=== PATIENT | female | born 1945 | race Caucasian/White ===

== ENCOUNTER 2022-03-11 14:44 | Outpatient (REF) | payer MEDICARE, SELFPAY ==
--- NOTE | ~2022-03-11 | MM_ITS ---
EXAMINATION: MM DIAGNOSTIC DIGITAL BREAST TOMOSYNTHESIS, BILATERAL US DIAGNOSTIC ULTRASOUND BREAST, RIGHT CLINICAL INFORMATION: Subtle palpable finding noted by patient lower outer right breast. Subtle skin dimpling with change in arm position right breast noted by patient. Remote history right breast cancer, status post lumpectomy 2004. Due for yearly. Prior mammography 2018. COMPARISON: Mammography: 02/16/2018, 12/19/2014, 05/15/2014, 11/10/2013 TECHNIQUE: Digital breast tomosynthesis is performed in both the craniocaudal and mediolateral oblique views along with computer-aided detection (CAD). Synthesized 2D images are generated from the tomosynthesis. Additional views are obtained: Spot right CC, rolled right CC x2. Ultrasound right breast is targeted to the lower and outer quadrant. Patient is able to point to the area of concern at time of imaging. Grayscale imaging and color Doppler are performed without and with harmonics. Additional imaging right axilla are also performed. FINDINGS: There are scattered areas of fibroglandular density (ACR BI-RADS breast composition Category b). There are post therapy changes on the right with mild reduced breast size and old scarring with benign bulky dystrophic calcification posterior 12:30 o'clock position. There is subtle increased attenuation central outer right breast mid depth on CC tomography approximately 1 cm in size. This is also suggested on the right CC spot and right CC rolled views and representing change from prior exam 2018. The axilla and skin contours are unremarkable. Left breast is unremarkable. There is no interval mass or architectural abnormality or developing density. Neither breast shows abnormal calcifications. Ultrasound right breast demonstrates subtle irregular shaped hypoechoic area at 7:00-8:00 position measuring approximately 1.0 x 0.9 cm. There is some scant posterior shadowing. The location and shape appears similar to mammographic finding. Additional imaging right axilla demonstrates no lymphadenopathy. Results are discussed with the patient at time of visit. Ultrasound-guided core biopsy of the right breast lesion is recommended. MM/MM tomosynthesis diagnostic BI IMPRESSION: Right: -Subtle asymmetric density central outer right breast mid depth with probable ultrasound correlate. Left: -No mammographic evidence of malignancy. ASSESSMENT: BI-RADS 4: Suspicious RECOMMENDATION: Ultrasound-guided core biopsy right breast lesion. This patient's information was entered into a reminder system with a target due date for their next mammogram.
== END 2022-03-11 14:45 | disposition home or self-care (01) ==
LOC: HO.MAMMO 14:44
PROVIDERS: PCP Nurse Practitioner; Visit Provider Nurse Practitioner
DX: N64.89 Other specified disorders of breast (principal); Z85.3 Personal history of malignant neoplasm of breast
CPT/HCPCS: 76642; 77062; 77066

== ENCOUNTER 2022-03-16 10:14 | Outpatient (REF) | payer OTHER, SELFPAY ==
--- NOTE | ~2022-03-16 | MM_ITS ---
EXAMINATION: ULTRASOUND GUIDED CORE BIOPSY BREAST, RIGHT POST PROCEDURE DIGITAL MAMMOGRAM, RIGHT CLINICAL INFORMATION: Prior history right breast cancer, status post lumpectomy 2004. Patient notes palpable changes lower outer right breast. Subtle skin dimpling. Findings also noted on recent diagnostic breast imaging. Tissue sampling recommended. COMPARISON: Mammography 03/11/2022, 02/16/2018, targeted right breast ultrasound 03/11/2022. FINDINGS: Proper informed consent is obtained from the patient after discussion of the procedure, potential risks and complications, and alternatives. Patient was given an opportunity for questions. The patient appeared to understand. The patient consented to the procedure and signed the consent form. GUIDANCE: Ultrasound-guided; aseptic technique. LESION: Irregular hypoechoic lesion mid 8:00 right breast approximately 1 cm. APPROACH: Lateral medial. ANESTHESIA: 16 mL carbonated 1% lidocaine. DERMATOTOMY: Single skin momo dermatotomy performed. NEEDLE: 14-gauge Achieve core biopsy device with 13.5-gauge co-axial guide needle. CORES: 6. CLIP: HydroMARK; shape: open coil. POST PROCEDURE UNILATERAL DIGITAL MAMMOGRAM: The post biopsy mammogram is performed in separate room using separate digital mammography equipment from the biopsy procedure. CC and ML views are obtained. There are scattered areas of fibroglandular density (breast composition category: b). The clip marker is in position and corresponds to finding on recent diagnostic mammography. There is some old scarring and dystrophic calcification from remote prior lumpectomy again seen. No gross hematoma. The patient tolerated the procedure well. No immediate complications. Home instructions reviewed with the patient. Final pathology results are pending. MM/MM diagnostic mammo unilat RT IMPRESSION: 1. Status post ultrasound-guided core biopsy right breast. 2. Clip placed: HydroMARK; shape: open coil. 3. Pathology pending. An addendum report will be issued.
[2022-03-16] MEDS: Sodium Bicarbonate 8.4% 50 MEQ/50 ML VIAL SUBCUT (11:37)
[2022-03-16] MEDS: Lidocaine HCl 1 % 20 ML VIAL 15 ML SUBCUT (11:38)
== END 2022-03-16 10:15 | disposition home or self-care (01) ==
LOC: HO.MAMMO 10:14
PROVIDERS: PCP Nurse Practitioner; Visit Provider Surgery
DX: R92.8 Other abnormal and inconclusive findings on diagnostic imaging of breast (principal)
CPT/HCPCS: 19083; 77062; 77065; 88305; 88341; 88342; 88360; A4648

== ENCOUNTER → 2022-03-19 11:19 | Outpatient (BNVA) | payer OTHER, SELFPAY | PROVIDERS: PCP Nurse Practitioner; Referring Provider Nurse Practitioner; Visit Provider Surgery | DX: R92.8 Other abnormal and inconclusive findings on diagnostic imaging of breast (principal); C50.919 Malignant neoplasm of unspecified site of unspecified female breast | CPT/HCPCS: 99202 ==

== ENCOUNTER 2023-02-23 16:51 | Emergency (ER) | payer OTHER, SELFPAY ==
--- NOTE | 2023-02-23 | ECG_ITS ---
Test Reason : CP Blood Pressure : / mmHG Vent. Rate : 067 BPM Atrial Rate : 067 BPM P-R Int : 152 ms QRS Dur : 086 ms QT Int : 404 ms P-R-T Axes : 038 -33 000 degrees QTc Int : 426 ms Normal sinus rhythm Left axis deviation Abnormal ECG When compared with ECG of 31-OCT-2014 16:54, Right bundle branch block is no longer Present Referred By: Generic ED Physician Electronically Signed By:Joss Colbert
--- NOTE | ~2023-02-23 | XR_ITS ---
EXAMINATION: XR CHEST CLINICAL INFORMATION: Chest pain. COMPARISON: Chest radiograph 10/31/2014. TECHNIQUE: Frontal view of the chest was obtained. FINDINGS: New small left-sided pleural effusion with associated left lower lobe airspace opacities. Clear right lung. No pneumothorax. No significant cardiomediastinal contour abnormality. Surgical clips are noted in the right perihilar region, right axillary region and right upper quadrant. No acute osseous abnormalities. XR/XR chest 1V IMPRESSION: New small left-sided pleural effusion with associated left lower lobe airspace opacities which could represent compressive atelectasis, aspiration or pneumonia.
--- NOTE | ~2023-02-23 | CT_ITS ---
EXAMINATION: CT ANGIOGRAM OF THE CHEST WITH AND WITHOUT CONTRAST (CT PULMONARY ANGIOGRAM FOR PE) CLINICAL INFORMATION: Chest pain and shortness of breath. COMPARISON: Chest radiograph earlier today. TECHNIQUE: Prior to contrast administration, noncontrast localization images were obtained. Subsequently, multidetector volumetric imaging was performed from the thoracic inlet to below the diaphragms following the administration of 65 mL Omnipaque 350 intravenous contrast. No contrast reaction reported Sagittal, coronal, and MIP oblique sagittal reformatted images were obtained on the CT workstation, uploaded to PACS, and reviewed. This CT examination was performed using dose optimization techniques as appropriate, variously including the following: *Automated exposure control *Adjustment of mA and/or kV according to patient size (this includes techniques or standardized protocols for targeted exams where dose is matched to indication/reason for exam; i.e. extremities or head) *Use of iterative reconstruction technique Total exam dose-length product 194 mGy-cm FINDINGS: QUALITY OF STUDY/CONTRAST BOLUS: Satisfactory. PULMONARY ARTERIES: Pulmonary emboli within multiple segmental branches of the left lower lobe. THORACIC AORTA: No aneurysm. LUNG: Moderate-sized left-sided pleural effusion with airspace opacities in the adjacent left lower lobe, favored to represent compressive atelectasis. Background of emphysematous changes. Mild diffuse bronchial wall thickening. Central airways are patent. Scattered sub-3 mm pulmonary nodules, for instance in the right apex (7:93). Multiple calcified granulomas. PLEURA: As above, moderate size left-sided pleural effusion. No pneumothorax. MEDIASTINUM: Normal heart size. No pericardial effusion. No hilar or mediastinal lymphadenopathy. No evidence of septal bowing or right heart strain. CORONARY ARTERY CALCIFICATION: Coronary artery calcifications are noted. CHEST WALL/AXILLA: Right-sided mastectomy. No axillary lymphadenopathy. OSSEOUS STRUCTURES: Degenerative changes of the spine. No acute or aggressive appearing osseous abnormalities. UPPER ABDOMEN: Unremarkable. No reflux of contrast into the hepatic veins to suggest elevated right heart pressures. CT/CT angio chest PE protocol IMPRESSION: 1. Pulmonary emboli within multiple segmental branches of the left lower lobe. 2. No evidence of increased right-sided heart pressures. 3. Moderate-sized left-sided pleural effusion with adjacent airspace opacities, favored to represent compressive atelectasis. 4. Background of emphysematous changes and mild diffuse bronchial wall thickening suggesting small airways disease. 5. Sub-3 mm pulmonary nodules. In this patient with history of breast cancer Fleischner criteria do not applied, and a follow-up diagnostic chest CT is recommended for reevaluation. VTE: positive This critical result was discussed with Debra Zhou at 02/23/2023 9:18 PM and it was ascertained that the content and urgency of the report was understood at the time of direct communication.
[2023-02-23 16:57] VITALS: BP 100/70; BP 129/48; PULSE 69; PULSE 90; RESP 16; TEMP 36.8; O2SAT 97; BMI 29.2
[2023-02-23 18:09] LABS: MANUAL DIFF FLAG NO
[2023-02-23 18:12] LABS: Basophils Percent Auto 0.2 % (0-2); Eosinophils Absolute Auto 0.1 X10*3/uL (0.0-0.4); Eosinophils Percent Auto 1.9 % (0-4); Hemoglobin 11.1 g/dl (12.0-16.0); Imm Gran Abs Auto 0.02 X10*3/uL (0.00-0.03); Imm Gran Pct Auto 0.3 % (0.0-0.4); Lymphocytes Absolute Auto 1.4 X10*3/uL (1.2-4.9); Lymphocytes Percent Auto 24.1 % (20-40); Mean Corpuscular HGB Conc 32.6 g/dl (31.0-35.0); Mean Corpuscular Hemoglobin 30.1 pg (27.0-33.0); Mean Corpuscular Volume 92.1 fL (80.0-98.0); Mean Platelet Volume 8.8 fL (9.4-12.3); Monocytes Absolute Auto 0.5 X10*3/uL (0.1-1.2); Monocytes Percent Auto 8.4 % (2-11); Neutrophils Absolute Auto 3.7 x10*3/uL (2.0-8.3); Neutrophils Percent Auto 65.1 % (45-73); Platelet Count 269 X10*3/uL (160-400); Red Blood Count 3.69 X10*6/uL (4.20-5.50); Red Cell Distribution Width 13.4 % (11.0-16.0); White Blood Count 5.7 X10*3/uL (4.8-10.8)
[2023-02-23 18:23] LABS: INTERNATIONAL NORM RATIO 1.6 (0.9-1.1); Prothrombin Time 18.7 SEC (10.0-13.1)
[2023-02-23 18:27] LABS: Alanine Aminotransferase 12 U/L (0-31); Albumin Level 3.5 g/dL (3.5-5.0); Alkaline Phosphatase 88 U/L (39-117); Anion Gap 13 (12-20); Aspartate Amino Transferase 16 U/L (5-31); Bilirubin Total 0.8 mg/dL (0.0-1.0); Blood Urea Nitrogen 15 mg/dL (9-16); Calcium 8.5 mg/dL (8.4-10.2); Carbon Dioxide 24 mmol/L (22-29); Chloride 107 mmol/L (96-108); Creatinine Clr Calc Pharmacy 51.6; Estimated Glomerular Filt Rate > 60; Glucose Random 94 mg/dL (60-115); Magnesium 1.9 mg/dL (1.6-2.6); Potassium 3.9 mmol/L (3.3-5.1); Sodium 140 mmol/L (135-145); Total Protein 5.7 g/dL (6.5-8.0)
--- NOTE | 2023-02-23 18:30 | ED.CHESTPAIN ---
HPI - Chest Pain General Chief Complaint: Chest Pain Stated Complaint: Chest pain Time Seen by Provider: 02/23/23 17:52 Source: patient and EMS Mode of arrival: EMS Limitations: no limitations History of Present Illness HPI narrative: This is a 77-year-old female history of invasive ductal carcinoma of the breast, triple negative malignant neoplasm of breast status post bilateral lumpectomy, radiation and chemotherapy last chemo session about 2 months ago, presenting to the emergency department for evaluation of chest pain, shortness of breath progressively worsening over the past 2 weeks, patient tells me about a week ago she was diagnosed with a pulmonary embolism at [facility], they started her on p.o. Eliquis, despite this she has been having worsening chest pain, substernal in nature, fluctuates between a pressure and stabbing pain, nonradiating worse with deep breathing as well as shortness of breath both at rest and with exertion. Patient reports that this is the worst she has felt she reached out to her primary care provider who had her come to the emergency department by ambulance for evaluation. Patient also reports she has been having some wheezing and cough as well as a sore throat. Denies fevers, nausea, vomiting, abdominal pain, headache, vision changes, dizziness and weakness. Patient does report that about 3 weeks ago she had an oophorectomy done which they could not successfully finished due to large amount of adhesions, and shortly prior to that she had a mastectomy done. Related Data Home Medications Medication Instructions Recorded Confirmed cholecalciferol (vitamin D3) 50 1 cap PO DAILY 03/26/22 03/26/22 mcg (2,000 unit) capsule multivitamin 1 tab PO DAILY 03/26/22 03/26/22 zinc 50 mg tablet 50 mg PO DAILY 03/26/22 03/26/22 Previous Rx's Medication Instructions Recorded albuterol sulfate 90 mcg/actuation 2 inh inhalation Q4-6H PRN 02/23/23 breath activated powder inhaler shortness of breath or wheezing #1 ea doxycycline hyclate 100 mg capsule 100 mg PO BID 10 days #20 caps 02/23/23 prednisone 20 mg tablet 40 mg PO DAILY 5 days #10 tabs 02/23/23 Allergies Allergy/AdvReac Type Severity Reaction Status Date / Time Sulfa (Sulfonamide Allergy Severe DIFFICULTY Unverified 03/26/22 10:41 Antibiotics) BREATHING [SULFA (SULFONAMIDE ANTIBIOTICS)] Sulfa drugs Allergy Unknown Unknown Uncoded 03/26/22 10:41 Review of Systems Review of Systems: Constitutional : No Weight loss, No Fever, No Chills, No Fatigue, No Malaise ENT/Mouth : No sore throat, No Rhinorrhea Eyes: No Eye Pain, No Swelling, No Redness Cardiovascular : No Chest Pain, No SOB, No Dyspnea on Exertion, No Orthopnea, No Edema, No Palpitations Respiratory : No Cough, No Sputum, No Wheezing Gastrointestinal : No Nausea, No Vomiting, No Diarrhea, No Constipation, No abdominal Pain, No Hematochezia, No Melena Genitourinary : No Dysuria, No Urinary Frequency, No Hematuria, Musculoskeletal : No joint pain, No Myalgias, No Joint Swelling Skin : No Skin Lesions, No rash Neuro : No Weakness, No Numbness, No Dizziness, No Headache Psych : No Anxiety/Panic, No Depression All other systems reviewed and are negative Yes all other systems are reviewed and are negative PMFSH Past Medical History Attestation statement: The following information was validated with the patient. Source: old records reviewed and nursing notes reviewed Medical History Breast lesion on mammography Invasive ductal carcinoma of breast Surgical History History of right breast biopsy Family History Family History Mother Breast cancer Social History Social History Household Members: None Housing: Apartment Are you a primary home care associate to a significant other at home: No Do you presently have visiting nurse or other home services: No Alcohol intake: never Patient Tobacco Use Status: Never used Tobacco Smoked in Last 30 Days: No Use of substances other than those prescribed or required for medical reasons: No Advance Directives: No Advance Directives Information Provided: No service: No Current occupational status: employed and retired Physical Exam Vital Signs: Vital Signs: Last Vital Signs Temp 97.6 F 02/23/23 23:57 Pulse 70 02/23/23 23:57 Resp 20 02/23/23 23:57 BP 118/62 02/23/23 23:57 Pulse Ox 97 02/23/23 23:57 O2 Del Method Room Air 02/23/23 23:57 BMI result Body Mass Index 29.2 vss Appearance: Alert.? Oriented X3.? No acute distress.? Head: Normocephalic, atraumatic, no step-offs or deformities Eyes: Pupils equal, round and reactive to light.? ENT: Pharynx normal.? Neck: Normal inspection.? Neck supple.? CVS: Normal heart rate and rhythm.? Pulses normal.? Respiratory: No respiratory distress.? Breath sounds normal.? Abdomen: Soft and nontender.? Skin: Skin warm and dry.? Normal skin color.? Normal skin turgor.? Extremities: No lower extremity edema.? No calf ttp. global weakness Back: No midline tenderness, no C-spine tenderness, full range of motion, no CVA tenderness bilaterally Neuro: Oriented X 3.? No motor deficit.? No sensory deficit. CN 2-12 intact Course Reevaluation(s) Reevaluation #1: Spoke to patients PCP Dr. Ackerman, PE- LL segmental and subsequential arteries, nonocclusive subsegmental RLL. Paqtients PCP who received a call from oncology who is concerned for right heart strain. Also recommends admission and echo. Ovarian cancer also a new diagnosis per patients PCP. Time: 18:45 Reevaluation #2: Patient's CBC with slight normocytic anemia hemoglobin 11.1, hematocrit 34.0. Chemistry with no acute findings requiring intervention. Troponin negative, EKG nonischemic unlikely ACS, BNP within normal limits unlikely that this is CHF. Chest x-ray with a new small left-sided pleural effusion with associated left lower lobe airspace opacities which could represent compressive atelectasis versus aspiration or pneumonia. Patient does have URI symptoms concern for possible pneumonia. CTA received to call with left lower lobe PE, patient anticoagulated on Eliquis, this is where patient had a P few weeks ago on imaging. Patient has been advised to continue her blood thinners. I did obtain an ambulatory O2 on this patient patient is saturating 95% the entire time and reporting some shortness of breath. I did have a long conversation with hospitalist who evaluated this patient for admission and does not feel it is appropriate at this time, not meeting criteria for inpatient level of care. Hospitalist recommends p.o. antibiotics for pneumonia outpatient follow-up and Cardiology follow-up. pending second trop Time: 21:22 Reevaluation #3: Second troponin normal, patient very unhappy that she is going to be discharged, she tells me that she feels too weak to walk around and has not been able to get up because she feels weak. She tells me this is the 3rd time in the hospital in the past 6 days she tells me she does does not feel well enough to go home. Will speak to hospitalist again. Time: 23:53 Additional Reevaluation(s): I did have a long conversation with patient. I explained to her she is not meeting inpatient criteria. She tells me she feels weak and unsafe to go back home. He states she is having difficulties with ambulation. Will put in a PT case management consult. To see if patient can have additional resources at home. I did order scheduled doxycycline for pneumonia. At this time patient to be placed in observation, time observation was started patient common cooperative no acute distress hemodynamically stable saturating well on room air. Will continue to monitor Medications Administered Discontinued Medications Generic Name Dose Route Start Last Admin Trade Name Freq PRN Reason Stop Dose Admin Ceftriaxone Sodium 1 gm/ 50 mls @ 100 mls/hr 02/23/23 19:24 02/23/23 21:56 Sodium Chloride IV 02/23/23 19:53 Infused ONCE ONE Infusion Iohexol 100 ml 02/23/23 19:07 02/23/23 19:07 Iohexol 350 Mg/Ml 100 Ml Infus..Btl IV 02/23/23 19:08 65 ml ONCE ONE Administration Medical Decision Making Medical Decision Making [facility] Narrative: 1832 77-year-old female presents with worsening chest pain and shortness of breath over the past few days however symptoms presents past 2 weeks recently diagnosed with pulmonary embolism and started on Eliquis. Physical exam benign. Concerns for worsening pulmonary embolism, possible metastasis, URI, viral illness, PNA . Other differentials which are less likely include ACS, CHF. Unlikely that this is aortic dissection a ruptured aneurysm, no signs of pneumothorax. Plan at this time labs, urine viral testing, EKG, troponin, cardiac monitoring. Although patient did have a CTA obtained about a week ago patient reports worsening symptoms therefore there is a medical need to re-obtain imaging of patient's chest, will obtain CTA to rule out that there is no saddle pulmonary embolism due to patient's history of malignancy and her postoperative state. Differential Diagnosis Differential Diagnoses: The differential diagnosis associated with the presentation includes Concerns for worsening pulmonary embolism, possible metastasis, URI, viral illness, PNA. Other differentials which are less likely include ACS, CHF. Unlikely that this is aortic dissection a ruptured aneurysm, no signs of pneumothorax. Admission/Observation Consideration of admission/observation: Escalation of care including admission/observation considered Lab Data MDM Lab Attestation statement: I reviewed the patient's lab results. 02/23/23 18:05 02/23/23 18:05 Labs: Lab Results 02/23/23 02/23/23 02/23/23 Range/Units 18:05 18:05 18:05 WBC 5.7 (4.8-10.8) X10*3/uL RBC 3.69 L (4.20-5.50) X10*6/uL Hgb 11.1 L (12.0-16.0) g/dl Hct 34.0 L (37.0-47.0) % MCV 92.1 (80.0-98.0) fL MCH 30.1 (27.0-33.0) pg MCHC 32.6 (31.0-35.0) g/dl RDW 13.4 (11.0-16.0) % Plt Count 269 (160-400) X10*3/uL MPV 8.8 L (9.4-12.3) fL Immature Gran % (Auto) 0.3 (0.0-0.4) % Neut % (Auto) 65.1 (45-73) % Lymph % (Auto) 24.1 (20-40) % [place] % (Auto) 8.4 (2-11) % Eos % (Auto) 1.9 (0-4) % Baso % (Auto) 0.2 (0-2) % Lymph # (Auto) 1.4 (1.2-4.9) X10*3/uL [place] # (Auto) 0.5 (0.1-1.2) X10*3/uL Eos # (Auto) 0.1 (0.0-0.4) X10*3/uL Baso # (Auto) 0.0 (0.0-0.2) X10*3/uL Abs Immat Gran (auto) 0.02 (0.00-0.03) X10*3/uL Absolute Neuts (auto) 3.7 (2.0-8.3) x10*3/uL Absolute Nucleated RBC 0.000 (0.0-0.012) X10*3/uL Nucleated RBC % (auto) 0.0 (0.0-0.2) /100WBC PT 18.7 H (10.0-13.1) SEC INR 1.6 H (0.9-1.1) Sodium 140 (135-145) mmol/L Potassium 3.9 (3.3-5.1) mmol/L Chloride 107 (96-108) mmol/L Carbon Dioxide 24 (22-29) mmol/L Anion Gap 13 (12-20) BUN 15 (9-16) mg/dL Creatinine 0.76 (0.5-1.4) mg/dL Estim Creat Clear Calc 51.6 Estimated GFR > 60 Random Glucose 94 (60-115) mg/dL Lactic Acid (0.5-2.0) mmol/L Calcium 8.5 D (8.4-10.2) mg/dL Magnesium 1.9 (1.6-2.6) mg/dL Total Bilirubin 0.8 (0.0-1.0) mg/dL AST 16 (5-31) U/L ALT 12 (0-31) U/L Alkaline Phosphatase 88 (39-117) U/L Troponin I High Sens (<3.5-17.0) ng/L C-Reactive Protein 1.71 H (< or = 0.50) mg/dL B-Natriuretic Peptide (<100) pg/mL Total Protein 5.7 L (6.5-8.0) g/dL Albumin 3.5 (3.5-5.0) g/dL COVID-19 ([facility]) (Negative) COVID-19 Clin Com 02/23/23 02/23/23 02/23/23 Range/Units 18:05 18:05 20:11 WBC (4.8-10.8) X10*3/uL RBC (4.20-5.50) X10*6/uL Hgb (12.0-16.0) g/dl Hct (37.0-47.0) % MCV (80.0-98.0) fL MCH (27.0-33.0) pg MCHC (31.0-35.0) g/dl RDW (11.0-16.0) % Plt Count (160-400) X10*3/uL MPV (9.4-12.3) fL Immature Gran % (Auto) (0.0-0.4) % Neut % (Auto) (45-73) % Lymph % (Auto) (20-40) % [place] % (Auto) (2-11) % Eos % (Auto) (0-4) % Baso % (Auto) (0-2) % Lymph # (Auto) (1.2-4.9) X10*3/uL [place] # (Auto) (0.1-1.2) X10*3/uL Eos # (Auto) (0.0-0.4) X10*3/uL Baso # (Auto) (0.0-0.2) X10*3/uL Abs Immat Gran (auto) (0.00-0.03) X10*3/uL Absolute Neuts (auto) (2.0-8.3) x10*3/uL Absolute Nucleated RBC (0.0-0.012) X10*3/uL Nucleated RBC % (auto) (0.0-0.2) /100WBC PT (10.0-13.1) SEC INR (0.9-1.1) Sodium (135-145) mmol/L Potassium (3.3-5.1) mmol/L Chloride (96-108) mmol/L Carbon Dioxide (22-29) mmol/L Anion Gap (12-20) BUN (9-16) mg/dL Creatinine (0.5-1.4) mg/dL Estim Creat Clear Calc Estimated GFR Random Glucose (60-115) mg/dL Lactic Acid (0.5-2.0) mmol/L Calcium (8.4-10.2) mg/dL Magnesium (1.6-2.6) mg/dL Total Bilirubin (0.0-1.0) mg/dL AST (5-31) U/L ALT (0-31) U/L Alkaline Phosphatase (39-117) U/L Troponin I High Sens < 2.7 (<3.5-17.0) ng/L C-Reactive Protein (< or = 0.50) mg/dL B-Natriuretic Peptide 28 (<100) pg/mL Total Protein (6.5-8.0) g/dL Albumin (3.5-5.0) g/dL COVID-19 ([facility]) Negative (Negative) COVID-19 Clin Com See Note 02/23/23 02/23/23 Range/Units 21:14 22:10 WBC (4.8-10.8) X10*3/uL RBC (4.20-5.50) X10*6/uL Hgb (12.0-16.0) g/dl Hct (37.0-47.0) % MCV (80.0-98.0) fL MCH (27.0-33.0) pg MCHC (31.0-35.0) g/dl RDW (11.0-16.0) % Plt Count (160-400) X10*3/uL MPV (9.4-12.3) fL Immature Gran % (Auto) (0.0-0.4) % Neut % (Auto) (45-73) % Lymph % (Auto) (20-40) % [place] % (Auto) (2-11) % Eos % (Auto) (0-4) % Baso % (Auto) (0-2) % Lymph # (Auto) (1.2-4.9) X10*3/uL [place] # (Auto) (0.1-1.2) X10*3/uL Eos # (Auto) (0.0-0.4) X10*3/uL Baso # (Auto) (0.0-0.2) X10*3/uL Abs Immat Gran (auto) (0.00-0.03) X10*3/uL Absolute Neuts (auto) (2.0-8.3) x10*3/uL Absolute Nucleated RBC (0.0-0.012) X10*3/uL Nucleated RBC % (auto) (0.0-0.2) /100WBC PT (10.0-13.1) SEC INR (0.9-1.1) Sodium (135-145) mmol/L Potassium (3.3-5.1) mmol/L Chloride (96-108) mmol/L Carbon Dioxide (22-29) mmol/L Anion Gap (12-20) BUN (9-16) mg/dL Creatinine (0.5-1.4) mg/dL Estim Creat Clear Calc Estimated GFR Random Glucose (60-115) mg/dL Lactic Acid 1.0 (0.5-2.0) mmol/L Calcium (8.4-10.2) mg/dL Magnesium (1.6-2.6) mg/dL Total Bilirubin (0.0-1.0) mg/dL AST (5-31) U/L ALT (0-31) U/L Alkaline Phosphatase (39-117) U/L Troponin I High Sens < 2.7 (<3.5-17.0) ng/L C-Reactive Protein (< or = 0.50) mg/dL B-Natriuretic Peptide (<100) pg/mL Total Protein (6.5-8.0) g/dL Albumin (3.5-5.0) g/dL COVID-19 ([facility]) (Negative) COVID-19 Clin Com Independent Interpretation I performed an independent interpretation of an: Plain X-Ray and CT Scan Radiology Impression Discussion of test interpretation with radiology: I have reviewed the radiologist's reading. External Record Review External record reviewed: Inpatient record, Office record, Outpatient record, Prior outpatient labs, Prior outpatient radiology, Primary care record and Outside ED record Chronic Conditions Patient?s care impacted by: Cancer Core Measures AMI core measures followed: Yes Measure exclusions: not indicated Critical Care Time Critical Care Time Critical Care Time: No Discharge Plan Discharge Clinical Impression: Chest pain, Shortness of breath, Pulmonary embolism, Pneumonia, Pleural effusion Patient Disposition: Home, Self-Care Instructions: Chest Pain (DC), Pleural Effusion (ED), Pneumonia (ED), Blood Thinners (ED) Additional Instructions: Take your medications as prescribed. If you were prescribed antibiotics today, it is important that you take your medication to their entirety, do not skip any doses, do not finish them early. Follow-up with your primary care provider this week. Please call and schedule an appointment with Cardiology within the next week. Return to the emergency department with new or worsening symptoms. Such as fevers, chills, chest pain, shortness of breath, nausea, vomiting, dizziness, headache, vision changes, lethargy In case of emergency call 911 Please continue to take her Eliquis. Doxycycline is an antibiotic that has been sent to your pharmacy, please avoid direct sunlight with this antibiotic and take with food. Please continue to take your blood thinner as prescribed. He would benefit from seeing Cardiology outpatient, and possibly get an echocardiogram. I have given you the information below, please call to schedule an appointment CT/CT angio chest PE protocol IMPRESSION: ? 1.? Pulmonary emboli within multiple segmental branches of the left lower lobe. 2.? No evidence of increased right-sided heart pressures. 3.? Moderate-sized left-sided pleural effusion with adjacent airspace opacities, favored to represent compressive atelectasis. 4.? Background of emphysematous changes and mild diffuse bronchial wall thickening suggesting small airways disease. 5.? Sub-3 mm pulmonary nodules. In this patient with history of breast cancer Fleischner criteria do not applied, and a follow-up diagnostic chest CT is recommended for reevaluation. ? VTE: positive XR/XR chest 1V IMPRESSION: New small left-sided pleural effusion with associated left lower lobe airspace opacities which could represent compressive atelectasis, aspiration or pneumonia. ? Prescriptions: New doxycycline hyclate 100 mg capsule 100 mg PO BID 10 Days Qty: 20 0RF prednisone 20 mg tablet 40 mg PO DAILY 5 Days Qty: 10 0RF albuterol sulfate 90 mcg/actuation aerosol powdr breath activated 2 inh inhalation Q4-6H PRN (Reason: shortness of breath or wheezing) Qty: 1 0RF No Action multivitamin Tablet 1 tab PO DAILY zinc 50 mg Tablet 50 mg PO DAILY cholecalciferol (vitamin D3) 50 mcg (2,000 unit) capsule 1 cap PO DAILY Referrals: [facility] Cardiovascular Services [Provider Group] - 2 days Name,MD Chele [Primary Care Provider] - 2 days
[2023-02-23 18:40] LABS: Troponin-I High Sensitivity < 2.7 ng/L (<3.5-17.0)
[2023-02-23 18:48] VITALS: PULSE 64; RESP 12; O2SAT 98
[2023-02-23] MEDS: iohexoL 350 MG/ML 100 ML INFUS..BTL IV (19:07)
[2023-02-23 19:35] LABS: B Type Natriuretic Peptide 28 pg/mL (<100)
[2023-02-23 20:24] VITALS: O2SAT 95
--- NOTE | 2023-02-23 20:24 | PC.NURSE ---
ambulated for trending pulse ox, maintained 95% throughout. assisted back to stretcher, repositioned for comfort. provider made aware.
[2023-02-23 21:08] LABS: COVID-19 Test Negative (Negative); IDNOW Serial# BCCEAD1C
[2023-02-23] MEDS: cefTRIAXone sodium 1 GM in 0.9 % Sodium Chloride 50 ML IV (21:23)
[2023-02-23 22:52] LABS: Troponin-I High Sensitivity < 2.7 ng/L (<3.5-17.0)
[2023-02-23 23:46] LABS: C Reactive Protein 1.71 mg/dL (< or = 0.50)
--- NOTE | 2023-02-23 23:55 | PC.NURSE ---
Patient is alert and oriented x3. Patient is able to make her needs known. VSS. O2 Sat 95% RA. Patient continues to complain of chest pain when taking deep breaths 3/10 at present. Patient reports pain is at tolerable level. Patient provided with ham sandwich and aleshia donita. Call amador placed within patient's reach.
[2023-02-23 23:57] VITALS: BP 118/62; PULSE 70; RESP 20; TEMP 36.4; O2SAT 97
--- NOTE | 2023-02-24 01:25 | PC.NURSE ---
Patient requesting IV line to be removed d/t pain/discomfort at IV insertion site. Colleen, ED provider is aware. IV line removed per patient's request.
[2023-02-24] MEDS: Apixaban 5 MG TABLET PO ×2 (01:51→08:29)
[2023-02-24 06:27] VITALS: BP 100/53; PULSE 78; RESP 18; TEMP 36.7; O2SAT 96
--- NOTE | 2023-02-24 06:29 | MHC.EDTECH ---
Vitals taken,Patient ambulated to bathroom with a very steady gait, changed patients gown for comfort. Belongings list done.Call amador in reach
--- NOTE | 2023-02-24 07:24 | PHA.MEDREC ---
Pharmacy Consult ? Medication Reconciliation Pharmacy has completed the medication reconciliation. Reviewed med rec done by nursing
--- NOTE | 2023-02-24 07:44 | PC.NURSE ---
assumed care of this pt at 0700. pt a&o, reporting pain improvement as 3/10. pt reports mild sore throat x3 days as well as sob nubia. pt also reporting sore L arm from multiple lab draws and has asked that labs wait until the pain goes down. tech at bedside and aware. rr even/ubnabored. wctm
[2023-02-24] MEDS: Cholecalciferol (Vitamin D3) 25 MCG TABLET 50 MCG PO (08:29)
[2023-02-24] MEDS: Doxycycline Monohydrate 100 MG CAPSULE PO (08:30)
[2023-02-24] MEDS: Multivitamin TABLET 1 TAB PO (08:30)
[2023-02-24] MEDS: Zinc Sulfate 220 MG CAPSULE PO (09:24)
[2023-02-24 09:31] LABS: Erythrocyte Sedimentation Rate 36 MM/HR (0-20)
[2023-02-24 10:09] VITALS: BP 107/57; PULSE 68; RESP 16; TEMP 36.6; O2SAT 98
--- NOTE | 2023-02-24 10:33 | PC.NURSE ---
received report from MARIELA Rousseau. assumed care of this pt at 1000. pt brought to ovflw unit by emergency medical techWilliam muñoz.
--- NOTE | 2023-02-24 12:49 | MHC.CM.ED ---
Received case management consult overnight. Patient came to the ER due to chest pain. Patient has a history of PE and breast cancer. ER work up showed pneumonia. Patient will not be admitted to the hospital. Physical therapy eval completed. Home therapy is recommended. Met with patient in regards to discharge planning. Patient lives alone, ambulates independently and had no services prior to coming to the hospital. PCP verified. Copy of HCP obtained from [employer]. Patient has received 3 Moderna vaccines. Patient has [facility] options for insurance. Patient aware referral for VNA will be broadcasted in [facility] to see who is contracted with patient's insurance and has staffing availability. Referral broadcasted in [facility]. [facility] can accept patient and start care on Wednesday. [facility] is able to start care in the middle of next week. Per Mulu SUAREZ, start of care can be Wednesday. [facility] made aware. Patient will discharge home today via chair van at 330pm. Patient, Juvenal SIERRA and Mulu SUAREZ aware. Continue to monitor for d/c needs.
[2023-02-24 14:54] VITALS: BP 100/67; PULSE 71; RESP 18; TEMP 36.3; O2SAT 96
== END 2023-02-24 15:50 | disposition home or self-care (01) ==
PROVIDERS: Physician Assistant; Student in an Organized Health Care Education/Training Program; Emergency Provider Emergency Medicine Emergency Medical Services; PCP Internal Medicine Geriatric Medicine
DX: R07.9 Chest pain, unspecified (principal); R06.02 Shortness of breath; J18.9 Pneumonia, unspecified organism; J91.8 Pleural effusion in other conditions classified elsewhere; J02.9 Acute pharyngitis, unspecified; Z20.822 Contact with and (suspected) exposure to COVID-19; Z86.711 Personal history of pulmonary embolism; Z79.01 Long term (current) use of anticoagulants
CPT/HCPCS: 36415; 71045; 71275; 80053; 83605; 83735; 83880; 84484; 85025; 85610; 85652; 86140; 87040; 87635; 93005; 96365; 97161; 99285; J0696; Q9967

== ENCOUNTER 2023-06-23 14:22 | Outpatient (REF) | payer OTHER, SELFPAY ==
[2023-06-23 15:30] LABS: Hematocrit 36.6 % (37.0-47.0); Hemoglobin 11.9 g/dl (12.0-16.0); Mean Corpuscular HGB Conc 32.5 g/dl (31.0-35.0); Mean Corpuscular Hemoglobin 29.4 pg (27.0-33.0); Mean Corpuscular Volume 90.4 fL (80.0-98.0); Mean Platelet Volume 9.8 fL (9.4-12.3); Platelet Count 215 X10*3/uL (160-400); Red Blood Count 4.05 X10*6/uL (4.20-5.50); Red Cell Distribution Width 13.9 % (11.0-16.0); White Blood Count 6.3 X10*3/uL (4.8-10.8)
[2023-06-23 15:56] LABS: B Type Natriuretic Peptide 52 pg/mL (<100)
[2023-06-23 16:21] LABS: Anion Gap 11 (12-20); Blood Urea Nitrogen 18 mg/dL (9-16); Calcium 9.3 mg/dL (8.4-10.2); Carbon Dioxide 22 mmol/L (22-29); Chloride 111 mmol/L (96-108); Estimated Glomerular Filt Rate > 60; Glucose Random 93 mg/dL (60-115); Potassium 3.8 mmol/L (3.3-5.1); Sodium 140 mmol/L (135-145)
[2023-06-23 16:28] LABS: TSH reflex Free T4 3.58 uIU/mL (0.32-4.0)
== END 2023-06-23 14:23 | disposition home or self-care (01) ==
LOC: HO.LAB 14:22
PROVIDERS: PCP Internal Medicine Geriatric Medicine; Referring Provider Internal Medicine Geriatric Medicine; Visit Provider Internal Medicine Cardiovascular Disease
DX: R07.9 Chest pain, unspecified (principal); I26.99 Other pulmonary embolism without acute cor pulmonale; Z79.899 Other long term (current) drug therapy
CPT/HCPCS: 36415; 80048; 83880; 84443; 85027; 99202

== ENCOUNTER 2023-06-23 14:22 | Outpatient (AMB) | payer OTHER, SELFPAY ==
[2023-06-23 14:25] VITALS: BP 110/66; PULSE 76; BMI 25.5
--- NOTE | 2023-06-23 14:25 | A.OFFVIS_ITS ---
Intake Vital Signs 06/23/23 14:25 Height 5 ft 1 in Weight 134 lb 14.766 oz BMI 25.5 BP 110/66 Blood Pressure Location Lt brachial Position Sitting Pulse 76 Pulse Source Pulse Oximeter Intake Visit Reasons: NPV/ED FU/Dr. Mack/Pulmonary Emboli Intake Note: New patient visit for evaluation of pulmonary embolism. Pt reports chest pain. Crm Coordinator Required: No Accompanied by: Self / Same As Patient Allergies Sulfa drugs Allergy (Unknown, Uncoded 06/23/23 14:27) Unknown Medication List - Last Reconciled 06/23/23 by Joss Colbert MD albuterol sulfate 90 mcg/actuation 2 inhalations inhalation Q4-6H PRN apixaban (Eliquis DVT-PE Treat 30D Start) 5 mg PO BID cholecalciferol (vitamin D3) 1 cap PO DAILY multivitamin 1 tab PO DAILY zinc 50 mg PO DAILY HPI HPI Comments History of Present Illness Details 77-year-old female who is here for assessment of chest discomfort. In January 2023 she was diagnosed with pulmonary embolism and has sharp right-sided chest pain at that time. She has been on apixaban since then. Over the last month or so she started feeling center pressure-like tightness along with shortness of breath with activities. This happens when she is going up hill and is suggestive of angina. She has history of breast cancer involving the left side for which she underwent radiation in 2003. She also has right-sided breast cancer and underwent chemotherapy which ended in November 2022. She has not had any recent blood workup. She said she was anemic previously. [facility] Medical History Breast lesion on mammography Invasive ductal carcinoma of breast Surgical History History of right breast biopsy Family History Mother Breast cancer Social History Household Members: None Housing: Apartment Are you a primary palliative care nurse to a significant other at home: No Do you presently have visiting nurse or other home services: No Alcohol intake: never Patient Tobacco Use Status: Never used Tobacco service: No Current occupational status: employed and retired Review of Systems Const Denies chills, Denies daytime sleepiness, Denies fatigue, Denies fever(s), Denies frequent falls, Denies night sweats, Denies snoring, Denies weakness, Denies weight gain and Denies weight loss Eyes Denies loss of vision ENT Denies dizziness and Denies hearing loss Card Denies chest pain, Denies chest pain with activity, Denies syncope, Denies rapid heart rate, Denies edema, Denies claudication, Denies leg edema, Denies lightheadedness, Denies palpitations, Denies dyspnea, Denies dyspnea on exertion and Denies orthopnea Resp Denies cough, Denies excessive phlegm production, Denies dyspnea, Denies dyspnea on exertion, Denies snoring and Denies wheezing GI Denies abdominal pain, Denies hematochezia, Denies change in bowel habits, Denies change in stool character, Denies heartburn, Denies nausea and Denies vomiting Denies hematuria, Denies urinary frequency and Denies dysuria Musc Denies arthralgias, Denies muscle weakness, Denies numbness and Denies tingling Skin/Breast Denies nail changes and Denies rash Neuro Denies Abnormal speech present, Denies dizziness, Denies syncope, Denies frequent falls, Denies loss of vision, Denies memory loss, Denies numbness, Denies tingling and Denies weakness Psych Denies depression and Denies memory loss Endo Denies fatigue and Denies palpitations Aller/Immun Denies wheezing Physical Exam Vital Signs: Last Vital Signs Pulse 76 06/23/23 14:25 BP 110/66 06/23/23 14:25 BMI result Body Mass Index 25.5 GENERAL APPEARANCE: in no acute distress, pleasant. NECK: no carotid bruit, no jugular venous distention. SKIN: no suspicious lesions, warm and dry. HEART: no murmurs, regular rate and rhythm. LUNGS: clear to auscultation bilaterally. ABDOMEN: soft, nontender. EXTREMITIES: no edema. PERIPHERAL PULSES: equal. NEUROLOGIC: No gross deficits, AAO X 3 Neuro Speech: No Abnormal speech present Assessment & Plan Assessment & Plan (1) Chest pain: Code(s): R07.9 - Chest pain, unspecified (2) Pulmonary embolism: Code(s): I26.99 - Other pulmonary embolism without acute cor pulmonale Plan [age] year female who is here for 1st office visit. She has background of pulmonary embolism and is currently on apixaban. She has not had any blood workup recently. She was previously anemic. She is giving a good story for angina but I think we should start with basic blood workup to rule out significant anemia as potential cause for the symptoms. If she truly is anemic then she should have treatment for that 1st. On the other hand if her blood workup is reasonable, I think she needs exercise stress test to rule out obstructive coronary disease. With background of radiation to the left breast in the past, she was at risk of radiation heart disease including ostial coronary artery disease. We will do echocardiography to rule out any restrictive cardiomyopathy/regional wall motion abnormality. Thank you for allowing me to participate in the care of your patient. Please feel free to contact me if you have any questions. Orders: Orders Basic Metabolic Panel Today R07.9 - Chest pain, unspecified B Type Natriuretic Peptide Today R07.9 - Chest pain, unspecified TSH reflex Free T4 Today R07.9 - Chest pain, unspecified Complete Blood Count no Diff Today R07.9 - Chest pain, unspecified CA echo transthoracic complete Today R07.9 - Chest pain, unspecified Coding Level of Care Code New Pt Level 4 (87352) Diagnoses Chest pain R07.9 Pulmonary embolism I26.99
== END 2023-06-23 14:51 | disposition home or self-care (01) ==
PROVIDERS: PCP Internal Medicine Geriatric Medicine; Referring Provider Internal Medicine Geriatric Medicine; Visit Provider Internal Medicine Cardiovascular Disease
DX: R07.9 Chest pain, unspecified (principal); I26.99 Other pulmonary embolism without acute cor pulmonale
CPT/HCPCS: 99204

== ENCOUNTER → 2023-07-26 09:00 | Outpatient (REF) | payer OTHER, SELFPAY ==
--- NOTE | ~2023-07-26 | NM_ITS ---
Lexiscan Myocardial perfusion study Indication: Shortness of breath, assess for coronary disease and ischemia Technique: The patient was brought in for a Lexiscan perfusion study on 07/26/2023 and was injected 0.4 mg of Lexiscan intravenously. Within a minute of this injection 25 mCi of sestamibi was given intravenously. Images were obtained using the SPECT gamma camera interlaced with the gating device. Images were obtained in supine position. Resting perfusion study was performed on 07/29/2023. Patient was administered 25 mCi of sestamibi intravenously at rest. Images were then obtained in supine position. Images were processed with the software and compared side to side in short axis, horizontal long axis and vertical long axis views. Total DLP 69mGy-cm. Findings: Raw acquisition reviewed. The stress perfusion study showed diminished tracer uptake in the basal inferior and distal part of inferolateral wall. There is improvement with CT attenuation correction suggestive of probable diaphragmatic attenuation artifact. The gated study shows normal LV systolic function with calculated LVEF of 74%. LV cavity is normal in size. The gated study shows normal wall thickening and contraction of segments. Resting study shows mildly diminished tracer uptake in the basal part of inferior as well as distal part of inferolateral wall. There is improvement with CT attenuation correction suggestive of diaphragmatic attenuation artifact. Gating not performed. The findings are consistent with fixed perfusion defect in the basal inferior and distal part of inferolateral wall, probably from diaphragmatic attenuation artifact. No reversible defects. MA/MA cardiolite stress test Impression: 1. Myocardial perfusion imaging study shows no clear evidence of ischemia or infarction. Probably normal perfusion. 2. Gated LVEF is 74% during stress. 3. Transient ischemic dilatation not present. EKG component of the test reported separately.
--- NOTE | 2023-07-26 09:04 | CA_ITS ---
Acquisition Time: 2023-07-26 09:35:10 Total Exercise Time: 00:02:22 Test Indications: CP Medications: ALBUTEROL ELIQUIS VIT D Protocol: JOSE Max HR: 141 BPM 100% of Pred: 141 BPM Max BP: 140/060 mmHG Max Work Load: 4.2 METS Exercise stress test exercise 2 min 22 sec of Jose protocol Stage 1 decreased speed 1.5mph with stopping due to concern of safety and report of lightheadedness, achieving 100% MPHR, brisk HR response, with mild SOB, no chest discomfort, without arrhythmias, with normtensive repsonse to exercise, without EKG changes. Lightheadedness and SOB resolved with rest. Test changed to pharmacological stress test with Lexiscan injection. Lexiscan injection while sitting and kicking her legs, without anginal symptoms,without arrhythmias, with normotensive response to injection, with nondiagnositc EKGs. Aminophylline 75mg IVP given to reverse Lexiscan. Nuclear images pending. Test reviewed with Dr. Zavala. Referred By: Joss Colbert Overread By: AUGUST ZAVALA MD
== END ==
LOC: HO.CARD 09:00
PROVIDERS: PCP Internal Medicine Geriatric Medicine; Visit Provider Internal Medicine Cardiovascular Disease
DX: R07.9 Chest pain, unspecified (principal)
CPT/HCPCS: 78452; 93017; A9500; J0280; J2785

== ENCOUNTER → 2023-07-26 09:22 | Outpatient (BNV) | payer OTHER, SELFPAY | PROVIDERS: PCP Internal Medicine Geriatric Medicine; Visit Provider Internal Medicine | DX: R06.02 Shortness of breath (principal) | CPT/HCPCS: 78452; 93016; 93018 ==

== ENCOUNTER 2024-01-07 11:19 | Outpatient (REF) | payer OTHER, SELFPAY ==
--- NOTE | ~2024-01-07 | MR_ITS ---
EXAMINATION: MR PELVIS WITHOUT CONTRAST CLINICAL INFORMATION: Reason for Exam PELVIC PAIN COMPARISON: No pertinent priors currently available. TECHNIQUE: Multiple routine MRI sequences through the pelvis were obtained without IV contrast. FINDINGS: UTERUS: Anteverted uterus has a normal configuration and is normal in size. Endometrium is uniform and measures 0.1 cm in thickness. Junctional zone is normal in signal and thickness. No focal uterine mass seen. CERVIX: Unremarkable. VAGINA: Unremarkable. OVARIES: Ovaries were not identified with certainty. No adnexal mass. KIDNEYS AND VISUALIZED UPPER ABDOMEN: Two normally positioned kidneys are seen. No hydronephrosis. VISUALIZED GI TRACT: Colonic diverticulosis without evidence of diverticulitis. BLADDER: Urinary bladder diverticulum. PELVIC FREE FLUID: Trace free fluid in the pelvis. LYMPH NODES: No pathologically enlarged lymph nodes. OSSEOUS STRUCTURES: Incidentally noted sacral Tarlov cyst. SOFT TISSUES: Unremarkable. MR/MR pelvis wo con IMPRESSION: 1. Colonic diverticulosis without evidence of diverticulitis. 2. Urinary bladder diverticulum. 3. Ovaries were not identified with certainty. No adnexal mass. 4. Trace free fluid in the pelvis.
== END 2024-01-07 11:20 | disposition home or self-care (01) ==
LOC: HO.MRI 11:19
PROVIDERS: PCP Internal Medicine Geriatric Medicine; Visit Provider Internal Medicine Geriatric Medicine
DX: M54.50 Low back pain, unspecified (principal); R10.2 Pelvic and perineal pain
CPT/HCPCS: 72195

== ENCOUNTER 2024-05-29 15:50 | Emergency (ER) | payer OTHER, SELFPAY ==
[2024-05-29 16:22] VITALS: BP 115/70; PULSE 75; RESP 16; TEMP 36.6; O2SAT 98; BMI 23.6
--- NOTE | 2024-05-29 16:23 | ED.ABDPAIN ---
HPI - Abdominal Pain General Chief Complaint: Abdominal Pain Stated Complaint: rectal bleeding Related Data Home Medications ?Medication ?Instructions ?Recorded ?Confirmed cholecalciferol (vitamin D3) 50 1 cap PO DAILY 03/26/22 06/23/23 mcg (2,000 unit) capsule multivitamin 1 tab PO DAILY 03/26/22 06/23/23 zinc 50 mg tablet 50 mg PO DAILY 03/26/22 06/23/23 apixaban 5 mg (74 tabs) tablets in 5 mg PO BID 02/24/23 06/23/23 a dose pack (Eliquis DVT-PE Treat 30D Start) Previous Rx's ?Medication ?Instructions ?Recorded albuterol sulfate 90 mcg/actuation 2 inh inhalation Q4-6H PRN 02/23/23 breath activated powder inhaler shortness of breath or wheezing #1 ea Allergies Allergy/AdvReac Type Severity Reaction Status Date / Time Sulfa drugs Allergy Unknown Hives Uncoded 05/29/24 16:30 [facility] Past Medical History Medical History Breast lesion on mammography Invasive ductal carcinoma of breast Surgical History History of right breast biopsy Family History Family History Mother Breast cancer Social History Social History Household Members: None Housing: Apartment Are you a primary critical care technician to a significant other at home: No Do you presently have visiting nurse or other home services: No Alcohol intake: never Patient Tobacco Use Status: Never used Tobacco Advance Directives: Yes Advance Directives on File: Yes Advance Directives Date on File: 02/24/23 service: No Current occupational status: employed and retired Physical Exam ED Vital Signs: BMI result Body Mass Index 23.6 Course Course Course Narrative: This is an RME: Additional HPI, ROS, PE not included below will be deferred to primary provider. 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 Plan: Labs, EKG, further ER evaluation needed Reevaluation(s) Reevaluation #1: Patient left without completing treatment. Medical Decision Making Lab Data 05/29/24 16:42 05/29/24 16:42 Labs: Lab Results 05/29/24 Range/Units 16:42 WBC 5.5 (4.8-10.8) X10*3/uL RBC 3.97 L (4.20-5.50) X10*6/uL Hgb 12.0 (12.0-16.0) g/dl Hct 35.4 L (37.0-47.0) % MCV 89.2 (80.0-98.0) fL MCH 30.2 (27.0-33.0) pg MCHC 33.9 (31.0-35.0) g/dl RDW 14.0 (11.0-16.0) % Plt Count 228 (160-400) X10*3/uL MPV 9.2 L (9.4-12.3) fL Immature Gran % (Auto) 0.2 (0.0-0.4) % Neut % (Auto) 58.2 (45-73) % Lymph % (Auto) 29.6 (20-40) % [place] % (Auto) 8.2 (2-11) % Eos % (Auto) 3.4 (0-4) % Baso % (Auto) 0.4 (0-2) % Lymph # (Auto) 1.6 (1.2-4.9) X10*3/uL [place] # (Auto) 0.5 (0.1-1.2) X10*3/uL Eos # (Auto) 0.2 (0.0-0.4) X10*3/uL Baso # (Auto) 0.0 (0.0-0.2) X10*3/uL Abs Immat Gran (auto) 0.01 (0.00-0.03) X10*3/uL Absolute Neuts (auto) 3.2 (2.0-8.3) x10*3/uL Absolute Nucleated RBC 0.000 (0.0-0.012) X10*3/uL Nucleated RBC % (auto) 0.0 (0.0-0.2) /100WBC PT 11.2 (11.1-13.3) SEC INR 0.9 (0.9-1.1) APTT 28.7 (26.0-36.8) SEC Sodium 141 (135-145) mmol/L Potassium 4.7 (3.3-5.1) mmol/L Chloride 109 H (96-108) mmol/L Carbon Dioxide 25 (22-29) mmol/L Anion Gap 12 (12-20) BUN 17 H (9-16) mg/dL Creatinine 0.81 (0.5-1.4) mg/dL Estim Creat Clear Calc 41.7 Estimated GFR > 60 Random Glucose 98 (60-115) mg/dL Calcium 9.9 D (8.4-10.2) mg/dL Magnesium 2.0 (1.6-2.6) mg/dL Total Bilirubin 0.9 (0.0-1.0) mg/dL Direct Bilirubin 0.3 (0.0-0.5) mg/dL AST 17 (5-31) U/L ALT 15 (0-31) U/L Alkaline Phosphatase 92 (39-117) U/L Troponin I High Sens < 2.7 (<3.5-17.0) ng/L Total Protein 6.4 L (6.5-8.0) g/dL Albumin 3.9 (3.5-5.0) g/dL Lipase 43 (8-78) U/L Influenza Type A (PCR) NEGATIVE (Negative) Influenza Type B (PCR) NEGATIVE (Negative) RSV RNA Qual (PCR) NEGATIVE (Negative) SARS-CoV-2 RNA (RT-PCR) NEGATIVE (Negative) Discharge Plan Discharge Clinical Impression: Abdominal pain Patient Disposition: Left W/O Completing Treatment Prescriptions: No Action multivitamin Tablet 1 tab PO DAILY zinc 50 mg Tablet 50 mg PO DAILY cholecalciferol (vitamin D3) 50 mcg (2,000 unit) capsule 1 cap PO DAILY albuterol sulfate 90 mcg/actuation aerosol powdr breath activated 2 inh inhalation Q4-6H PRN (Reason: shortness of breath or wheezing) Qty: 1 0RF Eliquis DVT-PE Treat 30D Start 5 mg (74 tabs) tablets,dose pack 5 mg PO BID Discharge Date/Time: 05/29/24 20:09
--- NOTE | 2024-05-29 16:25 | ECG_ITS ---
Test Reason : ABD PAIN Blood Pressure : / mmHG Vent. Rate : 073 BPM Atrial Rate : 073 BPM P-R Int : 148 ms QRS Dur : 082 ms QT Int : 380 ms P-R-T Axes : 041 -39 013 degrees QTc Int : 418 ms Normal sinus rhythm Left axis deviation Cannot rule out Anterior infarct , age undetermined Abnormal ECG When compared with ECG of 23-FEB-2023 17:08, Minimal criteria for Anterior infarct are now Present Referred By: Yanet Morris Electronically Signed By:Joss Colbert
--- NOTE | 2024-05-29 16:44 | MHC.EDTECH ---
Patient ekg taken and was read by Provider ,blood drawn and rsv/covid swab collected all sent to lab .
[2024-05-29 16:46] LABS: MANUAL DIFF FLAG NO
[2024-05-29 16:48] LABS: Basophils Percent Auto 0.4 % (0-2); Eosinophils Absolute Auto 0.2 X10*3/uL (0.0-0.4); Eosinophils Percent Auto 3.4 % (0-4); Hematocrit 35.4 % (37.0-47.0); Imm Gran Abs Auto 0.01 X10*3/uL (0.00-0.03); Imm Gran Pct Auto 0.2 % (0.0-0.4); Lymphocytes Absolute Auto 1.6 X10*3/uL (1.2-4.9); Lymphocytes Percent Auto 29.6 % (20-40); Mean Corpuscular HGB Conc 33.9 g/dl (31.0-35.0); Mean Corpuscular Hemoglobin 30.2 pg (27.0-33.0); Mean Corpuscular Volume 89.2 fL (80.0-98.0); Mean Platelet Volume 9.2 fL (9.4-12.3); Monocytes Absolute Auto 0.5 X10*3/uL (0.1-1.2); Monocytes Percent Auto 8.2 % (2-11); Neutrophils Absolute Auto 3.2 x10*3/uL (2.0-8.3); Neutrophils Percent Auto 58.2 % (45-73); Platelet Count 228 X10*3/uL (160-400); Red Blood Count 3.97 X10*6/uL (4.20-5.50); White Blood Count 5.5 X10*3/uL (4.8-10.8)
[2024-05-29 17:02] LABS: INTERNATIONAL NORM RATIO 0.9 (0.9-1.1); Prothrombin Time 11.2 SEC (11.1-13.3)
[2024-05-29 17:05] LABS: Partial Thromboplastin Time 28.7 SEC (26.0-36.8)
[2024-05-29 17:09] LABS: Alanine Aminotransferase 15 U/L (0-31); Albumin Level 3.9 g/dL (3.5-5.0); Alkaline Phosphatase 92 U/L (39-117); Anion Gap 12 (12-20); Aspartate Amino Transferase 17 U/L (5-31); Bilirubin Direct 0.3 mg/dL (0.0-0.5); Bilirubin Total 0.9 mg/dL (0.0-1.0); Blood Urea Nitrogen 17 mg/dL (9-16); Calcium 9.9 mg/dL (8.4-10.2); Carbon Dioxide 25 mmol/L (22-29); Chloride 109 mmol/L (96-108); Creatinine Clr Calc Pharmacy 41.7; Estimated Glomerular Filt Rate > 60; Glucose Random 98 mg/dL (60-115); Lipase 43 U/L (8-78); Potassium 4.7 mmol/L (3.3-5.1); Sodium 141 mmol/L (135-145); Total Protein 6.4 g/dL (6.5-8.0)
[2024-05-29 17:22] LABS: Troponin-I High Sensitivity < 2.7 ng/L (<3.5-17.0)
[2024-05-29 17:24] LABS: Influenza A PCR NEGATIVE (Negative); Influenza B PCR NEGATIVE (Negative); Resp Syncy Virus RNA Qual PCR NEGATIVE (Negative); SARS COV2 PCR INHOUSE NEGATIVE (Negative)
--- NOTE | 2024-05-29 20:09 | PC.NURSE ---
Pt in Waiting room multiple times with no answer
== END 2024-05-29 20:09 | disposition left against medical advice (07) ==
PROVIDERS: Physician Assistant Medical; Emergency Provider Emergency Medicine; PCP Internal Medicine Geriatric Medicine
DX: R10.9 Unspecified abdominal pain (principal); R94.31 Abnormal electrocardiogram [ECG] [EKG]; Z03.818 Encounter for observation for suspected exposure to other biological agents ruled out; Z79.899 Other long term (current) drug therapy
CPT/HCPCS: 0241U; 36415; 80048; 80076; 83690; 83735; 84484; 85025; 85610; 85730; 93005; 99283

== ENCOUNTER → 2024-05-29 16:25 | Outpatient (BNV) | payer OTHER, SELFPAY | PROVIDERS: Emergency Provider Emergency Medicine; PCP Internal Medicine Geriatric Medicine; Visit Provider Internal Medicine Cardiovascular Disease | DX: R94.31 Abnormal electrocardiogram [ECG] [EKG] (principal) | CPT/HCPCS: 93010 ==

== ENCOUNTER 2024-06-23 14:08 | Outpatient (AMB) | payer OTHER, SELFPAY ==
--- NOTE | 2024-06-23 14:12 | A.OFFVIS_ITS ---
Vital Signs 06/23/24 14:13 Height 5 ft 1 in Weight 130 lb 1.164 oz BMI 24.6 BP 122/62 Blood Pressure Location Lt brachial Position Sitting Pulse 74 Pulse Source Pulse Oximeter Intake Visit Reasons: f/up-km pt Allergies Sulfa drugs Allergy (Unknown, Uncoded 05/29/24 16:30) Hives Medication List - Last Reconciled 06/23/24 by Rachel rBown NP albuterol sulfate 90 mcg/actuation 2 inhalations inhalation Q4-6H PRN cholecalciferol (vitamin D3) 1 cap PO DAILY multivitamin 1 tab PO DAILY zinc 50 mg PO DAILY HPI Comments Details: 78-year-old female presents today for a follow-up. She had seen Dr. Colbert back in June 2023 regarding chest pains and had not follow-up after. She had recently had an episode of chest discomfort and abdominal pain which resolved after 1 day. She had ended up leaving the emergency room against medical advice due to her right having to leave. She would follow up with her primary doctor after. Emergency room visit showed: EKG normal sinus rhythm, left axis deviation, can not rule out anterior infarct, age undetermined. Blood counts are stable, 1st troponin level was within range seconds not performed due to patient leaving, electrolytes acceptable. She was negative for influenza, RSV, and COVID. She reports she has been pretty sedentary. She has a history of breast cancer with chemotherapy, COPD, balance issues, and anemia. She reports she is scheduled for hysterectomy with Dr. Trish Gan at [facility]. This is tentatively scheduled for 07/21/2024. She reports she has been getting some chest tightness. Happens every few days. She is unsure which related to her COPD or low activity levels. She reports she is under a lot of stress especially due to multiple medical appointments. [facility] Medical History (Updated 06/23/24 @ 14:59 by Rachel Brown NP) Anemia Pre-operative cardiovascular examination Abnormal EKG History of chemotherapy Invasive ductal carcinoma of breast Breast lesion on mammography Surgical History History of right breast biopsy Family History Mother Breast cancer Social History Household Members: None Housing: Apartment Are you a primary health and social care teacher to a significant other at home: No Do you presently have visiting nurse or other home services: No Alcohol intake: never Patient Tobacco Use Status: Former Tobacco user Years Smoked: quit age early 50s Advance Directives Date on File: 02/24/23 service: No Current occupational status: employed and retired Review of Systems Const Denies weakness ENT Denies dizziness Card Denies chest pain, Denies chest pain with activity, Denies syncope, Denies rapid heart rate, Denies pedal edema, Denies edema, Denies leg edema, Denies lightheadedness, Denies palpitations, Denies dyspnea, Denies dyspnea on exertion and Denies orthopnea Resp Denies cough, Denies dyspnea and Denies dyspnea on exertion GI Denies hematochezia and Denies change in stool character Musc Denies abnormal gait, Denies muscle cramps, Denies muscle weakness, Denies numbness, Denies radiating pain into limb and Denies tingling Neuro Denies abnormal gait, Denies dizziness, Denies syncope, Denies numbness, Denies tingling and Denies weakness Endo Denies palpitations Physical Exam Vital Signs: Last Vital Signs Pulse 74 06/23/24 14:13 BP 122/62 06/23/24 14:13 BMI result Body Mass Index 24.6 Const General: healthy appearing and no acute distress Orientation/consciousness: patient oriented x3 HEENT Head: Yes normal to inspection Eyes General: appearance normal, both eyes and all related structures Neck Neck: Yes normal visual inspection Chest Chest palpation & inspection: normal inspection of the chest Resp Effort & Inspection: normal respiratory effort Auscultation: clear to auscultation bilaterally Cardio Jugular venous distension: no JVD Palpation: normal PMI Rate: regular rate Rhythm: regular rhythm Heart sounds: S1 normal heart sound present, S2 normal heart sound present, no c lick, no gallops, no murmurs and no rubs GI Inspection: Yes normal to inspection Palpation (GI): Soft to palpation Skin General skin exam: no rashes or lesions noted Neuro General: patient oriented x3 Extrem General: Yes normal to inspection Psych Appearance: grossly normal Assessment & Plan Assessment & Plan (1) Chest pain: Code(s): R07.9 - Chest pain, unspecified Category: Medical (2) Abnormal EKG: Code(s): R94.31 - Abnormal electrocardiogram [ECG] [EKG] Category: Medical (3) Pre-operative cardiovascular examination: Code(s): Z01.810 - Encounter for preprocedural cardiovascular examination Category: Medical (4) Anemia: Code(s): D64.9 - Anemia, unspecified Category: Medical Plan 05/29/2024 EKG in the emergency department shows anterior infarct. We will repeat echocardiogram and stress test. Patient is unsure if she had echocardiogram before. She can not recall having the ultrasound done. No results available. Stress test she said she tolerated fine the last time. Was switched to a medicine stress test due to not been able to tolerate the treadmill. She has balance issues and is fearful of the treadmill. We will order it as a pharmacological. Reports she did fine with the test otherwise. Need to assess for ischemia due to EKG changes. Ongoing chest tightness, history of smoking, and history of chemotherapy. Anemia stable as of 05/29/2024. Will follow up after testing. Emergency care if needed. Orders: Orders CA echo transthoracic complete Today R07.9 - Chest pain, unspecified, R94.31 - Abnormal electrocardiogram [ECG] [EKG] CA lexiscan stress w sandra Today R07.9 - Chest pain, unspecified, R94.31 - Abnormal electrocardiogram [ECG] [EKG] NM cardiolite stress test Today R07.9 - Chest pain, unspecified, R94.31 - Abnormal electrocardiogram [ECG] [EKG] CA echo transesophageal Today R07.9 - Chest pain, unspecified, R94.31 - Abnormal electrocardiogram [ECG] [EKG] Coding Level of Care Code Est Pt Level 4 (31230) Diagnoses Chest pain R07.9 Abnormal EKG R94.31 Pre-operative cardiovascular examination Z01.810 Anemia D64.9
[2024-06-23 14:13] VITALS: BP 122/62; PULSE 74; BMI 24.6
== END 2024-06-23 14:42 | disposition home or self-care (01) ==
PROVIDERS: PCP Internal Medicine Geriatric Medicine; Visit Provider Nurse Practitioner
DX: R07.9 Chest pain, unspecified (principal); R94.31 Abnormal electrocardiogram [ECG] [EKG]; Z01.810 Encounter for preprocedural cardiovascular examination; D64.9 Anemia, unspecified
CPT/HCPCS: 99213; 99214

== ENCOUNTER → 2024-06-23 14:08 | Outpatient (BNVA) | payer OTHER, SELFPAY | PROVIDERS: PCP Internal Medicine Geriatric Medicine; Visit Provider Nurse Practitioner | DX: Z01.810 Encounter for preprocedural cardiovascular examination (principal); R07.9 Chest pain, unspecified; R94.31 Abnormal electrocardiogram [ECG] [EKG]; D64.9 Anemia, unspecified | CPT/HCPCS: 99212 ==

== ENCOUNTER → 2024-06-29 08:26 | Outpatient (REF) | payer OTHER, SELFPAY ==
--- NOTE | ~2024-06-29 | NM_ITS ---
Lexiscan Myocardial perfusion study Indication: Chest pain Technique: The patient was brought in for a Lexiscan perfusion study on 06/29/2024 and was injected 0.4 mg of Lexiscan intravenously. Within a minute of this injection 25 mCi of sestamibi was given intravenously. Images were obtained using the SPECT gamma camera interlaced with the gating device. Images were obtained in supine position. Resting perfusion study was performed on 07/05/2024. Patient was administered 25 mCi of sestamibi intravenously at rest. Images were then obtained in supine position. Total DLP 69 mGy-cm. Images were processed with the software and compared side to side in short axis, horizontal long axis and vertical long axis views. Findings: Raw aquisition reviewed. The stress perfusion study showed decreased tracer uptake in the basal inferoseptal wall; distal inferolateral wall. There is adjacent subdiaphragmatic tracer uptake. With CT attenuation correction, there seems to be improvement and hence could indicate diaphragmatic attenuation artifact. The gated study shows normal LV systolic function with calculated LVEF of 60%. LV cavity is normal in size. The gated study shows reduced contractility in the basal part of inferior septum. Resting study shows diminished tracer uptake in the basal part of inferior septum; distal inferolateral wall. There is adjacent subdiaphragmatic tracer uptake wasn't fully inferolateral wall. With CT attenuation correction, there is overall improvement and has components of attenuation artifact. Gating at rest reveals reduced contractility in the basal inferior septum with ejection fraction at 71%. The findings are consistent with fixed perfusion defects in the basal inferior septum and distal inferolateral wall. No clear reversible defects. NM/NM cardiolite stress test Impression: 1. Myocardial perfusion imaging study shows no evidence of ischemia. Fixed perfusion defect in the basal part of inferior septum; distal part of inferolateral wall; could be all artifactual. 2. Gated LVEF is 60% during stress and 71% during rest. 3. Transient ischemic dilatation not present. EKG component of the test reported separately. Electronically signed by: Trevin Pantoja MD 07/06/2024 09:42 AM EDT
--- NOTE | 2024-06-29 08:29 | CA_ITS ---
Acquisition Time: 2024-06-29 08:50:35 Total Exercise Time: 00:02:00 Test Indications: PREOP, CP, ABN EKG Medications: Protocol: LEXISCAN Max HR: 112 BPM 80% of Pred: 140 BPM Max BP: 104/060 mmHG Max Work Load: 1.0 METS Pharmacological stress test with Lexiscan injection, while sitting and kicking her legs, without anginal symptoms, without arrythmia, with low BP throughout test with no significant change related to injection, with nondiagnostic EKG for ischemia. In recovery she was treated with Aminophylline 75mg IVP to reverse Lexiscan. Nuclear images pending. Test reviewed with Dr Zavala Referred By: Rachel Brown Overread By: PRAVEENA SIDHU
== END ==
LOC: HO.CARD 08:26
PROVIDERS: PCP Internal Medicine Geriatric Medicine; Visit Provider Nurse Practitioner
DX: R07.9 Chest pain, unspecified (principal); R94.31 Abnormal electrocardiogram [ECG] [EKG]
CPT/HCPCS: 78452; 93017; A9500; J0280; J2785

== ENCOUNTER → 2024-06-29 08:29 | Outpatient (BNV) | payer OTHER, SELFPAY | PROVIDERS: PCP Internal Medicine Geriatric Medicine; Visit Provider Nurse Practitioner Family | DX: R07.9 Chest pain, unspecified (principal) | CPT/HCPCS: 78452; 93016; 93018 ==

== ENCOUNTER → 2024-08-29 08:57 | Outpatient (REF) | payer OTHER, SELFPAY ==
--- NOTE | 2024-08-29 09:01 | CA_ITS ---
Transthoracic Echocardiogram Patient (Last, First, Middle): Marilia Bashir, Gender: Female Date of : 1945 Age: 78 Procedure Date: 08/29/2024 Procedure Type: Transthoracic Echocardiogram Location: OP Height: 154.94 cm Weight: 58.97 kg BSA: 1.57 m2 Heart Rate: bpm BP: 116 / 60 mmHg Nurses Educator: Referring MD: Rachel Brown NP Symptoms: R07.9 - Chest pain, unspecified Study Quality: Good ECG Rhythm: Sinus Conclusions: - The left ventricular systolic function is normal. The calculated ejection fraction is 65% by biplane method. - There is mild to moderate tricuspid valve regurgitation. - Moderate plaque is seen in the ascending aorta. Findings Left Ventricle Normal left ventricular cavity size. There is normal left ventricular wall thickness. The left ventricular systolic function is normal. The calculated ejection fraction is 65% by biplane method. There is no evidence of regional wall motion abnormalities. Diastolic function is normal for age. Right Ventricle Normal right ventricular cavity size and systolic function. Atria Both atria are normal in size. Aortic Valve There is a normal trileaflet aortic valve. There is no aortic valve stenosis. There is trace (trivial) aortic valve regurgitation. Mitral Valve The mitral valve appears normal. There is trace mitral valve regurgitation. There is no mitral valve stenosis. Pulmonic Valve There is trace pulmonic valve regurgitation. Tricuspid Valve Normal tricuspid valve structure. There is mild to moderate tricuspid valve regurgitation. There is no evidence of pulmonary hypertension. Great Vessels The asc aorta is normal in size. Moderate plaque is seen in the ascending aorta. Venous The inferior vena cava is normal in size and collapses greater than 50% with inspiration. Pericardium/Pleural There is no evidence of pericardial effusion. Prior Study Comparison No prior study available for comparison. Measurements 2D Linear Measurements IVSd: 0.92 0.6-0.9/0.6-1.0 cm LVIDd: 4.01 3.9-5.3/4.2-5.9 cm LVIDd Index: 2.55 2.4-3.2/2.2-3.1 cm/m2 LVIDs: 2.38 2.0-3.6 cm LVPWd: 1.02 0.7-1.1 cm Ao Root: 3.10 2.1-3.5 cm LA Diam: 3.10 2.7-3.8/3.0-4.0 cm LAIDs Index: 1.97 1.5-2.3 cm/m2 LV Mass: 152.45 67-162/88-224 g LV Mass Index: 97.10 43-95/49-115 g/m2 LVOT Diam: 2.10 3.0+(-)1.3 cm 2D Systolic Function EF 4C: 63.80 >55% EF 2C: 66.30 >55% EF BiP: 64.60 >55% Mitral Valve MV Pk E: 0.50 MV PK A: 0.81 MV Decel Time: 201.00 E/A: 0.60 E'Lateral: 7.51 E'Medial: 5.00 E/E' Med: 9.90 E/E' Lat: 6.60 PHT: 59.00 MVA PHT: 3.73 Decel [place]: 2.47 Aortic Valve AoV Pk Narendra: 1.40 AoV Pk Grad: 8.00 LVOT LVOT Pk Narendra: 1.01 LVOT Mn Narendra: 0.60 LVOT VTI: 0.20 LVOT Pk Grad: 4.00 LVOT Mn Grad: 2.00 LVOT Diam: 2.10 LVOT Area: 3.46 Diastolic Function MV Pk E: 0.50 MV Pk A: 0.81 E/A: 0.60 E'Medial: 5.00 E/E' Med: 9.90 E' Laterial: 7.51 E/E' Lat: 6.60 Right Ventricle TAPSE (mm): 19.00 TVS' Narendra: 12.00 Tricuspid Valve TR Pk Narendra: 2.76 TR Pk Grad: 30.00 RA Press: 3.00 RVSP: 33.00 Great Vessels Aorta Ao Root-2D: 3.10 2.0-3.7 cm Ao Asc: 3.20 2.1-3.4 cm Pulmonary Valve PV Pk Narendra: 0.92 Peak PV Grad: 3.00 Updated in Other Vendor System with Status of Final Trevin Pantoja MD electronically signed on 08/30/2024 11:38:23 AM with status of Final
== END ==
LOC: HO.CARD 08:57
PROVIDERS: PCP Internal Medicine Geriatric Medicine; Visit Provider Nurse Practitioner
DX: R07.9 Chest pain, unspecified (principal); R94.31 Abnormal electrocardiogram [ECG] [EKG]
CPT/HCPCS: 93306

== ENCOUNTER → 2024-08-29 09:01 | Outpatient (BNV) | payer OTHER, SELFPAY | PROVIDERS: PCP Internal Medicine Geriatric Medicine; Visit Provider Internal Medicine | DX: I36.1 Nonrheumatic tricuspid (valve) insufficiency (principal) | CPT/HCPCS: 93306 ==

== ENCOUNTER → 2024-11-24 08:51 | Outpatient (BNVA) | payer OTHER, SELFPAY | PROVIDERS: PCP Internal Medicine Geriatric Medicine; Visit Provider Nurse Practitioner Family | DX: I25.10 Atherosclerotic heart disease of native coronary artery without angina pectoris (principal); R07.9 Chest pain, unspecified | CPT/HCPCS: 99212 ==

== ENCOUNTER 2025-03-21 07:35 | Outpatient (REF) | payer OTHER, SELFPAY ==
--- NOTE | ~2025-03-21 | CT_ITS ---
EXAMINATION: CT HEAD WITHOUT CONTRAST CLINICAL INFORMATION: 79 y.o F with acute headache and dizziness COMPARISON: None available. TECHNIQUE: Contiguous axial imaging was performed from the skull base to vertex without intravenous administration of contrast. This CT examination was performed using dose optimization techniques as appropriate, variously including the following: *Automated exposure control *Adjustment of mA and/or kV according to patient size (this includes techniques or standardized protocols for targeted exams where dose is matched to indication/reason for exam; i.e. extremities or head) *Use of iterative reconstruction technique DLP: 722 mGy-cm FINDINGS: No acute intracranial hemorrhage, mass effect, midline shift, hydrocephalus or herniation. Euceda-white matter differentiation is normal. Posterior cranial fossa contents demonstrated no acute intracranial hemorrhage or mass effect. Sellar/suprasellar region demonstrated no gross masses. Craniocervical junction demonstrates normal position of the cerebellar tonsils. Prominence of the extra-axial CSF spaces cerebral sulci and ventricles more pronounced on the right frontal convexity. Calcified plaques in the cavernous supraclinoid segments both ICAs and V3/V4 segments of the vertebral arteries. Bony calvarium is intact. For pneumatization right frontal sinus. No air-fluid levels in the paranasal sinuses. Tympanic cavities and mastoid cells are aerated. No masses or fluid collections in the intraconal or extraconal compartments of the orbits. CT/CT head/brain wo IV con IMPRESSION: No acute intracranial hemorrhage or acute brain abnormality by CT. Global cerebral atrophy, pronounced on the right frontal convexity. Electronically signed by: Tao Farley MD 03/21/2025 09:12 AM EDT
--- OUTSIDE RECORDS SUMMARY | 2025-03-21 07:37 | XMS_ITS | Encounter Summary ---
Author Organization [employer] Address [address] [facility] [address] [place] [address] Care Team Providers Care Disk Operator Name Role Phone Name, Chele GALLEGOS Primary Care Provider [phone] Reason for Visit * Reason Onset Date Comments FYI 12/03/2023 Encounter Details Date Type Department Care Team ([facility] st Contact Info) Description 12/03/[address] [facility] [address] [place], [place] [id number] Name, MD Chele [address] [place] [address] Social History Tobacco Use Types Packs/Day Years Used Date Smoking Tobacco: Never Smokeless Tobacco: Never Alcohol Use Standard Drinks/Week Comments Never 0 (1 standard drink = 0.6 oz pur e alcohol) Depression Answer Date Recorded Patient Health Questionnaire-9 Score 0 02/23/2023 Housing Stability Answer Date Recorded What is your housing situation today? I have avril carpenter 08/17/[address] you li ve. Do you have problems with any of the following? None of the above 08/17/2023 Food Insecurity Answer Date Recorded Within the past 12 months, y ou worried that your food would run out before you got money to buy more: Never True 08/17/2023 Within the past 12 months,th e food you bought just didn't last and you didn't have enough money to get more: Never True Transportation Answer Date Recorded In the past 12 months, has l ack of transportation kept you from medical appts, meetings, work or from getting things needed for daily living? No 08/17/2023 Utilities Answer Date Recorded In the past 12 months, has t he electric, gas, oil or water company threatened to shut off services in your home? No 08/17/2023 Depression Answer Date Recorded Patient Health Questionnaire-2 Score 0 02/23/2023 Comments Unknown Sex and Gender Information Value Date Recorded Sex Assigned at Female 08/31/2022 10:37 AM EDT Legal Sex Female 10:37 AM EDT Gender Identity Female 08/31/2022 10:37 AM EDT Sexual Orientation Straight 08/31/2022 10 :37 AM EDT documented as of this encounter Miscellaneous Notes * Telephone Encounter - Pauly May RN - 12/03/2023 2:09 PM EST FYI T/C to pt. For below message. Pt. Agrees to go right now. * Telephone Encounter - Pauly May RN - 12/03/2023 12:58 PM EST T/C to pt. For below message , pt. States she is going to go today. She did not go yesterday. Please advise if needed. * Telephone Encounter - Pauly May RN - 12/03/2023 12:18 PM EST Please review and advise for below message. * Telephone Encounter - Anna Barron - 12/03/2023 10:56 AM EST Wily from [facility] calling to advise PCP they will not be able to schedule pt or MRA pelvis due to not taking pt insurance. documented in this encounter Plan of Treatment Upcoming Encounters Date Type Department Care Team (Late st Contact Info) Description 03/22/2025 3:30 PM EDT Office Visit [facility] [address] [place] [address] Jennifer Phillip DDS [address] [place] [address] documented as of this encounter Visit Diagnoses Not on filedocumented in this encounter Additional Health Concerns Assessment Noted Time PHQ-9 Depression Total Score: 0 02/24/20 3:56 PM EDT documented as of this encounter Care Teams Disk Operator Relationship Specialty Start Date End Date Name, MD Chele [address] [place] [address] PCP - General Family Medicine 06/23/22 documented as of this encounter
--- OUTSIDE RECORDS SUMMARY | 2025-03-21 07:37 | XMS_ITS | Clinical Summary ---
Author Organization [facility] Address [address] [place] [address] Phone Care Team Providers Care Cleaning Professional Name Role Phone Unavailable Primary Care Provider Unavailabl e Allergies Active Allergy Reactions Criticality Noted Date Comments Chocolate 06/16/2022 Pt denies Nitrofurantoin Anaphylaxis,Other (s ee comments) High 06/11/2022 Dizziness/fainting/tr ouble breathing Thioridazine Anaphylaxis High 12/18/2021 Sulfa Antibiotics Anaphylaxis High 06/11/2022 Sulfites Hives,Other (see comments) High 06/16/2022 Pt reports reaction after consuming chocolate, but no chocolate allergy found Medications HYDROcodone-vish taminophen (NORCO) 5-325 MG per tablet Take 1 tablet by mouth if needed Active acetaminophen (TYLENOL) 500 MG tablet Take by mouth every 6 (six) hours if needed for mild pain Active HOMEOP[employer]IC PRODUCTS SL Place under the tongue Torres's leg 8 Active Cholecalciferol (VITAMIN D3 PO) Vitamin D3 Act linda ibuprofen (ADVIL,MOTRIN) 800 MG tablet ibuprofen 800 mg tablet TAKE 1 TABLET BY MOUTH THREE TIMES A DAY NEEDED Active triamcinolone (KENALOG) 0.1 % cream Apply 1 application topically 9 Active Multiple Vitamin (multivitamin) tablet Take 1 tablet by mouth 1 (one) time each day Active Emu Oil oil Active Active Problems Problem Noted Date Diagnosed Date Personal history of primary malignant neoplasm o f breast 06/16/2022 Dyspnea on exertion 06/16/2022 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 Chronic obstructive pulmonary disease 06/11/2022 Spinal stenosis 06/11/2022 Back pain 06/11/2022 Peripheral neuropathy 06/11/2022 Anxiety 06/11/2022 Overview (06/11/2022): situational Depressive disorder 06/11/2022 Overview (06/11/2022): situational Anemia 06/11/2022 Arthritis 06/11/2022 Claustrophobia 06/11/2022 Hyperlipidemia 06/11/2022 Hypothyroidism 06/11/2022 Motion sickness 06/11/2022 Osteoporosis 06/11/2022 Pneumonia 06/11/2022 History of right mastectomy 04/27/2022 At increased risk for falls 12/23/2021 Cataract 12/23/2021 Lichen sclerosus 12/23/2021 Infiltrating ductal carcinoma of breast, stage 1 12/23/2021 Insomnia 12/23/2021 Raynaud's disease 12/23/2021 Social History Tobacco Use Types Packs/Day Years Used Date Smoking Tobacco: Former Cigarettes Q uit: 1985 Smokeless Tobacco: Never Tobacco Cessation:Counseling Given: Not Answered Alcohol Use Standard Drinks/Week Comments Not Currently 0 (1 standard drink = 0.6 oz pur e alcohol) Comments Unknown Sex and Gender Information Value Date Recorded Sex Assigned at Not on file Legal Sex Female 1:01 PM EDT Gender Identity Not on file Sexual Orientation Not on file Last Filed Vital Signs Vital Sign Reading Time Taken Comments Blood Pressure 122/74 06/16/2022 9:09 AM EDT Pulse 85 06/16/2022 9:09 AM EDT Temperature 36.3 ??C (97.3 ??F) 06/16/2022 9:09 AM ED T Respiratory Rate 14 06/16/2022 9:09 AM EDT Oxygen Saturation 93% 06/16/2022 9:09 AM EDT Inhaled Oxygen Concentration - - Weight 59 kg (130 lb) 06/16/2022 9:09 AM EDT Height 157.5 cm (5' 2 ) 06/16/2022 9:09 AM EDT Body Mass Index 23.78 06/16/2022 9:09 AM EDT Plan of Treatment Health Maintenance Due Date Last Done Comments Pneumococcal Vaccine: 50+ Years (2 of 2 - PCV) 11/30/2020 11/30/2019 Influenza Vaccine (Season Ended) 2025 07/04/2019, 07/04/2019 Hepatitis B Vaccine Aged Out No longe r eligible based on patient's age to complete this topic Insurance [facility] Medicare
--- OUTSIDE RECORDS SUMMARY | 2025-03-21 07:37 | XMS_ITS | Encounter Summary ---
Author Organization [employer] Address [address] [facility] [address] [place] [address] Care Team Providers Care Gyroscope Technician Name Role Phone Name, Chele GALLEGOS Primary Care Provider [phone] Reason for Visit * Reason Onset Date Comments Appointment Request 06/22/2023 Encounter Details Date Type Department Care Team ([facility] Contact Info) Description 06/22/2023 Telephone [facility] [address] [place], [place] [phone] Name, MD Chele [address] [place] [address] Appointment Request Social History Tobacco Use Types Packs/Day Years Used Date Smoking Tobacco: Never Smokeless Tobacco: Never Alcohol Use Standard Drinks/Week Comments Never 0 (1 standard drink = 0.6 oz pur e alcohol) Depression Answer Date Recorded Patient Health Questionnaire-9 Score 0 02/23/2023 Depression Answer Date Recorded Patient Health Questionnaire-2 Score 0 02/23/2023 Comments Unknown Sex and Gender Information Value Date Recorded Sex Assigned at Female 08/31/2022 10:37 AM EDT Legal Sex Female 10:37 AM EDT Gender Identity Female 08/31/2022 10:37 AM EDT Sexual Orientation Straight 08/31/2022 10 :37 AM EDT documented as of this encounter Miscellaneous Notes * Telephone Encounter - Emerita Solis - 07/07/2023 12:03 PM EDT Tc from pt requesting derm appt . * Telephone Encounter - Nuha Ambriz - 06/22/2023 9:04 AM EDT Tc from pr requesting to r/s appt for NEW DERM on 06/18/2023 @ 9:30 am. Please contact pt at [phone] documented in this encounter Plan of Treatment Upcoming Encounters Date Type Department Care Team (Late st Contact Info) Description 03/22/2025 3:30 PM EDT Office Visit [facility] ADULT DENTAL [address] [place] [address] Jennifer Phillip DDS [address] [place] [address] documented as of this encounter Visit Diagnoses Not on filedocumented in this encounter Additional Health Concerns Assessment Noted Time PHQ-9 Depression Total Score: 0 02/24/20 3:56 PM EDT documented as of this encounter Care Teams Gyroscope Technician Relationship Specialty Start Date End Date Name, MD Chele [address] [place] [address] PCP - General Family Medicine 06/23/22 documented as of this encounter
--- OUTSIDE RECORDS SUMMARY | 2025-03-21 07:37 | XMS_ITS | Encounter Summary ---
Author Organization [employer] Address [address] [place] [address] [address] [place] [address] Care Team Providers Care Hydroelectric Station Operator Chief Name Role Phone Name, Chele GALLEGOS Primary Care Provider [phone] Encounter Details Date Type Department Care Team (Late st Contact Info) Description 11/06/2022 [facility] [address] [place] [address] Name, MD Chele [address] [place] [address] Social History Tobacco Use Types Packs/Day Years Used Date Smoking Tobacco: Never Assessed Comments Unknown Sex and Gender Information Value Date Recorded Sex Assigned at Female 08/31/2022 10:37 AM EDT Legal Sex Female 10:37 AM EDT Gender Identity Female 08/31/2022 10:37 AM EDT Sexual Orientation Straight 08/31/2022 10 :37 AM EDT documented as of this encounter Plan of Treatment Upcoming Encounters Date Type Department Care Team (Late st Contact Info) Description 03/22/2025 3:30 PM EDT Office Visit [facility] [address] [place] [address] Jennifer Phillip DDS [address] [place] [address] documented as of this encounter Visit Diagnoses Not on filedocumented in this encounter Care Teams Hydroelectric Station Operator Chief Relationship Specialty Start Date End Date Name, MD Chele [address] [place] [address] PCP - General Family Medicine 06/23/22 documented as of this encounter
--- OUTSIDE RECORDS SUMMARY | 2025-03-21 07:37 | XMS_ITS | Encounter Summary ---
Author Organization [email or web address] Address [address] [place] [address] Care Team Providers Care Nuclear Plant Instrument Technician Name Role Phone Name, Chele GALLEGOS Primary Care Provider Reason for Visit * Reason Onset Date Comments Nurse Triage 07/20/2023 Encounter Details Date Type Department Care Team ([facility] st Contact Info) Description 07/20/2023 Telephone [facility] MED[facility]INE [address] [place], [place] [phone] Name, MD Chele [address] [place] [address] Nurse Triage Social History Tobacco Use Types Packs/Day Years [...] encounter Miscellaneous Notes * Telephone Encounter - Jennifer Garcia RN - 07/20/2023 10:17 AM EDT Triage call Pt calls with sore throat, headache, runny nose, sneezing. Pt was exposed to Covid 07/15/23 and is wanting to know if these symptoms are Covid symptoms. Pt is advised to obtain home test through drive through [facility] in [place] where Pt is located. Pt is chemo Pt and doesn't want to be exposed to anything else. Pt will call back if positive test. Covid home care is reviewed with Pt prior to ending call. Protocol Used: Information Only Call - No Triage (Adult) Protocol-Based Disposition: Home Care Positive Triage Question: * General information question, no triage required and triager able to answer question * All higher-acuity triage questions were negative Care Advice Discussed: * Reasons To Call Back - New symptoms develop - You have more questions - You become worse * Telephone Encounter - Kiersten Man - 07/20/2023 9:35 AM EDT Symptoms: Sore Throat, Headache, COVID-19 Suspected (exposed 07/15/23) Outcome: Schedule an urgent appointment (within 4 hours) or talk to a nurse or provider soon Reason: Started within the past 3 days The caller accepted this outcome documented in this encounter Plan of Treatment Upcoming Encounters Date Type Department Care Team (Late st Contact Info) Description 03/22/2025 3:30 PM EDT Office Visit [facility] ADULT D[facility]AL [address] [place] [address] Jennifer Phillip DDS [address] [place], [place] [phone] documented as of this encounter Visit Diagnoses Not on filedocumented in this encounter Additional Health Concerns Assessment Noted Time PHQ-9 Depression Total Score: 0 02/24/20 3:56 PM EDT documented as of this encounter Care Teams Nuclear Plant Instrument Technician Relationship Specialty Start Date End Date Name, MD Chele [address] [place] [address] PCP - General Family Medicine 06/23/22 documented as of this encounter
--- OUTSIDE RECORDS SUMMARY | 2025-03-21 07:37 | XMS_ITS | Encounter Summary ---
Author Organization [facility] Address [address] [place] [address] Care Team Providers Care Synthetic Cloth Binding Cutter Name Role Phone Name, Chele GALLEGOS Primary Care Provider [phone] Encounter Details Date Type Department Care Team (Latest Contact Info) Description 06/13/2021 Abstract [facility]VERSION[facility] Dental, Provider, DDS Social History Tobacco Use Types Packs/Day Years [...] Description 03/22/2025 3:30 PM EDT Office Visit [facility]ULT [facility] [address] [place] [address] Jennifer Phillip, DDS [address] [place] [address] documented as of this encounter Visit Diagnoses Not on filedocumented in this encounter Care Teams Synthetic Cloth Binding Cutter Relationship Specialty Start Date End Date Name, MD Chele [address] [place] [address] PCP - General Family Medicine 06/23/22 documented as of this encounter
--- OUTSIDE RECORDS SUMMARY | 2025-03-21 07:37 | XMS_ITS | Data Portability ---
Author Organization [employer] [facility] Address [address] [place] [id number] Care Team Providers Care Lvn Name Role Phone NAME, NATY Primary Care Provider HIM ABDULKADIR OTHER Assessment No assessment recorded. Plan of Treatment Reminders Order Date Submit Date Provider Last Modified By Organization Details Last Modified Time Details Appointments None recorded. Lab None recorded. Referral None recorded. Procedures None recorded. Surgeries None recorded. Imaging None recorded. Medication Orders ketorolac 15 mg/mL injection solution 2023 024 [facility], [address] [place] [address], [address], 17:38:49 Patient TargetsNo targets recorded. Patient InstructionsNo instructions recorded. Reason for Referral None Reported. Medical Equipment None Reported. Allergies Allergen ID Allergen Name Allergen Category Reaction Reaction Severity Criticality Documentation Date Start Date Code Code System Note Provider Name and Address Organization Details Recorded Time 6618 sulfur dioxide medicatio n Not available Not available Not available 08/17/2024 05040 79 RxNorm RUFINO BAKER MD [address] [place] [address],[address], [place], [phone], [employer] 17:16:40 6619 Substance with sulfonami de structure and antibacte rial mechanism of action (substanc e) medicatio n Not available Not available Not available 08/17/2024 29920 8003 SNOMED RUFINO BAKER MD [address] [place] [address],[address], [place], [phone], [employer] 17:16:47 Medications Name Sig Start Date Stop Date Status Note LastModified by Organization Details LastModified Time ketorolac 15 mg/mL injection solution Inject 15 mg every 6 hours by intramuscula r route. 2023 active Not Available Not Available Not Avai lable Readi-Cat 2 2 % (w/v) oral suspension IF SCAN BEFORE 12 P.M., DRINK 1 BOTTLE BEFORE BED & SECOND BOTTLE 90 MINUTES BEFORE SCAN. IF SCAN AFTER NOON, DRINK 1 BOTTLE AT 8 A.M. & SEC active Not Available Not Available N ot Available Vitals Date Recorded Body weight Body temperature Respiratory rate Heart rate Oxygen saturation Oxygen saturation in Arterial blood by Pulse oximetry Systolic blood pressure Diastolic blood pressure Provider Name and Address Organization Details Last Updated DateTime 4 95221.5 92 g 98.8 [degF] 16 /min 74 /min 99 % 99 % 112 mm[Hg] 76 mm[Hg] Not Available [facility] - production 4 17:36:42 Social History None recorded. Functional Status None recorded. Mental Status None recorded. Family History Nothing Reported. Medical History No medical history recorded. Gynecological HistoryNo gynecological history recorded. Obstetrics History GPAL:G 0 P 0 0 0 0 Past Encounters Encounter ID Performer Location Encounter Start Date Encounter Closed Date Diagnosis/Indication Diagnosis SNOMED-CT Code Diagnosis ICD10 Code Diagnosis Note [id number] RUFINO BAKER MD [facility] - [facility] [address] [place] [phone] 08/17/2024 17:36:36 08/17/2024 20:10:59 Strain of subscapularis muscle 60118410 S46.011A Evaluation in the field was performed by my tool crib lead colleague, as noted above, I provided real-time direction and supervisio n for this visit. The evaluation revealed 78-year-ol d female with a history of PE last January. She reports being on anticoagul ation for 6 months but is no longer on them. She complains of pain on the right side of her back, below the right shoulder over the ribs, for the past 2 weeks. The patient denies dizziness, chest pain, shortness of breath, abdominal pain, nausea, vomiting, or diarrhea. She notes that when she had a PE, the pain was sharp, but her current pain is dull in nature. She had not taken anything for the pain until yesterday, when she took 2 Ibuprofen tablets, and the pain has improved today. She denies any trauma to the back.The patient is aware that this could be another PE, though it is less likely given the duration, the improvemen t with Ibuprofen, and the tenderness to palpation, as noted by the tool crib lead exam. She refuses to go to the ED tonight. The patient has the capacity to make this decision. She denies hx of GI bleed or advance CKD . Vital signs are stable. She is not tachycardi c or tachypneic , and her SpO2 is normal on room air. Per discussion with the tool crib lead, lungs are clear to auscultati on bilaterall y . There is no bruising or redness to the area of pain. Pain is noted on palpation, but the patient reports feeling better when the area/muscl e was lightly massaged. Allergies were reviewed. Impression :Right subscapula ry pain - tenderness Plan:-The patient has had the pain for 2 weeks, and given her normal vital signs, improvemen t with NSAIDs, and reproducib ility of the pain with palpation, a PE is less likely. However, she should have a CTPA to rule it out, given her prior history of PE and absence of known trauma.The patient agrees to go to the ED but not tonight, as she does not want to wait without being seen all night . She agrees to go tomorrow morning and is in agreement to call 911 if the pain worsens tonight, or if she develops chest pain or shortness of breath.-Ke torolac 15 mg IM was administer ed. The patient was advised not to use any more NSAIDs.-Ad vised to use a heating pack.-Red flags were discussed with the patient. Primary care, consider__ _ Dispositio n: We discussed the diagnostic uncertaint y of home visits and the risk associated with this. In this case, the patient and I felt this to be an acceptable and reasonable amount of risk given the benefit of avoiding an ED visit. We discussed the need to seek care urgently/e mergently in the setting of any new or worsening serious symptoms, particular ly CP, SOB, worsening pain dizziness, weakness or any other concerns. Health Concerns Section Related Observation LastModified by Organization Detai ls LastModified Time None Recorded Concern Status LastModified by Organization Details LastModified Time None Recorded Advance Directives Directive None Recorded Payers Insurance Date Sequence Insurance Name Policy Number Policy Richardson Covered Member ID Richardson Member ID Guarantor Name 08/17/2024 1 [facility] - DOS ON OR AFTER 2023 - DUAL ELIGIBLE - [facility] OPTIONS AND ONE CARE (MEDICARE REPLACEMENT/ADV ANTAGE - HMO) Marilia Bashir [id number] Marilai Bashir Notes Date Note Type Note Provider Name and Address Organization Details Recorded Time 08/17/2024 text/html [facility] Nurse Triage Notes (Daron Watkins): Reason For Request: Pt reporting pains that are similar to pulmonary embolism, going on 2 weeks>sharp pain on her side + upper back Chief Complaints: Pain Allergies: Unknown Comments: Butcher Head verified the member's name//address and phone number. Mbr reports pain on the right side of the upper back, worse with deep inspiration. Mbr reports hx of PE last January, mbr reports taking blood thinners for 6 months, but states no longer on them. Encouraged mbr to proceed to the ER or call 911, but pt adamently refused. Mbr states she does not want to sit in the ER for 8-9 hours like she has in the past. Advised mbr that we cannot do imaging in the home, and given her hx a provider would likely want to do a CT to rule out PE again. Mbr continues to decline and requesting in home visit. Mbr speaking in full, complete sentences at time of call. Education provided on the response time and the member was advised to monitor reported s/s and seek emergency treatment if needed -Pina Watkins RN ................. ................. ................. ................. ................. ................. ................. ................. ..... Inside Sales Advertising Executive Note From Teddy Ferguson: Pt co pain on right back below right shoulder over ribs. Pt sts pain for 2 weeks and had not taken any medication for pain until last evening. Pt took advil and sts today the pain is not as bad as the day before. Pt denies cp, Dizziness, SOB, Abdominal pain, or NVD. Pt concerned for possible PE. Pt sts when she had a PE the pain was sharp. Pt sts her pain today is dull. Area of pain assessed and photos uploaded into jina. Neg bruising or redness. Pain upon palpation however pt sts felt good when area/muscle was lightly massaged. Baseline vitals assessed, WNL, Afebrile, pt eating and drinking appropriately, pt had full range of motion of right arm. Pt A@Ox4. Pt denies allergies. [facility] toradol IM in left deltoid with 25G needle. Right PT, Dose, medication and route. Pt advised can't rule out a PE in the home. Pt advised she would need to go to ED for that. Pt declined ED. Pt sts if it worsens then she will go in the morning. Pt advised to follow up with PCP. Pt education on signs indicating the ER. Pt advised to stretch and use heat pad or ice the area. Pt advised to not take any other NSAIDS this evening. ................. ................. ................. ................. ................. ................. ................. ................. ..... Disposition: Fulfilled RUFINO BAKER MD [address], [place], [phone], [employer] 08/17/2024 18:59:36 OBGyn Episode No OBEpisode recorded.
--- OUTSIDE RECORDS SUMMARY | 2025-03-21 07:37 | XMS_ITS | Encounter Summary ---
Author Organization [employer] Address [address] [place] [address] Care Team Providers Care Wind Farm Electrical Systems Designer Name Role Phone Name, Chele GALLEGOS Primary Care Provider [phone] Reason for Visit * Reason Onset Date Comments call back 02/23/2023 Encounter Details Date Type Department Care Team ([facility] Contact Info) Description 02/23/2023 Telephone [facility] MEDICINE [address] [place], [place] [phone] Name, MD Chele [address] [place] [address] call back Social History Tobacco Use Types Packs/Day Years [...] Orientation Straight 08/31/2022 10 :37 AM EDT COVID-19 Exposure Response Date Recorded In the last 10 days, have yo u been in contact with someone who was confirmed or suspected to have Coronavirus/COVID-19? No / Unsure 02/23/2023 3:41 PM EDT documented as of this encounter Functional Status * Over the past 2 weeks, how often have you been bothered by any of the following problems? Question Answer Date of Assessment Author Patient Health Questionnaire-2 Score 0 02/23/2023 3:56 PM EDT Sabina Robbins MA * Over the past 2 weeks, how often have you been bothered by any of the following problems? Question Answer Date of Assessment Author Little interest or pleasure in doing things Not at all 02/23/2023 3:56 PM EDT Sabina Robbins MA Feeling down, depressed, or hopeless Not at all 02/23/2023 3:56 PM EDT Sabina Robbins MA Trouble falling or staying asleep, or sleeping too much Not at all 02/23/2023 3:56 PM EDT Sabina Hummel MA Feeling tired or having little energy Not at all 02/23/2023 3:56 PM EDT Sabina Robibns MA Poor appetite or overeating Not at all 02/23/2023 3: 56 PM EDT Sabina Robbins MA Feeling bad about yourself - or that you are a failure or have let yourself or your family down Not at all 02/23/2023 3:56 PM EDT Sabina Robbins MA Trouble concentrating on things, such as reading the newspaper or watching television Not at all 02/23/2023 3:56 PM EDT Sabina Robbins MA Moving or speaking so slowly that other people could have noticed? Or the opposite - being so fidgety or restless that you have been moving around a lot more than usual. Not at all 02/23/2023 3:56 PM EDT Sabina Ibarra MA Thoughts that you would be better off or hurting yourself in some way Not at all 02/23/2023 3:56 PM EDT Sabina Robbins MA Patient Health Questionnaire-9 Score 0 02/23/2023 3:56 PM EDT Sabina Robbins MA documented as of this encounter Miscellaneous Notes * Telephone Encounter - Tawnya Kang RN - 02/23/2023 4:36 PM EDT PCP called Dr Jaramillo as requested. * Telephone Encounter - Dakota Jitendra - 02/23/2023 3:23 PM EDT Tc from Dr Jaramillo with general mass requesting a call back from PCP regarding pt. Please contact Dr Jaramillo at [phone] documented in this encounter Plan of Treatment Upcoming Encounters Date Type Department Care Team (Late st Contact Info) Description 03/22/2025 3:30 PM EDT Office Visit [facility] [address] [place] [address] Jennifer Phillip DDS [address] [place] [address] documented as of this encounter Visit Diagnoses Not on filedocumented in this encounter Additional Health Concerns Assessment Noted Time PHQ-9 Depression Total Score: 0 02/24/20 23 3:56 PM EDT documented as of this encounter Care Teams Wind Farm Electrical Systems Designer Relationship Specialty Start Date End Date Name, MD Chele [address] [place] [address] PCP - General Family Medicine 06/23/22 documented as of this encounter
--- OUTSIDE RECORDS SUMMARY | 2025-03-21 07:37 | XMS_ITS | Encounter Summary ---
Author Organization [employer] Address [address] [place] [address] Care Team Providers Care Manager Intermediate Name Role Phone Name, Chele GALLEGOS Primary Care Provider [phone] Encounter Details Date Type Department Care Team ([facility] st Contact Info) Description 03/14/2024 Telephone [facility] MEDICINE [address] [place], [place] [phone] Name, MD Chele [address] [place] [address] Social History Tobacco Use Types Packs/Day Years [...] t he electric, gas, oil or water [employer] threatened to shut off services in your [...] Description 03/22/2025 3:30 PM EDT Office Visit [facility] ADULT DENTAL [address] [place] [address] Jennifer Phillip DDS [address] [place] [address] documented as of this encounter Visit Diagnoses Not on filedocumented in this encounter Additional Health Concerns Assessment Noted Time PHQ-9 Depression Total Score: 0 02/24/20 23 3:56 PM EDT documented as of this encounter Care Teams Manager Intermediate Relationship Specialty Start Date End Date Name, MD Chele [address] [place] [address] PCP - General Family Medicine 06/23/22 documented as of this encounter
--- OUTSIDE RECORDS SUMMARY | 2025-03-21 07:37 | XMS_ITS | Data Portability ---
Author Organization [place] - [facility] Address [address] [place] [id number] Care Team Providers Care Metal Mover Name Role Phone VANDANA SARAVIA Primary Care Provider Assessment Encounter Date Assessment Date Assessment LastModified by Organization Details LastModified Time 01/12/2020 01/12/2020 Overview/History :Jesse alfonso is a 74-year-old female with a history of asthma, breast cancer, depression, hyperlipidemia, arthritis and hypothyroidism. She generally follows with a finance accounting internship and takes multiple herbal supplements daily, these were not able to be found in the [employer] library. She had contacted [facility] after being unable to get appointment with her primary care. She reports that she had been having hip pain which she now thinks may have been due to sciatica as well as chills and a cough. She reports that today she feels significantly better. No chills in greater than 24 hours. Her hip pain has also pretty much resolved. She is asking about whether not she should be tested for coronavirus given her age and pulmonary history. Exam: On exam patient is awake and alert, nontoxic-appearing . Noted to have a low grade temperature of 99.1, otherwise hemodynamically stable, oxygen saturation of 100% on room air. Lung sounds clear to auscultation bilaterally, heart rate regular. Mild erythema to oropharynx. No sinus pain. DDx considered, but not limited to:Most likely had a viral infection or flulike illness. Her symptoms are resolving. She is not presently having elevated fevers or body aches, will defer testing for influenza. She also has a history of arthritis it is possible that her hip pain may have been an exacerbation of her underlying arthritis. Coronavirus unlikely given no recent travel or sick contacts. Pneumonia unlikely as lung sounds clear bilaterally. Considered asthma exacerbation however no wheezing. Work up/Results: Plan/Discussion:Sarita deckerussed with patient that her symptoms were likely viral in origin and since they are improving Nortrel for antibiotics or treatment other than supportive care. The patient tells me that she generally does not like to take her medications. We did discuss testing for coronavirus, I advised her that I do not think that this is warranted. She seems to be improving and I feel that going to a hospital to seep testing would just exposure to more pathogens. She verbalized understanding of this. I have suggested that she continue to push fluids and try tea with honey to soothe her throat. I have advised her to stay in until her low grade fever subsides. I have given her a note for work. In order to obtain further information and compare any laboratory results/values, I have accessed patient records on the [employer]. This information was pertinent in my medical decision making today. Time On Scene with Patient: 00:34:59 [email or web address] Not available 01/12/2020 20:58:58 12/24/2020 12/24/2020 Overview/History : 75yoF known to DH new to this provider pmhx COPD, breast CA sp radiation, depression, hypothyroidism is seen today for sneezing and cough x 2-3 days. Yesterday, patient reports nausea, vomiting, and abdominal pain. Patient reports vomiting approx 6 times. Associated diarrhea without hematochezia or melena. Only abdominal surgery was an inguinal hernia repair. Patient denies any more abdominal pain, nausea or vomiting today. She reports sig fatigue. She denies any urinary symptoms, cp or worsened sob from her baseline due to her COPD. No known sick contact. Patient denies any change in her diet. She ate a packaged salad the night before. She denies any fevers. No loss of sense of taste or smell. Exam: VSS patient well appearing pharynx without redness or swelling no nuchal rigidity abdomen soft and non tender throughout no CVA tenderness no LE edema steady gait DDx considered, but not limited to: covid gastroenteritis acute intra abdominal pathology-doubt as patietn is afebrile without any abdominal pain on exam ACS-doubt as symptoms assoc with nasal congestion, sore throat and body aches AAA-doubt as patient is not hypertensive and no radiation of pain UTI-odubt as no urinary symptoms electrolyte abnormality-doubt as symptoms were ongoing for 24 hours Work up/Results: covid test pending Plan/Discussion: Patient is hemodynamically stable non toxic appearing seen today for resolving cough, nausea, vomiting, diarrhea, nasal congestion and sore throat. No abdominal pain on exam. Likely viral illness. Will also test for covid. Patient will continue to isolate. Precautions given to again seek care if the patient develops a fever, worsened cough, cp, sob, abdominal pain or if the nausea, vomiiting and diarrhea returns. Patient is tolerating po. She verbalized understanding and was agreeable with overall plan. In order to obtain further information and compare any laboratory results/values, I have accessed old patient records. This information was pertinent in my medical decision making today. DHMT and I wore full PPE including N95 masks throughout entire encounter Time on scene 28:53 Not available 12/24/2020 11:29:48 Plan of Treatment Reminders Order Date Submit Date Provider Last Modified By Organization Details Last Modified Time Details Appointments None recorded. Lab SARS CoV 2 RNA (COVID-19), QL, casino investigator-PCR, respiratory specimen 2020 0[address] [place] [facility] (Centralized Electronic Ordering - All Locations), Patient Can Go To The Location Of Their Choice, [id number] 17:58:30 Referral None recorded. Procedures None recorded. Surgeries None recorded. Imaging None recorded. Medication Orders None recorded. Patient TargetsNo targets recorded. Patient Instructions Encounter Date Encounter Id Patient Instructions Last Modified By Organization Details Last Modified Time 01/12/2020 [id number] We came to see y ou today for concerns of hip pain and cough. When we came to see you today you reported that your symptoms have been improving. You were noted to have stable vital signs and alow grade fever of 99.1, your oxygen level is 100% on room air. Your lungs were clear so I am not concerned for pneumonia at this time. I would advise you to stay in over the weekend until your low grade temperature subsides . You can take tylenol 650mg every 4-6 hours as needed for fever or discomfort. I reccomend that you push fluids and drink tea with honey to help to sooth your throat. You are not showing signs or symptoms of compromise, I do not feel it is warranted to seek testing for Stephen virus as your symptoms are improving and there is greater risk of exposing youself to other pathogens. Thank you [facility] your [facility] with [facility] today. We cannot always find the exact cause of your symptoms during your initial visit. Please follow up with your primary care provider or specialist as needed to be rechecked or seek medical attention if your symptoms do not go away or get worse. If you develop any new or worsening symptoms and need after hours care, please go to nearest ER and/or call 911. If you have additional concerns or develop a change in your condition between 8am-10pm, please [facility] at [phone] to help navigate your care. Thank you for your visit with [facility] today. You do not appear to have a fracture or dislocation that requires immediate surgical intervention. However, small breaks or ligament tears may not be obvious on initial examination. Given this concern, we may have placed you in a temporary splint. If an xray is indicated, we will help direct you to the best option to obtain your imaging study. We have also given you follow up directions. Please follow up with your primary care physician or specialist as directed. If you develop any new or worsening symptoms and need after hours care, please go to nearest ER and/or call 911. If you have additional concerns or develop a change in your condition between 8am-10pm, please call [facility] at [phone] to help navigate your care. [email or web address] Not available 01/12/2020 15:34:59 Reason for Referral None Reported. Results Created Date Observation Date Name Description Value Unit Range Abnormal Flag Note LastModifiedBy Organization Detail LastModifiedTime 12/24/19 21 12/25/2020 SARS CoV 2 RNA (COVI D-19) , QL, casino investigator-P CR, respi rator y speci men covid-19, (RT)-PCR (neg) NEGAT SYED 2019- novel Coron aviru s (2019 -nCoV ) not detec kwesi by the qRT-P CR assay . If clini adam suspi cion for COVID -19 is high, randolph nue to maint ain preca ution s and consi ruy repea t testi ng. Resul t repor kwesi to the [facility]. This test has been autho rized by the FDA under an Emerg ency Use Autho rizat ion (EUA) for use by autho rized labor atori es. Test perfo rmed by Clini adam [facility] Maye mcmanus, GERTRUDE at the [facility] of [facility] and Pebbles thao, [address] [place] [address] . CLIA ID: [id number] , CAP: [id number]. Medic al Direc tor: Stacy Carr, PhD FACMG (NOTE ) The CRSP SARS- CoV-2 Real- time Rever se Trans cript ase (RT)- PCR Diagn ostic Assay is a real- time RT-PC R test inten ded for the quali tativ e detec tion of nucle ic acid from the SARS- CoV-2 in nasop haryn geal and oroph aryng eal swabs colle cted from indiv idual s who may have contr acted the virus . Testi ng is limit ed to the Clini adam [facility] Sequdipak Schmid or at the [facility] which is certi fied under the Clini adam Labor atory Impro vemen t Amend ments of 1987 (CLIA ), 42 U.S.C . ?263a , to perfo rm high compl exity tests . = Posit syed resul ts are indic ative of activ e infec tion with SARS- CoV-2 but do not rule out bacte rial infec tion or co-in fecti on with other virus es. The agent detec kwesi may not be the defin ite cause of disea se. In addit ion, nucle ic acid detec tion can persi st follo wing clear ance of activ e viral repli catio n. Labor atori es withi n the [place]ite d State s and its radha shari s are requi red to repor t all posit syed resul ts to the appro priat e publi c healt h autho ritie s. = Negat syed resul ts do not precl ude SARS- CoV-2 infec tion and shoul d not be used as the sole basis for patie nt treat ment or other patie nt manag ement decis ions. Negat syed resul ts must be combi angeline with clini adam obser vatio ns, patie nt histo ry, and epide miolo gical infor matfarnaz n. Not Available [facility] (Centralized Electronic Ordering - All Locations) Patient Can Go To The Location Of Their Choice, [id number] 12/25/2020 17:58:30 Result Notes None recorded. Medical Equipment None Reported. Allergies Allergen ID Allergen Name Allergen Category Reaction Reaction Severity Criticality Documentation Date Start Date Code Code System Note Provider Name and Address Organization Details Recorded Time 96119 Substance with sulfonami de structure and antibacte rial mechanism of action (substanc e) medicatio n Not available Not available Not available 01/12/2020 [id number] 8003 SNOMED CIERA LORA , EQUIPMENT OPERATOR [address], [place], [address], [place] [facility] 15:17:14 Medications Name Sig Start Date Stop Date Status Note LastModified by Organization Details LastModified Time amoxicillin 500 mg capsule 01/11 completed Not Available Not Available Not Available prednisone 10 mg tablet 01/11 completed Not Available Not Available Not Available doxycycline hyclate 100 mg capsule 01/11 completed Not Available Not Available Not Available ketoconazole 2 % shampoo 01/11 completed Not Available Not Available Not Available azithromycin 250 mg tablet 01/11 completed Not Available Not Available Not Available ibuprofen 800 mg tablet TAKE 1 TABLET BY MOUTH THREE TIMES A DAY NEEDED active Not Available Not Available No t Available betamethasone , augmented 0.05 % topical cream 01/11 completed Not Available Not Available Not Available triamcinolone acetonide 0.1 % topical cream 01/11 completed Not Available Not Available Not Available gabapentin 100 mg capsule 01/11 completed Not Available Not Available Not Available epinephrine 0.3 mg/0.3 mL injection, auto-injector 01/11 completed Not Available Not Available Not Available levofloxacin 750 mg tablet 01/11 completed Not Available Not Available Not Available hydroxyzine HCl 10 mg tablet 01/11 completed Not Available Not Available Not Available amoxicillin 875 mg-potassium clavulanate 125 mg tablet 01/11 completed Not Available Not Available Not Available Ventolin HFA 90 mcg/actuation aerosol inhaler 01/11 completed Not Available Not Available Not Available Pain Relief Extra Strength (acetaminophe n) 500 mg tablet TAKE 1 TABLET BY MOUTH THREE TIMES A DAY NEEDED active Not Available Not Available No t Available Vitamin D3 active Not Available Not Av ailable Not Available astragalus root (bulk) active Not Available Not Available Not Available Vitals Date Recorded Heart rate Oxygen saturation Oxygen saturation in Arterial blood by Pulse oximetry Body temperature Respiratory rate Systolic blood pressure Diastolic blood pressure Provider Name and Address Organization Details Last Updated DateTime 0 76 /min 100 % 100 % 99.1 [degF] 18 /min 126 mm[Hg] 78 mm[Hg] Not Available [facility] 0 15:17:53 Date Recorded Respiratory rate Heart rate Oxygen saturation Oxygen saturation in Arterial blood by Pulse oximetry Body temperature Systolic blood pressure Diastolic blood pressure Provider Name and Address Organization Details Last Updated DateTime 1 20 /min 84 /min 96 % 96 % 99 [degF] 124 mm[Hg] 78 mm[Hg] Not Available [facility] 1 11:03:55 Social History Question Answer Notes LastModified by Organizat ion Details LastModified Time Tobacco Smoking Status Never Smoker CIERA PAULINO NP [address], [place], [address], [place] [facility] 01/12/2020 15:49:49 Do You Have An Advance Directive? No [email or web address] Information not available 01/12/2020 What Is Your Code Status? Full Code Information not available 01/12/2020 Within The Past 12 Months, Has It Happened That The Food You Bought Just Didn't Last And You Didn't Have Money To Get More. No [email or web address] Information not available 01/12/2020 Within The Past 12 Months, Have You Worried That Your Food Would Run Out Before You Got Money To Buy More. No [email or web address] Information not available 01/12/2020 Fall Risk: Do You Feel Unsteady When Standing Or Walking? No [email or web address] Information not available 01/12/2020 We Know That How And When People Interact With Friends And Family Can Be Very Different From Person To Person. How Often Do You Have The Opportunity To See Or Talk To People That You Care About And Feel Close To? (Ex: Talking To Friends On The Phone Or Visiting Friends Or Family Or Going To [employer]ish Or Club Meetings) 3 Or 4 Times Per Week [email or web address] Information not available 01/12/2020 Excessive Alcohol Or Drug Use No [email or web address] Information not available 01/12/2020 We Know From Many Of Our Patients That Covering All Of Their Costs Can Be Difficult At Times. This Can Cause Stress And Impact Health. In The Past Year, Have You Been Unable To Get Any Of The Following When It Was Really Needed? No [email or web address] Information not available 01/12/2020 What Is Your Housing Situation Today? I Have Housing [email or web address] Information not available 01/12/2020 Would You Like Help Connecting To Resources? None [email or web address] Information not available 01/12/2020 Sex: Unknown Functional Status None recorded. Mental Status None recorded. Family History Nothing Reported Notes:unsure Medical History Condition Response Coronary Artery Disease N COPD Y Depression Y Cancer Y Stroke N High Cholesterol Y Kidney Disease N Diabetes N Asthma N Pulmonary Embolism N Hypertension N Gynecological HistoryNo gynecological history recorded. Obstetrics History GPAL:G 0 P 0 0 0 0 Past Encounters Encounter ID Performer Location Encounter Start Date Encounter Closed Date Diagnosis/Indication Diagnosis SNOMED-CT Code Diagnosis ICD10 Code Diagnosis Note [id number] CIERA PAULINO NP [facility] [address] [place] [address] 01/12/2020 15:12:55 01/26/2020 10:43:51 Viral upper respiratory tract infection 297019838 J06.9 [id number] ERICK DAVISON [facility] [address] [place] [address] 12/24/2020 10:52:47 12/24/2020 22:29:30 Nausea and vomiting [id number] R11.2 Cough 44758647 R05 Health Concerns Section Related Observation LastModified by Organization Detai ls LastModified Time None Recorded Concern Status LastModified by Organization Details LastModified Time None Recorded Advance Directives Directive N: Payers Insurance Date Sequence Insurance Name Policy Number Policy Richardson Covered Member ID Richardson Member ID Guarantor Name 12/24/2020 1 [facility] - DOS PRIOR TO 2023 - DUAL ELIGIBLE (MEDICARE REPLACEMENT/AD VANTAGE - HMO) Marilia Bashir [id number] Marilia Bashir 01/11/2020 1 *SELF PAY* Marilia Bashir [id number] Marilia Bashir 12/24/2020 2 [place] [facility] Marilia Bashir [id number] Marilia Bashir 01/26/2020 1 MED[place] B-[place] [facility] Marilia Bashir [id number] Marilia Bashir 12/24/2020 1 [place] [facility] Marilia Bashir [id number] Marilia Bashir Notes Date Note Type Note Provider Name and Address Organization Details Recorded Time 01/12/2020 text/html This is a 74-year-old female that is unknown to [facility] or this provider. She has a medical history significant for asthma, breast cancer in the past, depression arthritis and hypothyroidism. She is following with a naturopathic doctor and is taking many herbal supplements that were not in the [employer] library. She reports that she had been having hip pain which she now thinks may have been due to sciatica as well as chills a few days ago and a cough. She reports that she feels much better today. She continues have occasional cough but has had chills for more than 24 hours. She denies fevers. She does not have a thermometer so she has not checked. She contacted [facility] because she had questions about whether or not she should be tested for coronavirus given her age and pulmonary history. CIERA PAULINO NP [address] [place], [address], [place] - [facility] 01/12/2020 20:59:02 12/24/2020 text/html 75yoF known to D H new to this provider pmhx COPD, breast CA sp radiation, depression, hypothyroidism is seen today for sneezing and cough x 2-3 days. Yesterday, patient reports nausea, vomiting, and abdominal pain. Patient reports vomiting approx 6 times. Associated diarrhea without hematochezia or melena. Only abdominal surgery was an inguinal hernia repair. Patient denies any more abdominal pain, nausea or vomiting today. She reports sig fatigue. She denies any urinary symptoms, cp or worsened sob from her baseline due to her COPD. No known sick contact. Patient denies any change in her diet. She ate a packaged salad the night before. She denies any fevers. No loss of sense of taste or smell. ERICK DAVISON [address], [place], [address], [place] - [facility] 12/24/2020 11:29:55 OBGyn Episode No OBEpisode recorded.
--- OUTSIDE RECORDS SUMMARY | 2025-03-21 07:38 | XMS_ITS | Encounter Summary ---
Author Organization [employer] Address [address] [place] [address] Care Team Providers Care Granite Block Paver Name Role Phone Name, Chele GALLEGOS Primary Care Provider [phone] Reason for Visit * Reason Onset Date Comments nightguard 01/22/2025 Encounter Details Date Type Department Care Team ([facility] Contact Info) Description 01/22/2025 Telephone [facility] ADULT DENTAL [address] [place] [address] Kemi Contreras, DDS [address] [place] [address] nightguard Social History Tobacco Use Types Packs/Day Years Used Date Smoking Tobacco: Never Smokeless Tobacco: Never Alcohol Use Standard Drinks/Week Comments Never 0 (1 standard drink = 0.6 oz pur e alcohol) Alcohol Answer Date Recorded Frequency of Alcohol Consumption Not on file 04/27/2024 Average Number of Drinks Not on file 024 Frequency of Binge Drinking Not on file 04/02 Score 0 04/27/2024 Depression Answer Date Recorded Patient Health Questionnaire-9 Score 4 04/27/2024 Patient Health Questionnaire-9 Score 4 04/27/2024 Last PHQ-9: Questionnaire Data Not on file 0 04/27/2024 Housing Stability Answer Date Recorded What is your housing situation today? I have avril carpenter 04/27/[address] you li ve. Do you have problems with any of the following? None of the above 04/27/2024 Food Insecurity Answer Date Recorded Within the past 12 months, y ou worried that your food would run out before you got money to buy more: Never True 04/27/2024 Within the past 12 months,th e food you bought just didn't last and you didn't have enough money to get more: Never True Transportation Answer Date Recorded In the past 12 months, has l ack of transportation kept you from medical appts, meetings, work or from getting things needed for daily living? Yes, it has kept me from medical appointments or getting medications. 04/27/2024 Utilities Answer Date Recorded In the past 12 months, has t he electric, gas, oil or water company threatened to shut off services in your home? No 04/27/2024 Depression Answer Date Recorded Patient Health Questionnaire-2 Score 2 04/27/2024 Internet Access Answer Date Recorded Internet Access Q1 No 07/03/2024 Internet Access Q2 I do not want or need it 12/2023 Comments Unknown Sex and Gender Information Value Date Recorded Sex Assigned at Female 08/31/2022 10:37 AM EDT Legal Sex Female 10:37 AM EDT Gender Identity Female 08/31/2022 10:37 AM EDT Sexual Orientation Straight 08/31/2022 10 :37 AM EDT documented as of this encounter Miscellaneous Notes * Telephone Encounter - Tatianna Nicole - 01/22/2025 3:41 PM EDT Patient called in for he status of nightguard PA. Patient came in on 01/17 and states she contactedthe insurance for an update and was informed by insurance that they had not received PA request. Confirmed with front end loader driver [facility] that PA had not been submitted as of yet. Should be submitted in next couple o days and office will reach out for scheduling when PA comes back approved documented in this encounter Plan of Treatment Upcoming Encounters Date Type Department Care Team (Late st Contact Info) Description 03/22/2025 3:30 PM EDT Office Visit [facility] ADULT DENTAL [address] [place] [address] Jennifer Phillip, DDS [address], [place] [id number] documented as of this encounter Visit Diagnoses Not on filedocumented in this encounter Additional Health Concerns Assessment Noted Time PHQ-9 Depression Total Score: 4 04/27/20 24 10:35 AM EDT documented as of this encounter Care Teams Granite Block Paver Relationship Specialty Start Date End Date Name, MD Chele [address] [place] [address] PCP - General Family Medicine 06/23/22 documented as of this encounter
--- OUTSIDE RECORDS SUMMARY | 2025-03-21 07:38 | XMS_ITS | Encounter Summary ---
Author Organization [employer] Address [address] [place] [address] 7 [place] [address] Care Team Providers Care Locomotive Inspector Name Role Phone Name, Chele GALLEGOS Primary Care Provider [phone] Encounter Details Date Type Department Care Team (Late st Contact Info) Description 10/16/2022 [facility] Health Information Management [address] [place] [address] Name, MD Chele [address] [place] [address] Social History Tobacco Use Types Packs/Day Years [...] Description 03/22/2025 3:30 PM EDT Office Visit [facility] ADULT DENTAL [address] [place] [address] Jennifer Phillip DDS [address] [place] [address] documented as of this encounter Visit Diagnoses Not on filedocumented in this encounter Care Teams Locomotive Inspector Relationship Specialty Start Date End Date Name, MD Chele [address] [place] [id number] PCP - General Family Medicine 06/23/22 documented as of this encounter
--- OUTSIDE RECORDS SUMMARY | 2025-03-21 07:38 | XMS_ITS | Encounter Summary ---
Author Organization [email or web address] Address [address] 7[address] [place] [address] Care Team Providers Care Political Geographer Name Role Phone Name, Chele GALLEGOS Primary Care Provider [phone] Encounter Details Date Type Department Care Team (Latest Contact Info) Description 03/20/2025 Travel Social History Tobacco Use Types Packs/Day Years [...] Answer Date Recorded Patient Health Questionnaire-9 Score 6 03/20/2025 Patient Health Questionnaire-9 Score 6 03/20/2025 Last PHQ-9: Questionnaire Data Not on file 0 03/20/2025 Housing Stability Answer Date Recorded What is your housing situation today? I have avril carpenter 03/20/[address] you li ve. Do you have problems with any of the following? Pests such as bugs, ants, or mice 03/20/2025 Food Insecurity Answer Date Recorded Within the [...] getting things needed for daily living? No 03/20/2025 Utilities Answer Date Recorded In the past 12 months, has t he electric, gas, oil or water company threatened to shut off services in your home? No 04/27/2024 Depression Answer Date Recorded Patient Health Questionnaire-2 Score 2 03/20/2025 Internet Access Answer Date Recorded Internet Access Q1 Yes 03/20/2025 Internet Access Q2 I do not want or need it 03/02 Comments Unknown Sex and Gender Information Value Date Recorded Sex Assigned at Female 08/31/2022 10:37 AM EDT Legal Sex Female 10:37 AM EDT Gender Identity Female 08/31/2022 10:37 AM EDT Sexual Orientation Straight 08/31/2022 10 :37 AM EDT documented as of this encounter Functional Status * Over the past 2 weeks, how often have you been bothered by any of the following problems? Question Answer Date of Assessment Author Patient Health Questionnaire -2 Score 2 03/20/2025 3:43 PM EDT Leta Orozco MA * Little interest or pleasure in doing things Answer Date of Assessment Author Several days 03/20/2025 3:43 PM EDT Minoo Orozco MA * Feeling down, depressed, or hopeless Answer Date of Assessment Author Several days 03/20/2025 3:43 PM EDT Minoo Orozco MA * Trouble falling or staying asleep, or sleeping too much Answer Date of Assessment Author Several days 03/20/2025 3:43 PM EDT Minoo Orozco MA * Feeling tired or having little energy Answer Date of Assessment Author Several days 03/20/2025 3:43 PM EDT Minoo Orozco MA * Poor appetite or overeating Answer Date of Assessment Author Not at all 03/20/2025 3:43 PM EDT Minoo Orozco MA * Feeling bad about yourself - or that you are a failure or have let yourself or your family down Answer Date of Assessment Author More than half the days 03/20/2025 3:43 PM EDT Minoo Freitas MA * Trouble concentrating on things, such as reading the newspaper or watching television Answer Date of Assessment Author Not at all 03/20/2025 3:43 PM EDT Minoo Orozco MA * Moving or speaking so slowly that other people could have noticed? Or the opposite - being so fidgety or restless that you have been moving around a lot more than usual. Answer Date of Assessment Author Not at all 03/20/2025 3:43 PM EDT Minoo Orozco MA * Thoughts that you would be better off or hurting yourself in some way Answer Date of Assessment Author Not at all 03/20/2025 3:43 PM EDT Minoo Orozco MA * Patient Health Questionnaire-9 Score Answer Date of Assessment Author 6 03/20/2025 3:43 PM EDT Minoo Orozco MA * How difficult have these problems made it for you to do your work, take care of things at home, or get along with other people? Answer Date of Assessment Author Somewhat difficult 03/20/2025 3:43 PM EDT Minoo Powers MA * Over the last 2 weeks, how often have you been bothered by any of the following problems? Question Answer Date of Assessment Author Feeling nervous, anxious, or on edge 0 03/20/2025 3:45 PM EDT Leta Orozco MA Not being able to stop or control worrying 0 03/20/2025 3:45 PM FAMILIAT Leat Orozco MA Worrying too much about different things 0 03/20/2025 3:45 PM FAMILIAT Leta Orozco MA Trouble relaxing 1 03/20/2025 3:45 PM EDT Minoo Freitas MA Being so restless that it is hard to sit still 0 03/20/2025 3:45 PM FAMILIAT Leta Orozco MA Becoming easily annoyed or irritable 1 03/20/2025 3:45 PM FAMILIAT Leta Orozco MA Feeling afraid as if somethi ng awful might happen 1 03/20/2025 3:45 PM Leta Rahman MA VALERIE-7 Total Score 3 03/20/2025 3:45 PM EDT Minoo Orozco MA documented as of this encounter Plan of Treatment Upcoming Encounters Date Type Department Care Team (Late st Contact Info) Description 03/22/2025 3:30 PM EDT Office Visit [facility] ADULT DENTAL [address] [place] [address] Jennifer Phillip DDS [address] [place] [address] documented as of this encounter Visit Diagnoses Not on filedocumented in this encounter Additional Health Concerns Assessment Noted Time PHQ-9 Depression Total Score: 6 03/20/20 25 3:43 PM EDT documented as of this encounter Care Teams Political Geographer Relationship Specialty Start Date End Date Name, MD Chele [address] [place] [address] PCP - General Family Medicine 06/23/22 documented as of this encounter
--- OUTSIDE RECORDS SUMMARY | 2025-03-21 07:38 | XMS_ITS | Encounter Summary ---
Author Organization [employer] Address [address] 7t [place] [address] Care Team Providers Care Confidential Investigator Name Role Phone Name, Chele GALLEGOS Primary Care Provider [phone] Encounter Details Date Type Department Care Team ([facility] st Contact Info) Description 10/07/2023 Telephone [facility] MEDICINE [address] [place], [place] [phone] Name, MD Chele [address] [place] [address] Social History Tobacco Use Types Packs/Day Years [...] t he electric, gas, oil or water [employer] threatened to shut off services in your [...] Description 03/22/2025 3:30 PM EDT Office Visit [facility] ADULT DENTAL [address] [place] [address] Jennifer Phillip DDS [address] [place] [address] documented as of this encounter Visit Diagnoses Not on filedocumented in this encounter Additional Health Concerns Assessment Noted Time PHQ-9 Depression Total Score: 0 02/24/20 23 3:56 PM EDT documented as of this encounter Care Teams Confidential Investigator Relationship Specialty Start Date End Date Name, MD Chele [address] [place] [address] PCP - General Family Medicine 06/23/22 documented as of this encounter
--- OUTSIDE RECORDS SUMMARY | 2025-03-21 07:38 | XMS_ITS | Encounter Summary ---
Author Organization [employer] Address [address] [place] [address] Care Team Providers Care Metal Stamping Machine Operator Name Role Phone Name, Chele GALLEGOS Primary Care Provider [phone] Reason for Visit * Reason Onset Date Comments Chart Prep 03/19/2025 Encounter Details Date Type Department Care Team ([facility] st Contact Info) Description 03/19/2025 Telephone [facility] MEDICINE [address] [place], [place] [phone] Chelsea Myers MA Chart Prep Social History Tobacco Use Types Packs/Day Years [...] encounter Miscellaneous Notes * Telephone Encounter - Chelsea Myers MA - 03/19/2025 2:06 PM EDT Chart Prep Labs: done except lipid panel Images: not done Referrals: Radiology appointment on 03/21/25 at 7:15 am Physical therapy ref closed Vaccines due: Covid, Tdap, RSV, and Zoster Screenings: not applicable Overdue care gaps: SBIRT, SDOH, PHQ-9, VALERIE-7, Oral health screening, and Tobacco documented in this encounter Plan of Treatment Upcoming Encounters Date Type Department Care Team (Late st Contact Info) Description 03/22/2025 3:30 PM EDT Office Visit [facility] ADULT DENTAL [address] [place] [address] Jennifer Phillip DDS [address] [place] [address] documented as of this encounter Visit Diagnoses Not on filedocumented in this encounter Additional Health Concerns Assessment Noted Time PHQ-9 Depression Total Score: 4 04/27/20 24 10:35 AM EDT documented as of this encounter Care Teams Metal Stamping Machine Operator Relationship Specialty Start Date End Date Name, MD Chele [address] [place] [address] PCP - General Family Medicine 06/23/22 documented as of this encounter
--- OUTSIDE RECORDS SUMMARY | 2025-03-21 07:38 | XMS_ITS | Encounter Summary ---
Author Organization [employer] Address [address] 7[address] [place] [address] Care Team Providers Care Maintenance Of Way Clerk Name Role Phone Name, Chele GALLEGOS Primary Care Provider [phone] Reason for Visit * Reason Onset Date Comments Nurse Triage 02/28/2025 Encounter Details Date Type Department Care Team ([facility] st Contact Info) Description 02/28/2025 Telephone [facility] MEDICINE [address] [place], [place] [phone] Name, MD Chele [address] [place] [address] Nurse Triage Social History Tobacco Use Types [...] Telephone Encounter - Jennifer Garcia RN - 02/28/2025 4:39 PM EDT Triage call Pt reports sx of dizziness , lightheadedness and muscle ache around the diaphram area possibly from coughing alot. Pt does have seasonal allergies this time each year. Pt reports that this morning dizziness caused a spinning of the room sensation which lasted about 10 min. Pt reports not drinking adequate amt of liquids. Neg for fever or vomiting. Pt is advised to increase liquids to 6-8 glasses daily and if Pt doesn't like water just drink broth, decaf tea with honey, juices, vitamin water. Pt is also advised when getting up from sitting/lying down to be careful that balance is intact before walking and Pt agrees to prevent falls. Pt is offered [facility] today open till 8pm but, is unable to come today or tomorrow. Pt will come to [facility] 525 AM to be seen by provider. Pt agrees with disposition and insurance is verified as active. Protocol Used: Dizziness (Adult) Protocol-Based Disposition: See in Office or Video Visit within 3 Days Positive Triage Question: * Mild dizziness (e.g., walking normally) and has NOT been evaluated by physician for this (Exception: Dizziness caused by heat exposure, sudden standing, or poor fluid intake.) * All higher-acuity triage questions were negative Care Advice Discussed: * Drink Fluids * Reasons To Call Back - After 2 hours of rest and fluids and you are still feeling dizzy - You pass out (faint) or are too weak to stand - You become worse * Telephone Encounter - Joann Jimenez - 02/28/2025 4:08 PM EDT Symptoms: Dizziness, Chest Pain - Adult Outcome: Schedule an urgent appointment (within 1 hour) or talk to a nurse or provider soon Reason: Caller denied all higher acuity questions Pt disconnected call, card writer hand attempted to call back to advise pt will send a message to triage nurse but no answer. Sludge Filtration Attendant left . Contact pt at [phone] documented in this encounter Plan of Treatment Upcoming Encounters Date Type Department Care Team (Late st Contact Info) Description 03/22/2025 3:30 PM EDT Office Visit [facility] ADULT DENT[facility] [address] [place] [address] Jennifer Phillip DDS [address] [place], [place] [phone] documented as of this encounter Visit Diagnoses Not on filedocumented in this encounter Additional Health Concerns Assessment Noted Time PHQ-9 Depression Total Score: 4 04/27/20 24 10:35 AM EDT documented as of this encounter Care Teams Maintenance Of Way Clerk Relationship Specialty Start Date End Date Name, MD Chele [address] [place], [place] [phone] PCP - General Family Medicine 06/23/22 documented as of this encounter
--- OUTSIDE RECORDS SUMMARY | 2025-03-21 07:38 | XMS_ITS | Encounter Summary ---
Author Organization [employer] Address [address] [place] [address] Care Team Providers Care Produce Department Supervisor Name Role Phone Name, Chele GALLEGOS Primary Care Provider [phone] Reason for Visit * Reason Comments Follow-up Encounter Details Date Type Department Care Team ([facility] Contact Info) Description 03/20/2025 2:30 PM EDT Office Visit [facility] MEDICINE [address] [place], [place] [phone] Name, MD Chele [address] [place] [address] Dizziness, nonspecific (Primary Dx); Edentulous Social History Tobacco Use Types Packs/Day Years Used Date Smoking Tobacco: Never Smokeless Tobacco: Never Tobacco Cessation:Counseling Given: Not Answered Alcohol Use Standard Drinks/Week Comments Never 0 [...] the past 12 months, has t he [employer], gas, oil or water company threatened to [...] AM EDT documented as of this encounter Last Filed Vital Signs Vital Sign Reading Time Taken Comments Blood Pressure 133/76 03/20/2025 2:24 PM EDT Pulse 83 03/20/2025 2:24 PM EDT Temperature 36.4 ??C (97.6 ??F) 03/20/2025 2:24 PM ED T Respiratory Rate 10 03/20/2025 2:24 PM EDT Oxygen Saturation 98% 03/20/2025 2:24 PM EDT Inhaled Oxygen Concentration - - Weight 60.4 kg (133 lb 3.2 oz) 03/20/2025 2:24 P M EDT Height 157.5 cm (5' 2 ) 03/20/2025 2:24 PM EDT Body Mass Index 24.36 03/20/2025 2:24 PM EDT documented in this encounter Functional Status * Over the past 2 weeks, how often have you been bothered by any of the following problems? Question Answer Date of Assessment Author Patient Health Questionnaire -2 Score 2 03/20/2025 3:43 PM EDT Leta Orozco MA * Little interest or pleasure in doing things Answer Date of Assessment Author Several days 03/20/2025 3:43 PM FAMILIAT Minoo Orozco MA * Feeling down, depressed, or hopeless Answer Date of Assessment Author Several days 03/20/2025 3:43 PM FAMILIAT Minoo Orozco MA * Trouble falling or [...] Author Not at all 03/20/2025 3:43 PM FAMILIAT Minoo Orozco MA * Feeling bad about [...] Author Not at all 03/20/2025 3:43 PM Minoo Rahman MA * Moving or speaking so slowly that other people could have noticed? Or the opposite - being so fidgety or restless that you have been moving around a lot more than usual. Answer Date of Assessment Author Not at all 03/20/2025 3:43 PM Minoo Rahman MA * Thoughts that you would be better off or hurting yourself in some way Answer Date of Assessment Author Not at all 03/20/2025 3:43 PM Minoo Rahman MA * Patient Health Questionnaire-9 Score Answer Date of Assessment Author 6 03/20/2025 3:43 PM Minoo Rahman MA * How difficult have these problems [...] or control worrying 0 03/20/2025 3:45 PM EDT Leta Orozco MA Worrying too much about different things 0 03/20/2025 3:45 PM EDT Leta Orozco MA Trouble relaxing 1 03/20/2025 3:45 PM EDT Minoo Freitas MA Being so restless that it is hard to sit still 0 03/20/2025 3:45 PM EDT Leta Orozco MA Becoming easily annoyed or irritable 1 03/20/2025 3:45 PM EDT Leta Orozco MA Feeling afraid as if somethi ng awful might happen 1 03/20/2025 3:45 PM EDT Leta Orozco MA VALERIE-7 Total Score 3 03/20/2025 3:45 PM EDT Minoo Orozco MA documented as of this encounter Progress Notes * Chele Ackerman MD - 03/20/2025 2:30 PM EDT Subjective Patient ID: Marilia Bashir is a 79 y.o. female who presents for Follow-up. Patient comes for a follow-up visit. She feels well today. The complaints of dizziness she had on her previous visit have resolved completely. She denies any chest pains or shortness of breath. No seasonal allergy symptoms. Today her main concern is obtaining a letter of medical necessity to get dental implants. This is something that she needs for a long time. 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 She has been trying for more than a year to get the procedure covered by her insurance. Review of Systems Constitutional: Negative for chills and fever. HENT: Negative for sore throat. Respiratory: Negative for cough, shortness of breath and wheezing. Cardiovascular: Negative for chest pain, palpitations and leg swelling. Gastrointestinal: Negative for abdominal pain. Visit Vitals BP 133/76 (BP Location: Left arm, Patient Position: Sitting, BP Cuff Size: Adult) Pulse 83 Temp 97.6 ??F (36.4 ??C) (Temporal) Resp 10 Ht 5' 2 (1.575 m) Wt 133 lb 3.2 oz (60.4 kg) SpO2 98% BMI 24.36 kg/m?? Smoking Status Never BSA 1.63 m?? Objective Physical Exam Constitutional: Appearance: Normal appearance. Cardiovascular: Rate and Rhythm: Normal rate and regular rhythm. Heart sounds: No murmur heard. No gallop. Pulmonary: Effort: Pulmonary effort is normal. No respiratory distress. Breath sounds: Normal breath sounds. No wheezing. Musculoskeletal: Right lower leg: No edema. Left lower leg: No edema. Neurological: Mental Status: She is alert. Assessment/Plan Diagnoses and all orders for this visit: Dizziness, nonspecific Comments: This problem has resolved. Is possible she had benign positional paroxysmal vertigo. Edentulous Comments: I asked the patient to bring me the letter she recently got from her oral surgeon so I can support her need for dental implants with a letter of medical necessity. documented in this encounter Plan of Treatment Upcoming Encounters Date Type Department Care Team (Late st Contact Info) Description 03/22/2025 3:30 PM EDT Office Visit [facility] ADULT DENTAL [address] [place] [address] Jennifer Phillip DDS [address] [place], [place] [phone] documented as of this encounter Visit Diagnoses Diagnosis Dizziness, nonspecific- Primary Dizziness and giddiness Edentulous Anodontia documented in this encounter Additional Health Concerns Assessment Noted Time PHQ-9 Depression Total Score: 6 03/20/20 25 3:43 PM EDT documented as of this encounter Care Teams Produce Department Supervisor Relationship Specialty Start Date End Date Chele Ackerman MD [address] [place] [address] PCP - General Family Medicine 06/23/22 documented as of this encounter
--- OUTSIDE RECORDS SUMMARY | 2025-03-21 07:38 | XMS_ITS | Clinical Summary ---
Author Organization [employer] Address [address] [facility] [address] [place] [address] Care Team Providers Care Director Of Medical Review Name Role Phone Name, Chele GALLEGOS Primary Care Provider [phone] Allergies Active Allergy Reactions Criticality Noted Date Comments Amitriptyline 12/07/2022 Muscle spasms Chocolate 06/16/2022 Pt denies Nitrofurantoin Anaphylaxis High 06/11/2022 Other reaction(s): Other (see comments) Dizziness/fainting/tr ouble breathing headache, rash Sulfa Antibiotics Anaphylaxis,Hives,Sh ort ness of breath,Swelling High 07/01/2019 Other reaction(s): Not available Sulfites Hives High 06/16/2022 Other reaction(s): Other (see comments) Pt reports reaction after consuming chocolate, but no chocolate allergy found Thioridazine Anaphylaxis High 12/18/2021 Other reaction(s): [place] Medications Alpha-Lipoic Acid 200 MG capsule Take 200 mg by mouth in the morning and 200 mg in the evening. Active acetaminophen (Tylenol) 325 MG tablet Take 2 tablets (650 mg total) by mouth every 6 (six) hours as needed for pain 3 Active clobetasol (Temovate) 0.05 % ointment Apply a pea sized amount twice weekly 3 Active Multiple Vitamin (multivitamin) tablet Take 1 tablet by mouth Once per day. Active zinc gluconate 50 MG tablet Take 50 mg by mouth Once per day. Active cholecalcifero l (Vitamin D-3) 50 MCG (1999) capsuleIndicat ions:Hospital discharge follow-up take 1 capsule by oral route every day for vitamin D deficiency 30 capsule 2 3 Active psyllium (Metamucil) 0.36 g capsule Take 6 capsules (2.16 g) by mouth Once per day. 180 capsule 11 4 05/30/20 25 Active albuterol 108 (90 Base) MCG/ACT inhalerIndicat ions:Subacute cough Inhale 2 puffs every 6 (six) hours if needed for wheezing. 18 g 11 5 11/29/19 26 Active aspirin 81 MG chewable tabletIndicati ons:Atheroscle rosis of tribal coronary artery of tribal heart without angina pectoris Chew 1 tablet (81 mg) Once per day. 30 tablet 11 5 11/29/19 26 Active pravastatin (Pravachol) 20 MG tablet Take 1 tablet (20 mg) by mouth Once per day. 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 An echocardiogram done 08/29/2024 showed EF 65%, [id number] TR, no reported regional wall motion abnormality, moderate plaque in the ascending aorta. She had previously had a chest CTA done on 02/23/2023 which does show coronary calcifications. Hemorrhoids 05/30/2024 Assessment & Plan (06/05/2024 6:31 PM EDT): Presumed hemorrhoids, metamucil prescribed, rtc for worsening symptoms Other chest pain 05/30/2024 Assessment & Plan (06/05/2024 6:32 PM EDT): Concerning for atypical angina, stat referral to cardiology Malignant neoplasm of breast 04/27/2024 History of pulmonary embolus (PE) 02/26/2023 Assessment & Plan (03/03/2023 6:29 PM EDT): PE thought possible 2/2 to recent surgery -continue w AC -continue care w onc to decide length of tx -will depend if is 2/2 to surgery vs from maligancy -refilled med x now -referred to cardiology today to have further eval of her SOB and chest discomfort--referral was done for cardiovascular -seen that there is one in hospital -to eval as well x likely vascular complaints in her feet -alarm signs and symptoms discussed -would repeat CXR 4 weeks after last hospitalization to eval mentioned consolidations and pleural effusion and if persist will need pulm eval Malignant neoplasm of ovary 02/23/2023 Overview (09/15/2023): Incidental finding of R ovary in the course of an attempted prophylactic bilateral salpingo-oophorectomy because of her BRCA1 mutation. Pathology showing a 6 mm focus of high grade serous carcinoma within the ovary and without involvement of the ovarian surface. The left adnexae could not be removed because of adherence to adjacent tissues. She was recommended TSH and left adnexa removed but she refused for now Assessment & Plan (03/03/2023 6:25 PM EDT): -hx of breast/ovarian malignancy s/P chemtx and surgery -pd to see her oncologist in 2 weeks and also in process to schedule apt w 2nd oncologist x another opinion given not sure if should have hysterectomy as rec by her current oncologist BRCA1 gene mutation positive 10/07/2022 History of right mastectomy 10/07/2022 Triple negative breast cancer 10/07/2022 Cardiovascular event risk 10/07/2022 Anxiety 06/11/2022 Overview (04/27/2024): situational Chronic obstructive pulmonary disease 06/11/2022 Assessment & Plan (03/03/2023 6:33 PM EDT): Offered today p20 vaccine but wants to hold x now -will f w PCP at next visit in 4 weeks Claustrophobia 06/11/2022 Osteoporosis 06/11/2022 Cataract 12/23/2021 Depressive disorder 12/23/2021 Overview (02/23/2023): situational Hypothyroidism 12/23/2021 Lichen sclerosus 12/23/2021 Raynaud's disease 12/23/2021 Lichen sclerosus of vulva 11/30/2021 Malignant tumor of breast 03/27/2021 Overview (09/15/2023): 2004: Treated at [facility] for stage I triple negative right breast cancer with lumpectomy, sentinel node biopsy, and post-op RT. 06/06/20: Bilateral screening mammogram ([facility]) shows no findings of malignancy. There are stable post therapeutic changes in the right breast, and benign appearing calcifications. The left breast remains normal. 03/11/22: Bilateral diagnostic mammogram and u/s of right breast ([facility]) for self-palpated right breast mass showed hypoechoic area in right breast, 1.0 x 0.9 cm. 03/16/22: Core biopsy, right breast ([facility]). Pathology shows invasive ductal carcinoma, grade 2. ER/VT negative (0%); HER 2 negative (0%), Ki-67 15%. 03/26/22: [facility] ([employer]) germline testing for BRCA1 and BRCA2 showed a deleterious mutation in BRCA1 ([id number]). 03/31/22: Pathology reviewed by [facility]. This showed poorly differentiated invasive adenocarcinoma, spanning at least 0.7 cm. 04/27/22: Right mastectomy and sentinel lymph node excision ([facility]). Pathology shows invasive ductal carcinoma, grade 3, and ductal carcinoma in-situ. 3 lymph nodes negative for carcinoma (0/3). Tumor size: 1.7 cm. No LVI identified. (T1cN0) 07/03/22: Adjuvant weekly carboplatin + taxol. 10/14/22: Last dose of carbo/taxol (total of 10 doses given) b/o intolerance. Peripheral nerve disease 03/27/2021 Spinal stenosis 03/27/2021 Resolved Problems Problem Noted Date Diagnosed Date Resolved Date History of ovarian cancer 11/29/2024 Ovarian cancer 06/26/2024 11/29/2024 Anemia 04/27/2024 11/29/2024 BRCA1 positive 04/27/2024 11/29/2024 COPD (chronic obstructive pulmonary disease) 4 11/29/2024 Dermatitis 06/07/2023 09/15/2023 Assessment & Plan (06/07/2023 3:33 PM EDT): DDx: idiopathic dermatitis, allergy (latex?) Patient reports finishing chemotherapy last October. It included Taxol. Possible delayed reaction? Dysphagia 03/03/2023 09/15/2023 Assessment & Plan (03/03/2023 6:30 PM EDT): Reported solid and liquid x months -states better described as mass sensation with normal neck exam -referred today for neck US Headache 02/23/2023 09/15/2023 Risk for falls 02/23/2023 09/15/2023 Dehydration 09/04/2022 03/03/2023 Anemia 06/11/2022 09/15/2023 Assessment & Plan (03/03/2023 6:23 PM EDT): Pt reports hx of anemia told since had chemotx-hb at hospital 11.1 (02/23/2023) -pt to f w her oncologist -has apt this month -advised to have labs here if not done w her oncologist at her next visit w PCP here in 4 weeks to monitor and eval other causes if persist Arthritis 06/11/2022 09/15/2023 Back pain 06/11/2022 09/15/2023 Motion sickness 06/11/2022 09/15/2023 Mass of breast 06/11/2022 09/15/2023 Pneumonia 06/11/2022 03/03/2023 Chronic bronchitis 12/23/2021 Infiltrating ductal carcinom a of breast, stage 1 12/23/2021 09/15/2023 Insomnia 12/23/2021 09/15/2023 Hyperlipidemia 11/30/2021 09/15/2023 Dyspnea 03/27/2021 03/03/2023 Encounters Date Type Department Care Team Description 03/20/2025 2:30 PM EDT Office Visit [address] [address] Chele Ackerman MD Dizziness, nonspecific (Primary Dx); Edentulous 03/20/2025 Travel 03/19/[address] [address] Chelsea Myers [place] Chart Prep 03/15/[address] [address] [place] change referral code 03/14/2025 Orders Only [address] [address] Chele Ackerman MD Peripheral vertigo, unspecified laterality (Primary Dx) 03/05/2025 Telephone [facility] [address] [place] [phone] [facility] 03/02/2025 9:20 AM EDT Office Visit [facility] [address] [address] [facility] Dizziness, nonspecific (Primary Dx); Vertigo 03/02/2025 Telephone [facility] [address] [address] Trinity Lou RN Nurse Triage 02/28/[address] [address] Chele Ackerman MD Nurse Triage 02/22/2025 8:00 AM EDT Office Visit [facility] [address] [place] [address] Jennifer Phillip, ORESTESS 01/22/2025 Telephone [facility] [address] [place] [address] Kemi Contreras DDS nightguard 01/17/2025 2:00 PM EDT Office Visit [facility] [address] [place] [address] Matthew Stein Dental calculus (Primary Dx) 12/26/[address] [address] Minoo Orozco [place] january recalls 12/22/2024 Telephone [facility] [address] [place], [place] [phone] Name, MD hCele Referral from Last 3 Months Immunizations Immunization Administration Dates Next Due Influenza, High Dose Seasona l, Preservative Free 08/31/2024,07/04/2019 Influenza, IIV3, injectable 07/04/2019,0 11/07/2014,11/14/2013,08/03 Moderna Covid-19 Vaccine 12+ 03/28/2022,02/22/20 21,01/24/2021 PPD Test 07/01/2019 Pfizer Covid-19 Vaccine 12+ 08/31/2024 Pneumococcal Conjugate PCV 20 04/27/2024 Pneumococcal Polysaccharide PPSV23 11/30/2019 Td (adult), unspecified 02/11/2018 Zoster, Recombinant 01/21/2024 Social History Tobacco Use Types Packs/Day Years [...] Orientation Straight 08/31/2022 10 :37 AM EDT Last Filed Vital Signs Vital Sign Reading [...] Mass Index 24.36 03/20/2025 2:24 PM EDT Plan of Treatment Upcoming Encounters Date Type Department Care Team (Late st Contact Info) Description 03/22/2025 3:30 PM EDT Office Visit [facility] [address] [place] [address] Jennifer Phillip, DDS [address] [place] [address] Health Maintenance Due Date Last Done Comments DTaP/Tdap/Td Vaccines (1 - Tdap) 02/12/2018 02/11/2018 RSV Patients and Patients Aged 60 years or older (1 - 1-dose 75+ series) 2018 Zoster Vaccines (2 of 2) 03/17/2024 01/21/2024 Dental Oral Exam 12/17/2024 06/15/2024, 06/13/2021 COVID-19 Vaccine ( season) 2025 08/31/2024, 01/21/2024, 03/28/2022, Additional history exists Dental X-Ray: Bitewings 06/16/2025 06/15/2024, 06/13 Dental Prophylaxis 07/21/2025 01/17/2025, 06/26/2024 Alcohol/Substance Use Screening 03/20/2026 03/20/2025 Depression Screening 03/20/2026 03/20/2025, 03/20/20 SDOH Screening 03/20/2026 03/20/2025 Tobacco Screening 03/20/2026 03/20/2025 Lipid Panel 03/26/2026 03/26/2021 Mammogram 10/24/2026 10/24/2024, 10/02, 04/03/2024, Additional history exists Dental X-Ray: Full Mouth 06/16/2027 06/15/2024, 06/01 Pneumococcal Vaccine: 50+ Years Completed 04/27/2024, 11/30/2019 Influenza Vaccine Completed 08/31/2024, , 07/04/2019, Additional history exists HIB Vaccines Aged Out No longer eligi ble based on patient's age to complete this topic HPV Vaccines Aged Out No longer eligi ble based on patient's age to complete this topic Hepatitis A Vaccines Aged Out No long er eligible based on patient's age to complete this topic Hepatitis B Vaccines Aged Out No long er eligible based on patient's age to complete this topic IPV Vaccines Aged Out No longer eligi ble based on patient's age to complete this topic Meningococcal B Vaccine Aged Out No l onger eligible based on patient's age to complete this topic Meningococcal Vaccine Aged Out No ryley khang eligible based on patient's age to complete this topic RSV under 20 months Aged Out No longe r eligible based on patient's age to complete this topic Rotavirus Vaccines Aged Out No longer eligible based on patient's age to complete this topic Procedures Procedure Name Priority Date/Time Associated Diagnosis Comments ECG 12-LEAD Routine 03/02/2025 5:42 PM EDT Dizziness, nonspecific POCT COVID-19 AG NOE ID NOW Routine 03/02/2025 10:11 AM EDT Dizziness, nonspecific POCT INFLUENZA A (ID NOW RAPID MOLECULAR) Routine 03/02/2025 10:11 AM EDT Dizziness, nonspecific POCT INFLUENZA B (ID NOW RAPID MOLECULAR) Routine 03/02/2025 10:11 AM EDT Dizziness, nonspecific NIGHTGUARD IMPRESSION Routine 02/22/2025 8:00 AM EDT CASE PRESENTATION, DETAILED AND EXTENSIVE TREATMENT PLANNING Routine 01/17/2025 2:00 PM EDT ORAL HYGIENE INSTRUCTIONS Routine 01/17/2025 2:00 PM EDT PROPHYLAXIS - ADULT Routine 01/17/2025 2 :00 PM EDT PANORAMIC RADIOGRAPHIC IMAGE Routine 06/15/2024 10:00 AM EDT BITEWINGS - 4 RADIOGRAPHIC IMAGES Routine 06/15/2024 10:00 AM EDT PERIODIC ORAL EVALUATION - ESTABLISHED PATIENT Routine 06/15/2024 10:00 AM EDT MAMMOGRAM GENERIC Routine 03/11/2022 3:2 5 PM EDT LIPID PANEL, STANDARD Routine 03/26/2021 11:54 AM EDT from Last 3 Months or Most Recently Relevant to Health Maintenance Results * ECG 12 lead (03/02/2025 5:42 PM EDT) Laurel SarahQuiana marina FNP - 03/02/2025 5:42 PM EDT Sinus rhythm.Left axis deviation. Low QRS voltage in precordial leads. No significant change from prior readings Result [facility] ECG ORDERABLES Final Result * Influenza B (ID NOW Rapid Molecular) (03/02/2025 10:11 AM EDT) Influenza B Negative Negative, Indeterminate [facility] Swab 03/02/2025 10:1 1 AM EDT [facility] PROJECTION TECHNICIAN POINT OF CARE TEST ENTER/EDIT ORDERABLES Final Result Performing Organization Address City/[facility]/ZIP Co de Phone Number [facility] [address] [place] [phone] * Influenza A (ID NOW Rapid Molecular) (03/02/2025 10:11 AM EDT) Influenza A Negative Negative, Indeterminate [facility] Swab 03/02/2025 10:1 1 AM EDT [facility] POINT OF CARE TEST ENTER/EDIT ORDERABLES Final Result Performing Organization Address [facility] Co de Phone Number [facility] [address] [place] [phone] * POCT COVID-19 Ag Noe ID NOW (03/02/2025 10:11 AM EDT) Pathologist [facility] Coronavirus Antigen PCR Negative Negative, Indeterminate, None Detected, Invalid, Specimen unsatisfactory for evaluation, Weakly Positive, 2+ Swab 03/02/2025 10:1 1 AM EDT Result [facility] PROJECTION TECHNICIAN POINT OF CARE TEST ENTER/EDIT ORDERABLES Final Result * Mammography Report 1 (03/11/2022 3:25 PM EDT) Anatomical Region Laterality Modality Breast Bilateral Mammography 03/11/2022 3:25 PM EDT Narrative 03/11/2022 5:14 PM EDT Refer to the Notes tab for result details [facility] Procedure: Mammography Report 1 Procedure Note Provider, MD Rajesh - 01/24/2023 Refer to the Notes tab for result details [facility] Procedure: Mammography Report 1 Haydee Kelly ART HISTORY PROFESSOR IMG BI PROCEDURES Final Result * (ABNORMAL) LIPID PANEL, STANDARD (03/26/2021 11:54 AM EDT) Chol/HDLC Ratio 3.1 <5.0 (calc) [facility] Cholesterol, Total 253(H) <200 mg/dL [facility] HDL Cholesterol 82 > OR = 50 mg/dL [facility] LDL Cholesterol 144(H) mg/dL (calc) [facility] Comment: Reference range: <100 ?? Desirable range <100 mg/dL for primary prevention; ?? <70 mg/dL for patients with CHD or diabetic patients ?? with > or = 2 CHD risk factors. ?? LDL-C is now calculated using the Marcos ?? calculation, which is a validated novel method providing ?? better accuracy than the Friedewald equation in the ?? estimation of LDL-C. ?? Ayden HARDING et al. MATTHEW. 2013;310(19): 1165-4457 ?? (http://[employer].Zeppelin/faq/WFG480) Non-HDL Cholesterol 171(H) <130 mg/dL (calc) [facility] Comment: For patients with diabetes plus 1 major ASCVD risk ?? factor, treating to a non-HDL-C goal of <100 mg/dL ?? (LDL-C of <70 mg/dL) is considered a therapeutic ?? option. Triglycerides 147 <150 mg/dL [facility] 03/26/2021 11:5 4 AM EDT us Haydee Kelly NP LAB BLOOD ORDERABLES Final Resu lt [facility] [address] from Last 3 Months or Most Recently Relevant to Health Maintenance Insurance [facility] LONG TERM OPTIONS (HMO D-SNP) [facility] STANDARD [facility]ENTAL [facility] Care Teams Director Of Medical Review Relationship Specialty Start Date End Date Name, MD Chele [address] [place] [phone] PCP - General Family Medicine 06/23/22
--- OUTSIDE RECORDS SUMMARY | 2025-03-21 07:38 | XMS_ITS | Encounter Summary ---
Author Organization [employer] Address [address] [place] [address] 7 [place] [address] Care Team Providers Care Gender Studies Professor Name Role Phone Name, Chele GALLEGOS Primary Care Provider [phone] Encounter Details Date Type Department Care Team (Late st Contact Info) Description 11/05/2022 [facility] Health Information Management [address] [place] [address] Name, MD Chele [address] [place] [address] Social History Tobacco Use Types Packs/Day Years [...] Description 03/22/2025 3:30 PM EDT Office Visit [facility] [address] [place] [address] Jennifer Phililp DDS [address] [place] [address] documented as of this encounter Visit Diagnoses Not on filedocumented in this encounter Care Teams Gender Studies Professor Relationship Specialty Start Date End Date Name, MD Chele [address] [place] [id number] PCP - General Family Medicine 06/23/22 documented as of this encounter
--- OUTSIDE RECORDS SUMMARY | 2025-03-21 07:38 | XMS_ITS | Encounter Summary ---
Author Organization [employer] Address [address] [place] [address] 7 [place] [address] Care Team Providers Care Efficiency Engineer Name Role Phone Name, Chele GALLEGOS Primary Care Provider [phone] Encounter Details Date Type Department Care Team (Late st Contact Info) Description 10/30/2022 [facility] Health Information Management [address] [place] [address] Name, MD Chele [address] [place] [address] Social History Tobacco Use Types Packs/Day Years [...] Description 03/22/2025 3:30 PM EDT Office Visit [facility] [address] [place] [address] Jennifer Phillip DDS [address] [place] [address] documented as of this encounter Visit Diagnoses Not on filedocumented in this encounter Care Teams Efficiency Engineer Relationship Specialty Start Date End Date Name, MD Chele [address] [place] [id number] PCP - General Family Medicine 06/23/22 documented as of this encounter
--- OUTSIDE RECORDS SUMMARY | 2025-03-21 07:38 | XMS_ITS | Encounter Summary ---
Author Organization [employer] Address [address] [place] [address] 7 [place] [address] Care Team Providers Care Building Architect Name Role Phone Name, Chele GALLEGOS Primary Care Provider [phone] Encounter Details Date Type Department Care Team (Late st Contact Info) Description 10/23/2022 [facility] Health Information Management [address] [place] [address] Name, MD Chele [address] [place] [address] Social History Tobacco Use Types Packs/Day Years [...] Description 03/22/2025 3:30 PM EDT Office Visit [facility] [address] [place] [address] Jennifer Phillip DDS [address] [place] [address] documented as of this encounter Visit Diagnoses Not on filedocumented in this encounter Care Teams Building Architect Relationship Specialty Start Date End Date Name, MD Chele [address] [place] [phone] PCP - General Family Medicine 06/23/22 documented as of this encounter
== END 2025-03-21 07:36 | disposition home or self-care (01) ==
LOC: HO.CT 07:35
PROVIDERS: PCP Internal Medicine Geriatric Medicine; Visit Provider Registered Nurse
DX: R42 Dizziness and giddiness (principal)
CPT/HCPCS: 70450

== ENCOUNTER → 2025-03-21 07:37 | Outpatient (BNV) | payer OTHER, SELFPAY | PROVIDERS: PCP Internal Medicine Geriatric Medicine; Visit Provider Radiology Diagnostic Radiology | DX: G31.9 Degenerative disease of nervous system, unspecified (principal) | CPT/HCPCS: 70450 ==

== ENCOUNTER 2025-07-17 18:05 | Outpatient (REF) | payer OTHER, SELFPAY ==
--- OUTSIDE RECORDS SUMMARY | 2025-07-17 15:00 | XMS_ITS | Encounter Summary ---
Author Organization [employer] Address [address] [place] [address] Care Team Providers Care Coil Wrapper Name Role Phone Name, Chele GALLEGOS Primary Care Provider [phone] Reason for Visit * Reason Comments Female Dysuria Encounter Details Date Type Department Care Team ([facility] Contact Info) Description 07/17/2025 3:00 PM EDT Office Visit [facility] [address] [place] [address] Raina Nick MD [address] [place] [address] Urinary tract infection without hematuria, site unspecified (Primary Dx); UTI symptoms; Vaginal discharge Social History Tobacco Use Types Packs/Day Years [...] Answer Date Recorded Internet Access Q1 Yes 05/03/2025 Internet Access Q2 Not on file 05/03/2025 Comments Unknown Sex and Gender Information Value Date Recorded Sex Assigned at Female 08/31/2022 10:37 AM EDT Legal Sex Female 10:37 AM EDT Gender Identity Female 08/31/2022 10:37 AM EDT Sexual Orientation Straight 08/31/2022 10 :37 AM EDT documented as of this encounter Last Filed Vital Signs Vital Sign Reading Time Taken Comments Blood Pressure 127/76 07/17/2025 2:39 PM EDT Pulse 101 07/17/2025 2:39 PM EDT Temperature 36.9 C (98.4 F) 07/17/2025 2:39 PM EDT Respiratory Rate 17 07/17/2025 2:39 PM EDT Oxygen Saturation 98% 07/17/2025 2:39 PM EDT Inhaled Oxygen Concentration - - Weight 59.5 kg (131 lb 3.2 oz) 07/17/2025 2:39 P M EDT Height - - Body Mass Index 24 03/20/2025 2:24 PM EDT documented in this encounter Progress Notes * Raina Jay MD - 07/17/2025 3:00 PM EDT SUBJECTIVE: Marilia Bashir is a 79 y.o. year old female who presents for acute visit . 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 HENT: Negative. Respiratory: Negative. Cardiovascular: Negative. Genitourinary: Positive for difficulty urinating, dysuria, flank pain, frequency, urgency and vaginal discharge. Negative for decreased urine volume, dyspareunia, enuresis, genital sores, hematuria, menstrual problem, pelvic pain, vaginal bleeding and vaginal pain. OBJECTIVE: Vitals: 07/17/25 1439 BP: 127/76 BP Location: Left arm Patient Position: Sitting BP Cuff Size: Adult Pulse: 101 Resp: 17 Temp: 98.4 ??F (36.9 ??C) TempSrc: Temporal SpO2: 98% Weight: 131 lb 3.2 oz (59.5 kg) Physical Exam Constitutional: Appearance: Normal appearance. Cardiovascular: Rate and Rhythm: Normal rate and regular rhythm. Pulmonary: Effort: Pulmonary effort is normal. Breath sounds: Normal breath sounds. Abdominal: Palpations: Abdomen is soft. Tenderness: There is abdominal tenderness in the suprapubic area. There is right CVA tenderness andleft CVA tenderness. Neurological: Mental Status: She is alert. Follow Up: No follow-ups on file. Medications Ordered Prior to Encounter[2] Problem List Items Addressed This Visit UTI (urinary tract infection) - Primary UA and culture ordered today patient will be contacted with results Patient is allergic to Macrobid and Bactrim on review of chart last culture done she was resistant to cephalosporins and amoxicillin so I decided today to put her on ciprofloxacin 500 mg twice a day for 1 week I advised to drink plenty of water and do not hold the urine Vaginal discharge BV panel ordered today patient will be contacted with results Relevant Orders Bacterial Vaginosis Panel Other Visit Diagnoses UTI symptoms Relevant Medications ciprofloxacin (Cipro) 500 MG tablet Other Relevant Orders POCT urinalysis dipstick manually resulted (Completed) Culture, Urine, Routine [1] No family history on file. [2] Current Outpatient Medications on File Prior to Visit Medication Sig Dispense Refill acetaminophen (Tylenol) 325 MG tablet Take 2 tablets (650 mg total) by mouth every 6 (six) hours asneeded for pain albuterol 108 (90 Base) MCG/ACT inhaler Inhale 2 puffs every 6 (six) hours if needed for wheezing. 18 g 11 Alpha-Lipoic Acid 200 MG capsule Take 200 mg by mouth in the morning and 200 mg in the evening. aspirin 81 MG chewable tablet Chew 1 tablet (81 mg) Once per day. 30 tablet 11 cholecalciferol (Vitamin D-3) 50 MCG (2000 UT) capsule take 1 capsule by oral route every day for vitamin D deficiency 30 capsule 2 clobetasol (Temovate) 0.05 % ointment Apply a pea sized amount twice weekly Multiple Vitamin (multivitamin) tablet Take 1 tablet by mouth Once per day. zinc gluconate 50 MG tablet Take 50 mg by mouth Once per day. No current facility-administered medications on file prior to visit. documented in this encounter Miscellaneous Notes * Assessment & Plan Note - Raina Jay MD - 07/17/2025 3:26 PM EDT Associated Problem(s): Vaginal discharge BV panel ordered today patient will be contacted with results * Assessment & Plan Note - Raina Jay MD - 07/17/2025 3:26 PM EDT Associated Problem(s): UTI (urinary tract infection) UA and culture ordered today patient will be contacted with results Patient is allergic to Macrobid and Bactrim on review of chart last culture done she was resistant to cephalosporins and amoxicillin so I decided today to put her on ciprofloxacin 500 mg twice a day for 1 week I advised to drink plenty of water and do not hold the urine documented in this encounter Plan of Treatment Upcoming Encounters Date Type Department Care Team (Late st Contact Info) Description 08/01/2025 9:45 AM EDT Office Visit [facility] [address] [place] [address] Name, MD Chele [address] [place] [address] Scheduled Orders Name Type Priority Associated Diagnoses Orde r Schedule Culture, Urine, Routine Microbiology Routine UTI symptoms Ordered: 07/17/2025 Bacterial Vaginosis Panel Microbiology Routine Vaginal discharge Ordered: 07/17/2025 documented as of this encounter Procedures Procedure Name Priority Date/Time Associated Diagnosis Comments POCT URINALYSIS DIPSTICK Routine 07/17/2025 2:54 PM EDT UTI symptoms documented in this encounter Results * (ABNORMAL) POCT urinalysis dipstick manually resulted (07/17/2025 2:54 PM EDT) Color, UA Yellow Clarity, UA Clear Glucose, UA Negative Bilirubin, UA Negative Ketones, UA Positive Comment:Trace Spec Grav, UA 1.025 Blood, UA Positive(A) Negative, None Detected Comment:Small pH, UA 5.5 Protein, UA Few 15 Comment:30 mg/dL Urobilinogen, UA 0.2 Leukocytes, UA Few 15(A) Negative, Rare, Trace Comment:Small Nitrite, UA Negative Negative, None Detected Urine 07/17/2025 2:54 PM EDT us Raina Jay MD POINT OF CARE TEST EN TER/EDIT ORDERABLES Final Result documented in this encounter Visit Diagnoses Diagnosis Urinary tract infection without hematuria, site unspecified- Primary UTI symptoms Vaginal discharge Leukorrhea, not specified as infective documented in this encounter Additional Health Concerns Assessment Noted Time PHQ-9 Depression Total Score: 6 03/20/20 25 3:43 PM EDT documented as of this encounter Care Teams Coil Wrapper Relationship Specialty Start Date End Date Name, MD Chele [address] [place] [address] PCP - General Family Medicine 06/23/22 documented as of this encounter
--- OUTSIDE RECORDS SUMMARY | 2025-07-17 19:17 | XMS_ITS | Encounter Summary ---
Author Organization [facility] Address [address] [facility] [address] [place] [phone] Phone Care Team Providers Care Documentation Specialist Name Role Phone Haydee Kelly CARETAKER GROUNDS Primary Care Provider U Malathi Wall MD Primary Care Provider Haydee Kelly CARETAKER GROUNDS Primary Care Provider U Malathi Wall MD Primary Care Provider Migdalia Dean MD Unavailable Haydee Kelly CARETAKER GROUNDS Primary Care Provider U Ileana Craven MD Unavailable Cara Morrison MD Unavailable [phone] Rena Antonio MD Unavailable Jennifer SzymanskiC Unavailable doretha Alicia Pires CNP Unavailable Name, Chele GALLEGOS Primary Care Provider [phone] Trish Gan MD Unavailable Encounter Details Date Type Department Care Team (Late st Contact Info) Description 03/31/2022 Ancillary Orders [facility] [address] [place] [address] Ileana Milian MD [address] [place] [address] [email or web address] Malignant neoplasm of right female breast, unspecified estrogen receptor status, unspecified site of breast Social History Tobacco Use Types Packs/Day Years Used Date Smoking Tobacco: Former Smokeless Tobacco: Never Alcohol Use Standard Drinks/Week Comments Not Currently 0 (1 standard drink = 0.6 oz pur e alcohol) Comments No Sex and Gender Information Value Date Recorded Sex Assigned at Female 10/06/2019 3:45 PM EST Legal Sex Female 1:51 PM EDT Gender Identity Female 03/20/2022 1:08 PM EDT Sexual Orientation Straight 03/20/2022 1: 08 PM EDT documented as of this encounter Plan of Treatment Upcoming Encounters Date Type Department Care Team (Late st Contact Info) Description 05/09/2025 Procedure Pass [address] [address] 11/06/2025 9:00 AM EST Office Visit [facility] at [address] [address] Migdalia Dean MD [address] [place] [address] 12/21/2025 10:00 AM EST Appointment [address] [address] Migdalia Dean MD [address] [place] [address] documented as of this encounter Results * Mammogram Outside With Interpretation Or Consult (03/31/2022 9:25 AM EDT) 03/31/2022 Impressions [facility] - 04/09/2022 6:47 PM EDT 1. Hypoechoic mass in the right breast at 7:00 measuring up to 1.2 cm is a known malignancy. The biopsy clip is in the appropriate position. 2. No mammographic evidence of malignancy within the left breast. These findings were discussed at the multidisciplinary tumor conference on 03/31/2022. Appropriate action is being taken. BI-RADS Category 6: Known Biopsy - Proven Malignancy - Appropriate Action Should Be Taken Narrative [facility] - 04/09/2022 6:47 PM EDT OUTSIDE INTERPRETATION STUDIES PROVIDED FOR INTERPRETATION: -Right diagnostic and left screening mammogram 03/11/2022 -Right breast ultrasound 03/11/2022 -Right breast ultrasound guided biopsy and post-procedure mammogram 03/16/2022 Multiple additional prior mammograms are also submitted for comparison. HISTORY: Marilia Bashir presents for second-opinion interpretation of outside facility imaging. FINDINGS: Right Diagnostic Mammogram and Left Screening Mammogram (03/11/2022): No left breast MLO tomosynthesis image available for review. There are scattered fibroglandular densities. There is a focal asymmetry in the lower outer right breast at middle depth (best seen on CC spot compression view ). There are post lumpectomy changes in the right breast, including a calcified fat necrosis. No suspicious masses, calcifications or other abnormalities are seen within the left breast. Right Diagnostic Ultrasound (03/11/2022): Please note that ultrasound is an coin rolling machine operator-dependent real time examination, so evaluation of the provided static sonographic images is limited. Static sonographic images of the right breast at 7:00 4 cm from the nipple demonstrates an irregular hypoechoic mass measuring up to 1.2 cm corresponding with the finding on mammogram. Right Breast Ultrasound-Guided Core Needle Biopsy and Post-Biopsy Mammogram (03/16/2022): The hypoechoic mass in the right breast at 7 o'clock was appropriately sampled under ultrasound guidance. Post-procedure mammogram demonstrates accurate deployment of the clip at the biopsy site. Pathology (Reviewed by [facility]): A. 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 Procedure Note Malathi Carey MD - 04/10/2022 OUTSIDE INTERPRETATION STUDIES PROVIDED FOR INTERPRETATION: -Right diagnostic and left screening mammogram 03/11/2022 -Right breast ultrasound 03/11/2022 -Right breast ultrasound guided biopsy and post-procedure mammogram03/16/2022 Multiple additional prior mammograms are also submitted for comparison. HISTORY: [facility] FINDINGS: Right Diagnostic Mammogram and Left Screening Mammogram (03/11/2022): Noleft breast MLO tomosynthesis image available for review. There are scattered fibroglandular densities. There is a focal asymmetry in the lower outer right breast at middle depth(best seen on CC spot compression view 12/47). There are post lumpectomychanges in the right breast, including a calcified fat necrosis. No suspicious masses, calcifications or other abnormalities are seenwithin the left breast. Right Diagnostic Ultrasound (03/11/2022): Please note that ultrasound is anoperator-dependent real time examination, so evaluation of the providedstatic sonographic images is limited. Static sonographic images of the right breast at 7:00 4 cm from the nippledemonstrates an irregular hypoechoic mass measuring up to 1.2 cmcorresponding with the finding on mammogram. Right Breast Ultrasound-Guided Core Needle Biopsy and Post-BiopsyMammogram (03/16/2022): The hypoechoic mass in the right breast at 7o'clock was appropriately sampled under ultrasound guidance.Post-procedure mammogram demonstrates accurate deployment of the clip atthe biopsy site. Pathology (Reviewed by [facility]): A. 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 IMPRESSION: 1. Hypoechoic mass in the right breast at 7:00 measuring up to 1.2 cm is aknown malignancy. The biopsy clip is in the appropriate position. 2. No mammographic evidence of malignancy within the left breast. These findings were discussed at the multidisciplinary tumor conference on03/31/2022. Appropriate action is being taken. BI-RADS Category 6: Known Biopsy - Proven Malignancy - Appropriate ActionShould Be Taken us Ileana miles MD [facility] OUTSIDE IMAGING W/ INTERPRETATION Final Result [address] [address] documented in this encounter Visit Diagnoses Diagnosis Malignant neoplasm of right female breast, unspecified estrogen receptor status, unspecified site of breast Malignant neoplasm of right female breast, unspecified estrogen receptor status, unspecified site of breast documented in this encounter Additional Health Concerns Infection Onset Date Last Indicated Resolved Time CoV-Risk 07/22/2022 07/23/2022 08/03/2022 1:22 AM EDT CoV-Risk 08/21/2022 08/25/2022 08/28/2022 2:23 PM EDT COVID-19 09/07/2022 09/09/2022 09/28/2022 1:21 AM EST documented as of this encounter Care Teams Documentation Specialist Relationship Specialty Start Date End Date Haydee Kelly NP PCP - General Family Medicine 03/20/22 04/06/22 Malathi Keys MD [address] [place] [phone] [email or web address] PCP - General Family Medicine 04/07/22 04/14/22 Haydee Kelly NP PCP - General Family Medicine 04/15/22 04/23/22 Malathi Keys MD [address] [place] [phone] [email or web address] PCP - General Family Medicine 04/24/22 06/03/22 Haydee Kelly NP PCP - General Family Medicine 06/04/22 07/09/22 Chele Ackerman MD [address] [place] [phone] PCP - General Geriatric Psychiatry 07/10/22 Migdalia Dean MD [address] [place] [phone] [email or web address] Primary Oncologist Medical Oncology 05/29/22 Ileana Milian MD [address] [place] [address] [email or web address] General Surgery 06/04/22 Cara Morrison MD [address] [place] [address] [email or web address] Hematology and Oncology 06/04/22 Rena Antonio MD [address] [place] [address] [email or web address] Radiation Oncology 06/04/22 Jennifer Szymanski PA-C [address] [place] [address] [email or web address] Physician Paper Hanger Medical Oncology 06/04/22 Alicia Pires CNP [address] [place] [address] [email or web address] Nurse Practitioner Medical Oncology 06/09/22 Trish Gan MD [address] [place] [phone] Obstetrics and Gynecology 07/20/24 documented as of this encounter Additional Source Comments The information contained in this document represents components of the legal health record. It is not the complete legal health record.[facility]
--- OUTSIDE RECORDS SUMMARY | 2025-07-17 19:17 | XMS_ITS | Encounter Summary ---
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 Confirmed with front end drupal developer [facility] that PA had not been submitted as of yet. Should be submitted in next couple o days and office will reach out for scheduling when PA comes back approved documented in this encounter Plan of Treatment Upcoming Encounters Date Type Department Care Team (Late st Contact Info) Description 08/01/2025 9:45 AM EDT Office Visit [facility] [address] [place] [address] Name, MD Chele [address] [place] [address] documented as of this encounter Visit Diagnoses Not on filedocumented in this encounter Additional Health Concerns Assessment Noted Time PHQ-9 Depression Total Score: 4 04/27/20 24 10:35 AM EDT documented as of this encounter Care Teams Cartoon Artist Relationship Specialty Start Date End Date Name, MD Chele [address] [place] [address] PCP - General Family Medicine 06/23/22 documented as of this encounter
--- OUTSIDE RECORDS SUMMARY | 2025-07-17 19:17 | XMS_ITS | Encounter Summary ---
Author Organization [facility] Address [address] [facility] [address] [place] [address] Phone Care Team Providers Care Ship'S Cook Name Role Phone Migdalia Dean MD Unavailable Ileana Milian MD Unavailable Cara Morrison MD Unavailable [phone] Rena Antonio MD Unavailable [phone] Jennifer SzymanskiC Unavailable doretha Alicia Pires HEARING SCREENER Unavailable Name, Chele GALLEGOS Primary Care Provider Trish Gan MD Unavailable Encounter Details Date Type Department Care Team (Latest Contact Info) Description 05/05/2024 Transcribe Orders Virtual Department [address] [place] [address] Trish Gan MD [address] [facility] [address] [place] [address] Malignant neoplasm of ovary, unspecified laterality (Primary Dx) Social History Tobacco Use Types Packs/Day Years Used Date Smoking Tobacco: Former Cigarettes 2.5 30.4 0 11/01/1958 - 04/01/1989 Smokeless Tobacco: Never Comments:I quit smoking heav shimon in 1984 but smoked occasionally till approximately 1996.. Alcohol Use Standard Drinks/Week Comments Never 0 (1 standard drink = 0.6 oz pur e alcohol) Education Answer Date Recorded Are you interested in more education? Not on colin e 02/26/2023 Are you concerned about learning? Not on file 02/26/2023 No 02/26/2023 No 02/26/2023 Digital Access Answer Date Recorded No 03/25/2023 No 03/25/2023 Reliable internet access at home? Not on file 03/25/2023 Device with a working camera? Not on file Intimate Partner Violence Answer Date R ecorded Are you denied basic needs s uch as food, clothing, or medical care? No 02/18/2023 In the past 12 months have y ou been in a relationship with a person who hurts, threatens, or tries to control you? No 02/18/2023 Are you denied basic needs s uch as food, clothing, or medical care? No 02/18/2023 In the past 12 months have y ou been in a relationship with a person who hurts, threatens, or tries to control you? No 02/18/2023 Comments No Sex and Gender Information Value Date Recorded Sex Assigned at Female 10/06/2019 3:45 PM EST Legal Sex Female 1:51 PM EDT Gender Identity Female 03/20/2022 1:08 PM EDT Sexual Orientation Straight 03/20/2022 1: 08 PM EDT documented as of this encounter Plan of Treatment Upcoming Encounters Date Type Department Care Team (Late st Contact Info) Description 05/09/2025 Procedure Pass [address] [address] 11/06/2025 9:00 AM EST Office Visit [facility] at [address] [address] Migdalia Dean MD [address] [place] [phone] [email or web address] 12/21/2025 10:00 AM EST Appointment [address] [address] Migdalia Dean MD [address] [place] [address] [email or web address] documented as of this encounter Visit Diagnoses Diagnosis Malignant neoplasm of ovary, unspecified laterality- Primary documented in this encounter Additional Health Concerns Assessment Noted Time PHQ-9 Depression Total Score: 8 04/21/20 1:00 PM EDT PHQ-2 Depression Total Score: 1 04/21/20 1:00 PM EDT documented as of this encounter Care Teams Ship'S Cook Relationship Specialty Start Date End Date Name, MD Chele [address] [place] [phone] PCP - General Geriatric Psychiatry 07/10/22 Migdalia Dean MD [address] [place] [phone] [email or web address] Primary Oncologist Medical Oncology 05/29/22 Ileana Milina MD [address] [place] [phone] [email or web address] 06/04/22 Cara Morrison MD [address] [place] [phone] [email or web address] Hematology and Oncology 06/04/22 Rena Antonio MD [address] [place] [phone] [email or web address] Radiation Oncology 06/04/22 Jennifer Szymanski PA-C [address] [place] [phone] [email or web address] Physician Program Host Medical Oncology 06/04/22 Alicia Pires CNP [address] [place] [phone] [email or web address] Nurse Practitioner Medical Oncology 06/09/22 Trish Gan MD [address] [place] [phone] Obstetrics and Gynecology 07/20/24 documented as of this encounter Additional Source Comments The information contained in this document represents components of the legal health record. It is not the complete legal health record.[facility]
--- OUTSIDE RECORDS SUMMARY | 2025-07-17 19:17 | XMS_ITS | Encounter Summary ---
Author Organization [facility] Address [address] [facility] [address] [place] [address] Phone Care Team Providers Care Bean Sprout Laborer Name Role Phone Trey Kim MD Primary Care Provider [phone] Haydee Kelly TELEGRAPH EQUIPMENT MAINTAINER Primary Care Provider U Malathi Wall MD Primary Care Provider [phone] Haydee Kelly TELEGRAPH EQUIPMENT MAINTAINER Primary Care Provider U navailable Malathi Keys MD Primary Care Provider Migdalia Dean MD Unavailable Haydee Kelly TELEGRAPH EQUIPMENT MAINTAINER Primary Care Provider U navailable Ileana Milian MD Unavailable Cara Morrison MD Unavailable [phone] Rena Antonio MD Unavailable [phone] Jennifer Szymanski PA-C Unavailable doretha LexisAlicia KNOCKOUT MACHINE OPERATOR Unavailable Name, Chele GALLEGOS Primary Care Provider [phone] Trish Gan MD Unavailable Encounter Details Date Type Department Care Team (Latest Contact Info) Description 07/29/2021 Transcribe Orders Virtual Department [address] [place], [place] [phone] Meena Mariee MD [address] [facility] [address]. [address] [place], [place] [phone] [email or web address] Breast screening (Primary Dx) Social History Tobacco Use Types Packs/Day Years Used Date Smoking Tobacco: Former Comments Unknown Sex and Gender Information Value Date Recorded Sex Assigned at Female 10/06/2019 3:45 PM EST Legal Sex Female 1:51 PM EDT Gender Identity Female 03/20/2022 1:08 PM EDT Sexual Orientation Straight 03/20/2022 1: 08 PM EDT documented as of this encounter Plan of Treatment Upcoming Encounters Date Type Department Care Team (Late st Contact Info) Description 05/09/2025 Procedure Pass [address] [address] 11/06/2025 9:00 AM EST Office Visit [facility] at [address] [address] Migdalia Dean MD [address] [place] [address] [email or web address] 12/21/2025 10:00 AM EST Appointment [address] [address] Migdalia Dean MD [address] [place] [address] [email or web address] documented as of this encounter Visit Diagnoses Diagnosis Breast screening- Primary Breast screening, unspecified documented in this encounter Additional Health Concerns Infection Onset Date Last Indicated Resolved Time CoV-Risk 07/22/2022 07/23/2022 08/03/2022 1:22 AM EDT CoV-Risk 08/21/2022 08/25/2022 08/28/2022 2:23 PM EDT COVID-19 09/07/2022 09/09/2022 09/28/2022 1:21 AM EST documented as of this encounter Care Teams Bean Sprout Laborer Relationship Specialty Start Date End Date Trey Kim MD [address] [facility] [address] [address] [email or web address] [email or web address] PCP - General 10/06/19 03/19/22 Haydee Kelly NP PCP - General Family Medicine 03/20/22 04/06/22 Malathi Keys MD [address] [place] [address] [email or web address] [email or web address] PCP - General Family Medicine 04/07/22 04/14/22 Haydee Kelly NP PCP - General Family Medicine 04/15/22 04/23/22 Malathi Keys MD [address] [place] [address] [email or web address] [email or web address] PCP - General Family Medicine 04/24/22 06/03/22 Haydee Kelly NP PCP - General Family Medicine 06/04/22 07/09/22 Chele Ackerman MD [address] [place] [address] PCP - General Geriatric Psychiatry 07/10/22 Migdalia Dean MD [address] [place] [address] [email or web address] Primary Oncologist Medical Oncology 05/29/22 Ileana Milian MD [address] [place] [address] [email or web address] General Surgery 06/04/22 Cara Morrison MD [address] [place] [address] [email or web address] Hematology and Oncology 06/04/22 Rena Antonio MD [address] [place] [address] Radiation Oncology 06/04/22 Jennifer Szymanski PA-C [address] [place] [address] Physician Department Director Medical Oncology 06/04/22 Alicia Pires CNP [address] [place] [address] [email or web address] Nurse Practitioner Medical Oncology 06/09/22 Trish Gan MD [address] [place] [address] Obstetrics and Gynecology 07/20/24 documented as of this encounter Additional Source Comments The information contained in this document represents components of the legal health record. It is not the complete legal health record.[facility]
--- OUTSIDE RECORDS SUMMARY | 2025-07-17 19:17 | XMS_ITS | Encounter Summary ---
Author Organization [employer] Address [address] [place] [address] 7 [place] [address] Care Team Providers Care Time Broker Name Role Phone Name, Chele GALLEGOS Primary Care Provider [phone] Encounter Details Date Type Department Care Team (Late st Contact Info) Description 11/05/2022 [facility] [address] [place], [place] [phone] NameChele MD [address] [place] [address] Social History Tobacco Use Types Packs/Day Years [...] Description 08/01/2025 9:45 AM EDT Office Visit [facility] [address] [place] [address] [phone] NameChele MD [address] [place] [address] [phone] documented as of this encounter Visit Diagnoses Not on filedocumented in this encounter Care Teams Time Broker Relationship Specialty Start Date End Date NameChele MD [address] [place] [address] [phone] PCP - General Family Medicine 06/23/22 documented as of this encounter
--- OUTSIDE RECORDS SUMMARY | 2025-07-17 19:17 | XMS_ITS | Encounter Summary ---
Author Organization [facility] Address [address] [facility] [address] [place] [address] Phone Care Team Providers Care Corporate Controller Name Role Phone Haydee Kelly METAL LEAF LAYER Primary Care Provider U Malathi Wall MD Primary Care Provider [phone] Haydee Kelly METAL LEAF LAYER Primary Care Provider U Malathi Wall MD Primary Care Provider [phone] Migdalia Dean MD Unavailable Haydee Kelly METAL LEAF LAYER Primary Care Provider U Ileana Craven MD Unavailable Cara Morrison MD Unavailable [phone] Rena Antonio MD Unavailable [phone] Jennifer SzymanskiC Unavailable doretha Alicia Pires CNP Unavailable Chele Ackerman MD Primary Care Provider Trish Gan MD Unavailable Encounter Details Date Type Department Care Team (Late st Contact Info) Description 03/31/2022 Ancillary Orders [facility] [address] 9[address], [address] [place] [address] Ileana Milian MD [address] [facility] [place] [address] [email or web address] Social History Tobacco Use Types Packs/Day Years [...] st Contact Info) Description 05/09/2025 Procedure Pass [address] [address] 11/06/2025 9:00 AM EST Office Visit [facility] at [address] [address] Migdalia Dean MD [address] [place] [address] [email or web address] 12/21/2025 10:00 AM EST Appointment [address] [address] Migdalia Dean MD [address] [place] [address] documented as of this encounter Visit Diagnoses Not on filedocumented in this encounter Additional Health Concerns Infection Onset Date Last Indicated Resolved Time CoV-Risk 07/22/2022 07/23/2022 08/03/2022 1:22 AM EDT CoV-Risk 08/21/2022 08/25/2022 08/28/2022 2:23 PM EDT COVID-19 09/07/2022 09/09/2022 09/28/2022 1:21 AM EST documented as of this encounter Care Teams Corporate Controller Relationship Specialty Start Date End Date Haydee Kelly NP PCP - General Family Medicine 03/20/22 04/06/22 Malathi Keys MD [address] [place] [address] [email or web address] PCP - General Family Medicine 04/07/22 04/14/22 Haydee Kelly NP PCP - General Family Medicine 04/15/22 04/23/22 Malathi Keys MD [address] [place] [address] [email or web address] PCP - General Family Medicine 04/24/22 06/03/22 Haydee Kelly NP PCP - General Family Medicine 06/04/22 07/09/22 Chele Ackerman MD [address] [place] [address] PCP - General Geriatric Psychiatry 07/10/22 Migdalia Dean MD [address] [place] [address] [email or web address] Primary Oncologist Medical Oncology 05/29/22 Ileana Milian MD [address] [place] [address] [email or web address] General Surgery 06/04/22 Cara Morrison MD [address] [place] [address] [email or web address] Hematology and Oncology 06/04/22 Rena Antonio MD [address] [place] [address] [email or web address] Radiation Oncology 06/04/22 Jennifer Szymanski PA-C 55 [place] [address] [email or web address] Physician Ambulance Paramedic Medical Oncology 06/04/22 Alicia Pires CNP [address] [place] [address] [email or web address] Nurse Practitioner Medical Oncology 06/09/22 Trish Gan MD [address] [place] [address] Obstetrics and Gynecology 07/20/24 documented as of this encounter Additional Source Comments The information contained in this document represents components of the legal health record. It is not the complete legal health record.[facility]
--- OUTSIDE RECORDS SUMMARY | 2025-07-17 19:17 | XMS_ITS | Encounter Summary ---
Author Organization [facility] Address [address] [facility] [address] [place] [address] Phone Care Team Providers Care Land Surveying Survey Worker Name Role Phone Haydee Kelly MANAGER METAL Primary Care Provider U Malathi Wall MD Primary Care Provider [phone] Haydee Kelly MANAGER METAL Primary Care Provider U Malathi Wall MD Primary Care Provider [phone] Migdalia Dean MD Unavailable [phone] Haydee Kelly MANAGER METAL Primary Care Provider U navastonable Ileana Milian MD Unavailable Cara Morrison MD Unavailable [phone] Rena Antonio MD Unavailable Jennifer SzymanskiC Unavailable doretha Alicia Pires CNP Unavailable Chele Ackerman MD Primary Care Provider [phone] Trsih Gan MD Unavailable Encounter Details Date Type Department Care Team (Late st Contact Info) Description 03/20/2022 [facility] [address] [place] [address], 9th Floor, [address] [place], [place] [phone] Ana Urias, RN [address] [place] [address] [email or web address] Social History Tobacco Use Types Packs/Day Years [...] st Contact Info) Description 05/09/2025 Procedure Pass [address] [address] 11/06/2025 9:00 AM EST Office Visit [facility] at [address] [address] Migdalia Dean MD [address] [place] [address] [email or web address] 12/21/2025 10:00 AM EST Appointment [address] [address] Migdalia Dean MD [address] [place] [address] documented as of this encounter Visit Diagnoses Not on filedocumented in this encounter Additional Health Concerns Infection Onset Date Last Indicated Resolved Time CoV-Risk 07/22/2022 07/23/2022 08/03/2022 1:22 AM EDT CoV-Risk 08/21/2022 08/25/2022 08/28/2022 2:23 PM EDT COVID-19 09/07/2022 09/09/2022 09/28/2022 1:21 AM EST documented as of this encounter Care Teams Land Surveying Survey Worker Relationship Specialty Start Date End Date Haydee Kelly NP PCP - General Family Medicine 03/20/22 04/06/22 Malathi Keys MD [address] [place] [address] [email or web address] PCP - General Family Medicine 04/07/22 04/14/22 Haydee Kelly NP PCP - General Family Medicine 04/15/22 04/23/22 Malathi Keys MD [address] [place] [phone] [email or web address] PCP - General Family Medicine 04/24/22 06/03/22 Haydee Kelly NP PCP - General Family Medicine 06/04/22 07/09/22 Chele Ackerman MD [address] [place] [address] PCP - General Geriatric Psychiatry 07/10/22 Migdalai Dean MD [address] [place] [address] [email or web address] Primary Oncologist Medical Oncology 05/29/22 Ileana Milian MD [address] [place] [address] [email or web address] General Surgery 06/04/22 Cara Morrison MD [address] [place] [address] [email or web address] Hematology and Oncology 06/04/22 Rena Antonio MD [address] [place] [address] Radiation Oncology 06/04/22 Jennifer Szymanski PA-C [address] [place] [address] Physician Hand Trimmer Medical Oncology 06/04/22 Alicia Pires CNP [address] [place] [address] [email or web address] Nurse Practitioner Medical Oncology 06/09/22 Trish Gan MD [address] [place] [address] Obstetrics and Gynecology 07/20/24 documented as of this encounter Additional Source Comments The information contained in this document represents components of the legal health record. It is not the complete legal health record.[facility]
--- OUTSIDE RECORDS SUMMARY | 2025-07-17 19:17 | XMS_ITS | Patient Health Record ---
Author Organization [facility] Address [address] [place] [address] Care Team Providers Care Film Loader Name Role Phone DEBRA GALLEGOS, TIAGO Primary Care Provider Tiago Baez Unavailable [phone] Allergies Allergen (clinical drug ingredient) Drug/Non Drug Allergy documented on EMR Reaction Allergy Type Onset Date Status Sulfa Unknown Drug Allergy Active Reason For Referral No Information Medications Medication SIG (Take, Route, Frequency, Duration) Notes Start Date End Date Status Multi Vitamin/Minerals - 1 Orally QD Active Gabapentin 600 MG 1 tablet Orally Twic e a day/prn Active MiraLax (colon prep) 8.3 ounce ((238) grams mixed with Gatorade or Crystal Light orally begin at 5:00 p.m. the day before the procedure for 1 day 03/10/2018 Active Dulcolax (colon prep) 5 MG take at 3:00 p.m and 7:00p.m. Orally two tablets twice a day for one day for 1 day 03/10/2018 Active Social History Tobacco Use: Social History Observation Description Date Details (start date - stop date) Former Smoker NA - NA Tobacco Use/Smoking Question Answer Notes Patient is a former smoker How long has it been since you last smoked? > 10 years Alcohol Screen Question Answer Notes Did you have a drink contain ing alcohol in the past year? Yes How often did you have a dri nk containing alcohol in the past year? Monthly or less (1 point) How many drinks did you have on a typical day when you were drinking in the past year? 1 or 2 drinks (0 point) How often did you have 6 or more drinks on one occasion in the past year? Never (0 point) Points 1 Interpretation Negative Section Notes: Nonsmoker > 10 yrs ago;no si g alcohol Problems Problem Type SNOMED Code ICD Code Onset Dates Problem Status W/U Status Risk Notes Problem [id number] Encounter for screening for malignant neoplasm of colon (Z12.11) Active confirmed Plan Of Treatment Future Test Test Name Order Date COLONOSCOPY 03/10/2018 Insurance Providers Payer Name Payer Address Payer Phone Subscriber Number Group Number Insured Name Patient Relationship to Insured Coverage Start Date Coverage End Date MEDICARE OF [place] [address] ANASTASIYA JAMILELAINA [id number] [phone] [id number] NOELLE AVNI Self - patient is the insured MEDICAID OF [facility] [address] [place] [address] [id number] NOELLE , AVNI Self - patient is the insured Medical (General) History Medical History History ICD Code Breast cancer--right side--lumpectomy 20 004, XRT Denies [place],DM,CVA, Renal disease Describes a colonoscopy at [facility] at a pprox. age 53 with polyps removed Leg cramps--takes Gabapentin prn COPD Surgical History Surgery Date(Month/Year) Cataract-lens implants 2018 Lumpectomy-right breast 2004 Tubal ligation 1984 Right inguinal hernia repair 1977
--- OUTSIDE RECORDS SUMMARY | 2025-07-17 19:17 | XMS_ITS | Encounter Summary ---
Author Organization [facility] Address [address] [facility] [address] [place] [address] Phone Care Team Providers Care Luggage Maker Name Role Phone Migdalia Dean MD Unavailable [phone] Ileana Milian MD Unavailable Cara Morrison MD Unavailable [phone] Rena Antonio MD Unavailable [phone] Jennifer SzymanskiC Unavailable doretha LexisAlicia MIRROR SPECIALIST Unavailable Name, Chele GALLEGOS Primary Care Provider [phone] Trish Gan MD Unavailable Encounter Details Date Type Department Care Team (Late st Contact Info) Description 04/15/2024 Procedure Pass [facility], [address] [address] Social History Tobacco Use Types Packs/Day Years Used Date Smoking Tobacco: Former Cigarettes 2.5 30.4 0 11/01/1958 - 04/01/1989 Smokeless Tobacco: Never Comments:I quit smoking heviviana shimon in 1984 but smoked occasionally till [...] st Contact Info) Description 05/09/2025 Procedure Pass [address] [address] 11/06/2025 9:00 AM EST Office Visit [facility] at [address] [address] Migdalia Dean MD [address] [place] [address] 12/21/2025 10:00 AM EST Appointment [address] [address] Migdalia Dean MD [address] [place] [address] documented as of this encounter Visit Diagnoses Not on filedocumented in this encounter Additional Health Concerns Assessment Noted Time PHQ-9 Depression Total Score: 8 04/21/20 1:00 PM EDT PHQ-2 Depression Total Score: 1 04/21/20 1:00 PM EDT documented as of this encounter Care Teams Luggage Maker Relationship Specialty Start Date End Date Name, MD Chele [address] [place] [address] PCP - General Geriatric Psychiatry 07/10/22 Migdalia Dean MD [address] [place] [address] [email or web address] Primary Oncologist Medical Oncology 05/29/22 Ileana Milian MD [address] [place] [address] [email or web address] General Surgery 06/04/22 Cara Morrison MD [address] [place] [address] [email or web address] Hematology and Oncology 06/04/22 Rena Antonio MD [address] [place] [address] [email or web address] Radiation Oncology 06/04/22 Jennifer Szymanski PA-C [address] [place] [address] [email or web address] Physician Superintendent Meters Medical Oncology 06/04/22 Alicia Pires CNP [address] [place] [address] [email or web address] Nurse Practitioner Medical Oncology 06/09/22 Trish Gan MD [address] [place] [address] Obstetrics and Gynecology 07/20/24 documented as of this encounter Additional Source Comments The information contained in this document represents components of the legal health record. It is not the complete legal health record.[facility]
--- OUTSIDE RECORDS SUMMARY | 2025-07-17 19:17 | XMS_ITS | Encounter Summary ---
Author Organization [employer] Address [address] [place] [address] 7 [place] [address] Care Team Providers Care Portrait Photographer Name Role Phone Name, Chele GALLEGOS Primary Care Provider [phone] Encounter Details Date Type Department Care Team (Late st Contact Info) Description 10/23/2022 [facility] Health Information Management [address] [place] [address] [phone] NameChele MD [address] [place] [address] Social History Tobacco Use Types Packs/Day Years [...] Description 08/01/2025 9:45 AM EDT Office Visit [facility] [address] [place] [address] [phone] NameChele MD [address] [place] [address] [phone] documented as of this encounter Visit Diagnoses Not on filedocumented in this encounter Care Teams Portrait Photographer Relationship Specialty Start Date End Date NameChele MD [address] [place] [address] [phone] PCP - General Family Medicine 06/23/22 documented as of this encounter
--- OUTSIDE RECORDS SUMMARY | 2025-07-17 19:17 | XMS_ITS | Encounter Summary ---
Author Organization [employer] Address [address] [facility] [address] 7[address] [place] [address] Care Team Providers Care Floor Assembler Name Role Phone Name, Chele GALLEGOS Primary Care Provider Encounter Details Date Type Department Care Team (Latest Contact Info) Description 07/17/2025 Travel Social History Tobacco Use Types Packs/Day [...] 08/01/2025 9:45 AM EDT Office Visit [facility] [address] [place] [address] Name, MD Chele [address] [place] [address] documented as of this encounter Visit Diagnoses Not on filedocumented in this encounter Additional Health Concerns Assessment Noted Time PHQ-9 Depression Total Score: 6 03/20/20 25 3:43 PM EDT documented as of this encounter Care Teams Floor Assembler Relationship Specialty Start Date End Date NameChele MD [address] [place] [address] PCP - General Family Medicine 06/23/22 documented as of this encounter
--- OUTSIDE RECORDS SUMMARY | 2025-07-17 19:17 | XMS_ITS | Encounter Summary ---
Author Organization [facility] Address [address] [place] [phone] Phone Care Team Providers Care Scrap Drop Operator Name Role Phone Migdalia Dean MD Unavailable [phone] Haydee Kelly NP Primary Care Provider U Ileana Craven MD Unavailable Cara Morrison MD Unavailable [phone] Rena Antonio MD Unavailable Jennifer SzymanskiC Unavailable doretha LexisAlicia SUPERVISOR PUMPING STATION Unavailable Chele Ackerman MD Primary Care Provider Trish Gan MD Unavailable Encounter Details Date Type Department Care Team (Late st Contact Info) Description 06/04/2022 Procedure Pass [facility] Cardiovascular And Interventional Radiology [address] [place] [address] Social History Tobacco Use Types Packs/Day Years Used Date Smoking Tobacco: Former Cigarettes 0 11/01/1958 - 04/01/1989 Smokeless Tobacco: Never Comments:I quit smoking heviviana shimon in 1984 but smoked occasionally till approximately 1996.. Alcohol Use Standard Drinks/Week Comments Not Currently [...] st Contact Info) Description 05/09/2025 Procedure Pass [address] [address] 11/06/2025 9:00 AM EST Office Visit [facility] at [address] [address] Migdalia Dean MD [address] [place] [phone] 12/21/2025 10:00 AM EST Appointment [address] [address] Migdalia Dean MD [address] [place] [phone] documented as of this encounter Visit Diagnoses Not on filedocumented in this encounter Additional Health Concerns Infection Onset Date Last Indicated Resolved Time CoV-Risk 07/22/2022 07/23/2022 08/03/2022 1:22 AM EDT CoV-Risk 08/21/2022 08/25/2022 08/28/2022 2:23 PM EDT COVID-19 09/07/2022 09/09/2022 09/28/2022 1:21 AM EST Assessment Noted Time PHQ-9 Depression Total Score: 8 04/21/20 1:00 PM EDT PHQ-2 Depression Total Score: 1 04/21/20 1:00 PM EDT documented as of this encounter Care Teams Scrap Drop Operator Relationship Specialty Start Date End Date Haydee Kelly NP PCP - General Family Medicine 06/04/22 07/09/22 Chele Ackerman MD [address] [place] [address] PCP - General Geriatric Psychiatry 07/10/22 Migdalia Dean MD [address] [place] [address] [email or web address] Primary Oncologist Medical Oncology 05/29/22 Ileana Milian MD [address] [place] [phone] [email or web address] Surgery 06/04/22 Cara Morrison MD [address] [place] [phone] [email or web address] Hematology and Oncology 06/04/22 Rena Antonio MD [address] [place] [phone] [email or web address] Radiation Oncology 06/04/22 Jennifer Szymanski PA-C [address] [place] [address] [email or web address] Physician Obgyn Nurse Medical Oncology 06/04/22 Alicia Pires CNP [address] [place] [address] [email or web address] Nurse Practitioner Medical Oncology 06/09/22 Trish Gan MD [address] [place] [phone] Obstetrics and Gynecology 07/20/24 documented as of this encounter Additional Source Comments The information contained in this document represents components of the legal health record. It is not the complete legal health record.[facility]
--- OUTSIDE RECORDS SUMMARY | 2025-07-17 19:17 | XMS_ITS | Clinical Summary ---
Author Organization [facility] Address [address] [place] [address] Phone Care Team Providers Care Sample Distributor Name Role Phone Unavailable Primary Care Provider [...] 85 06/16/2022 9:09 AM EDT Temperature 36.3 C (97.3 F) 06/16/2022 9:09 AM EDT Respiratory Rate 14 06/16/2022 9:09 AM EDT [...] 2 - PCV) 11/30/2020 11/30/2019 Influenza Vaccine (#1) 2025 9, 07/04/2019 Hepatitis B Vaccine Aged Out No longe r eligible based on patient's age to complete this topic Insurance [facility] Medicare
--- OUTSIDE RECORDS SUMMARY | 2025-07-17 19:17 | XMS_ITS | Encounter Summary ---
Author Organization [employer] Address [address] [place] [address] Care Team Providers Care Crop Farm Helper Name Role Phone Name, Chele GALLEGOS Primary Care Provider [phone] Encounter Details Date Type Department Care Team ([facility] st Contact Info) Description 03/14/2024 Telephone [facility] [address] [place], [place] [phone] Name, MD Chele [address] [place] [address] Social History Tobacco Use Types Packs/Day Years [...] t he electric, gas, oil or water [employer] threatened to shut off services in your [...] Description 08/01/2025 9:45 AM EDT Office Visit [facility] [address] [place] [phone] Name, MD Chele [address] [place] [address] documented as of this encounter Visit Diagnoses Not on filedocumented in this encounter Additional Health Concerns Assessment Noted Time PHQ-9 Depression Total Score: 0 02/24/20 23 3:56 PM EDT documented as of this encounter Care Teams Crop Farm Helper Relationship Specialty Start Date End Date Name, MD Chele [address] [place] [phone] PCP - General Family Medicine 06/23/22 documented as of this encounter
--- OUTSIDE RECORDS SUMMARY | 2025-07-17 19:17 | XMS_ITS | Encounter Summary ---
Author Organization [employer] Address [address] [place] [address] 7 [place] [address] Care Team Providers Care Horse Trekking Guide Name Role Phone Name, Chele GALLEGOS Primary Care Provider [phone] Encounter Details Date Type Department Care Team (Late st Contact Info) Description 10/16/2022 [facility] Information Management [address] [place] [address] [phone] NameChele MD [address] [place] [phone] Social History Tobacco Use Types Packs/Day Years [...] 08/01/2025 9:45 AM EDT Office [facility] [address] [place] [address] [phone] NameChele MD [address] [place] [address] [phone] documented as of this encounter Visit Diagnoses Not on filedocumented in this encounter Care Teams Horse Trekking Guide Relationship Specialty Start Date End Date NameChele MD [address] [place] [address] [phone] PCP - General Family Medicine 06/23/22 documented as of this encounter
--- OUTSIDE RECORDS SUMMARY | 2025-07-17 19:17 | XMS_ITS | Clinical Summary ---
Author Organization [employer] Address [address] [facility] 7[address] [place] [address] Care Team Providers Care Industrial Ecologist Name Role Phone Name, Chele GALLEGOS Primary Care Provider [phone] Allergies Active Allergy Reactions Criticality Noted Date [...] mg by mouth Once per day. Active cholecalciferol (Vitamin D-3) 50 MCG (1999 UT) capsuleIndicati ons:Hospital discharge follow-up take 1 capsule by oral route every day for vitamin D deficiency 30 capsule 2 3 Active albuterol 108 (90 Base) MCG/ACT inhalerIndicati ons:Subacute cough Inhale 2 puffs every 6 (six) hours if needed for wheezing. 18 g 11 5 11/29/19 26 Active aspirin 81 MG chewable tabletIndicatio ns:Atherosclero sis of [place] coronary artery of [place] heart without angina pectoris Chew 1 tablet (81 mg) Once per day. 30 tablet 11 5 11/29/19 26 Active ciprofloxacin (Cipro) 500 MG tabletIndicatio ns:UTI symptoms Take 1 tablet (500 mg) by mouth 2 times daily for 7 days. 14 tablet 5 07/24/20 25 Active Active Problems Problem Noted Date Diagnosed Date UTI (urinary tract infection) 07/17/2025 Assessment & Plan (07/17/2025 3:26 PM EDT): UA and culture ordered today patient will [...] do not hold the urine Vaginal discharge 07/17/2025 Assessment & Plan (07/17/2025 3:26 PM EDT): BV panel ordered today patient will be contacted with results Atherosclerosis of [place] co ronary artery of [place] heart without angina pectoris 11/29/2024 Overview (11/29/2024): she underwent a nuclear stress test on 06/29/2024 which showed no ischemia, fixed defect in the inferior septal, distal part of the inferior lateral wall, probable artifact. 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 06/06/20: Bilateral screening mammogram ([facility]) shows no findings of malignancy. There are stable post therapeutic changes in the right breast, and benign appearing calcifications. The left breast remains normal. 03/11/22: Bilateral diagnostic mammogram and u/s of right breast ([facility]) for self-palpated right breast mass showed hypoechoic area in right breast, 1.0 x 0.9 cm. 03/16/22: Core biopsy, right breast ([facility]). Pathology shows invasive ductal carcinoma, grade 2. ER/ND negative (0%); HER 2 negative (0%), Ki-67 15%. 03/26/22: [facility]) germline testing for BRCA1 and BRCA2 showed a deleterious mutation in BRCA1 ([id number]). 03/31/22: Pathology reviewed by [facility]. This showed poorly differentiated invasive adenocarcinoma, spanning at least 0.7 cm. 04/27/22: Right mastectomy and sentinel lymph node excision ([facility]). Pathology shows invasive ductal carcinoma, grade 3, [...] 04/27/2024 11/29/2024 COPD (chronic obstructive pulmonary disease) 11/29/2024 Dermatitis 06/07/2023 09/15/2023 Assessment & Plan [...] Encounters Date Type Department Care Team Description 07/17/2025 3:00 PM EDT Office Visit [facility] [address] [place] [address] Raina Nick MD Urinary tract infection without hematuria, site unspecified (Primary Dx); UTI symptoms; Vaginal discharge 07/17/2025 Telephone [facility] [address] [place] [phone] Penny Lennon RN 07/17/2025 Travel 05/03/2025 Telephone [facility] [address] [place] [phone] Minoo Orozco [place] july recalls from Last 3 Months Immunizations Immunization Administration [...] oz) 07/17/2025 2:39 P M EDT Height 157.5 cm (5' 2 ) 03/20/2025 2:24 PM EDT Body Mass Index 24 03/20/2025 2:24 PM EDT Plan of Treatment Upcoming Encounters Date Type Department Care Team (Late st Contact Info) Description 08/01/2025 9:45 AM EDT Office Visit [facility] [address] [place] [address] Name, MD Chele [address] [place] [address] Health Maintenance Due Date Last Done Comments DTaP/Tdap/Td Vaccines (1 - Tdap) 02/12/2018 02/11/2018 RSV Patients and Patients Aged 60 years or older (1 - 1-dose 75+ series) 2018 Zoster Vaccines (2 of 2) 03/17/2024 01/21/2024 Dental Oral Exam 12/17/2024 06/15/2024, 06/13/2021 Dental X-Ray: Bitewings 06/16/2025 06/15/2024, 06/13 COVID-19 Vaccine ( season) 2025 08/31/2024, 01/21/2024, 03/28/2022, Additional history exists Influenza Vaccine (#1) 2025 , 07/04/2019, 07/04/2019, Additional history exists Dental Prophylaxis 07/21/2025 01/17/2025, 06/26/2024 Alcohol/Substance Use Screening 03/20/2026 03/20/2025 Depression Screening 03/20/2026 03/20/2025, 03/20/20 SDOH Screening 03/20/2026 03/20/2025 Tobacco Screening 03/22/2026 03/22/2025 Lipid Panel 03/26/2026 03/26/2021 Mammogram 06/14/2027 06/14/2025, 10/02, 10/24/2024, Additional history exists Dental X-Ray: Full Mouth 06/16/2027 06/15/2024, 06/01 Pneumococcal Vaccine: 50+ Years Completed 04/27/2024, 11/30/2019 HIB Vaccines Aged Out No longer eligi [...] Routine 07/17/2025 2:54 PM EDT UTI symptoms PROPHYLAXIS - ADULT Routine 01/17/2025 2 :00 [...] Recently Relevant to Health Maintenance Results * (ABNORMAL) POCT urinalysis dipstick manually [...] CARE TEST EN TER/EDIT ORDERABLES Final Result * Mammography Report 1 (03/11/2022 3:25 PM EDT) Anatomical Region Laterality Modality Breast Bilateral Mammography 03/11/2022 3:25 PM EDT Narrative 03/11/2022 5:14 PM EDT Refer to the Notes tab for result details [facility] Procedure: Mammography Report 1 Procedure Note Provider, MD Rajesh - 01/24/2023 Refer to the Notes tab for result details [facility] Procedure: Mammography Report 1 Haydee Kelly DERIVATIVES TRADER IMG BI PROCEDURES Final Result * (ABNORMAL) LIPID PANEL, STANDARD (03/26/2021 11:54 AM EDT) Chol/HDLC Ratio 3.1 <5.0 (calc) [facility] Cholesterol, Total 253(H) <200 mg/dL [facility] HDL Cholesterol 82 > OR = 50 mg/dL [facility] LDL Cholesterol 144(H) mg/dL (calc) [facility] Comment: Reference range: <100 Desirable range <100 mg/dL for primary prevention; <70 mg/dL for patients with CHD or diabetic patients with > or = 2 CHD risk factors. LDL-C is now calculated using the Ayden-Marika calculation, which is a validated novel method providing better accuracy than the Friedewald equation in the estimation of LDL-C. Ayden HARDING et al. MATTHEW. 2013;310(19): 8365-2038 (http://education.EverCloud.Backtrace I/O/faq/ALS602) Non-HDL Cholesterol 171(H) <130 mg/dL (calc) [facility] Comment: For patients with diabetes plus 1 major ASCVD risk factor, treating to a non-HDL-C goal of <100 mg/dL (LDL-C of <70 mg/dL) is considered a therapeutic option. Triglycerides 147 <150 mg/dL [facility] 03/26/2021 11:5 4 AM EDT us Haydee Kelly DERIVATIVES TRADER LAB BLOOD ORDERABLES Final Resu lt [facility] [address] [place] [address], from Last 3 Months or Most Recently Relevant to Health Maintenance Insurance [facility] OPTIONS (HMO D-SNP) [facility] STANDARD DENTAL [facility] Care Teams Industrial Ecologist Relationship Specialty Start Date End Date Name, MD Chele [address] [place] [phone] PCP - General Family Medicine 06/23/22
--- OUTSIDE RECORDS SUMMARY | 2025-07-17 19:17 | XMS_ITS | Clinical Summary ---
Author Organization [facility] Address [address] [facility] [address] [place] [address] Phone Care Team Providers Care Bias Cutter Helper Name Role Phone Migdalia Dean MD Unavailable Ileana Milian MD Unavailable Cara Morrison MD Unavailable [phone] Rena Antonoi MD Unavailable Jennifer SzymanskiC Unavailable doretha LexisErosteri GALLARDO Unavailable Name, Chele GALLEGOS Primary Care Provider [phone] Trish Gan MD Unavailable Allergies Active Allergy Reactions Criticality Noted Date Comments Amitriptyline 12/07/2022 Muscle spasms Thioridazine 12/18/2021 Other reaction(s): Mellarill Sulfa (Sulfonamide Antibiotics) Anaphylaxis,Hives,S hortness Of Breath,Swelling High 07/01/2019 Medications acetaminophen (TYLENOL) 500 MG tablet Take 500 mg by mouth every 6 (six) hours as needed for pain (specific location in comments). Active therapeutic multivitamin tablet Take 1 tablet by mouth daily. Active PROAIR HFA 90 mcg/actuation inhaler NEEDED 2 Active alpha lipoic acid 200 mg Cap Take 600 mg by mouth daily. Active cholecalciferol (VITAMIN D3) 400 unit tablet Take 400 Units by mouth daily. Active ZINC ORAL Take by mouth. Activ e cyanocobalamin, vitamin B-12, 1000 MCG tablet Take 1,000 mcg by mouth daily. 3 Active Medication-Free Text ashwawganda Active READI-CAT 2 2 % (w/v) suspension IF SCAN BEFORE 12 P.M., DRINK 1 BOTTLE BEFORE BED & SECOND BOTTLE 90 MINUTES BEFORE SCAN. IF SCAN AFTER NOON, DRINK 1 BOTTLE AT 8 A.M. & SEC 4 Active gabapentin (NEURONTIN) 100 MG capsule Take 100 mg by mouth 3 (three) times a day. Active hydrOXYzine HCL (ATARAX) 10 MG tablet Take 10 mg by mouth nightly at bedtime as needed. 3 Active clobetasol (TEMOVATE) 0.05 % ointmentIndicati ons:Lichen sclerosus Apply a pea sized amount weekly 30 g 1 5 Active aspirin 81 mg chewable tablet Take 81 mg by mouth. 5 026 Active multivitamin-Ca- iron-minerals Tab Take 1 tablet by mouth every morning. Active cyanocobalamin, vitamin B-12, (VITAMIN B-12) 100 MCG tablet 0 Refills, Maintenance, 07/04/24 10:00:00 EDT, Partial fill upon patient request if the prescription is for a schedule II opioid drug. 4 Active calcium carbonate-vitami n D3 1,250 mg (500 mg elemental)-400 units per tablet Take 500 mg by mouth. 4 Active Active Problems Patient Care Coordination No te Formatting of this note migh t be different from the original. Height 154.8cm no shoes taken by OC 07/10/2022 L ARM ONLY FOR BP AND BLOOD WORK Enrolled in the [employer] program on 04/15/22. Please refer to the POS note on 04/21/22 (Dr. Blum). [facility] -Becky Bennett catalytic case operator mine administrator supervisor for [facility]-[phone] Problem Noted Date Diagnosed Date Dehydration 09/04/2022 Breast cancer in female 04/27/2022 H/O right mastectomy 04/27/2022 History of breast cancer 12/23/2021 Risk for falls 12/23/2021 Cataract 12/23/2021 Chronic bronchitis 12/23/2021 Depressive disorder 12/23/2021 Disorder of peripheral nervous system 12/23/2021 Headache 12/23/2021 Hypothyroidism 12/23/2021 Infiltrating ductal carcinoma of breast, stage 1 12/23/2021 Insomnia 12/23/2021 Raynaud's disease 12/23/2021 Spinal stenosis 12/23/2021 Lichen sclerosus 12/23/2021 Assessment & Plan (01/24/2025 5:57 PM EDT): Explained the nature of lichen sclerosus is a chronic inflammatory autoimmune condition, encouraged once weekly clobetasol, can use it up to twice daily for 4 to 6 weeks maximum for flares. Also discussed measures to reduce the chance of flares, including using a topical emollient, avoiding potential irritants, etc. Recommend exams at least once a year BRCA1 gene mutation positive Encounters Date Type Department Care Team Description 06/14/2025 9:59 AM EDT - 06/14/2025 11:59 PM EDT Hospital Encounter [address] [address] Migdalia Dean MD Discharge Disposition: Home or Self Care 05/17/2025 2:00 PM EDT Office Visit [facility] [address] [place] [address] Migdalia Dean MD Kenny, Erin, PT Generalized weakness (Primary Dx); Other abnormalities of gait and mobility; Decreased functional mobility and endurance 05/09/2025 11:00 AM EDT Office Visit [facility] at [address] [address] Migdalia Dean MD BRCA1 gene mutation positive (Primary Dx); 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; History of right breast cancer 05/03/2025 3:30 PM EDT Office Visit [facility] [address] [place] [address] [place] [address] Migdalia Dean MD Kenny, Erin, PT Generalized weakness (Primary Dx); Other abnormalities of gait and mobility 05/01/2025 2:15 PM EDT Office Visit [facility] [address] [place] [address] Migdalia Dean MD Kenny, Erin, PT Generalized weakness (Primary Dx); Other abnormalities of gait and mobility 05/01/2025 Plan of Care Documentation [facility] [address] [place] [address] 11/03/2024 Procedure Pass [facility] [address] [place] [address] from Last 3 Months Immunizations Immunization Administration Dates Next Due INFLUENZA, SPLIT VIRUS, TRIV ALENT W/ PRESERVATIVE IM 07/04/2019,11/07/2014,11/14/2013,08/03 Influenza High-Dose Trivalen t Preservative Free IM 08/31/2024,07/04/2019 PPD Test 07/01/2019 Pneumococcal conjugate PCV20 04/27/2024 Pneumococcal polysaccharide PPSV23 11/30/2019 Td, unspecified formulation 02/11/2018 Zoster recombinant 01/21/2024 Family History Medical History Relation Comments Breast cancer Mother Relation Status Comments Mother Social History Tobacco Use Types Packs/Day Years Used Date Smoking Tobacco: Former Cigarettes 2.5 30.4 0 11/01/1958 - 04/01/1989 Smokeless Tobacco: Never Comments:I quit smoking loreto robins in 1984 but smoked occasionally till approximately [...] Orientation Straight 03/20/2022 1: 08 PM EDT Last Filed Vital Signs Vital Sign Reading Time Taken Comments Blood Pressure 131/78 05/09/2025 11:02 AM EDT Pulse 83 05/09/2025 11:02 AM EDT Temperature 37 C (98.6 F) 05/09/2025 11:02 AM EDT Respiratory Rate 20 12/03/2023 3:04 PM EST Oxygen Saturation 99% 11/03/2024 1:5 3 PM EST Inhaled Oxygen Concentration - - Weight 60.8 kg (134 lb 1.6 oz) 05/09/20 25 11:02 AM EDT with shoes Height 154.9 cm (5' 0.98 ) 05/09/2025 1 1:02 AM EDT Body Mass Index 25.35 05/09/2025 11:02 AM EDT Plan of Treatment Upcoming Encounters Date Type Department Care Team (Late st Contact Info) Description 05/09/2025 Procedure Pass [address] [address] 11/06/2025 9:00 AM EST Office Visit [facility] at [address] [address] Migdalia Dean MD [address] [place] [address] 12/21/2025 10:00 AM EST Appointment [address] [address] Migdalia Dean MD [address] [place] [address] [email or web address] Maintenance Due Date Last Done Comments OSTEOPOROSIS SCREENING INITIAL (ONE-TIME) 2008 RSV VACCINE (1 - 1-dose 75+ series) 2018 DEPRESSION SCREENING 04/21/2023 04/21/2022, 04/21/20 22 ZOSTER VACCINES (2 of 2) 03/17/2024 01/21/2024 INFLUENZA VACCINE (#1) 2025 , 07/04/2019, 07/04/2019, Additional history exists COVID-19 VACCINE ( season) 2025 08/31/2024, 01/21/2024, 03/28/2022, Additional history exists Adult Td,Tdap Booster 02/12/2028 02/11/2018 PNEUMOCOCCAL VACCINES (50+ years) Completed 04/27/2024, 11/30/2019 HEPATITIS A VACCINES Aged Out No long er eligible based on patient's age to complete this topic HIB VACCINES Aged Out No longer eligi ble based on patient's age to complete this topic MENINGOCOCCAL VACCINES (ACWY) Aged Out No longer eligible based on patient's age to complete this topic MENINGOCOCCAL VACCINES (B) Aged Out N o longer eligible based on patient's age to complete this topic Medical Devices Implanted Type Area Cpr Instructor Device Identifier Shelf Expiration Date Model / Serial / Lot Lens Lens Right: Eye Procedures Procedure Name Priority Date/Time Associated Diagnosis Comments BI MRI BREAST WITH AND WITHOUT CONTRAST (BILATERAL) Routine 06/14/2025 11:32 AM EDT BRCA1 gene mutation positive from Last 3 Months Results * BI MRI BREAST WITH AND WITHOUT CONTRAST (BILATERAL) (06/14/2025 11:32 AM EDT) Anatomical Region Laterality Modality Breast Left, Breast Right, Breast Bilateral Bila teral Magnetic Resonance 06/14/2025 11:4 4 AM EDT Impressions 06/14/2025 11:47 AM EDT No MRI evidence of malignancy in left breast. Postmastectomy changes on the right. BI-RADS 1 NEGATIVE Please note that mammography offers complementary information to MRI and certain findings may be visible primarily on mammography. The patient should keep all scheduled mammography appointments and continue annual screening mammography. Narrative 06/14/2025 11:47 AM EDT BI MRI BREAST WITH AND WITHOUT CONTRAST (BILATERAL) Additional patient information: Personal history of breast cancer (right breast, status post mastectomy) and BRCA1 gene mutation positive. High risk screening. TECHNIQUE: MR imaging of the breasts was performed using T1, T2 and fat- saturated techniques. Dynamic multiphase imaging was also performed after the uneventful administration of 12 mL intravenous gadolinium contrast agent. Computer generated 3D reconstruction and enhancement kinetic analysis was utilized by the radiologist in the interpretation of this examination. COMPARISON: Comparison is made with relevant prior imaging. Breast composition: The left breast tissue is composed of heterogeneously dense fibroglandular elements. Changes of right mastectomy are noted. Background parenchymal enhancement: Minimal. FINDINGS: Right There are postmastectomy changes present. No visible residual fibroglandular tissue is seen. There is no skin thickening, skin enhancement or chest wall enhancement. There is no axillary or internal mammary lymphadenopathy on the right. Left There are no suspicious masses or areas of abnormal non-mass enhancement in the left breast. There is no axillary or internal mammary lymphadenopathy on the left. Other No incidental or abnormal findings. Procedure Note Randa Lovell MD - 06/14/2025 BI MRI BREAST WITH AND WITHOUT CONTRAST (BILATERAL) Additional patient information: Personal history of breast cancer (rightbreast, status post mastectomy) and BRCA1 gene mutation positive. Highrisk screening. TECHNIQUE: MR imaging of the breasts was performed using T1, T2 andfat-saturated techniques. Dynamic multiphase imaging was also performedafter the uneventful administration of 12 mL intravenous gadoliniumcontrast agent. Computer generated 3D reconstruction and enhancementkinetic analysis was utilized by the radiologist in the interpretation ofthis examination. COMPARISON: Comparison is made with relevant prior imaging. Breast composition: The left breast tissue is composed of heterogeneouslydense fibroglandular elements. Changes of right mastectomy are noted. Background parenchymal enhancement: Minimal. FINDINGS: Right There are postmastectomy changes present. No visible residualfibroglandular tissue is seen. There is no skin thickening, skinenhancement or chest wall enhancement. There is no axillary or internalmammary lymphadenopathy on the right. Left There are no suspicious masses or areas of abnormal non-mass enhancementin the left breast. There is no axillary or internal mammary lymphadenopathy on the left. Other No incidental or abnormal findings. IMPRESSION: No MRI evidence of malignancy in left breast. Postmastectomy changes onthe right. BI-RADS 1 NEGATIVE Please note that mammography offers complementary information to MRI andcertain findings may be visible primarily on mammography. The patientshould keep all scheduled mammography appointments and continue annualscreening mammography. us Migdalia Dean MD IMG MR BREAST Final Result from Last 3 Months Insurance [facility] A [facility] MEDICARE PART A & B Member Subscriber Plan / Payer (Ef fective 2008-Present) Name:Marilia Bashir Member ID:[id number] Relation to Subscriber:Self Name:Marilia Bashir Subscriber ID:[id number] Payer ID:[id number] Group ID:Not on file Type:Medicare Address: [employer] [place] [id number] [place] [address] MEDICARE REPLACEMENT ERICK CALI [id number] MEDICARE PART A & B [facility] MEDICARE REPLACEMENT ERICK CALI [address] MEDICARE PART A & B [id number] [place] [address] MEDICARE REPLACEMENT ERICK CALI [facility] MEDICARE PART A & B [facility] MEDICARE REPLACEMENT MEDICARE PART A & B [employer] [facility] MEDICARE REPLACEMENT MEDICARE PART A & B [email or web address] MEDIC[facility] REPLACEMENT MEDICARE PART A & B [facility] MEDICARE PART A & B [facility] MEDICARE REPLACEMENT Advance Directives For more information, please contact: [phone] (9AM - 5PM [facility], Wednesday-Wednesday) Documents on File Type Date Recorded Patient Branch Or Department Chief Librarian Expl anation Healthcare Proxy 04/23/2022 1:03 PM * Full Code (Latest Code Status on File) Date Activated Date Inactivated Comments 02/04/2023 7:57 AM Question Answer Comments Code Status Confirmed With: Patient * Full Code Date Activated Date Inactivated Comments 04/27/2022 4:13 PM 02/04/2023 7:57 AM Question Answer Comments Code Status Confirmed With: Patient Care Teams Bias Cutter Helper Relationship Specialty Start Date End Date Tyron, MD Chele [address] [place] [address] PCP - General Geriatric Psychiatry 07/10/22 Migdalia Dean MD [address] [place] [address] [email or web address] Primary Oncologist Medical Oncology 05/29/22 Ileana Milian MD [address] [address] [email or web address] 06/04/22 Cara Morrison MD [address] [address] [email or web address] Hematology and Oncology 06/04/22 Rena Antonio MD [address] [place] [address] Radiation Oncology 06/04/22 Jennifer Szymanski PA-C [address] [place] [address] Physician Senior Microstrategy Developer Medical Oncology 06/04/22 Alicia Pires CNP [address] [place] [address] [email or web address] Nurse Practitioner Medical Oncology 06/09/22 Trish Gan MD [address] [place] [address] Obstetrics and Gynecology 07/20/24 Additional Source Comments The information contained in this document represents components of the legal health record. It is not the complete legal health record.[facility]
--- OUTSIDE RECORDS SUMMARY | 2025-07-17 19:17 | XMS_ITS | Encounter Summary ---
Author Organization [facility] Address [address] [facility] [address] [place] [address] Phone Care Team Providers Care Physical Metallurgist Name Role Phone Migdalia Dean MD Unavailable [phone] Ileana Milian MD Unavailable Cara Morrison MD Unavailable [phone] Rena Antonio MD Unavailable [phone] Jennifer SzymanskiC Unavailable doretha LexisAlicia TRUCK DISPATCHER Unavailable Name, Chele GALLEGOS Primary Care Provider [phone] Trish Gan MD Unavailable Encounter Details Date Type Department Care Team (Late st Contact Info) Description 11/03/2024 Procedure Pass [facility], [address] [address] Social History Tobacco Use Types Packs/Day Years [...] st Contact Info) Description 05/09/2025 Procedure Pass [address] [address] 11/06/2025 9:00 AM EST Office Visit [facility] at [address] [address] Migdalia Dean MD [address] [place] [address] 12/21/2025 10:00 AM EST Appointment [address] [address] Migdalia Dean MD [address] [place] [email or web address] documented as of this encounter Visit Diagnoses Not on filedocumented in this encounter Additional Health Concerns Assessment Noted Time PHQ-9 Depression Total Score: 8 04/21/20 1:00 PM EDT PHQ-2 Depression Total Score: 1 04/21/20 1:00 PM EDT documented as of this encounter Care Teams Physical Metallurgist Relationship Specialty Start Date End Date Name, MD Chele [address] [place] [address] PCP - General Geriatric Psychiatry 07/10/22 Migdalia Dean MD [address] [place] [address] [email or web address] Primary Oncologist Medical Oncology 05/29/22 Ileana Milian MD [address] [place] [address] [email or web address] 06/04/22 Cara Morrison MD [address] [place] [address] [email or web address] Hematology and Oncology 06/04/22 Rena Antonio MD [address] [place] [address] [email or web address] Radiation Oncology 06/04/22 Jennifer Szymanski PA-C [address] [place] [address] [email or web address] Physician Recruiting Scheduler Medical Oncology 06/04/22 Alicia Pires CNP [address] [place] [phone] [email or web address] Nurse Practitioner Medical Oncology 06/09/22 Trish Gan MD [address] [place] [address] Obstetrics and Gynecology 07/20/24 documented as of this encounter Additional Source Comments The information contained in this document represents components of the legal health record. It is not the complete legal health record.[facility]
--- OUTSIDE RECORDS SUMMARY | 2025-07-17 19:17 | XMS_ITS | Encounter Summary ---
Author Organization [facility] Address [address] [facility] [address] [place] [address] Phone Care Team Providers Care Drain Tiler Name Role Phone Migdalia Dean MD Unavailable Ileana Milian MD Unavailable Cara Morrison MD Unavailable [phone] Rena Antonio MD Unavailable Jennifer SzymanskiC Unavailable doretha Alicia Pires CNP Unavailable NameChele MD Primary Care Provider [phone] Trish Gan MD Unavailable Encounter Details Date Type Department Care Team (Latest Contact Info) Description 09/29/2022 Transcribe Orders Virtual Department [address] [place], [place] [phone] Name, MD Chele [address] [place] [address] Cough, unspecified type (Primary Dx) Social History Tobacco Use Types [...] st Contact Info) Description 05/09/2025 Procedure Pass [address] [address] 11/06/2025 9:00 AM EST Office Visit [facility] at [address] [address] Migdalia Dean MD [address] [place] [address] 12/21/2025 10:00 AM EST Appointment [address] [address] Migdalia Dean MD [address] [place] [address] documented as of this encounter Visit Diagnoses Diagnosis Cough, unspecified type- Primary documented in this encounter Additional Health Concerns Assessment Noted Time PHQ-9 Depression Total Score: 8 04/21/20 22 1:00 PM EDT PHQ-2 Depression Total Score: 1 04/21/20 22 1:00 PM EDT documented as of this encounter Care Teams Drain Tiler Relationship Specialty Start Date End Date Name, MD Chele [address] [place] [address] PCP - General Geriatric Psychiatry 07/10/22 Migdalia Dean MD [address] [place] [address] Primary Oncologist Medical Oncology 05/29/22 Ileana Milian MD [address] [place] [address] [email or web address] General Surgery 06/04/22 Cara Morrison MD [address] [place] [address] [email or web address] Hematology and Oncology 06/04/22 Rena Antonio MD [address] [place] [address] [email or web address] Radiation Oncology 06/04/22 Jennifer Szymanski PA-C [address] [place] [address] [email or web address] Physician Boom Worker Medical Oncology 06/04/22 Alicia Pires CNP [address] [place] [address] [email or web address] Nurse Practitioner Medical Oncology 06/09/22 Trish Gan MD [address] [place] [address] Obstetrics and Gynecology 07/20/24 documented as of this encounter Additional Source Comments The information contained in this document represents components of the legal health record. It is not the complete legal health record.[facility]
--- OUTSIDE RECORDS SUMMARY | 2025-07-17 19:17 | XMS_ITS | Encounter Summary ---
Author Organization [facility] Address [address] [facility] [address] [place] [address] Phone Care Team Providers Care Fastener Technologist Name Role Phone Malathi Keys MD Primary Care Provider Migdalia Dean MD Unavailable [phone] Haydee Kelly NP Primary Care Provider U Ileana Craven MD Unavailable Cara Morrison MD Unavailable [phone] Rena Antonio MD Unavailable Jennifer SzymanskiC Unavailable [email or web address] Alicia Pires [employer] Unavailable Name, Chele GALLEGOS Primary Care Provider [phone] Trish Gan MD Unavailable Encounter Details Date Type Department Care Team (Late st Contact Info) Description 04/27/[address] [facility] PERIOPERATIVE DEPT [address] [place] [address] Social History Tobacco Use Types Packs/Day Years [...] as of this encounter Functional Status * Calculated C-SSRS Risk Score (Lifetime/Recent) Answer Date of Assessment Author No Risk Indicated 04/28/2022 1:41 PM EDT Bing Melchor RN * Wallace Suicide Severity Rating Scale (Screener/Recent Self-Report) Question Answer Date of Assessment Author 1. Wish to be (Past 1 Month) No 04/28/2022 1:41 PM EDT Bing Melchor RN 2. Non-Specific Active Suicidal Thoughts (Past 1 Month) No 04/28/2022 1:41 PM EDT Bing Melchor RN 6. Suicidal Behavior (Lifetime) No 04/28/2022 1:41 PM EDT Bing Melchor RN documented as of this encounter Plan of Treatment Upcoming Encounters Date Type Department Care Team (Late st Contact Info) Description 05/09/2025 Procedure Pass [address] [address] 11/06/2025 9:00 AM EST Office Visit [facility] at [address] [address] Migdalia Dean MD [address] [place] [address] 12/21/2025 10:00 AM EST Appointment [address] [address] Migdalia Dean MD [address] [place] [address] documented as of this encounter Visit Diagnoses Not on filedocumented in this encounter Additional Health Concerns Infection Onset Date Last Indicated Resolved Time CoV-Risk 07/22/2022 07/23/2022 08/03/2022 1:22 AM EDT CoV-Risk 08/21/2022 08/25/2022 08/28/2022 2:23 PM EDT COVID-19 09/07/2022 09/09/2022 09/28/2022 1:21 AM EST Assessment Noted Time PHQ-9 Depression Total Score: 8 04/21/20 1:00 PM EDT PHQ-2 Depression Total Score: 04/21/20 1:00 PM EDT documented as of this encounter Care Teams Fastener Technologist Relationship Specialty Start Date End Date Malathi Keys MD [address] [place] [address] [email or web address] PCP - General Family Medicine 04/24/22 06/03/22 Haydee Kelly, ERIC PCP - General Family Medicine 06/04/22 07/09/22 Chele Ackerman MD [address] [place] [address] PCP - General Geriatric Psychiatry 07/10/22 Migdalia Dean MD [address] [place] [address] [email or web address] Primary Oncologist Medical Oncology 05/29/22 Ileana Milian MD [address] [place] [address] [email or web address] General Surgery 06/04/22 Cara Morrison MD [address] [place] [address] [email or web address] Hematology and Oncology 06/04/22 Rena Antonio MD [address] [place] [address] Radiation Oncology 06/04/22 Jennifer Szymanski PA-C [address] [place] [address] Magistrate Medical Oncology 06/04/22 Alicia Pires CNP [address] [place] [address] [email or web address] Nurse Practitioner Medical Oncology 06/09/22 Trish Gan MD [address] [place] [address] Obstetrics and Gynecology 07/20/24 documented as of this encounter Additional Source Comments The information contained in this document represents components of the legal health record. It is not the complete legal health record.[facility]
--- OUTSIDE RECORDS SUMMARY | 2025-07-17 19:17 | XMS_ITS | Encounter Summary ---
Author Organization [facility] Address [address] [facility] [address] [place] [address] Phone Care Team Providers Care Railroad Brakeman Name Role Phone Migdalia Dean MD Unavailable [phone] Ileana Milian MD Unavailable Cara Morrison MD Unavailable [phone] Rena Antonio MD Unavailable [phone] Jennifer SzymanskiC Unavailable doretha LexisAlicia FOOD SAFETY AUDITOR Unavailable Name, Chele GALLEGOS Primary Care Provider [phone] Trish Gan MD Unavailable Encounter Details Date Type Department Care Team (Late st Contact Info) Description 05/10/2024 Procedure Pass [facility], Ct Scan - [address] [address] Social History Tobacco Use Types Packs/Day Years [...] st Contact Info) Description 05/09/2025 Procedure Pass [address] [address] 11/06/2025 9:00 AM EST Office Visit [facility] at [address] [address] Migdalia Dean MD [address] [place] [address] 12/21/2025 10:00 AM EST Appointment [address] [address] Migdalia Dean MD [address] [place] [address] [email or web address] documented as of this encounter Visit Diagnoses Not on filedocumented in this encounter Additional Health Concerns Assessment Noted Time PHQ-9 Depression Total Score: 8 04/21/20 1:00 PM EDT PHQ-2 Depression Total Score: 1 04/21/20 1:00 PM EDT documented as of this encounter Care Teams Railroad Brakeman Relationship Specialty Start Date End Date Name, MD Chele [address] [place] [address] PCP - General Geriatric Psychiatry 07/10/22 Migdalia Dean MD [address] [place] [address] [email or web address] Primary Oncologist Medical Oncology 05/29/22 Ileana Milian MD [address] [place] [address] [email or web address] General Surgery 06/04/22 Cara Morrison MD [address] [place] [address] [email or web address] Hematology and Oncology 06/04/22 Rena Antonio MD [address] [place] [address] [email or web address] Radiation Oncology 06/04/22 Jennifer Szymanski PA-C [address] [place] [address] [email or web address] Physician Mill Order Scheduler Medical Oncology 06/04/22 Alicia Pires CNP [address] [place] [address] [email or web address] Nurse Practitioner Medical Oncology 06/09/22 Trish Gan MD [address] [place] [address] Obstetrics and Gynecology 07/20/24 documented as of this encounter Additional Source Comments The information contained in this document represents components of the legal health record. It is not the complete legal health record.[facility]
--- OUTSIDE RECORDS SUMMARY | 2025-07-17 19:17 | XMS_ITS | Encounter Summary ---
Author Organization [employer] Address [address] [place] [address] 7 [place] [address] Care Team Providers Care Pattern Keeper Name Role Phone Name, Chele GALLEGOS Primary Care Provider [phone] Encounter Details Date Type Department Care Team (Late Contact Info) Description 10/30/2022 [facility] Information Management [address] [place] [address] [phone] NameChele MD [address] [place] [address] Social History Tobacco Use Types Packs/Day Years [...] Description 08/01/2025 9:45 AM EDT Office Visit [facility] [address] [place] [address] [phone] NameChele MD [address] [place] [address] [phone] documented as of this encounter Visit Diagnoses Not on filedocumented in this encounter Care Teams Pattern Keeper Relationship Specialty Start Date End Date NameChele MD [address] [place] [address] [phone] PCP - General Family Medicine 06/23/22 documented as of this encounter
--- OUTSIDE RECORDS SUMMARY | 2025-07-17 19:17 | XMS_ITS | Encounter Summary ---
Author Organization [employer] Address [address] [facility] 7t [place] [address] Care Team Providers Care Budget Analyst Name Role Phone Name, Chele GALLEGOS Primary Care Provider [phone] Encounter Details Date Type Department Care Team (Latest Contact Info) Description 06/13/2021 Abstract [facility] CON[facility] Dental, Provider, DDS Social History Tobacco [...] Upcoming Encounters Date Type Department Care Team ( st Contact Info) Description 08/01/2025 9:45 AM EDT Office Visit [facility] [address] [place] [address] Name, MD Chele [address] [place] [address] documented as of this encounter Visit Diagnoses Not on filedocumented in this encounter Care Teams Budget Analyst Relationship Specialty Start Date End Date NameChele MD [address] [place] [address] PCP - General Family Medicine 06/23/22 documented as of this encounter
--- OUTSIDE RECORDS SUMMARY | 2025-07-17 19:17 | XMS_ITS | Encounter Summary ---
Author Organization [employer] Address [address] [facility] [address] 7t [place] [address] Care Team Providers Care Barrer And Tacker Name Role Phone Name, Chele GALLEGOS Primary Care Provider [phone] Reason for Visit * Reason Onset Date Comments FYI 12/03/2023 Encounter Details Date Type Department Care Team ([facility] st Contact Info) Description 12/03/2023 Telephone [facility] [address] [place], [place] [phone] Name, MD Chele [address] [place] [address] Social History Tobacco Use Types Packs/Day Years [...] Description 08/01/2025 9:45 AM EDT Office Visit [facility] [address] [place] [address] Name, MD Chele [address] [place] [address] documented as of this encounter Visit Diagnoses Not on filedocumented in this encounter Additional Health Concerns Assessment Noted Time PHQ-9 Depression Total Score: 0 02/24/20 3:56 PM EDT documented as of this encounter Care Teams Barrer And Tacker Relationship Specialty Start Date End Date Name, MD Chele [address] [place] [address] PCP - General Family Medicine 06/23/22 documented as of this encounter
--- OUTSIDE RECORDS SUMMARY | 2025-07-17 19:17 | XMS_ITS | Encounter Summary ---
Author Organization [facility] Address [address] [facility] [address] [place] [address] Phone Care Team Providers Care Interior Systems Carpenter Name Role Phone Migdalia Dean MD Unavailable [phone] Ileana Milian MD Unavailable Cara Morrison MD Unavailable [phone] Rena Antonio MD Unavailable [phone] Jennifer SzymanskiC Unavailable doretha LexisAlicia HEMMING AND TACKING MACHINE OPERATOR Unavailable Name, Chele GALLEGOS Primary Care Provider [phone] Trish Gan MD Unavailable Encounter Details Date Type Department Care Team (Late st Contact Info) Description 02/18/2023 Procedure Pass [facility], Ct Scan - [address] [address] Social History Tobacco Use Types Packs/Day Years Used Date Smoking Tobacco: Former Cigarettes 2.5 30.4 0 11/01/1958 - 04/01/1989 Smokeless Tobacco: Never Comments:I quit smoking heav shimon in 1984 but smoked occasionally till approximately 1996.. Alcohol Use Standard Drinks/Week Comments Never 0 (1 standard drink = 0.6 oz pur e alcohol) Intimate Partner Violence Answer Date R ecorded [...] Date of Assessment Author No Risk Indicated 02/18/2023 12:21 PM EDT Keshia Caraballo, RN * Foster Suicide Severity Rating Scale (Screener/Recent Self-Report) Question Answer Date of Assessment Author 1. Wish to be (Past 1 Month) No 023 12:21 PM EDT Keshia Cuello, RN 2. Non-Specific Active Suici jazmin Thoughts (Past 1 Month) No 02/18/2023 12:21 PM EDT Ray Cuello RN 6. Suicidal Behavior (Lifetime) No 12:21 PM EDT Keshia Cuello, RN documented as of this encounter Plan of Treatment Upcoming Encounters Date Type Department Care Team (Late st Contact Info) Description 05/09/2025 Procedure Pass [address] [address] 11/06/2025 9:00 AM EST Office Visit [facility] at [address] [address] Migdalia Dean MD [address] [place] [address] 12/21/2025 10:00 AM EST Appointment [address] [address] Migdalia Dean MD [address] [place] [address] [email or web address] documented as of this encounter Visit Diagnoses Not on filedocumented in this encounter Additional Health Concerns Assessment Noted Time PHQ-9 Depression Total Score: 8 04/21/20 1:00 PM EDT PHQ-2 Depression Total Score: 1 04/21/20 1:00 PM EDT documented as of this encounter Care Teams Interior Systems Carpenter Relationship Specialty Start Date End Date Name, MD Chele [address] [place] [address] PCP - General Geriatric Psychiatry 07/10/22 Migdalia Dean MD [address] [place] [address] [email or web address] Primary Oncologist Medical Oncology 05/29/22 Ileana Milian MD [address] [place] [address] [email or web address] General Surgery 06/04/22 Cara Morrison MD [address] [place] [address] [email or web address] Hematology and Oncology 06/04/22 Rena Antonio MD [address] [place] [address] [email or web address] Radiation Oncology 06/04/22 Jennifer Szymanski PA-C [address] [place] [address] [email or web address] Physician Intake Assessor Medical Oncology 06/04/22 Alicia Pires CNP [address] [place] [address] [email or web address] Nurse Practitioner Medical Oncology 06/09/22 Trish Gan MD [address] [place] [address] Obstetrics and Gynecology 07/20/24 documented as of this encounter Additional Source Comments The information contained in this document represents components of the legal health record. It is not the complete legal health record.[facility]
--- OUTSIDE RECORDS SUMMARY | 2025-07-17 19:17 | XMS_ITS | Encounter Summary ---
Author Organization [facility] Address [address] [facility] [address] [place] [address] Phone Care Team Providers Care Perfume Compounder Name Role Phone Migdalia Dean MD Unavailable [phone] Ileana Milian MD Unavailable Cara Morrison MD Unavailable [phone] Rena Antonio MD Unavailable [phone] Jennifer SzymanskiC Unavailable doretha LexisAlicia FOSTER WINDER Unavailable Name, Chele GALLEGOS Primary Care Provider [phone] Trish Gan MD Unavailable Encounter Details Date Type Department Care Team (Late st Contact Info) Description 02/04/2023 Procedure Pass [place] Admitting Dept - Virtual Department [address] [place] [address] Social History Tobacco Use Types Packs/Day Years [...] st Contact Info) Description 05/09/2025 Procedure Pass [facility], [address] [address] 11/06/2025 9:00 AM EST Office Visit [facility] at [address] [address] Migdalia Dean MD [address] [place] [address] 12/21/2025 10:00 AM EST Appointment [address] [address] Migdalia Dean MD [address] [place] [address] [email or web address] documented as of this encounter Visit Diagnoses Not on filedocumented in this encounter Additional Health Concerns Assessment Noted Time PHQ-9 Depression Total Score: 8 04/21/20 22 1:00 PM EDT PHQ-2 Depression Total Score: 1 04/21/20 22 1:00 PM EDT documented as of this encounter Care Teams Perfume Compounder Relationship Specialty Start Date End Date Name, MD Chele [address] [place] [address] PCP - General Geriatric Psychiatry 07/10/22 Migdalia Dean MD [address] [place] [address] [email or web address] Primary Oncologist Medical Oncology 05/29/22 Ileana Milian MD [address] [address] [email or web address] General Surgery 06/04/22 Cara Morrison MD [address] [place] [address] [email or web address] u Hematology and Oncology 06/04/22 Rena Antonio MD [address] [place] [address] [email or web address] Radiation Oncology 06/04/22 Jennifer Szymanski PA-C [address] [place] [address] [email or web address] Physician Pot Holder Binder Medical Oncology 06/04/22 Alicia Pires CNP [address] [place] [address] [email or web address] Nurse Practitioner Medical Oncology 06/09/22 Trish Gan MD [address] [place] [address] Obstetrics and Gynecology 07/20/24 documented as of this encounter Additional Source Comments The information contained in this document represents components of the legal health record. It is not the complete legal health record.[facility]
--- OUTSIDE RECORDS SUMMARY | 2025-07-17 19:17 | XMS_ITS | Encounter Summary ---
Author Organization [facility] Address [address] [place] [address] [place] [address] Phone Care Team Providers Care Readers' Advisory Service Librarian Name Role Phone Trey Kim MD Primary Care Provider [phone] Haydee Kelly ITALIAN TUTOR Primary Care Provider U Malathi Wall MD Primary Care Provider Haydee Kelly ITALIAN TUTOR Primary Care Provider U Malathi Wall MD Primary Care Provider [phone] Migdalia Dean MD Unavailable [phone] Haydee Kelly ITALIAN TUTOR Primary Care Provider U navailable Ileana Milian MD Unavailable Cara Morrison MD Unavailable [phone] Rena Antonio MD Unavailable [phone] Jennifer Szymanski PA-C Unavailable doretha Alicia Pires SHAKE OUT WORKER Unavailable Name, Chele GALLEGOS Primary Care Provider Trish Gan MD Unavailable Encounter Details Date Type Department Care Team (Late st Contact Info) Description 01/01/2022 Ancillary Orders [facility],Outside Imaging [address] [place], [place] [phone] System, Provider Not In, [facility] [address] [address] Social History Tobacco Use Types Packs/Day Years [...] st Contact Info) Description 05/09/2025 Procedure Pass [address] [address] 11/06/2025 9:00 AM EST [facility] at [address] [address] Migdalia Dean MD [address] [place] [address] 12/21/2025 10:00 AM EST Appointment [address] [address] Migdalia Dean MD [address] [place] [address] [email or web address] documented as of this encounter Results * Mammogram Outside (No Interpretation) (06/26/2020 12:00 AM EDT) Narrative SYSTEMGENERATED, DOCUMENTATION - 01/01/2022 6:07 PM EST This study is for PACS storage only and not for interpretation. us Provider Not In System PhD IMG OUTSIDE IMAGING W /OUT INTERPRETATION Final Result * Mammogram Outside (No Interpretation) (02/20/2016 12:00 AM EDT) Narrative SYSTEMGENERATED, DOCUMENTATION - 01/01/2022 6:07 PM EST This study is for PACS storage only and not for interpretation. us Provider Not In System PhD IMG OUTSIDE IMAGING W /OUT INTERPRETATION Final Result * Mammogram Outside (No Interpretation) (02/13/2016 12:00 AM EDT) Narrative SYSTEMGENERATED, DOCUMENTATION - 01/01/2022 6:06 PM EST This study is for PACS storage only and not for interpretation. us Provider Not In System PhD IMG OUTSIDE IMAGING W /OUT INTERPRETATION Final Result documented in this encounter Visit Diagnoses Not on filedocumented in this encounter Additional Health Concerns Infection Onset Date Last Indicated Resolved Time CoV-Risk 07/22/2022 07/23/2022 08/03/2022 1:22 AM EDT CoV-Risk 08/21/2022 08/25/2022 08/28/2022 2:23 PM EDT COVID-19 09/07/2022 09/09/2022 09/28/2022 1:21 AM EST documented as of this encounter Care Teams Readers' Advisory Service Librarian Relationship Specialty Start Date End Date Trey Kim MD [address] [address] [email or web address] PCP - General 10/06/19 03/19/22 Haydee Kelly NP PCP - General Family Medicine 03/20/22 04/06/22 Malathi Keys MD [address] [place] [address] [email or web address] PCP - General Family Medicine 04/07/22 04/14/22 Haydee Kelly NP PCP - General Family Medicine 04/15/22 04/23/22 Malathi Keys MD [address] [place] [address] [email or web address] PCP - General Family Medicine 04/24/22 06/03/22 Haydee Kelly, ERIC PCP - General Family Medicine 06/04/22 07/09/22 Chele Ackerman MD [address] [place] [address] PCP - General Geriatric Psychiatry 07/10/22 Migdalia Dean MD [address] [place] [address] [email or web address] Primary Oncologist Medical Oncology 05/29/22 Ileana Milian MD [address] [place] [address] [email or web address] General Surgery 06/04/22 Cara Morrison MD [address] [place] [address] [email or web address] Hematology and Oncology 06/04/22 Rena Antonio MD [address] [place] [address] [email or web address] Radiation Oncology 06/04/22 Jennifer Szymanski PA-C [address] [place] [address] [email or web address] Physician Solderer Assembly Repair Medical Oncology 06/04/22 Alicia Pires CNP [address] [place] [address] [email or web address] Nurse Practitioner Medical Oncology 06/09/22 Trish Gan MD [address] [place] [address] Obstetrics and Gynecology 07/20/24 documented as of this encounter Additional Source Comments The information contained in this document represents components of the legal health record. It is not the complete legal health record.[facility]
--- OUTSIDE RECORDS SUMMARY | 2025-07-17 19:17 | XMS_ITS ---
Author Organization [facility] Address [address] [facility] [address] [place] [address] Phone Care Team Providers Care Career Development Consultant Name Role Phone Migdalia Dean MD Unavailable Ileana Milian MD Unavailable aCra Morrison MD Unavailable [phone] Rena Antonio MD Unavailable [phone] Jennifer SzymanskiC Unavailable doretha Lexis Alicia DRAWER UPFITTER Unavailable Name, Chele GALLEGOS Primary Care Provider Trish Gan MD Unavailable Active Problems Patient Care Coordination No te Formatting of this note migh t be different from the original. Height 154.8cm no shoes taken by OC 07/10/2022 L ARM ONLY FOR BP AND BLOOD WORK Enrolled in the [employer] program on 04/15/22. Please refer to the POS note on 04/21/22 (Dr. Blum). [facility] rehabilitation case coordinator mill labor supervisor for [phone] Problem Noted Date Diagnosed Date Dehydration 09/04/2022 [...] once a year BRCA1 gene mutation positive Current Treatment and Therapy Plans ACCESS AND FLUSH ([facility])* Plan Start Date:07/10/2022 Plan Provider:Mimi Calixto FNP Linked Problems Malignant neoplasm of lower- outer quadrant of right breast of female, estrogen receptor negative Treatment Medications No medications scheduled. Other Current Plans HYDRATION & SUPPORTIVE CARE* Plan Start Date:09/04/2022 Plan Provider:Jennifer Szymanski PA-C Linked Problems Dehydration Treatment Medications No medications scheduled. Past Treatment and Therapy Plans TREATMENT PLAN Plan Name Start Date Discontinue Date Treatment Medications Discontinue Reason Plan Provider Cycles CARBO/PACL ITAXEL WEEKLY 07/03/2022 11/04/2022 CARBOplatin (PARAPLATIN)CARB Oplatin (PARAPLATIN) IVPB (by AUC) 270 mLCARBOplatin (PARAPLATIN) IVPB (by mg/m2) 110 mL BagPACLitaxel (TAXOL)PACLitaxe l (TAXOL) IVPB in 250 mL (Doses >85 mg to 199 mg) a. Therapy Complete Migdalia Dean MD 4 of 4 cycles started
--- OUTSIDE RECORDS SUMMARY | 2025-07-17 19:17 | XMS_ITS | Encounter Summary ---
Author Organization [employer] [facility] Address [address] 7[address] [place] [address] Care Team Providers Care Video Network Engineer Name Role Phone Name, Chele GALLEGOS Primary Care Provider [phone] Reason for Visit * Reason Onset Date Comments Nurse Triage 05/29/2024 Encounter Details Date Type Department Care Team ([facility] st Contact Info) Description 05/29/2024 Telephone [facility] [address] [place], [place] [phone] Name, MD Chele [address] [place] [address] Nurse Triage Social History Tobacco Use Types [...] Recorded Patient Health Questionnaire-2 Score 2 04/27/2024 Comments Unknown Sex and Gender Information Value Date Recorded Sex Assigned at Female 08/31/2022 10:37 AM EDT Legal Sex Female 10:37 AM EDT Gender Identity Female 08/31/2022 10:37 AM EDT Sexual Orientation Straight 08/31/2022 10 :37 AM EDT documented as of this encounter Miscellaneous Notes * Telephone Encounter - Shawanda Brown RN - 05/29/2024 9:39 AM EDT Call returned to Marilia Bashir to triage below. Reports having rectal bleeding x 1 week. Per pt was only a small amount. Per pt having lower abdominal pain as well. Pt also having burning sensation. Per pt was having rectal bleeding with BM. Pt also endorses a rectal pain. Pt has been having constant abdominal pain. No vomiting. Pt advised of disposition, agrees to seek [facility] ER now for eval. Sent to team for ER status check PRN. Protocol Used: Rectal Bleeding (Adult) Protocol-Based Disposition: Go to ED Now Positive Triage Question: * Bloody, black, or tarry bowel movements (Exception: Chronic-unchanged black- castillo bowel movements and is taking iron pills or Pepto-Bismol.) * All higher-acuity triage questions were negative Care Advice Discussed: * Reasons To Call Back - Bleeding increases in amount - You become worse * Telephone Encounter - Emerita Solis - 05/29/2024 9:30 AM EDT Symptom: Rectal Bleeding and abdominal pain Outcome: Talk to a nurse or provider within 15 minutes Reason: Large amount of blood The caller accepted this outcome documented in this encounter Plan of Treatment Upcoming Encounters Date Type Department Care Team (Late st Contact Info) Description 08/01/2025 9:45 AM EDT Office Visit [facility] [address] [place] [address] Name, MD Chele [address] [place] [address] documented as of this encounter Visit Diagnoses Not on filedocumented in this encounter Additional Health Concerns Assessment Noted Time PHQ-9 Depression Total Score: 4 04/27/20 24 10:35 AM EDT documented as of this encounter Care Teams Video Network Engineer Relationship Specialty Start Date End Date Name, MD Chele [address] [place] [address] PCP - General Family Medicine 06/23/22 documented as of this encounter
--- OUTSIDE RECORDS SUMMARY | 2025-07-17 19:18 | XMS_ITS | Encounter Summary ---
Author Organization [employer] Address [address] 7t [place] [address] Care Team Providers Care Addiction Nurse Name Role Phone Name, Chele GALLEGOS Primary Care Provider [phone] Reason for Visit * Reason Onset Date Comments Dr. Kenji king 04/03/2025 Encounter Details Date Type Department Care Team ([facility] st Contact Info) Description 04/03/2025 Telephone [facility] [address] [place] [address] Jennifer Phillip, SEKOU king Social History Tobacco Use Types Packs/Day Years [...] * Telephone Encounter - Tatianna Nicole - 04/03/2025 3:25 PM EDT Message for Dr. Phillip Patient called in stating that she is having trouble with her mouthguard. She is not sure that she has to come in. She says that perhaps provide can explain to her over th phone as to what to do. Reached out to front end application developer however unable to connect. Please reach out to patient with instructions and/or appt time for follow up Sent to provider and front end application developer DR documented in this encounter Plan of Treatment Upcoming Encounters Date Type Department Care Team (Late st Contact Info) Description 08/01/2025 9:45 AM EDT Office Visit [facility] MEDICINE 230 [place] [address] Name, MD Chele [address] [place], [place] [phone] documented as of this encounter Visit Diagnoses Not on filedocumented in this encounter Additional Health Concerns Assessment Noted Time PHQ-9 Depression Total Score: 6 03/20/20 25 3:43 PM EDT documented as of this encounter Care Teams Addiction Nurse Relationship Specialty Start Date End Date Name, MD Chele [address] [place] [address] PCP - General Family Medicine 06/23/22 documented as of this encounter
--- OUTSIDE RECORDS SUMMARY | 2025-07-17 19:18 | XMS_ITS | Encounter Summary ---
Author Organization [employer] Address [address] [facility] 7t [place] [address] Care Team Providers Care Physical Therapy Nurse Name Role Phone Name, Chele GALLEGOS Primary Care Provider [phone] Reason for Visit * Reason Onset Date Comments Appointment Request 06/22/2023 Encounter Details Date Type Department Care Team ([facility] Contact Info) Description 06/22/2023 Telephone [facility] MEDICINE [address] [place], [place] [phone] Name, MD Chele [address] [place] [address] Appointment Request Social History Tobacco Use Types [...] @ 9:30 am. Please contact pt at [phone] documented in this encounter Plan of Treatment Upcoming Encounters Date Type Department Care Team (Late st Contact Info) Description 08/01/2025 9:45 AM EDT Office Visit [facility] MED[facility]INE [address] [place] [address] Name, MD Chele [address] [place] [address] documented as of this encounter Visit Diagnoses Not on filedocumented in this encounter Additional Health Concerns Assessment Noted Time PHQ-9 Depression Total Score: 0 02/24/20 23 3:56 PM EDT documented as of this encounter Care Teams Physical Therapy Nurse Relationship Specialty Start Date End Date Name, MD Chele [address] [place] [address] PCP - General Family Medicine 06/23/22 documented as of this encounter
--- OUTSIDE RECORDS SUMMARY | 2025-07-17 19:18 | XMS_ITS | Encounter Summary ---
Author Organization [employer] Address [address] 7t [place] [address] Care Team Providers Care Case Folder Name Role Phone Name, Chele GALLEGOS Primary Care Provider [phone] Reason for Visit * Reason Onset Date Comments Nurse Triage 07/20/2023 Encounter Details Date Type Department Care Team ([facility] st Contact Info) Description 07/20/2023 Telephone [facility] MEDICINE [address] [place], [place] [phone] Name, MD Chele [address] [place] [address] Nurse Triage Social History Tobacco Use Types [...] home test through drive through [facility] in [place] where Pt is located. Pt is chemo [...] Description 08/01/2025 9:45 AM EDT Office Visit [facility] MED[facility]INE [address] [place] [address] Name, MD Chele [address] [place] [address] documented as of this encounter Visit Diagnoses Not on filedocumented in this encounter Additional Health Concerns Assessment Noted Time PHQ-9 Depression Total Score: 0 02/24/20 23 3:56 PM EDT documented as of this encounter Care Teams Case Folder Relationship Specialty Start Date End Date NameChele MD [address] [place] [address] PCP - General Family Medicine 06/23/22 documented as of this encounter
--- OUTSIDE RECORDS SUMMARY | 2025-07-17 19:18 | XMS_ITS | Encounter Summary ---
Author Organization [facility] Address [address] [facility] [address] [place] [address] Phone Care Team Providers Care Stave Log Cut Off Saw Operator Name Role Phone Migdalia Dean MD Unavailable [phone] Ileana Milian MD Unavailable Cara Morrison MD Unavailable [phone] Rena Antonio MD Unavailable [phone] Jennifer SzymanskiC Unavailable doretha LexisAlicia SUPERVISOR EVAPORATOR Unavailable Name, Chele GALLEGOS Primary Care Provider [phone] Trish Gan MD Unavailable Encounter Details Date Type Department Care Team (Late st Contact Info) Description 12/08/2022 Procedure Pass [facility], [address] [address] Social History Tobacco Use Types Packs/Day Years [...] st Contact Info) Description 05/09/2025 Procedure Pass [facility], [address] [address] 11/06/2025 9:00 AM EST Office Visit [facility] at [address] [address] Migdalia Dean MD [address] [place] [address] [email or web address] 12/21/2025 10:00 AM EST Appointment [address] [address] Migdalia Dean MD [address] [place] [address] [email or web address] documented as of this encounter Visit Diagnoses Not on filedocumented in this encounter Additional Health Concerns Assessment Noted Time PHQ-9 Depression Total Score: 8 04/21/20 22 1:00 PM EDT PHQ-2 Depression Total Score: 1 04/21/20 1:00 PM EDT documented as of this encounter Care Teams Stave Log Cut Off Saw Operator Relationship Specialty Start Date End Date Name, MD Chele [address] [place] [address] PCP - General Geriatric Psychiatry 07/10/22 Migdalia Dean MD [address] [place] [email or web address] Primary Oncologist Medical Oncology 05/29/22 Ileana Milian MD [address] [address] [email or web address] General Surgery 06/04/22 Cara Morrison MD [address] [place] [address] [email or web address] Hematology and Oncology 06/04/22 Rena Antonio MD [address] [place] [address] [email or web address] Radiation Oncology 06/04/22 Jennifer Szymanski PA-C [address] [place] [address] [email or web address] Physician Supervisor Brake Repair Medical Oncology 06/04/22 Alicia Pires CNP [address] [place] [address] [email or web address] Nurse Practitioner Medical Oncology 06/09/22 Trish Gan MD [address] [place] [address] Obstetrics and Gynecology 07/20/24 documented as of this encounter Additional Source Comments The information contained in this document represents components of the legal health record. It is not the complete legal health record.[facility]
--- OUTSIDE RECORDS SUMMARY | 2025-07-17 19:18 | XMS_ITS | Encounter Summary ---
Author Organization [employer] Address [address] 7t [place] [address] Care Team Providers Care Hospice Massage Therapist Name Role Phone Name, Chele GALLEGOS Primary Care Provider [phone] Encounter Details Date Type Department Care Team ([facility] st Contact Info) Description 07/17/2025 Telephone [facility] [address] [place], [place] [phone] Penny Lennon, RN Social History Tobacco Use Types Packs/Day Years [...] encounter Miscellaneous Notes * Telephone Encounter - Penny Lennon RN - 07/17/2025 2:30 PM EDT [facility] and reports they were dropped off to be evaluated for UTI. Pt advised next available appt wouldn't be until after 7 pm. Pt reports they cannot wait that long but agrees with beingseen by Tono [place] CNM on 07/18/25 at 9 am and appt reminder given to pt. [facility] has an cancellation at 3pm and scheduled pt in that slot instead. Tomorrow appt canceled and pt sitting in waiting room to be seen. documented in this encounter Plan of Treatment Upcoming Encounters Date Type Department Care Team (Late st Contact Info) Description 08/01/2025 9:45 AM EDT Office Visit [facility] MED[facility] [address] [place] [address] Name, MD Chele [address] [place] [address] documented as of this encounter Visit Diagnoses Not on filedocumented in this encounter Additional Health Concerns Assessment Noted Time PHQ-9 Depression Total Score: 6 03/20/20 3:43 PM EDT documented as of this encounter Care Teams Hospice Massage Therapist Relationship Specialty Start Date End Date Name, MD Chele [address] [place] [address] PCP - General Family Medicine 06/23/22 documented as of this encounter
--- OUTSIDE RECORDS SUMMARY | 2025-07-17 19:18 | XMS_ITS | Encounter Summary ---
Author Organization [employer] Address [address] [place] [address] 7 [place] [address] Care Team Providers Care Cut Out Marker Name Role Phone Name, Chele GALLEGOS Primary Care Provider [phone] Encounter Details Date Type Department Care Team (Late st Contact Info) Description 11/06/2022 [facility] Health Information Management [address] [place], [place] [phone] NameChele MD [address] [place] [address] Social History Tobacco Use Types Packs/Day Years [...] 08/01/2025 9:45 AM EDT Office Visit [facility] MEDICINE [address] [place] [phone] NameChele MD [address] [place] [address] [phone] documented as of this encounter Visit Diagnoses Not on filedocumented in this encounter Care Teams Cut Out Marker Relationship Specialty Start Date End Date NameChele MD [address] [place] [address] [phone] PCP - General Family Medicine 06/23/22 documented as of this encounter
--- OUTSIDE RECORDS SUMMARY | 2025-07-17 19:18 | XMS_ITS | Encounter Summary ---
Author Organization [facility] Address [address] [place] [address] [place] [address] Phone Care Team Providers Care Pastry Decorator Name Role Phone Trey Kim MD Primary Care Provider [phone] Haydee Kelly DRY WALL INSTALLATIONS MECHANIC Primary Care Provider U Malathi Wall MD Primary Care Provider Haydee Kelly DRY WALL INSTALLATIONS MECHANIC Primary Care Provider U Malathi Wall MD Primary Care Provider [phone] Migdalia Dean MD Unavailable [phone] Haydee Kelly DRY WALL INSTALLATIONS MECHANIC Primary Care Provider U navailable Ileana Milian MD Unavailable Cara Morrison MD Unavailable [phone] Rena Antonio MD Unavailable [phone] Jennifer Szymanski PA-C Unavailable doretha Alicia Pires CNP Unavailable Name, Chele GALLEGOS Primary Care Provider Trish Gan MD Unavailable Encounter Details Date Type Department Care Team (Late st Contact Info) Description 11/11/2017 Procedure Pass [facility] Admitting Dept Virtual Department 30 [place], [place] [phone] Social History Tobacco Use Types Packs/Day Years [...] Contact Info) Description 05/09/2025 Procedure Pass [address] [address] 11/06/2025 9:00 AM EST Office Visit [facility] at [address] [address] Migdalia Dean MD [address] [place] [address] [email or web address] 12/21/2025 10:00 AM EST Appointment [address] [address] Migdalia Dean MD [address] [place] [address] [email or web address] documented as of this encounter Visit Diagnoses Not on filedocumented in this encounter Additional Health Concerns Infection Onset Date Last Indicated Resolved Time CoV-Risk 07/22/2022 07/23/2022 08/03/2022 1:22 AM EDT CoV-Risk 08/21/2022 08/25/2022 08/28/2022 2:23 PM EDT COVID-19 09/07/2022 09/09/2022 09/28/2022 1:21 AM EST documented as of this encounter Care Teams Pastry Decorator Relationship Specialty Start Date End Date Trey Kim MD [address] [facility] [address] [place] [address] [email or web address] PCP - General 10/06/19 03/19/22 Haydee Kelly NP PCP - General Family Medicine 03/20/22 04/06/22 Malathi Keys MD [address] [place] [address] [email or web address] PCP - General Family Medicine 04/07/22 04/14/22 Haydee Kelly NP PCP - General Family Medicine 04/15/22 04/23/22 Malathi Keys MD [address] [place] [address] [email or web address] PCP - General Family Medicine 04/24/22 06/03/22 Haydee Kelly NP PCP - General Family Medicine 06/04/22 07/09/22 Chele Ackerman MD [address] [place] [address] PCP - General Geriatric Psychiatry 07/10/22 Migdalia Dean MD [address] [place] [phone] [email or web address] Primary Oncologist Medical Oncology 05/29/22 Ileana Milian MD [address] [place] [address] [email or web address] General Surgery 06/04/22 Cara Morrison MD [address] [place] [address] [email or web address] Hematology and Oncology 06/04/22 Rena Antonio MD 55 [place] [address] [email or web address] Radiation Oncology 06/04/22 Jennifer Szymanski PA-C 55 [place] [address] Physician Ice Guard Inspector Medical Oncology 06/04/22 Alicia Pires CNP [address] [place] [address] [email or web address] Nurse Practitioner Medical Oncology 06/09/22 Trish Gan MD [address] [place] [address] Obstetrics and Gynecology 07/20/24 documented as of this encounter Additional Source Comments The information contained in this document represents components of the legal health record. It is not the complete legal health record.[facility]
--- OUTSIDE RECORDS SUMMARY | 2025-07-17 19:18 | XMS_ITS | Encounter Summary ---
Author Organization [facility] Address [address] [facility] [address] [place] [address] Phone Care Team Providers Care Repairer Switchgear Name Role Phone Migdalia Dean MD Unavailable [phone] Ileana Milian MD Unavailable aCra Morrison MD Unavailable [phone] Rena Antonio MD Unavailable [phone] Jennifer SzymanskiC Unavailable doretha LexisAlicia SAP SENIOR DEVELOPER Unavailable Name, Chele GALLEGOS Primary Care Provider [phone] Trish Gan MD Unavailable Encounter Details Date Type Department Care Team (Late st Contact Info) Description 03/10/2023 Procedure Pass [facility], Ct Scan - [address] [address] Social History Tobacco Use Types Packs/Day Years [...] on file 02/26/2023 No 02/26/2023 No 02/26/2023 Intimate Partner Violence Answer Date R ecorded [...] st Contact Info) Description 05/09/2025 Procedure Pass [address] [address] 11/06/2025 9:00 AM EST Office Visit [facility] at [address] [address] Migdalia Dean MD [address] [place] [address] 12/21/2025 10:00 AM EST Appointment [address] [address] Migdalia Dean MD [address] [place] [address] documented as of this encounter Visit Diagnoses Not on filedocumented in this encounter Additional Health Concerns Assessment Noted Time PHQ-9 Depression Total Score: 8 04/21/20 22 1:00 PM EDT PHQ-2 Depression Total Score: 1 04/21/20 22 1:00 PM EDT documented as of this encounter Care Teams Repairer Switchgear Relationship Specialty Start Date End Date Name, MD Chele [address] [place] [address] PCP - General Geriatric Psychiatry 07/10/22 Migdalia Dean MD [address] [place] [address] [email or web address] Primary Oncologist Medical Oncology 05/29/22 Ileana Milian MD [address] [place] [address] [email or web address] 06/04/22 Cara Morrison MD [address] [place] [address] [email or web address] Hematology and Oncology 06/04/22 Rena Antonio MD [address] [place] [address] [email or web address] Radiation Oncology 06/04/22 Jennifer Szymanski PA-C [address] [place] [address] [email or web address] Physician Field Collector Medical Oncology 06/04/22 Alicia Pires CNP [address] [place] [address] [email or web address] Nurse Practitioner Medical Oncology 06/09/22 Trish Gan MD [address] [place] [address] Obstetrics and Gynecology 07/20/24 documented as of this encounter Additional Source Comments The information contained in this document represents components of the legal health record. It is not the complete legal health record.[facility]
--- OUTSIDE RECORDS SUMMARY | 2025-07-17 19:18 | XMS_ITS | Encounter Summary ---
Author Organization [employer] Address [address] 7t [place] [address] Care Team Providers Care Zinc Skimmer Name Role Phone Name, Chele GALLEGOS Primary Care Provider [phone] Encounter Details Date Type Department Care Team ([facility] st Contact Info) Description 10/07/2023 Telephone [facility] 230 [place], [place] [phone] Name, MD Chele [address] [place] [address] Social History Tobacco Use Types Packs/Day Years [...] t he electric, gas, oil or water [employer] threatened to shut off services in your [...] Description 08/01/2025 9:45 AM EDT Office Visit [facility] MEDICINE [address] [place] [address] Name, MD Chele [address] [place] [address] documented as of this encounter Visit Diagnoses Not on filedocumented in this encounter Additional Health Concerns Assessment Noted Time PHQ-9 Depression Total Score: 0 02/24/20 23 3:56 PM EDT documented as of this encounter Care Teams Zinc Skimmer Relationship Specialty Start Date End Date Name, MD Chele [address] [place] [address] PCP - General Family Medicine 06/23/22 documented as of this encounter
--- OUTSIDE RECORDS SUMMARY | 2025-07-17 19:18 | XMS_ITS | Encounter Summary ---
Author Organization [employer] Address [address] [facility] [facility] [address] [place] [address] Care Team Providers Care Customer Response Representative Name Role Phone Name, Chele GALLEGOS Primary Care Provider [phone] Reason for Visit * Reason Onset Date Comments call back 02/23/2023 Encounter Details Date Type Department Care Team ([facility] Contact Info) Description 02/23/2023 Telephone [facility] [address] [place], [place] [phone] Name, MD Chele [address] [place] [address] call back Social History Tobacco Use Types [...] 02/23/2023 3:56 PM EDT Sabina Robbins [place] Poor appetite or overeating Not at [...] as requested. * Telephone Encounter - Dakota Slateros - 02/23/2023 3:23 PM EDT Tc from Dr Jaramillo with general mass requesting a call back from PCP regarding pt. Please contact Dr Jaramillo at [phone] documented in this encounter Plan of Treatment Upcoming Encounters Date Type Department Care Team (Late st Contact Info) Description 08/01/2025 9:45 AM EDT Office Visit [facility] [address] [place] [address] Name, MD Chele [address] [place] [address] documented as of this encounter Visit Diagnoses Not on filedocumented in this encounter Additional Health Concerns Assessment Noted Time PHQ-9 Depression Total Score: 0 02/24/20 3:56 PM EDT documented as of this encounter Care Teams Customer Response Representative Relationship Specialty Start Date End Date Name, MD Chele [address] [place] [address] PCP - General Family Medicine 06/23/22 documented as of this encounter
[2025-07-18 10:02] LABS: Bacterial Vaginosis PCR NEGATIVE (Negative); Candida Group PCR NOT DETECTED (Not Detect); Candida glab krusei PCR NOT DETECTED (Not Detect); Trichomonas vaginalis PCR NOT DETECTED (Not Detect)
== END 2025-07-17 18:06 | disposition home or self-care (01) ==
LOC: HO.HHCLNP 18:05
PROVIDERS: Visit Provider Internal Medicine
DX: N89.8 Other specified noninflammatory disorders of vagina (principal); R39.9 Unspecified symptoms and signs involving the genitourinary system
CPT/HCPCS: 81515; 87086

== ENCOUNTER 2025-07-24 18:27 | Outpatient (REF) | payer OTHER, SELFPAY ==
--- OUTSIDE RECORDS SUMMARY | 2025-07-24 11:00 | XMS_ITS | Encounter Summary ---
Author Organization [employer] Address [address] [facility] [address] 7[address] [place] [address] Care Team Providers Care Court Operations Clerk Name Role Phone Name, Chele GALLEGOS Primary Care Provider [phone] Reason for Visit * Reason Comments urinary symptoms Encounter Details Date Type Department Care Team ([facility] Contact Info) Description 07/24/2025 11:00 AM EDT Office Visit [facility] [address] [place], [place] [phone] Justyn Arredondo MD [address] [place] [address] Dysuria (Primary Dx) Social History Tobacco Use Types [...] Sign Reading Time Taken Comments Blood Pressure 116/76 07/24/2025 11:23 AM EDT Pulse 76 07/24/2025 11:23 AM EDT Temperature 36.7 C (98.1 F) 07/24/2025 11:23 AM EDT Respiratory Rate 18 07/24/2025 11:23 AM EDT Oxygen Saturation 98% 07/24/2025 11:23 AM EDT Inhaled Oxygen Concentration - - Weight 60.1 kg (132 lb 9.6 oz) 07/24/2025 11:23 AM EDT Height - - Body Mass Index 24.25 03/20/2025 2:24 PM EDT documented in this encounter Progress Notes * Justyn Arredondo MD - 07/24/2025 11:00 AM EDT Subjective Patient ID: Marilia Bashir is a 79 y.o. female. HPI Marilia has 10 day h/o of burning with urination, urgency, frequency, pain in middle of lower back. Denies fever, chills, n/v, vaginal discharge, abdominal or flank pain. Was seen at [facility] on 07/17/2025 for UTI symptoms. Urine C&S grewLess than 10,000CFU's per mL. BV panel done that day was negative Lives alone. Quit smoking. 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 ([facility]/HCC) 10/07/2022 Cardiovascular event risk 10/07/2022 Anxiety 06/11/2022 Chronic obstructive pulmonary disease ([facility]) 06/11/2022 Claustrophobia 06/11/2022 Osteoporosis 06/11/2022 Cataract 12/23/2021 Depressive disorder 12/23/2021 Hypothyroidism 12/23/2021 Lichen sclerosus 12/23/2021 Raynaud's disease 12/23/2021 Lichen sclerosus of vulva 11/30/2021 Malignant tumor of breast ([facility]/HCC) 03/27/2021 Peripheral nerve disease 03/27/2021 Spinal stenosis 03/27/2021 The following portions of the chart were reviewed this encounter and updated as appropriate: Tobacco Allergies Meds Problems Med Hx Surg Hx Fam Hx Review of Systems Constitutional: Negative for fever. Respiratory: Negative for shortness of breath. Cardiovascular: Negative for chest pain. Gastrointestinal: Negative for abdominal pain, nausea and vomiting. Genitourinary: Positive for dysuria, frequency and urgency. Negative for flank pain. Skin: Negative for rash. Neurological: Negative for headaches. Objective Physical Exam Constitutional: Appearance: Normal appearance. HENT: Nose: Nose normal. Eyes: Conjunctiva/sclera: Conjunctivae normal. Pupils: Pupils are equal, round, and reactive to light. Cardiovascular: Rate and Rhythm: Normal rate and regular rhythm. Heart sounds: No murmur heard. Pulmonary: Effort: Pulmonary effort is normal. Breath sounds: Normal breath sounds. Abdominal: Tenderness: There is no abdominal tenderness. There is no right CVA tenderness or left CVA tenderness. Musculoskeletal: General: Normal range of motion. Cervical back: No tenderness. Skin: Findings: No rash. Neurological: Mental Status: She is alert. Gait: Gait is intact. Psychiatric: Mood and Affect: Mood normal. Behavior: Behavior normal. Procedures Assessment/Plan Diagnoses and all orders for this visit: Dysuria Urine C&S pending. Prescribed Augmentin and Diflucan (states h/o Candidal vulvovaginitis with antibiotics). Return to clinic if not improving - Culture, Urine, Routine - POCT urinalysis dipstick manually resulted Other orders - amoxicillin-clavulanate (Augmentin) 875-125 MG tablet; Take 1 tablet by mouth 2 times daily for 5days. - fluconazole (Diflucan) 150 MG tablet; Take 1 tablet (150 mg) by mouth Once per day for 1 dose. Prn vaginal yeast infection documented in this encounter Plan of Treatment Upcoming Encounters Date Type Department Care Team (Late st Contact Info) Description 08/01/2025 9:45 AM EDT Office Visit [facility] [address] [place] [address] Name, MD Chele [address] [place] [address] Scheduled Orders Name Type Priority Associated Diagnoses Orde r Schedule Culture, Urine, Routine Microbiology Routine Dysuria Ordered: 07/24/2025 documented as of this encounter Procedures Procedure Name Priority Date/Time Associated Diagnosis Comments POCT URINALYSIS DIPSTICK Routine 07/24/2025 12:56 PM EDT Dysuria documented in this encounter Results * (ABNORMAL) POCT urinalysis dipstick manually resulted (07/24/2025 12:56 PM EDT) Color, UA Yellow Clarity, UA Clear Glucose, UA Negative Bilirubin, UA Negative Ketones, UA Negative Spec Grav, UA 1.020 Blood, UA Positive(A) Negative, None Detected Comment:Trace- intact pH, UA 5.5 Protein, UA Trace Urobilinogen, UA 0.2 Leukocytes, UA Few 15(A) Negative, Rare, Trace Comment:Small Nitrite, UA Negative Negative, None Detected Urine 07/24/2025 12:5 6 PM EDT Justyn Arredondo MD POINT OF CARE TEST ENTER/EDIT OR DERABLES Final Result documented in this encounter Visit Diagnoses Diagnosis Dysuria- Primary documented in this encounter Additional Health Concerns Assessment Noted Time PHQ-9 Depression Total Score: 6 03/20/20 25 3:43 PM EDT documented as of this encounter Care Teams Court Operations Clerk Relationship Specialty Start Date End Date Name, MD Chele [address] [place] [address] PCP - General Family Medicine 06/23/22 documented as of this encounter
--- OUTSIDE RECORDS SUMMARY | 2025-07-24 18:54 | XMS_ITS | Encounter Summary ---
Author Organization [employer] Address [address] 7[address] [place] [address] Care Team Providers Care Lockstitch Topstitcher Name Role Phone Name, Chele GALLEGOS Primary Care Provider [phone] Reason for Visit * Reason Onset Date Comments nightguard 01/22/2025 Encounter Details Date Type Department Care Team ([facility] Contact Info) Description 01/22/2025 Telephone [facility] [address] [place] [address] Kemi Contreras, DDS [address] [place] [address] nightguard Social History Tobacco Use Types Packs/Day [...] not received PA request. Confirmed with front office director [facility] that PA had not been submitted as of yet. Should be submitted in next couple o days and office will reach out for scheduling when PA comes back approved documented in this encounter Plan of Treatment Upcoming Encounters Date Type Department Care Team (Late st Contact Info) Description 08/01/2025 9:45 AM EDT Office Visit [facility] [address] [place] [address] Name, MD Chlee [address] [place] [address] documented as of this encounter Visit Diagnoses Not on filedocumented in this encounter Additional Health Concerns Assessment Noted Time PHQ-9 Depression Total Score: 4 04/27/20 24 10:35 AM EDT documented as of this encounter Care Teams Lockstitch Topstitcher Relationship Specialty Start Date End Date Name, MD Chele [address] [place] [address] PCP - General Family Medicine 06/23/22 documented as of this encounter
--- OUTSIDE RECORDS SUMMARY | 2025-07-24 18:54 | XMS_ITS | Encounter Summary ---
Author Organization [facility] Address [address] [facility] [address] [place] [address] Phone Care Team Providers Care Engineering Systems Analyst Name Role Phone Malathi Keys MD Primary Care Provider Migdalia Dean MD Unavailable [phone] Haydee Kelly NP Primary Care Provider U Ileana Craven MD Unavailable Cara Morrison MD Unavailable [phone] Rena Antonio MD Unavailable [phone] Jennifer SzymanskiC Unavailable [email or web address] Alicia Pires FUNDRAISING CONSULTANT Unavailable Name, Chele GALLEGOS Primary Care Provider [phone] Trish Gan MD Unavailable Encounter Details Date Type Department Care Team (Late st Contact Info) Description 04/27/2022 Procedure Pass [facility] [address] [place] [address] Social History Tobacco Use Types Packs/Day Years [...] 1:41 PM EDT Bing Melchor RN * [place] Suicide Severity Rating Scale (Screener/Recent Self-Report) Question [...] st Contact Info) Description 05/09/2025 Procedure Pass [address] [address] 11/06/2025 9:00 AM EST Office Visit [facility] at [address] [address] Migdalia Dean MD [address] [place] [address] 12/21/2025 10:00 AM EST Appointment [address] [address] Migdalia Dean MD [address] [place] [address] documented as of this encounter Visit Diagnoses [...] documented as of this encounter Care Teams Engineering Systems Analyst Relationship Specialty Start Date End Date Malathi Keys MD [address] [place] [address] [email or web address] PCP - General Family Medicine 04/24/22 06/03/22 Haydee Kelly, ERIC PCP - General Family Medicine 06/04/22 07/09/22 Chele Ackerman MD [address] [place] [address] PCP - General Geriatric Psychiatry 07/10/22 Migdalia Dean MD [address] [place] [address] [email or web address] Primary Oncologist Medical Oncology 05/29/22 Ileana Milian MD [address] [facility] [address] [place] [address] [email or web address] General Surgery 06/04/22 Cara Morrison MD 55 [facility] [address] [place] [address] [email or web address] Hematology and Oncology 06/04/22 Rena Antonio MD [address] [facility] [address] [place] [address] [email or web address] Radiation Oncology 06/04/22 Jennifer Szymanski PA-C [address] [place] [address] [address] [place] [address] [email or web address] Physician Audit Control Clerk Medical Oncology 06/04/22 Alicia Pires CNP [address] [place] [address] [email or web address] Nurse Practitioner Medical Oncology 06/09/22 Trish Gan MD [address] [place] [address] Obstetrics and Gynecology 07/20/24 documented as of this encounter Additional Source Comments The information contained in this document represents components of the legal health record. It is not the complete legal health record.[facility]
--- OUTSIDE RECORDS SUMMARY | 2025-07-24 18:54 | XMS_ITS | Encounter Summary ---
Author Organization [facility] Address [address] [facility] [address] [place] [address] Phone Care Team Providers Care Executive Officer Name Role Phone Migdalia Dean MD Unavailable Ileana Milian MD Unavailable Cara Morrison MD Unavailable [phone] Rena Antonio MD Unavailable Jennifer SzymanskiC Unavailable [email or web address] LexisAlicia MULCHER OPERATOR Unavailable Name, Chele GALLEGOS Primary Care Provider [phone] Trish Gan MD Unavailable Encounter Details Date Type Department Care Team (Late st Contact Info) Description 01/12/2024 Procedure Pass [facility], [address] [address] Social History Tobacco Use Types Packs/Day Years [...] st Contact Info) Description 05/09/2025 Procedure Pass [address] [address] 11/06/2025 9:00 AM EST Office Visit [facility] at [address] [address] Migdalia Dean MD [address] [place] [email or web address] 12/21/2025 10:00 AM EST Appointment [address] [address] Migdalia Dean MD [address] [place] [address] documented as of this encounter Visit Diagnoses Not on filedocumented in this encounter Additional Health Concerns Assessment Noted Time PHQ-9 Depression Total Score: 8 04/21/20 1:00 PM EDT PHQ-2 Depression Total Score: 1 04/21/20 1:00 PM EDT documented as of this encounter Care Teams Executive Officer Relationship Specialty Start Date End Date Name, MD Chele [address] [place] [address] PCP - General Geriatric Psychiatry 07/10/22 Migdalia Dean MD [address] [place] [address] [email or web address] Primary Oncologist Medical Oncology 05/29/22 Ileana Milian MD [address] [address] [email or web address] Surgery 06/04/22 Cara Morrison MD [address] [address] [email or web address] Hematology and Oncology 06/04/22 Rena Antonio MD [address] [facility] [address] [place] [address] [email or web address] Radiation Oncology 06/04/22 Jennifer Szymanski PA-C [address] [facility] [address] [place], [place] [email or web address] Physician Rotary Machine Operator Medical Oncology 06/04/22 Alicia Pires CNP [address] [place] [address] Nurse Practitioner Medical Oncology 06/09/22 Trish Gan MD [address] [place] [address] Obstetrics and Gynecology 07/20/24 documented as of this encounter Additional Source Comments The information contained in this document represents components of the legal health record. It is not the complete legal health record.[facility]
--- OUTSIDE RECORDS SUMMARY | 2025-07-24 18:54 | XMS_ITS | Clinical Summary ---
Author Organization [facility] Address [address] [place] [address] Phone Care Team Providers Care Ecd Name Role Phone Unavailable Primary Care Provider [...] patient's age to complete this topic Insurance [facility] Medicare
--- OUTSIDE RECORDS SUMMARY | 2025-07-24 18:54 | XMS_ITS | Patient Health Record ---
Author Organization [facility] Address [address] [place] [address] Care Team Providers Care Senior Corporate Recruiter Name Role Phone DEBRA GALLEGOS, TIAGO Primary Care Provider Tiago Baez Unavailable [phone] Allergies Allergen (clinical drug ingredient) Drug/Non Drug [...] Problem Status W/U Status Risk Notes Problem [id number] Encounter for screening for malignant neoplasm of colon (Z12.11) Active confirmed Plan Of Treatment Future Test Test Name Order Date COLONOSCOPY 03/10/2018 Insurance Providers Payer Name Payer Address Payer Phone Subscriber Number Group Number Insured Name Patient Relationship to Insured Coverage Start Date Coverage End Date MEDICARE OF [place] [address] ANASTASIYA JAMILELAINA [id number] NOELLE AVNI Self - patient is the insured MEDICAID OF [facility] [address] [place] [address] [id number] NOELLE , AVNI Self - patient is the insured Medical (General) History Medical History History ICD Code Breast cancer--right side--lumpectomy 20 004, XRT Denies PR,DM,CVA, Renal disease Describes a colonoscopy at [facility] at a pprox. age 53 with polyps removed Leg cramps--takes Gabapentin prn COPD Surgical History Surgery Date(Month/Year) Cataract-lens implants 2018 Lumpectomy-right breast 2004 Tubal ligation 1984 Right inguinal hernia repair 1977
--- OUTSIDE RECORDS SUMMARY | 2025-07-24 18:54 | XMS_ITS | Encounter Summary ---
Author Organization [facility] Address [address] [facility] [address] [place] [address] Phone Care Team Providers Care President & Founder Name Role Phone Migdalia Dean MD Unavailable Haydee Kelly NP Primary Care Provider U Ileana Craven MD Unavailable Cara Morrison MD Unavailable [phone] Rena Antonio MD Unavailable Jennifer SzymanskiC Unavailable doretha LexisAlicia BUSINESS INFORMATION MANAGER Unavailable Chele Ackerman MD Primary Care Provider Trish Gan MD Unavailable Encounter Details Date Type Department Care Team (Late st Contact Info) Description 06/04/2022 Procedure Pass [facility] Cardiovascular And Interventional Radiology [address] [place] [address] Social History Tobacco Use Types Packs/Day Years [...] st Contact Info) Description 05/09/2025 Procedure Pass [address] [address] 11/06/2025 9:00 AM EST Office Visit [facility] Cancer Center at [address] [address] Migdalia Dean MD [address] [place] [address] 12/21/2025 10:00 AM EST Appointment [address] [address] Migdalia Dean MD [address] [place] [address] documented as of this encounter Visit Diagnoses [...] documented as of this encounter Care Teams President & Founder Relationship Specialty Start Date End Date Haydee Kelly NP PCP - General Family Medicine 06/04/22 07/09/22 Chele Ackerman MD [address] [place] [address] PCP - General Geriatric Psychiatry 07/10/22 Migdalia Dean MD 30 [place] [address] Primary Oncologist Medical Oncology 05/29/22 Ileana Milian MD [address] [address] [email or web address] General Surgery 06/04/22 Cara Morrison MD [address] [address] [email or web address] Hematology and Oncology 06/04/22 Rena Antonio MD [address] [facility] [address] [place] [address] Radiation Oncology 06/04/22 Jennifer Szymanski PA-C [address] [facility] [address] [place] [address] [email or web address] Physician Cnc Machinist Medical Oncology 06/04/22 Alicia Pires CNP [address] [place] [address] [email or web address] Nurse Practitioner Medical Oncology 06/09/22 Trish Gan MD [address] [place] [address] Obstetrics and Gynecology 07/20/24 documented as of this encounter Additional Source Comments The information contained in this document represents components of the legal health record. It is not the complete legal health record.[facility]
--- OUTSIDE RECORDS SUMMARY | 2025-07-24 18:54 | XMS_ITS | Encounter Summary ---
Author Organization [facility] Address [address] [facility] [address] [place] [address] Phone Care Team Providers Care Polysomnographic Tech Name Role Phone Haydee Kelly CERTIFIED PROFESSIONAL CODER Primary Care Provider U Malathi Wall MD Primary Care Provider Haydee Kelly CERTIFIED PROFESSIONAL CODER Primary Care Provider U Malathi Wall MD Primary Care Provider Migdalia Dean MD Unavailable [phone] Haydee Kelly CERTIFIED PROFESSIONAL CODER Primary Care Provider U navastonable Ileana Milian MD Unavailable Cara Morrison MD Unavailable Rena Antonio MD Unavailable Jennifer SzymanskiC Unavailable doretha Alicia Pires CNP Unavailable Chele Ackerman MD Primary Care Provider Trish Gan MD Unavailable Encounter Details Date Type Department Care Team (Late st Contact Info) Description 03/20/2022 [facility]phone [facility] [address] [place] [address], 9th Floor, [address] [place], [place] [phone] Ana Urias, RN [address] [place] [address] [email or web address] Social History Tobacco Use Types Packs/Day Years [...] st Contact Info) Description 05/09/2025 Procedure Pass [address] [address] 11/06/2025 9:00 AM EST Office Visit [facility] at [address] [address] Migdalia Dean MD [address] [place] [address] 12/21/2025 10:00 AM EST Appointment [address] [address] Migdalia Dean MD [address] [place] [address] documented as of this encounter Visit Diagnoses Not on filedocumented in this encounter Additional Health Concerns Infection Onset Date Last Indicated Resolved Time CoV-Risk 07/22/2022 07/23/2022 08/03/2022 1:22 AM EDT CoV-Risk 08/21/2022 08/25/2022 08/28/2022 2:23 PM EDT COVID-19 09/07/2022 09/09/2022 09/28/2022 1:21 AM EST documented as of this encounter Care Teams Polysomnographic Tech Relationship Specialty Start Date End Date Haydee Kelly NP PCP - General Family Medicine 03/20/22 04/06/22 Malathi Keys MD [address] [place] [address] [email or web address] PCP - General Family Medicine 04/07/22 04/14/22 Haydee Kelly NP PCP - General Family Medicine 04/15/22 04/23/22 Malathi Keys MD [address] [place] [address] [email or web address] PCP - General Family Medicine 04/24/22 06/03/22 Haydee Kelly NP PCP - General Family Medicine 06/04/22 07/09/22 Chele Ackerman MD [address] [place] [address] PCP - General Geriatric Psychiatry 07/10/22 Migdalia Dean MD 30 [place] [address] [email or web address] Primary Oncologist Medical Oncology 05/29/22 Ileana Milian MD [address] [facility] [address] [place] [address] [email or web address] General Surgery 06/04/22 Cara Morrison MD 55 [facility] [address] [place] [address] [email or web address] Hematology and Oncology 06/04/22 Rena Antonio MD 32 [facility] [address] [place] [address] Radiation Oncology 06/04/22 Jennifer Szymanski PA-C 32 [facility] [address] [place] [address] [email or web address] Physician Loss Claim Clerk Medical Oncology 06/04/22 Alicia Pires CNP 30 [place] [address] [email or web address] Nurse Practitioner Medical Oncology 06/09/22 [place] [address] [place] [address] 4 [place] [address] Obstetrics and Gynecology 07/20/24 documented as of this encounter Additional Source Comments The information contained in this document represents components of the legal health record. It is not the complete legal health record.[facility]
--- OUTSIDE RECORDS SUMMARY | 2025-07-24 18:54 | XMS_ITS | Encounter Summary ---
Author Organization [facility] Address [address] [facility] [address] [place] [address] Phone Care Team Providers Care Nurse Special Name Role Phone Haydee Kelly DRAWING TENDER Primary Care Provider U Malathi Wall MD Primary Care Provider Haydee Kelly DRAWING TENDER Primary Care Provider U Malathi Wall MD Primary Care Provider Migdalia Dean MD Unavailable Haydee Kelly DRAWING TENDER Primary Care Provider U Ileana Craven MD Unavailable Cara Morrison MD Unavailable [phone] Rena Antonio MD Unavailable Jennifer SzymanskiC Unavailable doretha Alicia Pires CNP Unavailable Name, Chele GALLEGOS Primary Care Provider [phone] Trish Gna MD Unavailable Encounter Details Date Type Department Care Team (Late st Contact Info) Description 03/31/2022 Ancillary Orders [facility] [address] [place] [address] Ileana Milian MD [address] [place] [address] [email or web address] Malignant neoplasm of right female breast, unspecified [...] st Contact Info) Description 05/09/2025 Procedure Pass [address] [address] 11/06/2025 9:00 AM EST Office Visit [facility] at [address] [address] Migdalia Dean MD [address] [place] [address] 12/21/2025 10:00 AM EST Appointment [address] [address] Migdalia Dean MD [address] [place] [address] [email or web address] documented as of this encounter Results * Mammogram Outside With Interpretation Or Consult (03/31/2022 9:25 AM EDT) 03/31/2022 Impressions [facility] - 04/09/2022 6:47 PM EDT 1. [...] - Appropriate Action Should Be Taken Narrative [facility] - 04/09/2022 6:47 PM EDT OUTSIDE INTERPRETATION [...] (03/11/2022): Please note that ultrasound is an water treatment plant operator-dependent real time examination, so evaluation of [...] at the biopsy site. Pathology (Reviewed by [facility]): A. 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 Procedure Note Malathi Carey MD - 04/10/2022 OUTSIDE INTERPRETATION STUDIES PROVIDED FOR INTERPRETATION: -Right diagnostic and left screening mammogram 03/11/2022 -Right breast ultrasound 03/11/2022 -Right breast ultrasound guided biopsy and post-procedure mammogram03/16/2022 Multiple additional prior mammograms are also submitted for comparison. HISTORY: [facility] Bash[facility] FINDINGS: Right Diagnostic Mammogram and [...] clip atthe biopsy site. Pathology (Reviewed by [facility]): A. BREAST CORE BIOPSY, RIGHT AT 7 O'CLOCK ([id number]; 03/16/2022): Poorly differentiated invasive adenocarcinoma, spanning at [...] IMMckay OUTSIDE IMAGING W/ INTERPRETATION Final Result [address] [address] documented in this encounter Visit Diagnoses Diagnosis [...] documented as of this encounter Care Teams Nurse Special Relationship Specialty Start Date End Date Haydee Kelly NP PCP - General Family Medicine 03/20/22 04/06/22 Malathi Keys MD [address] [place] [address] [email or web address] PCP - General Family Medicine 04/07/22 04/14/22 Haydee Kelly NP PCP - General Family Medicine 04/15/22 04/23/22 Malathi Keys MD [address] [place] [address] [email or web address] PCP - General Family Medicine 04/24/22 06/03/22 Haydee Kelly NP PCP - General Family Medicine 06/04/22 07/09/22 Chele Ackerman MD [address] [place] [address] PCP - General Geriatric Psychiatry 07/10/22 Migdalia Dean MD [address] [place] [address] [email or web address] Primary Oncologist Medical Oncology 05/29/22 Ileana Milian MD [address] [place] [address] [email or web address] General Surgery 06/04/22 Cara Morrison MD [address] [place], [place] [email or web address] Hematology and Oncology 06/04/22 Rena Antonio MD [address] [facility] [address] [place], [place] [email or web address] Radiation Oncology 06/04/22 Jennifer Szymanski PA-C [address] [facility] [address] [place], [place] [email or web address] Physician Absorber Operator Medical Oncology 06/04/22 Alicia Pires CNP [address] [place] [address] [email or web address] Nurse Practitioner Medical Oncology 06/09/22 Trish Gan MD [address] [place] [address] Obstetrics and Gynecology 07/20/24 documented as of this encounter Additional Source Comments The information contained in this document represents components of the legal health record. It is not the complete legal health record.[facility]
--- OUTSIDE RECORDS SUMMARY | 2025-07-24 18:54 | XMS_ITS | Encounter Summary ---
Author Organization [facility] Address [address] [place] [address] Phone Care Team Providers Care Customer Service Receptionist Name Role Phone Migdalia Dean MD Unavailable [phone] Ileana Milian MD Unavailable Cara Morrison MD Unavailable [phone] Rena Antonio MD Unavailable Jennifer SzymanskiC Unavailable doretha LexisErosteri GALLARDO Unavailable NameChele MD Primary Care Provider [phone] Trish Gan MD Unavailable Encounter Details Date Type Department Care Team (Latest Contact Info) Description 09/29/2022 Transcribe Orders Virtual Department [address] [place], [place] [phone] Name, MD Chele [address] [place] [address] Cough, unspecified type (Primary Dx) Social History [...] st Contact Info) Description 05/09/2025 Procedure Pass [address] [address] 11/06/2025 9:00 AM EST Office Visit [facility] at [address] [address] Migdalia Dean MD [address] [place] [address] 12/21/2025 10:00 AM EST Appointment [address] [address] Migdalia Dean MD [address] [place] [address] [email or web address] documented as of this encounter Visit Diagnoses Diagnosis Cough, unspecified type- Primary documented in this encounter Additional Health Concerns Assessment Noted Time PHQ-9 Depression Total Score: 8 04/21/20 22 1:00 PM EDT PHQ-2 Depression Total Score: 1 04/21/20 22 1:00 PM EDT documented as of this encounter Care Teams Customer Service Receptionist Relationship Specialty Start Date End Date Name, MD Chele [address] [place] [address] PCP - General Geriatric Psychiatry 07/10/22 Migdalia Dean MD [address] [place] [address] [email or web address] Primary Oncologist Medical Oncology 05/29/22 Ileana Milian MD [address] [facility], [address] [place] [address] [email or web address] General Surgery 06/04/22 Craa Morrison MD [address] [facility] [address] [place] [address] [email or web address] Hematology and Oncology 06/04/22 Rena Antonio MD [address] [facility] [address] [place], [place] Radiation Oncology 06/04/22 Jennifer Szymanski PA-C [address] [facility] [address] [place] [address] [email or web address] Physician Executive Office Manager Medical Oncology 06/04/22 Alicia Pires CNP [address] [place] [address] [email or web address] Nurse Practitioner Medical Oncology 06/09/22 Trish Gan MD [address] [place] [address] Obstetrics and Gynecology 07/20/24 documented as of this encounter Additional Source Comments The information contained in this document represents components of the legal health record. It is not the complete legal health record.[facility]
--- OUTSIDE RECORDS SUMMARY | 2025-07-24 18:54 | XMS_ITS | Encounter Summary ---
Author Organization [facility] Address [address] [facility] [address] [place] [address] Phone Care Team Providers Care Fuel Truck Driver Name Role Phone Migdalia Dean MD Unavailable Ileana Milian MD Unavailable Cara Morrison MD Unavailable [phone] Rena Antonio MD Unavailable Jennifer SzymanskiC Unavailable doretha LexisAlicia CLAIM CLINICIAN Unavailable Name, Chele GALLEGOS Primary Care Provider [phone] Trish Gan MD Unavailable Encounter Details Date Type Department Care Team (Late st Contact Info) Description 02/04/2023 Procedure Pass OR Admitting Dept - Virtual Department [address] [place] [address] Social History Tobacco Use Types Packs/Day Years [...] st Contact Info) Description 05/09/2025 Procedure Pass [facility], [address] [address] 11/06/2025 9:00 AM EST Office Visit [facility] at [address] [address] Migdalia Dean MD [address] [place] [address] 12/21/2025 10:00 AM EST Appointment [address] [address] Migdalia Dean MD [address] [place] [address] documented as of this encounter Visit Diagnoses Not on filedocumented in this encounter Additional Health Concerns Assessment Noted Time PHQ-9 Depression Total Score: 8 04/21/20 22 1:00 PM EDT PHQ-2 Depression Total Score: 1 04/21/20 22 1:00 PM EDT documented as of this encounter Care Teams Fuel Truck Driver Relationship Specialty Start Date End Date Name, MD Chele [address] [place] [address] PCP - General Geriatric Psychiatry 07/10/22 Migdalia Dean MD [address] [place] [address] Primary Oncologist Medical Oncology 05/29/22 Ileana Milian MD [address] [address] [email or web address] General Surgery 06/04/22 Cara Morrison MD [address] [facility] [address] [address] [email or web address] Hematology and Oncology 06/04/22 Rena Antonio MD [address] [facility] [address] [place] [address] Radiation Oncology 06/04/22 Jennifer Szymanski PA-C [address] [facility] [address] [place], [place] [email or web address] Physician Planning Rn Medical Oncology 06/04/22 Alicia Pires CNP [address] [place] [address] [email or web address] Nurse Practitioner Medical Oncology 06/09/22 Trish Gan MD [address] [place] [address] Obstetrics and Gynecology 07/20/24 documented as of this encounter Additional Source Comments The information contained in this document represents components of the legal health record. It is not the complete legal health record.[facility]
--- OUTSIDE RECORDS SUMMARY | 2025-07-24 18:54 | XMS_ITS | Clinical Summary ---
Author Organization [employer] Address [address] [facility] 7t [place] [address] Care Team Providers Care Professor Of Graphic Design Name Role Phone Name, Chele GALLEGOS Primary Care Provider [phone] Allergies Active Allergy Reactions Criticality Noted Date [...] 81 MG chewable tabletIndicatio ns:Atherosclero sis of [place] coronary artery of [place] heart without angina pectoris Chew 1 tablet (81 mg) Once per day. 30 tablet 11 5 11/29/19 26 Active ciprofloxacin (Cipro) 500 MG tabletIndicatio ns:UTI symptoms Take 1 tablet (500 mg) by mouth 2 times daily for 7 days. 14 tablet 5 07/24/20 25 Active amoxicillin-cla vulanate (Augmentin) 875-125 MG tablet Take 1 tablet by mouth 2 times daily for 5 days. 10 tablet 5 07/29/20 25 Active fluconazole (Diflucan) 150 MG tablet Take 1 tablet (150 mg) by mouth Once per day for 1 dose. Prn vaginal yeast infection 1 tablet 5 07/25/20 25 Active Active Problems Problem Noted Date [...] will be contacted with results Atherosclerosis of [place] co ronary artery of [place] heart without angina pectoris 11/29/2024 Overview (11/29/2024): she underwent a nuclear stress test on 06/29/2024 which showed no ischemia, fixed defect in the inferior septal, distal part of the inferior lateral wall, probable artifact. 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 06/06/20: Bilateral screening mammogram ([facility]) shows no findings of malignancy. There are stable post therapeutic changes in the right breast, and benign appearing calcifications. The left breast remains normal. 03/11/22: Bilateral diagnostic mammogram and u/s of right breast ([facility]) for self-palpated right breast mass showed hypoechoic area in right breast, 1.0 x 0.9 cm. 03/16/22: Core biopsy, right breast ([facility]). Pathology shows invasive ductal carcinoma, grade 2. ER/WI negative (0%); HER 2 negative (0%), Ki-67 15%. 03/26/22: [email or web address] [facility]) germline testing for BRCA1 and BRCA2 showed a deleterious mutation in BRCA1 ([id number]). 03/31/22: Pathology reviewed by [facility]. This showed poorly differentiated invasive adenocarcinoma, spanning at least 0.7 cm. 04/27/22: Right mastectomy and sentinel lymph node excision ([facility]). Pathology shows invasive ductal carcinoma, grade 3, [...] Encounters Date Type Department Care Team Description 07/24/2025 11:00 AM EDT Office Visit [facility] [address] [place] [address] Justyn Arredondo MD Dysuria (Primary Dx) 07/23/2025 Travel 07/18/2025 Telephone [facility] [address] [place] [address] Name, MD Chele Medication Question 07/17/2025 3:00 PM EDT Office Visit [facility] [address] [address] Raina Nick MD Urinary tract infection without hematuria, site unspecified (Primary Dx); UTI symptoms; Vaginal discharge 07/17/2025 Telephone [facility] [address] [place] [address] Penny Lennon RN 07/17/2025 Travel 05/03/2025 Telephone [facility] [address] [place] [address] Minoo Orozco [place] july recalls from Last 3 Months Immunizations [...] 9.6 oz) 07/24/2025 11:23 AM EDT Height 157.5 cm (5' 2 ) 03/20/2025 2:24 PM EDT Body Mass Index 24.25 03/20/2025 2:24 PM EDT Plan of Treatment Upcoming Encounters Date Type Department Care Team (Late st Contact Info) Description 08/01/2025 9:45 AM EDT Office Visit [facility] [address] [place] [address] Name, MD Chele [address] [place] [address] Health Maintenance Due Date Last Done Comments DTaP/Tdap/Td Vaccines (1 - Tdap) 02/12/2018 02/11/2018 RSV Patients and Patients Aged 60 years or older (1 - 1-dose 75+ series) 2018 Zoster Vaccines (2 of 2) 03/17/2024 01/21/2024 Dental Oral Exam 12/17/2024 06/15/2024, 06/13/2021 Dental X-Ray: Bitewings 06/16/2025 06/15/2024, 06/13 COVID-19 Vaccine ( season) 2025 08/31/2024, 01/21/2024, 03/28/2022, Additional history exists Influenza Vaccine (#1) 2025 4, 07/04/2019, 07/04/2019, Additional history exists Dental Prophylaxis 07/21/2025 01/17/2025, 06/26/2024 Alcohol/Substance Use Screening 03/20/2026 03/20/2025 Depression Screening 03/20/2026 03/20/2025, 03/20/20 SDOH Screening 03/20/2026 03/20/2025 Lipid Panel 03/26/2026 03/26/2021 Tobacco Screening 07/24/2026 07/24/2025 Mammogram 06/14/2027 06/14/2025, 10/02, 10/24/2024, Additional history [...] DIPSTICK Routine 07/24/2025 12:56 PM EDT Dysuria BACTERIAL VAGINOSIS PANEL Routine 07/17/2025 3:07 PM EDT Vaginal discharge CULTURE, URINE, ROUTINE Routine 07/17/2025 3:07 PM EDT UTI symptoms POCT URINALYSIS DIPSTICK Routine 07/17/2025 2:54 PM [...] dipstick manually resulted (07/24/2025 12:56 PM EDT) Only the most recent of2 resultswithin the time period is included. Color, UA Yellow Clarity, UA Clear Glucose, [...] CARE TEST ENTER/EDIT OR DERABLES Final Result * Bacterial Vaginosis Panel (07/17/2025 3:07 PM EDT) TRICHOMONAS VAGINALIS DETECTION BY PCR NOT DETECTED Not Detect [facility] BACTERIAL VAGINOSIS DETECTION BY PCR NEGATIVE Negative [facility] Comment:The BV organism targ ets of the Xpert Xpress MVP test can becommensal in women; Xpert Xpress MVP positive results forbacterial vaginosis should be considered in conjunction withother clinical and patient information to determine thedisease status. Organisms that are not detected by the XpertXpress MVP test have also been reported to be associatedwith BV and aerobic vaginitis.The Xpert Xpress MVP test performance has not been evaluatedin patients under the age of 14. MARIELA GROUP DETECTION BY PCR NOT DETECTED Not Detect [facility] Mariela glab krusei PCR NOT DETECTED Not Detect [facility] Swab Vaginal structure / Unknown 07/17/2025 3:07 PM EDT 07/17/2025 6:05 PM EDT Raina Jay MD LAB MICROBIOLOGY - GE NERAL ORDERABLES Final Result Performing Organization Address City/[facility]/ZIP Co de Phone Number [facility] [address] [place] [phone] * Culture, Urine, Routine (07/17/2025 3:07 PM EDT) Urine Urine specimen obtained by clean catch procedure / Unknown 07/17/2025 3:07 PM EDT 07/17/2025 6:05 PM EDT Comment:UACC Narrative [facility] - 07/19/2025 11:53 AM EDT Urine Culture Report Result Urine Culture < 10,000 cfu/ml Specimen Source: Urine clean catch Raina Jay MD LAB MICROBIOLOGY - GE NERAL ORDERABLES Final Result Performing Organization Address City/[facility] Co de Phone Number [facility] [address] [place] [phone] * Mammography Report 1 (03/11/2022 3:25 PM EDT) Anatomical Region Laterality Modality Breast Bilateral Mammography 03/11/2022 3:25 PM EDT Narrative 03/11/2022 5:14 PM EDT Refer to the Notes tab for result details [facility] Procedure: Mammography Report 1 Procedure Note ProviderRajesh MD - 01/24/2023 Refer to the Notes tab for result details [facility] Procedure: Mammography Report 1 Haydee Kelly NP IMG BI PROCEDURES Final Result * (ABNORMAL) [...] factors. LDL-C is now calculated using the Marcos calculation, which is a validated novel method providing better accuracy than the Friedewald equation in the estimation of LDL-C. Ayden SS et al. MATTHEW. 2013;310(19): 2175-7181 (http://education.[employer].Motost[employer]/faq/LXQ017) Non-HDL Cholesterol 171(H) <130 mg/dL (calc) [facility] Comment: For patients with diabetes plus 1 major ASCVD risk factor, treating to a non-HDL-C goal of <100 mg/dL (LDL-C of <70 mg/dL) is considered a therapeutic option. Triglycerides 147 <150 mg/dL [facility] 03/26/2021 11:5 4 AM EDT us Haydee Kelly NP LAB BLOOD ORDERABLES Final Resu lt [facility] [address] from Last 3 Months or Most Recently Relevant to Health Maintenance Insurance [facility] ASSISTED OPTIONS (HMO D-SNP) [facility] STANDARD DENTAL [facility] Care Teams Professor Of Graphic Design Relationship Specialty Start Date End Date Name, MD Chele [address] [place] [address] PCP - General Family Medicine 06/23/22
--- OUTSIDE RECORDS SUMMARY | 2025-07-24 18:54 | XMS_ITS | Encounter Summary ---
Author Organization [facility] Address [address] [facility] [address] [place] [address] Phone Care Team Providers Care Marketing Finance Specialist Name Role Phone Migdalia Dean MD Unavailable [phone] Ileana Milian MD Unavailable Cara Morrison MD Unavailable [phone] Rena Antonio MD Unavailable Jennifer SzymanskiC Unavailable pnphilomena LexisAlicia STAFF MECHANICAL ENGINEER Unavailable Name, Chele GALLEGOS Primary Care Provider [phone] Trish Gan MD Unavailable Encounter Details Date Type Department Care Team (Late st Contact Info) Description 04/15/2024 Procedure Pass [facility], [address] [address] Social History Tobacco Use Types Packs/Day Years [...] st Contact Info) Description 05/09/2025 Procedure Pass [address] [address] 11/06/2025 9:00 AM EST Office Visit [facility] at [address] [address] Migdalia Dean MD [address] [place] [address] 12/21/2025 10:00 AM EST Appointment [address] [address] Migdalia Dean MD [address] [place] [address] documented as of this encounter Visit Diagnoses Not on filedocumented in this encounter Additional Health Concerns Assessment Noted Time PHQ-9 Depression Total Score: 8 04/21/20 1:00 PM EDT PHQ-2 Depression Total Score: 1 04/21/20 1:00 PM EDT documented as of this encounter Care Teams Marketing Finance Specialist Relationship Specialty Start Date End Date Name, MD Chele [address] [place] [address] PCP - General Geriatric Psychiatry 07/10/22 Migdalia Dean MD [address] [place] [address] [email or web address] Primary Oncologist Medical Oncology 05/29/22 Ileana Milian MD [address] [address] [email or web address] General Surgery 06/04/22 Cara Morrison MD [address] [address] [email or web address] Hematology and Oncology 06/04/22 Rena Antoino MD [address] [facility] [address] [place] [address] [email or web address] Radiation Oncology 06/04/22 Jennifer Szymanski PA-C [address] [facility] [address] [place], [place] [email or web address] Physician Accountant Assistant Medical Oncology 06/04/22 Alicia Pires CNP [address] [place] [address] Nurse Practitioner Medical Oncology 06/09/22 Trish Gan MD [address] [place] [address] Obstetrics and Gynecology 07/20/24 documented as of this encounter Additional Source Comments The information contained in this document represents components of the legal health record. It is not the complete legal health record.[facility]
--- OUTSIDE RECORDS SUMMARY | 2025-07-24 18:54 | XMS_ITS | Encounter Summary ---
Author Organization [employer] Address [address] [place] [address] 7 [place] [address] Care Team Providers Care High School Football Coach Name Role Phone Name, Chele GALLEGOS Primary Care Provider [phone] Encounter Details Date Type Department Care Team (Late st Contact Info) Description 11/05/2022 [facility] Information Management [address] [place], [place] [phone] NameChele MD [address] [place] [address] Social History Tobacco Use Types Packs/Day Years [...] Description 08/01/2025 9:45 AM EDT Office Visit [facility] [address] [place] [address] [phone] NameChele MD [address] [place] [address] [phone] documented as of this encounter Visit Diagnoses Not on filedocumented in this encounter Care Teams High School Football Coach Relationship Specialty Start Date End Date NameChele MD [address] [place] [address] [phone] PCP - General Family Medicine 06/23/22 documented as of this encounter
--- OUTSIDE RECORDS SUMMARY | 2025-07-24 18:54 | XMS_ITS | Encounter Summary ---
Author Organization [employer] Address [address] [place] [address] 7 [place] [address] Care Team Providers Care Pamphlet Distributor Name Role Phone Name, Chele GALLEGOS Primary Care Provider [phone] Encounter Details Date Type Department Care Team (Late st Contact Info) Description 10/23/2022 [facility] Health Information Management [address] [place] [address] [phone] NameChele MD [address] [place] [address] Social History Tobacco Use Types Packs/Day Years [...] Office Visit [facility] MEDICINE [address] [place] [address] [phone] NameChele MD [address] [place] [address] [phone] documented as of this encounter Visit Diagnoses Not on filedocumented in this encounter Care Teams Pamphlet Distributor Relationship Specialty Start Date End Date NameChele MD [address] [place] [address] [phone] PCP - General Family Medicine 06/23/22 documented as of this encounter
--- OUTSIDE RECORDS SUMMARY | 2025-07-24 18:54 | XMS_ITS | Encounter Summary ---
Author Organization [employer] Address [address] [place] [address] 7 [place] [address] Care Team Providers Care Customer Management Specialist Name Role Phone Name, Chele GALLEGOS Primary Care Provider [phone] Encounter Details Date Type Department Care Team (Late st Contact Info) Description 10/16/2022 [facility] Health Information Management [address] [place] [address] [phone] NameChele MD [address] [place] [address] Social History Tobacco Use Types Packs/Day Years [...] Description 08/01/2025 9:45 AM EDT Office Visit [facility]ICINE [address] [place] [address] [phone] NameChele MD [address] [place] [address] [phone] documented as of this encounter Visit Diagnoses Not on filedocumented in this encounter Care Teams Customer Management Specialist Relationship Specialty Start Date End Date NameChele MD [address] [place] [address] [phone] PCP - General Family Medicine 06/23/22 documented as of this encounter
--- OUTSIDE RECORDS SUMMARY | 2025-07-24 18:54 | XMS_ITS ---
Author Organization [facility] Address [address] [facility] [address] [place] [address] Phone Care Team Providers Care Rock Wool Insulator Name Role Phone Migdalia Dean MD Unavailable [phone] Ileana Milian MD Unavailable Cara Morrison MD Unavailable [phone] Rena nAtonio MD Unavailable Jennifer SzymanskiC Unavailable doretha LexisAlicia FOOD CASHIER Unavailable Name, Chele GALLEGOS Primary Care Provider Trish Gan MD Unavailable Active Problems Patient Care Coordination No te Formatting of this note migh t be different from the original. Height 154.8cm no shoes taken by OC 07/10/2022 L ARM ONLY FOR BP AND BLOOD WORK Enrolled in the [employer] program on 04/15/22. Please refer to the POS note on 04/21/22 (Dr. Blum). [facility] registered nurse hh case manager supervisor electric motor testing for [phone] Problem Noted Date Diagnosed Date Dehydration 09/04/2022 [...]
--- OUTSIDE RECORDS SUMMARY | 2025-07-24 18:54 | XMS_ITS | Encounter Summary ---
Author Organization [facility] Address [address] [facility] [address] [place] [address] Phone Care Team Providers Care Plastic Joint Maker Name Role Phone Migdalia Dean MD Unavailable [phone] Ileana Milian MD Unavailable Cara Morrison MD Unavailable [phone] Rena Antonio MD Unavailable [phone] Jennifer SzymanskiC Unavailable doretha LexisAlicia BEAUTY CULTURIST Unavailable Name, Chele GALLEGOS Primary Care Provider [phone] Trish Gan MD Unavailable Encounter Details Date Type Department Care Team (Late st Contact Info) Description 02/18/2023 Procedure Pass [facility], Ct Scan - [address] [address] Social History Tobacco Use Types Packs/Day Years [...] 12:21 PM EDT Keshia Caraballo, RN * Hawkins Suicide Severity Rating Scale (Screener/Recent Self-Report) Question [...] st Contact Info) Description 05/09/2025 Procedure Pass [address] [address] 11/06/2025 9:00 AM EST Office Visit [facility] at [address] [address] Migdalia Dean MD [address] [place] [address] [email or web address] 12/21/2025 10:00 AM EST Appointment [address] [address] Migdalia Dean MD [address] [place] [address] [email or web address] documented as of this encounter Visit Diagnoses Not on filedocumented in this encounter Additional Health Concerns Assessment Noted Time PHQ-9 Depression Total Score: 8 04/21/20 1:00 PM EDT PHQ-2 Depression Total Score: 1 04/21/20 1:00 PM EDT documented as of this encounter Care Teams Plastic Joint Maker Relationship Specialty Start Date End Date Name, MD Chele [address] [place] [address] PCP - General Geriatric Psychiatry 07/10/22 Migdalia Dean MD [address] [place] [address] [email or web address] Primary Oncologist Medical Oncology 05/29/22 Ileana Milian MD [address] [place] [address] [email or web address] 06/04/22 Cara Morrison MD [address] [place] [address] [email or web address] Hematology and Oncology 06/04/22 Rena Antonio MD [address] [place] [address] [employer] [address] [place] [address] [email or web address] Radiation Oncology 06/04/22 Jennifer Szymanski PA-C [address] [facility] [address] [place] [address] Physician Cement Cutter Medical Oncology 06/04/22 Alicia Pires CNP [address] [place] [address] [email or web address] Nurse Practitioner Medical Oncology 06/09/22 Trish Gan MD [address] [place] [address] Obstetrics and Gynecology 07/20/24 documented as of this encounter Additional Source Comments The information contained in this document represents components of the legal health record. It is not the complete legal health record.[facility]
--- OUTSIDE RECORDS SUMMARY | 2025-07-24 18:54 | XMS_ITS | Encounter Summary ---
Author Organization [employer] Address [address] [place] [address] 7 [place] [address] Care Team Providers Care Health Care Consultant Name Role Phone Name, Chele GALLEGOS Primary Care Provider [phone] Encounter Details Date Type Department Care Team (Late st Contact Info) Description 10/30/2022 [facility] Health Information Management [address] [place] [address] [phone] NameChele MD [address] [place] [address] Social History Tobacco Use Types Packs/Day Years [...] 9:45 AM EDT Office Visit [facility] MEDICINE [address] [place] [address] [phone] NameChele MD [address] [place] [address] [phone] documented as of this encounter Visit Diagnoses Not on filedocumented in this encounter Care Teams Health Care Consultant Relationship Specialty Start Date End Date NameChele MD [address] [place] [address] [phone] PCP - General Family Medicine 06/23/22 documented as of this encounter
--- OUTSIDE RECORDS SUMMARY | 2025-07-24 18:54 | XMS_ITS | Encounter Summary ---
Author Organization [employer] Address [address] [facility] [address] 7t [place] [address] Care Team Providers Care Sales Representative Facility Services Name Role Phone Name, Chele GALLEGOS Primary Care Provider [phone] Reason for Visit * Reason Onset Date Comments Nurse Triage 05/29/2024 Encounter Details Date Type Department Care Team ([facility] st Contact Info) Description 05/29/[address] [facility] MEDICINE [address] [place], [place] [phone] Name, MD Chele 230 [place] [address] Nurse Triage Social History Tobacco Use Types [...] Pt advised of disposition, agrees to seek [facility] now for eval. Sent to team [...] Description 08/01/2025 9:45 AM EDT Office Visit [facility] MEDICINE 230 [place] [address] Name, MD Chele [address] [place] [address] documented as of this encounter Visit Diagnoses Not on filedocumented in this encounter Additional Health Concerns Assessment Noted Time PHQ-9 Depression Total Score: 4 04/27/20 24 10:35 AM EDT documented as of this encounter Care Teams Sales Representative Facility Services Relationship Specialty Start Date End Date Name, MD Chele [address] [place] [address] PCP - General Family Medicine 06/23/22 documented as of this encounter
--- OUTSIDE RECORDS SUMMARY | 2025-07-24 18:54 | XMS_ITS | Encounter Summary ---
Author Organization [facility] Address [address] [facility] [address] [place] [address] Phone Care Team Providers Care Rollway Man Name Role Phone Migdalia Dean MD Unavailable Ileana Milian MD Unavailable Cara Morrison MD Unavailable [phone] Rena Antonio MD Unavailable Jennifer SzymanskiC Unavailable doretha LexisAlicia GASOLINE TRUCK CRANE OPERATOR Unavailable Name, Chele GALLEGOS Primary Care Provider [phone] Trish Gan MD Unavailable Encounter Details Date Type Department Care Team (Late st Contact Info) Description 05/10/2024 Procedure Pass [facility], Ct Scan - [address] [address] Social History Tobacco Use Types Packs/Day Years [...] st Contact Info) Description 05/09/2025 Procedure Pass [address] [address] 11/06/2025 9:00 AM EST Office Visit [facility] at [address] [address] Migdalia Dean MD [address] [place] [address] 12/21/2025 10:00 AM EST Appointment [address] [address] Migdalia Dean MD [address] [place] [address] documented as of this encounter Visit Diagnoses Not on filedocumented in this encounter Additional Health Concerns Assessment Noted Time PHQ-9 Depression Total Score: 8 04/21/20 1:00 PM EDT PHQ-2 Depression Total Score: 1 04/21/20 1:00 PM EDT documented as of this encounter Care Teams Rollway Man Relationship Specialty Start Date End Date Name, MD Chele 230 [place] [address] PCP - General Geriatric Psychiatry 07/10/22 Migdalia Dean MD 30 [place] [address] [email or web address] Primary Oncologist Medical Oncology 05/29/22 Ileana Milian MD [address] [address] [email or web address] General Surgery 06/04/22 Cara Morrison MD [address] [address] [email or web address] Hematology and Oncology 06/04/22 Rena Antonio MD [facility] [address] [place] [address] [email or web address] Radiation Oncology 06/04/22 Jennifer Szymanski PA-C 32 [facility] [address] [place], [place] [email or web address] Physician Inspector Printed Circuit Boards Medical Oncology 06/04/22 Alicia Pires CNP 30 [place] [address] Nurse Practitioner Medical Oncology 06/09/22 Trish Gan MD [address] [place] [address] Obstetrics and Gynecology 07/20/24 documented as of this encounter Additional Source Comments The information contained in this document represents components of the legal health record. It is not the complete legal health record.[facility]
--- OUTSIDE RECORDS SUMMARY | 2025-07-24 18:54 | XMS_ITS | Encounter Summary ---
Author Organization [employer] Address [address] [facility] [address] 7t [place] [address] Care Team Providers Care Configuration Manager Name Role Phone Name, Chele GALLEGOS Primary Care Provider [phone] Reason for Visit * Reason Onset Date Comments FYI 12/03/2023 Encounter Details Date Type Department Care Team ([facility] st Contact Info) Description 12/03/2023 Telephone [facility] MEDICINE 230 [place], [place] [phone] Name, MD Chele 230 [place] [address] Social History Tobacco Use Types Packs/Day Years [...] Office Visit [facility] 230 [place] [address] Name, MD Chele 230 [place] [address] documented as of this encounter Visit Diagnoses Not on filedocumented in this encounter Additional Health Concerns Assessment Noted Time PHQ-9 Depression Total Score: 0 02/24/20 3:56 PM EDT documented as of this encounter Care Teams Configuration Manager Relationship Specialty Start Date End Date Name, MD Chele [address] [place] [address] PCP - General Family Medicine 06/23/22 documented as of this encounter
--- OUTSIDE RECORDS SUMMARY | 2025-07-24 18:54 | XMS_ITS | Encounter Summary ---
Author Organization [employer] Address [address] 7t [place] [address] Care Team Providers Care Financial Services Specialist Name Role Phone Name, Chele GALLEGOS Primary Care Provider [phone] Encounter Details Date Type Department Care Team ([facility] st Contact Info) Description 03/14/2024 Telephone [facility] 230 [place], [place] [phone] Name, MD Chele 230 [place] [address] Social History Tobacco Use Types Packs/Day Years [...] t he electric, gas, oil or water [employer] threatened to shut off services in your [...] Description 08/01/2025 9:45 AM EDT Office Visit [facility] [address] [place] [address] Name, MD Chele [address] [place] [address] documented as of this encounter Visit Diagnoses Not on filedocumented in this encounter Additional Health Concerns Assessment Noted Time PHQ-9 Depression Total Score: 0 02/24/20 23 3:56 PM EDT documented as of this encounter Care Teams Financial Services Specialist Relationship Specialty Start Date End Date Name, MD Chele [address] [place] [address] PCP - General Family Medicine 06/23/22 documented as of this encounter
--- OUTSIDE RECORDS SUMMARY | 2025-07-24 18:54 | XMS_ITS | Encounter Summary ---
Author Organization [employer] Address [address] [facility] 7t [place] [address] Care Team Providers Care Violent Crimes Detective Name Role Phone Name, Chele GALLEGOS Primary Care Provider Encounter Details Date Type Department Care Team (Latest Contact Info) Description 06/13/2021 Abstract [facility] CONVERSIONS Dental, Provider, DDS Social History Tobacco [...] [facility] 230 [place] [address] Name, MD Chele 230 [place] [address] documented as of this encounter Visit Diagnoses Not on filedocumented in this encounter Care Teams Violent Crimes Detective Relationship Specialty Start Date End Date NameChele MD 230 [place] [address] PCP - General Family Medicine 06/23/22 documented as of this encounter
--- OUTSIDE RECORDS SUMMARY | 2025-07-24 18:54 | XMS_ITS | Encounter Summary ---
Author Organization [facility] Address [address] [facility] [address] [place] [address] Phone Care Team Providers Care Stabilizing Machine Operator Name Role Phone Migdalia Dean MD Unavailable Ileana Milian MD Unavailable Cara Morrison MD Unavailable [phone] Rena Antonio MD Unavailable Jennifer SzymanskiC Unavailable doretha Alicia Pires SPORTS MEDICINE TRAINER Unavailable Name, Chele GALLEGOS Primary Care Provider [phone] Trish Gan MD Unavailable Encounter Details Date Type Department Care Team (Latest Contact Info) Description 05/05/2024 Transcribe Orders Virtual Department 30 [place] [address] Trish Gan MD [address] [facility] 4 [place] [address] Malignant neoplasm of ovary, unspecified laterality (Primary [...] st Contact Info) Description 05/09/2025 Procedure Pass [address] [address] 11/06/2025 9:00 AM EST Office Visit [facility] at [address] [address] Migdalia Dean MD [address] [place] [address] 12/21/2025 10:00 AM EST Appointment [address] [address] Migdalia Dean MD [address] [place] [address] [email or web address] documented as of this encounter Visit Diagnoses Diagnosis Malignant neoplasm of ovary, unspecified laterality- Primary documented in this encounter Additional Health Concerns Assessment Noted Time PHQ-9 Depression Total Score: 8 04/21/20 1:00 PM EDT PHQ-2 Depression Total Score: 1 04/21/20 1:00 PM EDT documented as of this encounter Care Teams Stabilizing Machine Operator Relationship Specialty Start Date End Date Name, MD Chele [address] [place] [address] PCP - General Geriatric Psychiatry 07/10/22 Migdalia Dean MD [address] [place] [address] [email or web address] Primary Oncologist Medical Oncology 05/29/22 Ileana Milian MD [address] [place] [address] [email or web address] Surgery 06/04/22 Cara Morrison MD [address] [place] [address] [email or web address] Hematology and Oncology 06/04/22 Rena Antonio MD [address] [place] [address] [employer] [address] [place] [address] [email or web address] Radiation Oncology 06/04/22 Jennifer Szymanski PA-C [address] [place] [address] [employer] [address] [place] [address] [email or web address] Physician Back Tufter Medical Oncology 06/04/22 Alicia Pires CNP [address] [place] [address] [email or web address] Nurse Practitioner Medical Oncology 06/09/22 Trish Gan MD [address] [place] [address] Obstetrics and Gynecology 07/20/24 documented as of this encounter Additional Source Comments The information contained in this document represents components of the legal health record. It is not the complete legal health record.[facility]
--- OUTSIDE RECORDS SUMMARY | 2025-07-24 18:54 | XMS_ITS | Encounter Summary ---
Author Organization [facility] Address [address] [facility] [address] [place] [address] Phone Care Team Providers Care Architectural Modeler Name Role Phone Haydee Kelly DEEP FRYER ASSEMBLER Primary Care Provider U Malathi Wall MD Primary Care Provider [phone] Haydee Kelly DEEP FRYER ASSEMBLER Primary Care Provider U Malathi Wall MD Primary Care Provider Migdalia Dean MD Unavailable Haydee Kelly DEEP FRYER ASSEMBLER Primary Care Provider U Ileana Craven MD Unavailable Cara Morrison MD Unavailable [phone] Rena Antonio MD Unavailable [phone] Jennifer SzymanskiC Unavailable doretha Alicia Pires CNP Unavailable Tyron, Chele GALLEGOS Primary Care Provider Trish Gan MD Unavailable Encounter Details Date Type Department Care Team (Late st Contact Info) Description 03/31/2022 Ancillary [facility] [address] [facility], 9th Floor, [address] [place] [address] Ileana Milian MD [address] [facility], [address] [place] [address] [email or web address] Social History Tobacco Use Types Packs/Day Years [...] Contact Info) Description 05/09/2025 Procedure Pass [address] [address] 11/06/2025 9:00 AM EST Office Visit [facility] at [address] [address] Migdalia Dean MD [address] [place] [address] 12/21/2025 10:00 AM EST Appointment [address] [address] Migdalia Dean MD [address] [place] [address] documented as of this encounter Visit Diagnoses Not on filedocumented in this encounter Additional Health Concerns Infection Onset Date Last Indicated Resolved Time CoV-Risk 07/22/2022 07/23/2022 08/03/2022 1:22 AM EDT CoV-Risk 08/21/2022 08/25/2022 08/28/2022 2:23 PM EDT COVID-19 09/07/2022 09/09/2022 09/28/2022 1:21 AM EST documented as of this encounter Care Teams Architectural Modeler Relationship Specialty Start Date End Date Haydee Kelly NP PCP - General Family Medicine 03/20/22 04/06/22 Malathi Keys MD [address] [place] [address] [email or web address] PCP - General Family Medicine 04/07/22 04/14/22 Haydee Kelly NP PCP - General Family Medicine 04/15/22 04/23/22 Malathi Keys MD [address] [place] [address] [email or web address] PCP - General Family Medicine 04/24/22 06/03/22 Haydee Kelly NP PCP - General Family Medicine 06/04/22 07/09/22 Chele Ackerman MD [address] [place] [address] PCP - General Geriatric Psychiatry 07/10/22 Migdalia Dean MD [address] [place] [address] [email or web address] Primary Oncologist Medical Oncology 05/29/22 Ileana Milian MD [address] [place] [address] [email or web address] General Surgery 06/04/22 Cara Morrison MD [address] [place] [address] [email or web address] Hematology and Oncology 06/04/22 Rena Antonio MD [address] [place] [address] [address] [place] [address] [email or web address] Radiation Oncology 06/04/22 Jennifer Szymanski PA-C [address] [place] [address] [address] [place] [address] [email or web address] Physician Weld Technician Medical Oncology 06/04/22 Alicia Pires CNP [address] [place] [address] [email or web address] Nurse Practitioner Medical Oncology 06/09/22 Trish Gan MD [address] [place] [address] Obstetrics and Gynecology 07/20/24 documented as of this encounter Additional Source Comments The information contained in this document represents components of the legal health record. It is not the complete legal health record.[facility]
--- OUTSIDE RECORDS SUMMARY | 2025-07-24 18:56 | XMS_ITS | Encounter Summary ---
Author Organization [employer] Address [address] [facility] 7t [place] [address] Care Team Providers Care Corner Former Name Role Phone Name, Chele GALLEGOS Primary Care Provider [phone] Reason for Visit * Reason Onset Date Comments Appointment Request 06/22/2023 Encounter Details Date Type Department Care Team ([facility] Contact Info) Description 06/22/2023 Telephone [facility]IC[facility] 230 [place], [place] [phone] Name, MD Chele 230 [place] [address] Appointment Request Social History Tobacco Use Types [...] @ 9:30 am. Please contact pt at [phone] documented in this encounter Plan of Treatment Upcoming Encounters Date Type Department Care Team (Late st Contact Info) Description 08/01/2025 9:45 AM EDT Office Visit [facility] 230 [place] [address] Name, MD Chele 230 [place] [address] documented as of this encounter Visit Diagnoses Not on filedocumented in this encounter Additional Health Concerns Assessment Noted Time PHQ-9 Depression Total Score: 0 02/24/20 23 3:56 PM EDT documented as of this encounter Care Teams Corner Former Relationship Specialty Start Date End Date Name, MD Chele 230 [place] [address] PCP - General Family Medicine 06/23/22 documented as of this encounter
--- OUTSIDE RECORDS SUMMARY | 2025-07-24 18:56 | XMS_ITS | Encounter Summary ---
Author Organization [employer] Address [address] 7t [place] [address] Care Team Providers Care Rn Urology Name Role Phone Name, Chele GALLEGOS Primary Care Provider [phone] Encounter Details Date Type Department Care Team (Latest Contact Info) Description 07/23/2025 Travel Social History Tobacco Use Types Packs/Day [...] EDT Office Visit [facility] [address] [place] [address] Name, MD Chele [address] [place] [address] documented as of this encounter Visit Diagnoses Not on filedocumented in this encounter Additional Health Concerns Assessment Noted Time PHQ-9 Depression Total Score: 6 03/20/20 25 3:43 PM EDT documented as of this encounter Care Teams Rn Urology Relationship Specialty Start Date End Date NameChele MD [address] [place] [address] PCP - General Family Medicine 06/23/22 documented as of this encounter
--- OUTSIDE RECORDS SUMMARY | 2025-07-24 18:56 | XMS_ITS | Encounter Summary ---
Author Organization [employer] Address [address] 7t [place] [address] Care Team Providers Care Buckle Assembler Name Role Phone Name, Chele GALLEGOS Primary Care Provider [phone] Reason for Visit * Reason Onset Date Comments Nurse Triage 07/20/2023 Encounter Details Date Type Department Care Team ([facility] st Contact Info) Description 07/20/2023 Telephone [facility] [address] [place], [place] [phone] Name, MD Chele 230 [place] [address] Nurse Triage Social History Tobacco Use Types [...] home test through drive [facility] [place] Pt is located. Pt is chemo [...] Description 08/01/2025 9:45 AM EDT Office Visit [facility] [address] [place] [address] Name, MD Chele 230 [place] [address] documented as of this encounter Visit Diagnoses Not on filedocumented in this encounter Additional Health Concerns Assessment Noted Time PHQ-9 Depression Total Score: 0 02/24/20 23 3:56 PM EDT documented as of this encounter Care Teams Buckle Assembler Relationship Specialty Start Date End Date NameChele MD [address] [place] [address] PCP - General Family Medicine 06/23/22 documented as of this encounter
--- OUTSIDE RECORDS SUMMARY | 2025-07-24 18:56 | XMS_ITS | Encounter Summary ---
Author Organization [employer] Address [address] [facility] [facility] [address] 7t [place] [address] Care Team Providers Care Director Financial Services Name Role Phone Name, Chele GALLEGOS Primary Care Provider [phone] Reason for Visit * Reason Onset Date Comments call back 02/23/2023 Encounter Details Date Type Department Care Team ([facility] Contact Info) Description 02/23/2023 Telephone [facility] 230 [place], [place] [phone] Name, MD Chele 230 [place] [address] call back Social History Tobacco Use Types [...] regarding pt. Please contact Dr Jaramillo at [phone] documented in this encounter Plan of Treatment Upcoming Encounters Date Type Department Care Team (Late st Contact Info) Description 08/01/2025 9:45 AM EDT Office Visit [facility] [address] [place] [address] Name, MD Chele [address] [place] [address] documented as of this encounter Visit Diagnoses Not on filedocumented in this encounter Additional Health Concerns Assessment Noted Time PHQ-9 Depression Total Score: 0 02/24/20 3:56 PM EDT documented as of this encounter Care Teams Director Financial Services Relationship Specialty Start Date End Date Name, MD Chele [address] [place] [address] PCP - General Family Medicine 06/23/22 documented as of this encounter
--- OUTSIDE RECORDS SUMMARY | 2025-07-24 18:56 | XMS_ITS | Encounter Summary ---
Author Organization [facility] Address [address] [place] [address] [place] [address] Phone Care Team Providers Care Molding Associate Name Role Phone Trey Kim MD Primary Care Provider [phone] Haydee Kelly VIDEO PRODUCTION ENGINEER Primary Care Provider U Malathi Wall MD Primary Care Provider Haydee Kelly VIDEO PRODUCTION ENGINEER Primary Care Provider U Malathi Wall MD Primary Care Provider [phone] Migdalia Dean MD Unavailable [phone] Haydee Kelly VIDEO PRODUCTION ENGINEER Primary Care Provider U navailable Ileana Milian MD Unavailable Cara Morrison MD Unavailable [phone] Rena Antonio MD Unavailable [phone] Jennifer Szymanski PA-C Unavailable doretha Alicia Pires MOTION PICTURE NARRATOR Unavailable Name, Chele GALLEGOS Primary Care Provider Trish Gan MD Unavailable Encounter Details Date Type Department Care Team (Late st Contact Info) Description 01/01/2022 Ancillary Orders [facility],Outside Imaging [address] [place], [place] [phone] System, Provider Not In, [facility] [employer] [address] [address] Social History Tobacco Use Types Packs/Day Years [...] st Contact Info) Description 05/09/2025 Procedure Pass [address] [address] 11/06/2025 9:00 AM EST Office Visit [facility] at [address] [address] Migdalia Dean MD [address] [place] [address] 12/21/2025 10:00 AM EST Appointment [address] [address] Migdalia Dean MD [address] [place] [address] [email or web address] documented as of this encounter Results [...] documented as of this encounter Care Teams Molding Associate Relationship Specialty Start Date End Date Trey Kim MD [address] [address] [email or web address] PCP - General 10/06/19 03/19/22 Haydee Kelly NP PCP - General Family Medicine 03/20/22 04/06/22 Malathi Keys MD [address] [place] [address] [email or web address] PCP - General Family Medicine 04/07/22 04/14/22 Haydee Kelly NP PCP - General Family Medicine 04/15/22 04/23/22 Malathi Keys MD [address] [place] [address] [email or web address] PCP - General Family Medicine 04/24/22 06/03/22 Haydee Kelly, ERIC PCP - General Family Medicine 06/04/22 07/09/22 hCele Ackerman MD 230 [place] [address] PCP - General Geriatric Psychiatry 07/10/22 Migdalia Dean MD 30 [place] [address] [email or web address] Primary Oncologist Medical Oncology 05/29/22 Ileana Milian MD [address] [address] [email or web address] 06/04/22 Cara Morrison MD [address] [address] [email or web address] Hematology and Oncology 06/04/22 Rena Antonio MD [address] [place] [address] [address] [place] [address] [email or web address] Radiation Oncology 06/04/22 Jennifer Szymanski PA-C [address] [facility] [place] [place], [place] [email or web address] Physician Nurse First Assist Medical Oncology 06/04/22 Alicia Pires CNP 30 [place] [address] Nurse Practitioner Medical Oncology 06/09/22 Trish Gan MD [address] [place] [address] Obstetrics and Gynecology 07/20/24 documented as of this encounter Additional Source Comments The information contained in this document represents components of the legal health record. It is not the complete legal health record.[facility]
--- OUTSIDE RECORDS SUMMARY | 2025-07-24 18:56 | XMS_ITS | Encounter Summary ---
Author Organization [employer] Address [address] 7t [place] [address] Care Team Providers Care Bilingual Teacher Name Role Phone Name, Chele GALLEGOS Primary Care Provider [phone] Encounter Details Date Type Department Care Team ([facility] st Contact Info) Description 10/07/2023 Telephone [facility] 230 [place], [place] [phone] Name, MD Chele 230 [place] [address] Social History Tobacco Use Types Packs/Day Years [...] t he electric, gas, oil or water [employer] threatened to shut off services in your [...] Description 08/01/2025 9:45 AM EDT Office Visit [facility] [address] [place] [address] Name, MD Chele [address] [place] [address] documented as of this encounter Visit Diagnoses Not on filedocumented in this encounter Additional Health Concerns Assessment Noted Time PHQ-9 Depression Total Score: 0 02/24/20 23 3:56 PM EDT documented as of this encounter Care Teams Bilingual Teacher Relationship Specialty Start Date End Date Name, MD Chele [address] [place] [address] PCP - General Family Medicine 06/23/22 documented as of this encounter
--- OUTSIDE RECORDS SUMMARY | 2025-07-24 18:56 | XMS_ITS | Encounter Summary ---
Author Organization [employer] Address [address] 7t [place] [address] Care Team Providers Care Machine Stoppage Frequency Checker Name Role Phone Name, Chele GALLEGOS Primary Care Provider [phone] Reason for Visit * Reason Onset Date Comments Dr. Kenji king 04/03/2025 Encounter Details Date Type Department Care Team ([facility] st Contact Info) Description 04/03/2025 Telephone [facility] [address] [place] [address] Jennifer Phillip, SEKOU king Social History Tobacco [...] to what to do. Reached out to bowling or skating front desk clerk however unable to connect. Please reach out to patient with instructions and/or appt time for follow up Sent to provider and bowling or skating front desk clerk DR documented in this encounter Plan of Treatment Upcoming Encounters Date Type Department Care Team (Late st Contact Info) Description 08/01/2025 9:45 AM EDT Office Visit [facility] 230 [place] [address] Name, MD Chele 230 [place], [place] [phone] documented as of this encounter Visit Diagnoses Not on filedocumented in this encounter Additional Health Concerns Assessment Noted Time PHQ-9 Depression Total Score: 6 03/20/20 25 3:43 PM EDT documented as of this encounter Care Teams Machine Stoppage Frequency Checker Relationship Specialty Start Date End Date Name, MD Chele 230 [place] [address] PCP - General Family Medicine 06/23/22 documented as of this encounter
--- OUTSIDE RECORDS SUMMARY | 2025-07-24 18:56 | XMS_ITS | Encounter Summary ---
Author Organization [employer] Address [address] [place] [address] 7 [place] [address] Care Team Providers Care Field Service Coordinator Name Role Phone Name, Chele GALLEGOS Primary Care Provider [phone] Encounter Details Date Type Department Care Team (Late st Contact Info) Description 11/06/2022 [facility] Health Information Management 230 [place], [place] [phone] NameChele MD [address] [place] [address] Social History Tobacco Use Types Packs/Day Years [...] EDT Office Visit [facility] MED[facility]INE [address] [place] [address] [phone] NameChele MD [address] [place] [address] [phone] documented as of this encounter Visit Diagnoses Not on filedocumented in this encounter Care Teams Field Service Coordinator Relationship Specialty Start Date End Date NameChele MD [address] [place] [address] [phone] PCP - General Family Medicine 06/23/22 documented as of this encounter
--- OUTSIDE RECORDS SUMMARY | 2025-07-24 18:56 | XMS_ITS | Encounter Summary ---
Author Organization [facility] Address [address] [facility] [address] [place] [address] Phone Care Team Providers Care Medical Record Retrieval Specialist Name Role Phone Migdalia Dean MD Unavailable Ileana Milian MD Unavailable Cara Morrison MD Unavailable [phone] Rena Antonio MD Unavailable [phone] Jennifer SzymanskiC Unavailable doretha LexisAlicia MAINTENANCE TECHNICIAN 3RD SHIFT Unavailable Name, Chele GALLEGOS Primary Care Provider [phone] Trish Gan MD Unavailable Encounter Details Date Type Department Care Team (Late st Contact Info) Description 03/10/2023 Procedure Pass [facility], Ct Scan - [address] [address] Social History Tobacco Use Types Packs/Day Years [...] st Contact Info) Description 05/09/2025 Procedure Pass [address] [address] 11/06/2025 9:00 AM EST Office Visit [facility] at [address] [address] Migdalia Dean MD [address] [place] [address] 12/21/2025 10:00 AM EST Appointment [address] [address] Migdalia Dean MD [address] [place] [address] documented as of this encounter Visit Diagnoses Not on filedocumented in this encounter Additional Health Concerns Assessment Noted Time PHQ-9 Depression Total Score: 8 04/21/20 22 1:00 PM EDT PHQ-2 Depression Total Score: 1 04/21/20 22 1:00 PM EDT documented as of this encounter Care Teams Medical Record Retrieval Specialist Relationship Specialty Start Date End Date Name, MD Chele 230 [place] [address] PCP - General Geriatric Psychiatry 07/10/22 Migdalia Dean MD 30 [place] [address] [email or web address] Primary Oncologist Medical Oncology 05/29/22 Ileana Milian MD [address] [address] [email or web address] General Surgery 06/04/22 Cara Morrison MD [address] [place] [address] [email or web address] Hematology and Oncology 06/04/22 Rena Antonio MD [address] [place] [address] [address] [email or web address] Radiation Oncology 06/04/22 Jennifer Szymanski PA-C [address] [place] [address] [place] [place] [address] [email or web address] Physician Family Living Educator Medical Oncology 06/04/22 Alicia Pires CNP 30 [place] [address] [email or web address] Nurse Practitioner Medical Oncology 06/09/22 Trish Gan MD [address] [place] [address] Obstetrics and Gynecology 07/20/24 documented as of this encounter Additional Source Comments The information contained in this document represents components of the legal health record. It is not the complete legal health record.[facility]
--- OUTSIDE RECORDS SUMMARY | 2025-07-24 18:56 | XMS_ITS | Encounter Summary ---
Author Organization [email or web address] Address [address] 7t [place] [address] Care Team Providers Care Security Architect Name Role Phone Name, Chele GALLEGOS Primary Care Provider [phone] Reason for Visit * Reason Onset Date Comments Medication Question 07/18/2025 Encounter Details Date Type Department Care Team ([facility] Contact Info) Description 07/18/2025 Telephone [facility] 230 [place], [place] [phone] Name, MD Chele 230 [place] [address] Medication Question Social History Tobacco Use Types Packs/Day Years [...] encounter Miscellaneous Notes * Telephone Encounter - Becky Kellogg RN - 07/23/2025 3:29 PM EDT Tc from pt requesting the result and the status on the alternative antibiotic Contact pt at [phone] TC placed to pt to discuss concerns of UTI lab came back <10,000 no indication for antibiotics. Pt reports she has frequent UTI's and now has exteremly painful urination, cloudy urine, increased frequency of urination she denies any fever. Discussed the importance of being evaluated as untreatedUTI can become kidney infections and pt complaining of lower abdominal pain. Pt asking if we think she has bladder cancer at no time was that discussed, pt does not have a ride to clinic to be seen today and pre-booked tomorrow morning for transportation. * Telephone Encounter - Fallon Barrera Roni - 07/23/2025 10:08 AM EDT Tc from pt requesting the result and the status on the alternative antibiotic Contact pt at [phone] * Telephone Encounter - Padmini Krishna RN - 07/18/2025 1:28 PM EDT Called pt, advised that Dr. Lyn recommends waiting for urine culture and sensitivity results to choose alternative antibiotic. Advised her results should come in 1-2 days. Pt verbalized understanding, in agreement with plan. * Telephone Encounter - Padmini Krishna RN - 07/18/2025 10:45 AM EDT Telephone call returned to pt. Pt expressed concern for ciprofloxacin antibiotic prescribed for UTI. She said she read the educational material included with the medication and it is not recommendedfor people with peripheral neuropathy and older people. She asked why she is prescribed cipro, explained to her provider made this decision based on allergies and pt's sxs. Advised her that culture and sensitivity is also pending which will inform antibiotic. She is asking for alternative antibiotic and asking to speak to Dr. Lyn directly. Reviewed home care measures in meantime: increase fluids, wipe front to back, keep area clean/dry/wear cotton. Pt also asking about vaginal testing results, informed her BV panel negative. She asked about POC for her vaginal sxs given a medication she has been prescribed by [facility] is not helping me anymore. Advised her to call [facility] for follow up appt. Pt verbalized understanding. * Telephone Encounter - Chele Frazier - 07/18/2025 10:29 AM EDT Tc from pt reporting that she has Peripheral Neuropathy so she cannot take Cipro as an antibiotic for a UTI and will need an alternative. Contact pt at [phone] documented in this encounter Plan of Treatment Upcoming Encounters Date Type Department Care Team (Late st Contact Info) Description 08/01/2025 9:45 AM EDT Office Visit [facility] 230 [place] [address] Name, MD Chele 230 [place] [address] documented as of this encounter Visit Diagnoses Not on filedocumented in this encounter Additional Health Concerns Assessment Noted Time PHQ-9 Depression Total Score: 6 03/20/20 25 3:43 PM EDT documented as of this encounter Care Teams Security Architect Relationship Specialty Start Date End Date Name, [place] [address] PCP - General Family Medicine 06/23/22 documented as of this encounter
--- OUTSIDE RECORDS SUMMARY | 2025-07-24 18:56 | XMS_ITS | Encounter Summary ---
Author Organization [facility] Address [address] [facility] [address] [place] [address] Phone Care Team Providers Care Rn Eligibility Name Role Phone Migdalia Dean MD Unavailable Ileana Milian MD Unavailable Cara Morrison MD Unavailable [phone] Rena Antonio MD Unavailable [phone] Jennifer SzymanskiC Unavailable [email or web address] LexisAlicia CT SCAN TECH Unavailable Name, Chele GALLEGOS Primary Care Provider [phone] Trish Gan MD Unavailable Encounter Details Date Type Department Care Team (Late st Contact Info) Description 12/08/2022 Procedure Pass [facility], [address] [address] Social History Tobacco Use Types Packs/Day Years [...] st Contact Info) Description 05/09/2025 Procedure Pass [facility], [address] [address] 11/06/2025 9:00 AM EST Office Visit [facility] at [address] [address] Migdalia Dean MD [address] [place] [address] [email or web address] 12/21/2025 10:00 AM EST Appointment [address] [address] Migdalia Dean MD [address] [place] [address] [email or web address] documented as of this encounter Visit Diagnoses Not on filedocumented in this encounter Additional Health Concerns Assessment Noted Time PHQ-9 Depression Total Score: 8 04/21/20 22 1:00 PM EDT PHQ-2 Depression Total Score: 1 04/21/20 1:00 PM EDT documented as of this encounter Care Teams Rn Eligibility Relationship Specialty Start Date End Date Name, MD Chele [address] [place] [address] PCP - General Geriatric Psychiatry 07/10/22 Migdalia Dean MD [address] [place] [address] [email or web address] Primary Oncologist Medical Oncology 05/29/22 Ileana Milian MD [address] [address] [email or web address] 06/04/22 Cara Morrison MD [address] [facility] [address] [place] [address] [email or web address] Hematology and Oncology 06/04/22 Rena Antonio MD [address] [facility] [address] [place] [address] Radiation Oncology 06/04/22 Jennifer Szymanski PA-C [address] [facility] [address] [place], [place] [email or web address] Physician Drier Transfer Car Operator Medical Oncology 06/04/22 Alicia Pires CNP [address] [place] [address] [email or web address] Nurse Practitioner Medical Oncology 06/09/22 Trish Gan MD [address] [place] [address] Obstetrics and Gynecology 07/20/24 documented as of this encounter Additional Source Comments The information contained in this document represents components of the legal health record. It is not the complete legal health record.[facility]
--- OUTSIDE RECORDS SUMMARY | 2025-07-24 18:56 | XMS_ITS | Encounter Summary ---
Author Organization [facility] Address [address] [place] [address] Phone Care Team Providers Care Bed And Breakfast Operator Name Role Phone Trey Kim MD Primary Care Provider [phone] Haydee Kelly CORE SUCKER Primary Care Provider U Malathi Wall MD Primary Care Provider Haydee Kelly CORE SUCKER Primary Care Provider U navailable Malathi Keys MD Primary Care Provider Migdalia Dean MD Unavailable [phone] Haydee Kelly CORE SUCKER Primary Care Provider U navailable Ileana Milian MD Unavailable Cara Morrison MD Unavailable [phone] Rena Antonio MD Unavailable Jennifer Szymanski PA-C Unavailable [email or web address] LexisAlicia SUCCESS COACH Unavailable Name, Chele GALLEGOS Primary Care Provider Trish Gan MD Unavailable Encounter Details Date Type Department Care Team (Latest Contact Info) Description 07/29/2021 Transcribe Orders Virtual Department 30 [place], [place] [phone] Meena Mariee MD 15 [facility] [place]. 201 [place], [place] [phone] [email or web address] Breast screening (Primary Dx) Social History Tobacco [...] st Contact Info) Description 05/09/2025 Procedure Pass [address] [address] 11/06/2025 9:00 AM EST Office Visit [facility] at [address] [address] Migdalia Dean MD [address] [place] [address] [email or web address] 12/21/2025 10:00 AM EST Appointment [address] [address] Migdalia Dean MD [address] [place] [address] [email or web address] documented as of this encounter Visit Diagnoses Diagnosis Breast screening- Primary Breast screening, unspecified documented in this encounter Additional Health Concerns Infection Onset Date Last Indicated Resolved Time CoV-Risk 07/22/2022 07/23/2022 08/03/2022 1:22 AM EDT CoV-Risk 08/21/2022 08/25/2022 08/28/2022 2:23 PM EDT COVID-19 09/07/2022 09/09/2022 09/28/2022 1:21 AM EST documented as of this encounter Care Teams Bed And Breakfast Operator Relationship Specialty Start Date End Date Trey Kim MD [address] [facility] [address] [address] [email or web address] PCP - General 10/06/19 03/19/22 Haydee Kelly NP PCP - General Family Medicine 03/20/22 04/06/22 Malathi Keys MD [address] [place] [address] [email or web address] PCP - General Family Medicine 04/07/22 04/14/22 Haydee Kelly NP PCP - General Family Medicine 04/15/22 04/23/22 Malathi Keys MD [address] [place] [address] [email or web address] PCP - General Family Medicine 04/24/22 06/03/22 Haydee Kelly NP PCP - General Family Medicine 06/04/22 07/09/22 Chele Ackerman MD [address] [place] [address] PCP - General Geriatric Psychiatry 07/10/22 Migdalia Dean MD [address] [place] [email or web address] Primary Oncologist Medical Oncology 05/29/22 Ileana Milian MD [address] [place] [address] [email or web address] General Surgery 06/04/22 Cara Morrison MD [address] [place] [address] [address] [place] [address] [email or web address] Hematology and Oncology 06/04/22 Rena Antonio MD [address] [facility] [address] [place] [address] Radiation Oncology 06/04/22 Jennifer Szymanski PA-C [address] [facility] [address] [place] [address] [email or web address] Physician Jelly Filter Tender Medical Oncology 06/04/22 Alicia Pires CNP 30 [place] [address] Nurse Practitioner Medical Oncology 06/09/22 Trish Gan MD [address] [place] [address] 4 [place] [address] Obstetrics and Gynecology 07/20/24 documented as of this encounter Additional Source Comments The information contained in this document represents components of the legal health record. It is not the complete legal health record.[facility]
--- OUTSIDE RECORDS SUMMARY | 2025-07-24 18:56 | XMS_ITS | Encounter Summary ---
Author Organization [facility] Address [address] [place] [address] [place] [address] Phone Care Team Providers Care Director Of Managed Care Name Role Phone Trey Kim MD Primary Care Provider [phone] Haydee Klely OVERHAULER HELPER Primary Care Provider U Malathi Wall MD Primary Care Provider Haydee Kelly OVERHAULER HELPER Primary Care Provider U Malathi Wall MD Primary Care Provider Migdalia Dean MD Unavailable [phone] Haydee Kelly OVERHAULER HELPER Primary Care Provider U navailable Ileana Milian MD Unavailable Cara Morrison MD Unavailable [phone] Rena Antonio MD Unavailable [phone] Jennifer Szymanski PA-C Unavailable doretha LexisErosen PHOTOGRAPHER AERIAL Unavailable Name, Chele GALLEGOS Primary Care Provider Trish Gan MD Unavailable Encounter Details Date Type Department Care Team (Late st Contact Info) Description 11/11/2017 Procedure Pass [facility] Admitting Dept Virtual Department 30 [place], [place] [phone] Social History Tobacco Use Types Packs/Day Years [...] st Contact Info) Description 05/09/2025 Procedure Pass [address] [address] 11/06/2025 9:00 AM EST Office Visit [facility] Center at [address] [address] Migdalia Dean MD [address] [place] [email or web address] 12/21/2025 10:00 AM EST Appointment [address] [address] Migdalia Dean MD [address] [place] [address] [email or web address] documented as of this encounter Visit Diagnoses Not on filedocumented in this encounter Additional Health Concerns Infection Onset Date Last Indicated Resolved Time CoV-Risk 07/22/2022 07/23/2022 08/03/2022 1:22 AM EDT CoV-Risk 08/21/2022 08/25/2022 08/28/2022 2:23 PM EDT COVID-19 09/07/2022 09/09/2022 09/28/2022 1:21 AM EST documented as of this encounter Care Teams Director Of Managed Care Relationship Specialty Start Date End Date Trey Kim MD 110 [facility] [address] [place] [address] [email or web address] PCP - General 10/06/19 03/19/22 Hadyee Kelly NP PCP - General Family Medicine 03/20/22 04/06/22 Malathi Keys MD [address] [place] [address] [email or web address] PCP - General Family Medicine 04/07/22 04/14/22 Haydee Kelly NP PCP - General Family Medicine 04/15/22 04/23/22 Malathi Keys MD [address] [place] [address] [email or web address] PCP - General Family Medicine 04/24/22 06/03/22 Haydee Kelly NP PCP - General Family Medicine 06/04/22 07/09/22 Chele Ackerman MD [address] [place] [address] PCP - General Geriatric Psychiatry 07/10/22 Migdalia Dean MD [address] [place] [address] [email or web address] Primary Oncologist Medical Oncology 05/29/22 Ileana Milian MD [address] [place] [address] [email or web address] General Surgery 06/04/22 Cara Morrison MD [address] [place] [address] [email or web address] Hematology and Oncology 06/04/22 eRna Antonio MD [address] [place], [place] [address]key [address] [place] [address] Radiation Oncology 06/04/22 Jennifer Szymanski PA-C [address] [place] [address] [address] [place] [address] [email or web address] Physician Low Heel Builder Medical Oncology 06/04/22 Alicia Pires CNP [address] [place] [address] [email or web address] Nurse Practitioner Medical Oncology 06/09/22 Trish Gan MD [address] [place] [address] Obstetrics and Gynecology 07/20/24 documented as of this encounter Additional Source Comments The information contained in this document represents components of the legal health record. It is not the complete legal health record.[facility]
--- OUTSIDE RECORDS SUMMARY | 2025-07-24 18:56 | XMS_ITS | Encounter Summary ---
Author Organization [facility] Address [address] [facility] [address] [place] [address] Phone Care Team Providers Care Front End Alignment Specialist Name Role Phone Migdalia Dean MD Unavailable Ileana Milian MD Unavailable Cara Morrison MD Unavailable [phone] Rena Antonio MD Unavailable Jennifer SzymanskiC Unavailable doretha LexisAlicia DOWELING MACHINE OPERATOR Unavailable Name, Chele GALLEGOS Primary Care Provider [phone] Trish Gan MD Unavailable Encounter Details Date Type Department Care Team (Late st Contact Info) Description 11/03/2024 Procedure Pass [facility], [address] [address] Social History Tobacco Use Types Packs/Day Years [...] st Contact Info) Description 05/09/2025 Procedure Pass [address] [address] 11/06/2025 9:00 AM EST Office Visit [facility] at [address] [address] Migdalia Dean MD [address] [place] [address] 12/21/2025 10:00 AM EST Appointment [address] [address] Migdalia Dean MD [address] [place] [address] documented as of this encounter Visit Diagnoses Not on filedocumented in this encounter Additional Health Concerns Assessment Noted Time PHQ-9 Depression Total Score: 8 04/21/20 1:00 PM EDT PHQ-2 Depression Total Score: 1 04/21/20 1:00 PM EDT documented as of this encounter Care Teams Front End Alignment Specialist Relationship Specialty Start Date End Date Name, MD Chele [address] [place] [address] PCP - General Geriatric Psychiatry 07/10/22 Migdalia Dean MD 30 [place] [address] [email or web address] Primary Oncologist Medical Oncology 05/29/22 Ileana Milian MD [address] [address] [email or web address] General Surgery 06/04/22 Cara Morrison MD [address] [address] [email or web address] Hematology and Oncology 06/04/22 Rena Antonio MD [address] [facility] [address] [place] [address] [email or web address] Radiation Oncology 06/04/22 Jennifer Szymanski PA-C [address] [facility] [address] [place], [place] [email or web address] Physician Escrow Officer Medical Oncology 06/04/22 Alicia Pires CNP 30 [place] [address] Nurse Practitioner Medical Oncology 06/09/22 Trish Gan MD [address] [place] [address] Obstetrics and Gynecology 07/20/24 documented as of this encounter Additional Source Comments The information contained in this document represents components of the legal health record. It is not the complete legal health record.[facility]
== END 2025-07-24 18:28 | disposition home or self-care (01) ==
LOC: HO.LNP 18:27
PROVIDERS: Visit Provider Emergency Medicine
DX: R30.0 Dysuria (principal)
CPT/HCPCS: 87086; 87088; 87186

== ENCOUNTER 2025-08-01 13:11 | Outpatient (REF) | payer OTHER, SELFPAY ==
--- OUTSIDE RECORDS SUMMARY | 2025-08-01 09:45 | XMS_ITS | Encounter Summary ---
Author Organization [employer] Address [address] 7t [place] [address] Care Team Providers Care Rehabilitation Specialist Name Role Phone Name, Chele GALLEGOS Primary Care Provider [phone] Reason for Visit * Reason Comments Follow-up Encounter Details Date Type Department Care Team ([facility] Contact Info) Description 08/01/2025 9:45 AM EDT Office Visit [facility] [address] [place], [place] [phone] Name, MD Chele [address] [place] [address] UTI symptoms (Primary Dx); Tiredness Social History Tobacco Use Types Packs/Day Years [...] the past 12 months, has t he [employer], gas, oil or water company threatened to [...] Sign Reading Time Taken Comments Blood Pressure 112/74 08/01/2025 9:55 AM EDT Pulse 82 08/01/2025 9:55 AM EDT Temperature 36.6 C (97.9 F) 08/01/2025 9:55 AM EDT Respiratory Rate 12 08/01/2025 9:55 AM EDT Oxygen Saturation - - Inhaled Oxygen Concentration - - Weight 58.3 kg (128 lb 9.6 oz) 08/01/2025 9:55 A M EDT Height 157.5 cm (5' 2 ) 08/01/2025 9:55 AM EDT Body Mass Index 23.52 08/01/2025 9:55 AM EDT documented in this encounter Progress Notes * Chele Ackerman MD - 08/01/2025 9:45 AM EDT Subjective Patient ID: Marilia Bashir is a 79 y.o. female who presents for Follow-up. Patient comes for a follow-up visit. She complains of tiredness and suprapubic discomfort. She was recently treated for UTI with a course of Augmentin. Urine culture did not grow anything. She deniesany dysuria, no fevers or chills. She has a personal history of ovarian cancer. She is not interested in the flu vaccine today. Review of Systems Constitutional: Negative for chills and fever. HENT: Negative for sore throat. Respiratory: Negative for cough, shortness of breath and wheezing. Cardiovascular: Negative for chest pain, palpitations and leg swelling. Gastrointestinal: Negative for abdominal pain. Objective Vitals: 08/01/25 0955 BP: 112/74 BP Location: Left arm Patient Position: Sitting BP Cuff Size: Adult Pulse: 82 Resp: 12 Temp: 97.9 ??F (36.6 ??C) TempSrc: Temporal Weight: 128 lb 9.6 oz (58.3 kg) Height: 5' 2 (1.575 m) Physical Exam Constitutional: Appearance: Normal appearance. Cardiovascular: Rate and Rhythm: Normal rate and regular rhythm. Pulmonary: Effort: Pulmonary effort is normal. No respiratory distress. Breath sounds: Normal breath sounds. No wheezing. Abdominal: Comments: Mild discomfort on deep palpation of the suprapubic area Musculoskeletal: Right lower leg: No edema. Left lower leg: No edema. Neurological: Mental Status: She is alert. Assessment/Plan Diagnoses and all orders for this visit: UTI symptoms Comments: Urine dipstick today showed trace blood but no leukocytes or nitrates. I did not recommend further antibiotic treatment. I recommended evaluation with blood work listed below and she is encouraged to keep her upcoming appointment for ultrasound of the pelvis as recommended by her oncologist because of her history of ovarian cancer. Orders: - Urinalysis, Complete, with Reflex to Culture; Future - POCT Urinalysis Tiredness - CBC auto differential; Future - Comprehensive Metabolic Panel; Future - TSH W/Reflex to FT4; Future - Vitamin D, 25-Hydroxy, Total, Immunoassay; Future - POCT Urinalysis Future Appointments Date Time Provider Department Center 10/31/2025 10:30 AM Chele Ackerman MD [facility] documented in this encounter Plan of Treatment Upcoming Encounters Date Type Department Care Team (Late st Contact Info) Description 10/31/2025 10:30 AM EST Office Visit [facility] [address] [facility] [place] [address] Name, MD Chele [address] [facility] [place] [address] Scheduled Orders Name Type Priority Associated Diagnoses Orde r Schedule CBC auto differential Lab Routine Tiredness Expected: 08/01/2025 (Approximate), Expires: 08/01/2026 Comprehensive Metabolic Panel Lab Routine Tiredness Expected: 08/01/2025 (Approximate), Expires: 08/01/2026 TSH W/Reflex to FT4 Lab Routine Tiredness Expected: 08/01/2025 (Approximate), Expires: 08/01/2026 Vitamin D, 25-Hydroxy, Total, Immunoassay Lab Routine Tiredness Expected: 08/01/2025 (Approximate), Expires: 08/01/2026 documented as of this encounter Procedures Procedure Name Priority Date/Time Associated Diagnosis Comments POCT URINALYSIS DIPSTICK Routine 08/01/2025 10:36 AM EDT UTI symptoms Tiredness URINALYSIS, COMPLETE, WITH REFLEX TO CULTURE Routine 08/01/2025 10:24 AM EDT UTI symptoms documented in this encounter Results * (ABNORMAL) POCT Urinalysis (08/01/2025 10:36 AM EDT) Color, UA Yellow Clarity, UA Clear Glucose, UA Negative Bilirubin, UA Negative Ketones, UA Negative Spec Grav, UA 1.020 Blood, UA Positive(A) Negative, None Detected Comment:trace-intact pH, UA 5.5 Protein, UA Negative Urobilinogen, UA 0.2 Leukocytes, UA Negative Negative, Rare, Trace Nitrite, UA Negative Negative, None Detected Appearance, UA yellow QC Media Lot # [id number] Lot# Expiration Date [id number] Urine 08/01/2025 10:3 6 AM EDT Chele Ackerman MD POINT OF CARE TEST ENTER/EDIT OR DERABLES Final Result * (ABNORMAL) Urinalysis, Complete, with Reflex to Culture (08/01/2025 10:24 AM EDT) Color Urine Yellow [facility] Appearance Urine Clear [facility] PH 5.5 5.0 - 9.0 [facility] Glucose Urine UA Negative Negative mg/dL [facility] Urine Blood Negative Negative [facility] Specific [place] - Urine 1.015 1.005 - 1.025 [facility] Urine Protein Negative Neg-Trace mg/dL [facility] Urine Ketones Negative Negative mg/dL [facility] Nitrite Urine Negative Negative [facility] Leukocyte Esterase Urine Moderate (2+)(A) Negative [facility] RBC Urine 0-2 0 - 2 /HPF [facility] Urine WBC 11-20(A) 0 - 5 /HPF [facility] Urine Squamous Epithelial Cell 6-10 0 - 2 /HPF [facility] Urine Bacteria None Seen None Seen [facility] Hyaline Casts, Urine 3-5 0 - 2 /LPF [facility] Urine 08/01/2025 10:2 4 AM EDT 08/01/2025 1:16 PM EDT Narrative [facility] - 08/01/2025 1:47 PM EDT Urine, Clean Catch Chele Ackerman MD LAB URINE ORDERABLES Final Resul t [facility] [address] [place] [address] [phone] documented in this encounter Visit Diagnoses Diagnosis UTI symptoms- Primary Tiredness Other malaise and fatigue documented in this encounter Additional Health Concerns Assessment Noted Time PHQ-9 Depression Total Score: 6 03/20/20 25 3:43 PM EDT documented as of this encounter Care Teams Rehabilitation Specialist Relationship Specialty Start Date End Date Name, MD Chele [address] [place] [address] PCP - General Family Medicine 06/23/22 documented as of this encounter
[2025-08-01 13:36] LABS: Appearance Urine Clear; Glucose Urine UA Negative (Negative); PH 5.5 (5.0-9.0); Specific Gravity - Urine 1.015 (1.005-1.025); UMIC TRIGGER UACC YES
[2025-08-01 13:46] LABS: UACC Culture Trigger YES
--- OUTSIDE RECORDS SUMMARY | 2025-08-01 14:25 | XMS_ITS | Encounter Summary ---
Author Organization [employer] Address [address] 7t [place] [address] Care Team Providers Care Microgrinder Operator Name Role Phone Name, Chele GALLEGOS Primary Care Provider [phone] Reason for Visit * Reason Onset Date Comments Nurse Triage 05/29/2024 Encounter Details Date Type Department Care Team ([facility] st Contact Info) Description 05/29/2024 Telephone [facility] [address] [place], [place] [phone] Name, MD Chele [address] [place] [address] Nurse Triage Social History Tobacco Use Types [...] Pt advised of disposition, agrees to seek [facility] ER now for eval. Sent to team [...] Description 10/31/2025 10:30 AM EST Office Visit [facility] [address] [place] [address] Name, MD Chele [address] [place] [address] documented as of this encounter Visit Diagnoses Not on filedocumented in this encounter Additional Health Concerns Assessment Noted Time PHQ-9 Depression Total Score: 4 04/27/20 24 10:35 AM EDT documented as of this encounter Care Teams Microgrinder Operator Relationship Specialty Start Date End Date Name, MD Chele [address] [place] [address] PCP - General Family Medicine 06/23/22 documented as of this encounter
--- OUTSIDE RECORDS SUMMARY | 2025-08-01 14:25 | XMS_ITS | Encounter Summary ---
Author Organization [employer] Address [address] 7t [place] [address] Care Team Providers Care Oracle Ebs Consultant Name Role Phone Name, Chele GALLEGOS Primary Care Provider [phone] Encounter Details Date Type Department Care Team ([facility] st Contact Info) Description 03/14/2024 Telephone [facility] 230 [place], [place] [phone] Name, MD Chele [address] [place] [address] Social History Tobacco Use Types Packs/Day Years [...] t he electric, gas, oil or water [employer] threatened to shut off services in your [...] Description 10/31/2025 10:30 AM EST Office Visit [facility] [address] [place] [address] Name, MD Chele [address] [place] [address] documented as of this encounter Visit Diagnoses Not on filedocumented in this encounter Additional Health Concerns Assessment Noted Time PHQ-9 Depression Total Score: 0 02/24/20 23 3:56 PM EDT documented as of this encounter Care Teams Oracle Ebs Consultant Relationship Specialty Start Date End Date Name, MD Chele [address] [place] [address] PCP - General Family Medicine 06/23/22 documented as of this encounter
--- OUTSIDE RECORDS SUMMARY | 2025-08-01 14:25 | XMS_ITS | Encounter Summary ---
Author Organization [employer] Address [address] [facility] 7t [place] [address] Care Team Providers Care Art Gallery Internship Name Role Phone Name, Chele GALLEGOS Primary Care Provider [phone] Encounter Details Date Type Department Care Team (Latest Contact Info) Description 06/13/2021 Abstract [facility] Dental, Provider, DDS Social History [...] Care Team ( st Contact Info) Description 10/31/2025 10:30 AM EST Office Visit [facility] 230 [place] [address] NameChele MD 230 [place] [address] documented as of this encounter Visit Diagnoses Not on filedocumented in this encounter Care Teams Art Gallery Internship Relationship Specialty Start Date End Date NameChele MD 230 [place] [address] PCP - General Family Medicine 06/23/22 documented as of this encounter
--- OUTSIDE RECORDS SUMMARY | 2025-08-01 14:25 | XMS_ITS | Encounter Summary ---
Author Organization [employer] Address [address] [facility] [address] 7t [place] [address] Care Team Providers Care Access Clinician Name Role Phone Name, Chele GALLEGOS Primary Care Provider [phone] Reason for Visit * Reason Onset Date Comments FYI 12/03/2023 Encounter Details Date Type Department Care Team ([facility] st Contact Info) Description 12/03/2023 Telephone [facility] MED[facility]INE [address] [place], [place] [phone] Name, MD Chele [address] [place] [address] Social History Tobacco Use Types Packs/Day Years [...] Description 10/31/2025 10:30 AM EST Office Visit [facility] [address] [place] [address] Name, MD Chele [address] [place] [address] documented as of this encounter Visit Diagnoses Not on filedocumented in this encounter Additional Health Concerns Assessment Noted Time PHQ-9 Depression Total Score: 0 02/24/20 3:56 PM EDT documented as of this encounter Care Teams Access Clinician Relationship Specialty Start Date End Date Name, [place] [address] PCP - General Family Medicine 06/23/22 documented as of this encounter
--- OUTSIDE RECORDS SUMMARY | 2025-08-01 14:25 | XMS_ITS | Encounter Summary ---
Author Organization [employer] Address [address] [place] [address] 7 [place] [address] Care Team Providers Care Cane Pusher Name Role Phone Name, Chele GALLEGOS Primary Care Provider [phone] Encounter Details Date Type Department Care Team (Late st Contact Info) Description 11/05/2022 [facility] [place] Health Information Management [address] [place], [place] [phone] NameChele MD [address] [place] [phone] Social History Tobacco Use Types Packs/Day Years [...] Description 10/31/2025 10:30 AM EST Office Visit [facility] [address] [place] [address] [phone] Name, MD Chele [address] [place] [address] [phone] documented as of this encounter Visit Diagnoses Not on filedocumented in this encounter Care Teams Cane Pusher Relationship Specialty Start Date End Date NameChele MD [address] [place] [address] [phone] PCP - General Family Medicine 06/23/22 documented as of this encounter
--- OUTSIDE RECORDS SUMMARY | 2025-08-01 14:25 | XMS_ITS | Encounter Summary ---
Author Organization [employer] Address [address] [place] [address] 7 [place] [address] Care Team Providers Care Pricer Name Role Phone Name, Chele GALLEGOS Primary Care Provider [phone] Encounter Details Date Type Department Care Team (Late Contact Info) Description 10/30/2022 [facility] Health Information Management [address] [place], [place] [phone] NameChele MD [address] [place] [phone] Social History Tobacco Use Types Packs/Day Years [...] Description 10/31/2025 10:30 AM EST Office Visit [facility] MEDICINE [address] [place] [address] [phone] Name, MD Chele [address] [place] [address] [phone] documented as of this encounter Visit Diagnoses Not on filedocumented in this encounter Care Teams Pricer Relationship Specialty Start Date End Date NameChele MD [address] [place] [address] [phone] PCP - General Family Medicine 06/23/22 documented as of this encounter
--- OUTSIDE RECORDS SUMMARY | 2025-08-01 14:25 | XMS_ITS | Encounter Summary ---
Author Organization [employer] Address [address] [place] [address] 7 [place] [address] Care Team Providers Care Clinical Research Monitor Name Role Phone Name, Chele GALLEGOS Primary Care Provider [phone] Encounter Details Date Type Department Care Team (Late Contact Info) Description 10/23/2022 [facility] Health Information Management [address] [place], [place] [phone] NameChele MD [address] [place] [phone] Social History Tobacco Use Types Packs/Day Years [...] Description 10/31/2025 10:30 AM EST Office Visit [facility] MEDICINE [address] [place] [address] [phone] Name, MD Chele [address] [place] [address] [phone] documented as of this encounter Visit Diagnoses Not on filedocumented in this encounter Care Teams Clinical Research Monitor Relationship Specialty Start Date End Date NameChele MD [address] [place] [address] [phone] PCP - General Family Medicine 06/23/22 documented as of this encounter
--- OUTSIDE RECORDS SUMMARY | 2025-08-01 14:26 | XMS_ITS | Encounter Summary ---
Author Organization [employer] Address [address] [facility] [address] 7[address] [place] [address] Care Team Providers Care Mop Machine Operator Name Role Phone Name, Chele GALLEGOS Primary Care Provider [phone] Reason for Visit * Reason Onset Date Comments nightguard 01/22/2025 Encounter Details Date Type Department Care Team ([facility] Contact Info) Description 01/22/2025 Telephone [facility] [address] [place] [address] Kemi Contreras, DDS [address] [place] [address] nightguard Social History Tobacco Use Types Packs/Day [...] had not received PA request. Confirmed with medical front desk specialist [facility] that PA had not been submitted as of yet. Should be submitted in next couple o days and office will reach out for scheduling when PA comes back approved documented in this encounter Plan of Treatment Upcoming Encounters Date Type Department Care Team (Late st Contact Info) Description 10/31/2025 10:30 AM EST Office Visit [facility] MEDICINE [address] [place] [address] Name, MD Chele [address] [place] [address] documented as of this encounter Visit Diagnoses Not on filedocumented in this encounter Additional Health Concerns Assessment Noted Time PHQ-9 Depression Total Score: 4 04/27/20 24 10:35 AM EDT documented as of this encounter Care Teams Mop Machine Operator Relationship Specialty Start Date End Date Name, MD Chele [address] [place] [address] PCP - General Family Medicine 06/23/22 documented as of this encounter
--- OUTSIDE RECORDS SUMMARY | 2025-08-01 14:26 | XMS_ITS | Encounter Summary ---
Author Organization [facility] Address [address] [facility] [address] [place] [phone] Phone Care Team Providers Care Attendant Child Activity Name Role Phone Migdalia Dean MD Unavailable [phone] Ileana Milian MD Unavailable Cara Morrison MD Unavailable [phone] Rena Antonio MD Unavailable [phone] Jennifer SzymanskiC Unavailable doretha LexisAlicia SHEET METAL DUCT INSTALLER HELPER Unavailable Name, Chele GALLEGOS Primary Care Provider [phone] Trish Gan MD Unavailable Encounter Details Date Type Department Care Team (Late st Contact Info) Description 01/12/2024 Procedure Pass [facility], [address] [address] Social History Tobacco Use Types Packs/Day Years [...] st Contact Info) Description 05/09/2025 Procedure Pass [address] [address] 11/06/2025 9:00 AM EST Office Visit [facility] at [address] [address] Migdalia Dean MD [address] [place] [address] 12/21/2025 10:00 AM EST Appointment [address] [address] Migdalia Dean MD [address] [place] [phone] documented as of this encounter Visit Diagnoses Not on filedocumented in this encounter Additional Health Concerns Assessment Noted Time PHQ-9 Depression Total Score: 8 04/21/20 1:00 PM EDT PHQ-2 Depression Total Score: 1 04/21/20 1:00 PM EDT documented as of this encounter Care Teams Attendant Child Activity Relationship Specialty Start Date End Date Name, MD Chele [address] [place] [address] PCP - General Geriatric Psychiatry 07/10/22 Migdalia Dean MD [address] [place] [address] [email or web address] Primary Oncologist Medical Oncology 05/29/22 Ileana Milian MD [address] [address] [email or web address] 06/04/22 Cara Morrison MD [address] [address] [email or web address] Hematology and Oncology 06/04/22 Rena Antonio MD [address] [facility] [address] [place] [address] [email or web address] Radiation Oncology 06/04/22 Jennifer Szymanski PA-C [address] [facility] [address] [place], [place] [email or web address] Physician Coat Feller Medical Oncology 06/04/22 Alicia Pires CNP [address] [place] [address] Nurse Practitioner Medical Oncology 06/09/22 Trish Gan MD [address] [place] [address] Obstetrics and Gynecology 07/20/24 documented as of this encounter Additional Source Comments The information contained in this document represents components of the legal health record. It is not the complete legal health record.[facility]
--- OUTSIDE RECORDS SUMMARY | 2025-08-01 14:26 | XMS_ITS | Encounter Summary ---
Author Organization [facility] Address [address] [facility] [address] [place] [phone] Phone Care Team Providers Care Bomb Technician Name Role Phone Malathi Keys MD Primary Care Provider Migdalia Dean MD Unavailable [phone] Haydee Kelly NP Primary Care Provider U Ileana Craven MD Unavailable Cara Morrison MD Unavailable [phone] Rena Antonio MD Unavailable [phone] Jennifer SzymanskiC Unavailable [email or web address] Alicia Pires DIE WELDER Unavailable Name, Chele GALLEGOS Primary Care Provider [phone] Trish Gan MD Unavailable Encounter Details Date Type Department Care Team (Late st Contact Info) Description 04/27/2022 Procedure Pass [facility] PERIOPER[facility]IVE DEPT [address] [place] [phone] Social History Tobacco Use Types Packs/Day Years [...] 1:41 PM EDT Bing Melchor RN * [place] Suicide Severity Rating Scale (Screener/Recent Self-Report) Question [...] Contact Info) Description 05/09/2025 Procedure Pass [address] [address] 11/06/2025 9:00 AM EST Office Visit [facility] at [address] [address] Migdalia Dean MD [address] [place] [address] 12/21/2025 10:00 AM EST Appointment [address] [address] Migdalia Dean MD [address] [place] [address] documented as of this encounter Visit Diagnoses [...] documented as of this encounter Care Teams Bomb Technician Relationship Specialty Start Date End Date Malathi Keys MD [address] [place] [phone] [email or web address] PCP - General Family Medicine 04/24/22 06/03/22 Haydee Kelly, ERIC PCP - General Family Medicine 06/04/22 07/09/22 Chele Ackerman MD [address] [place] [address] PCP - General Geriatric Psychiatry 07/10/22 Migdalia Dean MD [address] [place] [address] [email or web address] Primary Oncologist Medical Oncology 05/29/22 Ileana Milian MD [address] [facility] [address] [place] [address] [email or web address] General Surgery 06/04/22 Cara Morrison MD [address] [facility] [address] [place] [address] [email or web address] Hematology and Oncology 06/04/22 Rena Antonio MD [address] [facility] [address] [place] [address] [email or web address] Radiation Oncology 06/04/22 Jennifer Szymanski PA-C [address] [place] [address] [address] [place] [address] [email or web address] Physician Astrophysics Professor Medical Oncology 06/04/22 Alicia Pires CNP [address] [place] [address] [email or web address] Nurse Practitioner Medical Oncology 06/09/22 Trish Gan MD [address] [place] [phone] Obstetrics and Gynecology 07/20/24 documented as of this encounter Additional Source Comments The information contained in this document represents components of the legal health record. It is not the complete legal health record.[facility]
--- OUTSIDE RECORDS SUMMARY | 2025-08-01 14:26 | XMS_ITS | Clinical Summary ---
Author Organization [employer] Address [address] [facility] 7t [place] [address] Care Team Providers Care Machine Plaster Mixer Name Role Phone Name, Chele GALLEGOS Primary Care Provider Allergies Active Allergy Reactions Criticality Noted Date [...] Anaphylaxis High 12/18/2021 Other reaction(s): [place] Medications acetaminophen (Tylenol) 325 MG tablet Take 2 [...] mg by mouth Once per day. Active albuterol 108 (90 Base) MCG/ACT inhalerIndicat ions:Subacute cough Inhale 2 puffs every 6 (six) hours if needed for wheezing. 18 g 11 5 11/29/19 26 Active aspirin 81 MG chewable tabletIndicati ons:Atheroscle rosis of [place]op[place] coronary artery of [place] heart without angina pectoris Chew 1 tablet (81 mg) Once per day. 30 tablet 11 5 11/29/19 26 Active cefixime (Suprax) capsule Take 1 capsule (400 mg) by mouth Once per day for 10 days. 10 capsule 5 08/11/20 25 Active Alpha-Lipoic Acid 200 MG capsule Take 200 mg by mouth in the morning and 200 mg in the evening. 08/01/20 25 Discontinu ed(Therapy completed) cholecalcifero l (Vitamin D-3) 50 MCG (1999) capsuleIndicat ions:Hospital discharge follow-up take 1 capsule by oral route every day for vitamin D deficiency 30 capsule 2 3 08/01/20 25 Discontinu ed(Therapy completed) ciprofloxacin (Cipro) 500 MG tabletIndicati ons:UTI symptoms Take 1 tablet (500 mg) by mouth 2 times daily for 7 days. 14 tablet 5 07/24/20 25 amoxicillin-cl avulanate (Augmentin) 875-125 MG tablet Take 1 tablet by mouth 2 times daily for 5 days. 10 tablet 5 07/29/20 25 fluconazole (Diflucan) 150 MG tablet Take 1 tablet (150 mg) by mouth Once per day for 1 dose. Prn vaginal yeast infection 1 tablet 5 07/25/20 25 Active Problems Problem Noted Date Diagnosed Date [...] will be contacted with results Atherosclerosis of [place] co ronary artery of [place] heart without angina pectoris 11/29/2024 Overview (11/29/2024): she underwent a nuclear stress test on 06/29/2024 which showed no ischemia, fixed defect in the inferior septal, distal part of the inferior lateral wall, probable artifact. An echocardiogram done 08/29/2024 showed EF 65%, [id number] TR, no reported regional wall motion abnormality, [...] right mastectomy 10/07/2022 Triple negative breast cancer (CMS/HCC) 10/07/20 Cardiovascular event risk 10/07/2022 Anxiety 06/11/2022 Overview [...] breast 03/27/2021 Overview (09/15/2023): 2004: Treated at [facility] for stage I triple negative right breast cancer with lumpectomy, sentinel node biopsy, and post-op RT. 06/06/20: Bilateral screening mammogram ([facility]) shows no findings of malignancy. There are stable post therapeutic changes in the right breast, and benign appearing calcifications. The left breast remains normal. 03/11/22: Bilateral diagnostic mammogram and u/s of right breast ([facility]) for self-palpated right breast mass showed hypoechoic area in right breast, 1.0 x 0.9 cm. 03/16/22: Core biopsy, right breast ([facility]). Pathology shows invasive ductal carcinoma, grade 2. ER/NV negative (0%); HER 2 negative (0%), Ki-67 15%. 03/26/22: Colin ([employer]) germline testing for BRCA1 and BRCA2 showed a deleterious mutation in BRCA1 ([id number]). 03/31/22: Pathology reviewed by [facility]. This showed poorly differentiated invasive adenocarcinoma, spanning at least 0.7 cm. 04/27/22: Right mastectomy and sentinel lymph node excision ([facility]). Pathology shows invasive ductal carcinoma, grade 3, [...] History of ovarian cancer 11/29/2024 Ovarian cancer (CMS/HCC) 06/26/2024 Anemia 04/27/2024 11/29/2024 BRCA1 positive 04/27/2024 11/29/2024 [...] 06/11/2022 09/15/2023 Pneumonia 06/11/2022 03/03/2023 Chronic bronchitis ([facility]/HCC) 12/23/2021 03/03/2023 Infiltrating ductal carcinom a of breast, stage 1 ([facility]/HCC) 12/23/2021 09/15/2023 Insomnia 12/23/2021 09/15/2023 Hyperlipidemia 11/30/2021 09/15/2023 Dyspnea 03/27/2021 03/03/2023 Encounters Date Type Department Care Team Description 08/01/2025 9:45 AM EDT Office Visit [facility] [address] [place] [phone] Chele Ackerman MD UTI symptoms (Primary Dx); Tiredness 08/01/2025 Results Follow-Up [facility] [address] [place] [address] Chele Ackerman MD Urinalysis, Complete, with Reflex to Culture, POCT Urinalysis 08/01/2025 Travel 07/31/2025 Travel 07/26/2025 Telephone [facility] [address] [place] [address] Chele Ackerman MD Results 07/24/2025 11:00 AM EDT Office Visit [facility] [address] [place] [address] Justyn Arredondo MD Dysuria (Primary Dx) 07/23/2025 Travel 07/18/2025 Telephone [facility] [address] [place] [phone] Name, MD Chele Medication Question 07/17/2025 3:00 PM EDT Office Visit [facility] [address] [place] [address] Raina Nick MD Urinary tract infection without hematuria, site unspecified (Primary Dx); UTI symptoms; Vaginal discharge 07/17/2025 Telephone [facility] [address] [place] [address] Penny Lennon RN 07/17/2025 Travel 05/03/2025 Telephone [facility] [address] [place] [address] Minoo Orozco [place] july recalls from Last [...] 12 08/01/2025 9:55 AM EDT Oxygen Saturation 98% 07/24/2025 11:23 AM EDT Inhaled Oxygen Concentration - - Weight 58.3 kg (128 lb 9.6 oz) 08/01/2025 9:55 A M EDT Height 157.5 cm (5' 2 ) 08/01/2025 9:55 AM EDT Body Mass Index 23.52 08/01/2025 9:55 AM EDT Plan of Treatment Upcoming Encounters Date Type Department Care Team (Late st Contact Info) Description 10/31/2025 10:30 AM EST Office Visit [facility] [address] [place] [address] Name, MD Chele [address] [place] [address] Health Maintenance Due Date Last Done Comments [...] 03/20/2025 Lipid Panel 03/26/2026 03/26/2021 Tobacco Screening 08/01/2026 08/01/2025 Mammogram 06/14/2027 06/14/2025, 10/02, 10/24/2024, Additional history [...] Routine 08/01/2025 10:24 AM EDT UTI symptoms POCT URINALYSIS DIPSTICK Routine 07/24/2025 12:56 PM EDT Dysuria CULTURE, URINE, ROUTINE Routine 07/24/2025 11:53 AM EDT Dysuria BACTERIAL VAGINOSIS PANEL Routine 07/17/2025 [...] to Health Maintenance Results * (ABNORMAL) POCT Urinalysis (08/01/2025 10:36 AM EDT) Only the most recent of3 resultswithin the time period is included. Color, [...] 33,126 Urine 08/01/2025 10:3 6 AM EDT us Chele Name POINT OF CARE TEST ENTER/EDIT OR DERABLES Final Result * (ABNORMAL) Urinalysis, Complete, with Reflex to Culture (08/01/2025 10:24 AM EDT) Color Urine Yellow [facility] Appearance Urine Clear [facility] PH 5.5 5.0 - 9.0 [facility] Glucose Urine UA Negative Negative mg/dL [facility] Urine Blood Negative Negative [facility] Specific [place] - Urine 1.015 1.005 - 1.025 [facility] Urine Protein Negative Neg-Trace mg/dL [facility] Urine Ketones Negative Negative mg/dL [facility] Nitrite Urine Negative Negative [facility] Leukocyte Esterase Urine Moderate (2+)(A) Negative [facility] RBC Urine 0-2 0 - 2 /HPF [facility] Urine WBC 11-20(A) 0 - 5 /HPF [facility] Urine Squamous Epithelial Cell 6-10 0 - 2 /HPF [facility] Urine Bacteria None Seen None Seen [facility] Hyaline Casts, Urine 3-5 0 - 2 /LPF [facility] Urine 08/01/2025 10:2 4 AM EDT 08/01/2025 1:16 PM EDT [facility] - 08/01/2025 1:47 PM EDT Urine, Clean Catch Chele Ackerman MD LAB URINE ORDERABLES Final Resul t Performing Organization Address [facility]/ZIP Co de Phone Number [facility] [address] [place] [phone] * Culture, Urine, Routine (07/24/2025 11:53 AM EDT) Only the most recent of2 resultswithin the time period is included. Urine Urine specimen obtained by clean catch procedure / Unknown 07/24/2025 11:53 AM EDT 07/24/2025 6:27 PM EDT [facility] 07/27/2025 8:04 AM EDT Escherichia coli Quant > 100,000 cfu/mL Escherichia coli: Ampicillin 8(S) Escherichia coli: Cefazolin (Urine) <=1(S) Escherichia coli: Cefepime <=0.12(S) Escherichia coli: Ceftriaxone <=0.25(S) Escherichia coli: Ciprofloxacin <=0.06(S) Escherichia coli: Gentamicin <=1(S) Escherichia coli: Nitrofurantoin <=16(S) Escherichia coli: Trimethoprim/Sulfamethoxazole <=20(S) Specimen Source: Urine clean catch Justyn Arredondo MD LAB MICROBIOLOGY - GENERAL ORDER ALFREDO Final Result Performing Organization Address City/[facility]/ZIP Co de Phone Number [facility] [address] [place] [phone] * Bacterial Vaginosis Panel (07/17/2025 3:07 PM EDT) TRICHOMONAS VAGINALIS DETECTION BY PCR NOT DETECTED Not Detect [facility] BACTERIAL VAGINOSIS DETECTION BY PCR NEGATIVE Negative [facility] Comment:The BV organism targ ets of [...] DETECTION BY PCR NOT DETECTED Not Detect [facility] Mariela glab krusei PCR NOT DETECTED Not Detect [facility] Swab Vaginal structure / Unknown 07/17/2025 3:07 PM EDT 07/17/2025 6:05 PM EDT us Raina Jay MD LAB MICROBIOLOGY - GE NERAL ORDERABLES Final Result [facility] [address] [place] [phone] * Mammography Report 1 (03/11/2022 3:25 PM EDT) Anatomical Region Laterality Modality Breast Bilateral Mammography 03/11/2022 3:25 PM EDT Narrative 03/11/2022 5:14 PM EDT Refer to the Notes tab for result details [facility] Procedure: Mammography Report 1 Procedure Note Provider, MD Rajesh - 01/24/2023 Refer to the Notes tab for result details [facility] Procedure: Mammography Report 1 us Haydee Kelly IMAGING TECHNICIAN IMG BI PROCEDURES Final Result * (ABNORMAL) [...] factors. LDL-C is now calculated using the Ayden-Hairston calculation, which is a validated novel method providing better accuracy than the Friedewald equation in the estimation of LDL-C. Ayden SS et al. MATTHEW. 2013;310(19): 7120-1405 (http://education.[employer].com/faq/VMA189) Non-HDL Cholesterol 171(H) <130 mg/dL (calc) [facility] Comment: For patients with diabetes plus 1 major ASCVD risk factor, treating to a non-HDL-C goal of <100 mg/dL (LDL-C of <70 mg/dL) is considered a therapeutic option. Triglycerides 147 <150 mg/dL [facility] 03/26/2021 11:5 4 AM EDT us Haydee Kelly IMAGING TECHNICIAN LAB BLOOD ORDERABLES Final Resu lt [facility] [address] [place] [address], from Last 3 Months or Most Recently Relevant to Health Maintenance Insurance [facility] OPTIONS (HMO D-SNP) [facility] STANDARD D[facility] - [facility] Care Teams Machine Plaster Mixer Relationship Specialty Start Date End Date Name, MD Chele [address] [place] [address] PCP - General Family Medicine 06/23/22
--- OUTSIDE RECORDS SUMMARY | 2025-08-01 14:26 | XMS_ITS | Encounter Summary ---
Author Organization [facility] Address [address] [facility] [address] [place] [address] Phone Care Team Providers Care Mortgage Professional Name Role Phone Migdalia Dean MD Unavailable Ileana Milian MD Unavailable Cara Morrison MD Unavailable [phone] Rena Antonio MD Unavailable Jennifer SzymanskiC Unavailable doretha LexisAlicia CYLINDER PRESS FEEDER Unavailable Name, Chele GALLEGOS Primary Care Provider [phone] Trish Gan MD Unavailable Encounter Details Date Type Department Care Team (Late st Contact Info) Description 05/10/2024 Procedure Pass [facility], Ct Scan - [address] [address] Social History Tobacco Use Types Packs/Day Years [...] Contact Info) Description 05/09/2025 Procedure Pass [address] [address] 11/06/2025 9:00 AM EST Office Visit [facility] at [address] [address] Migdalia Dean MD [address] [place] [address] 12/21/2025 10:00 AM EST Appointment [address] [address] Migdalia Dean MD [address] [place] [address] documented as of this encounter Visit Diagnoses Not on filedocumented in this encounter Additional Health Concerns Assessment Noted Time PHQ-9 Depression Total Score: 8 04/21/20 1:00 PM EDT PHQ-2 Depression Total Score: 1 04/21/20 1:00 PM EDT documented as of this encounter Care Teams Mortgage Professional Relationship Specialty Start Date End Date Name, MD Chele [address] [place] [address] PCP - General Geriatric Psychiatry 07/10/22 Migdalia Dean MD 30 [place] [address] [email or web address] Primary Oncologist Medical Oncology 05/29/22 Ileana Milian MD [address] [address] [email or web address] General Surgery 06/04/22 Cara Morrison MD [address] [address] [email or web address] Hematology and Oncology 06/04/22 Rena Antonio MD [facility] [address] [place] [address] [email or web address] Radiation Oncology 06/04/22 Jennifer Szymanski PA-C [address] [facility] [address] [place], [place] [email or web address] Physician Registered Physical Therapist Medical Oncology 06/04/22 Alicia Pires CNP [address] [place] [address] Nurse Practitioner Medical Oncology 06/09/22 Trish Gan MD [address] [place] [address] Obstetrics and Gynecology 07/20/24 documented as of this encounter Additional Source Comments The information contained in this document represents components of the legal health record. It is not the complete legal health record.[facility]
--- OUTSIDE RECORDS SUMMARY | 2025-08-01 14:26 | XMS_ITS | Encounter Summary ---
Author Organization [employer] Address [address] [place] [address] 7 [place] [address] Care Team Providers Care Fire Supervisor Name Role Phone Name, Chele GALLEGOS Primary Care Provider [phone] Encounter Details Date Type Department Care Team (Late Contact Info) Description 10/16/2022 [facility] Health Information Management [address] [place], [place] [phone] NameChele MD [address] [place] [address] Social History Tobacco Use Types Packs/Day Years [...] Description 10/31/2025 10:30 AM EST Office Visit [facility] [address] [place] [address] [phone] NameChele MD [address] [place] [address] [phone] documented as of this encounter Visit Diagnoses Not on filedocumented in this encounter Care Teams Fire Supervisor Relationship Specialty Start Date End Date NameChele MD [address] [place] [address] [phone] PCP - General Family Medicine 06/23/22 documented as of this encounter
--- OUTSIDE RECORDS SUMMARY | 2025-08-01 14:26 | XMS_ITS | Encounter Summary ---
Author Organization [facility] Address [address] [facility] [address] [place] [address] Phone Care Team Providers Care Social Sciences Professor Name Role Phone Migdalia Dean MD Unavailable [phone] Ileana Milian MD Unavailable Cara Morrison MD Unavailable [phone] Rena Antonio MD Unavailable Jennifer SzymanskiC Unavailable doretha Alicia Pires WHIZZER Unavailable Name, Chele GALLEGOS Primary Care Provider [phone] Trish Gan MD Unavailable Encounter Details Date Type Department Care Team (Latest Contact Info) Description 05/05/2024 Transcribe Orders Virtual Department 30 [place] [address] Trish Gan MD 3300 [facility] 4 [place] [address] Malignant neoplasm of ovary, unspecified laterality (Primary [...] st Contact Info) Description 05/09/2025 Procedure Pass [address] [address] 11/06/2025 9:00 AM EST Office Visit [facility] at [address] [address] Migdalia Dean MD [address] [place] [address] 12/21/2025 10:00 AM EST Appointment [address] [address] Migdalia Dean MD [address] [place] [address] [email or web address] documented as of this encounter Visit Diagnoses Diagnosis Malignant neoplasm of ovary, unspecified laterality- Primary documented in this encounter Additional Health Concerns Assessment Noted Time PHQ-9 Depression Total Score: 8 04/21/20 1:00 PM EDT PHQ-2 Depression Total Score: 1 04/21/20 1:00 PM EDT documented as of this encounter Care Teams Social Sciences Professor Relationship Specialty Start Date End Date Name, MD Chele [address] [place] [address] PCP - General Geriatric Psychiatry 07/10/22 Migdalia Dean MD [address] [place] [address] [email or web address] Primary Oncologist Medical Oncology 05/29/22 Ileana Milian MD [address] [place] [address] [email or web address] 06/04/22 Cara Morrison MD [address] [place] [address] [email or web address] Hematology and Oncology 06/04/22 Rena Antonio MD [address] [place] [address] [employer] [address] [place] [address] [email or web address] Radiation Oncology 06/04/22 Jennifer Szymanski PA-C [address] [place] [address] [employer] [address] [place] [address] [email or web address] Physician Practicing Urologist Medical Oncology 06/04/22 Alicia Pires CNP [address] [place] [address] [email or web address] Nurse Practitioner Medical Oncology 06/09/22 Trish Gan MD [address] [place] [address] Obstetrics and Gynecology 07/20/24 documented as of this encounter Additional Source Comments The information contained in this document represents components of the legal health record. It is not the complete legal health record.[facility]
--- OUTSIDE RECORDS SUMMARY | 2025-08-01 14:26 | XMS_ITS | Clinical Summary ---
Author Organization [facility] Address [address] [place] [address] Phone Care Team Providers Care Particleboard Factory Worker Name Role Phone Unavailable Primary Care Provider [...] patient's age to complete this topic Insurance [facility] Medicare
--- OUTSIDE RECORDS SUMMARY | 2025-08-01 14:26 | XMS_ITS | Encounter Summary ---
Author Organization [employer] Address [address] [facility] [address] 7t [place] [address] Care Team Providers Care Monitor Tech Name Role Phone Name, Chele GALLEGOS Primary Care Provider [phone] Encounter Details Date Type Department Care Team (Latest Contact Info) Description 07/31/2025 Travel Social History Tobacco Use Types Packs/Day [...] Description 10/31/2025 10:30 AM EST Office Visit [facility] [address] [place] [address] Name, MD Chele [address] [place] [address] documented as of this encounter Visit Diagnoses Not on filedocumented in this encounter Additional Health Concerns Assessment Noted Time PHQ-9 Depression Total Score: 6 03/20/20 25 3:43 PM EDT documented as of this encounter Care Teams Monitor Tech Relationship Specialty Start Date End Date Name, MD Chele [address] [place] [address] PCP - General Family Medicine 06/23/22 documented as of this encounter
--- OUTSIDE RECORDS SUMMARY | 2025-08-01 14:26 | XMS_ITS | Encounter Summary ---
Author Organization [facility] Address [address] [facility] [address] [place] [address] Phone Care Team Providers Care Hog Raiser Name Role Phone Migdalia Dean MD Unavailable Ileana Milian MD Unavailable Cara Morrison MD Unavailable [phone] Rena Antonio MD Unavailable Jennifer SzymanskiC Unavailable doretha LexisErosteri GALLARDO Unavailable NameChele MD Primary Care Provider [phone] Trish Gan MD Unavailable Encounter Details Date Type Department Care Team (Latest Contact Info) Description 09/29/2022 Transcribe Orders Virtual Department 30 [place], [place] [phone] Name, MD Chele [address] [place] [address] Cough, unspecified type (Primary Dx) Social History [...] st Contact Info) Description 05/09/2025 Procedure Pass [address] [address] 11/06/2025 9:00 AM EST Office Visit [facility] at [address] [address] Migdalia Dean MD [address] [place] [address] 12/21/2025 10:00 AM EST Appointment [address] [address] Migdalia Dean MD [address] [place] [address] documented as of this encounter Visit Diagnoses Diagnosis Cough, unspecified type- Primary documented in this encounter Additional Health Concerns Assessment Noted Time PHQ-9 Depression Total Score: 8 04/21/20 22 1:00 PM EDT PHQ-2 Depression Total Score: 1 04/21/20 22 1:00 PM EDT documented as of this encounter Care Teams Hog Raiser Relationship Specialty Start Date End Date Name, MD Chele [address] [place] [address] PCP - General Geriatric Psychiatry 07/10/22 Migdalia Dean MD [address] [place] [address] Primary Oncologist Medical Oncology 05/29/22 Ileana Milian MD 55 [facility], [address] [place] [address] [email or web address] General Surgery 06/04/22 Cara Morrison MD 55 [facility] [address] [place] [address] [email or web address] Hematology and Oncology 06/04/22 Rena Antonio MD 32 [facility] [address] [place], [place] Radiation Oncology 06/04/22 Jennifer Szymanski PA-C [address] [facility] [address] [place] [address] [email or web address] Physician Paper Machine Operator Medical Oncology 06/04/22 Alicia Pires CNP 30 [place] [address] [email or web address] Nurse Practitioner Medical Oncology 06/09/22 Trish Gan MD [address] [place] [address] Obstetrics and Gynecology 07/20/24 documented as of this encounter Additional Source Comments The information contained in this document represents components of the legal health record. It is not the complete legal health record.[facility]
--- OUTSIDE RECORDS SUMMARY | 2025-08-01 14:26 | XMS_ITS | Encounter Summary ---
Author Organization [facility] Address [address] [facility] [address] [place] [address] Phone Care Team Providers Care Piped Buttonhole Machine Operator Name Role Phone Migdalia Dean MD Unavailable Ileana iMlian MD Unavailable Cara Morrison MD Unavailable [phone] Rena Antonio MD Unavailable Jennifer SzymanskiC Unavailable doretha LexisAlicia BAG CUTTER Unavailable Name, Chele GALLEGOS Primary Care Provider [phone] Trish Gan MD Unavailable Encounter Details Date Type Department Care Team (Late st Contact Info) Description 04/15/2024 Procedure Pass [facility], [address] [address] Social History Tobacco Use Types Packs/Day Years [...] Contact Info) Description 05/09/2025 Procedure Pass [address] [address] 11/06/2025 9:00 AM EST Office Visit [facility] at [address] [address] Migdalia Dean MD [address] [place] [address] [email or web address] 12/21/2025 10:00 AM EST Appointment [address] [address] Migdalia Dean MD [address] [place] [address] documented as of this encounter Visit Diagnoses Not on filedocumented in this encounter Additional Health Concerns Assessment Noted Time PHQ-9 Depression Total Score: 8 04/21/20 1:00 PM EDT PHQ-2 Depression Total Score: 1 04/21/20 1:00 PM EDT documented as of this encounter Care Teams Piped Buttonhole Machine Operator Relationship Specialty Start Date End Date Name, MD Chele [address] [place] [address] PCP - General Geriatric Psychiatry 07/10/22 Migdalia Dean MD 30 [place] [address] [email or web address] Primary Oncologist Medical Oncology 05/29/22 Ileana Milian MD [address] [address] [email or web address] Surgery 06/04/22 Cara Morrison MD [address] [address] [email or web address] Hematology and Oncology 06/04/22 Rena Antonio MD 32 [facility] [address] [place] [address] [email or web address] Radiation Oncology 06/04/22 Jennifer Szymanski PA-C 32 [facility] [address] [place], [place] [email or web address] Physician Engineer Booster And Exhauster Medical Oncology 06/04/22 lAicia Pires CNP 30 [place] [address] Nurse Practitioner Medical Oncology 06/09/22 Trish Gan MD [address] [place] [address] Obstetrics and Gynecology 07/20/24 documented as of this encounter Additional Source Comments The information contained in this document represents components of the legal health record. It is not the complete legal health record.[facility]
--- OUTSIDE RECORDS SUMMARY | 2025-08-01 14:26 | XMS_ITS | Encounter Summary ---
Author Organization [facility] Address [address] [facility] [address] [place] [address] Phone Care Team Providers Care Data Operations Director Name Role Phone Haydee Kelly MACHINE HOOP MAKER HELPER Primary Care Provider U Malathi Wall MD Primary Care Provider Haydee Kelly MACHINE HOOP MAKER HELPER Primary Care Provider U Malathi Wall MD Primary Care Provider Migdalia Dean MD Unavailable [phone] Haydee Kelly MACHINE HOOP MAKER HELPER Primary Care Provider U Ileana Craven MD Unavailable Cara Morrison MD Unavailable [phone] Rena Antonio MD Unavailable [phone] Jennifer SzymanskiC Unavailable doretha Alicia Pires CNP Unavailable Name, Chele GALLEGOS Primary Care Provider Trish Gan MD Unavailable Encounter Details Date Type Department Care Team (Late st Contact Info) Description 03/31/2022 Ancillary Orders [facility] [address] [place] [address] Ileana Milian MD [address] [place] [address] [email or web address] Malignant neoplasm of right female breast, unspecified [...] st Contact Info) Description 05/09/2025 Procedure Pass [address] [address] 11/06/2025 9:00 AM EST Office Visit [facility] at [address] [address] Migdalia Dean MD [address] [place] [address] 12/21/2025 10:00 AM EST Appointment [address] [address] Migdalia Dean MD [address] [place] [address] documented as of this encounter Results * Mammogram Outside With Interpretation Or Consult (03/31/2022 9:25 AM EDT) 03/31/2022 Impressions [facility] - 04/09/2022 6:47 PM EDT 1. [...] Action Should Be Taken Narrative [facility] - 04/09/2022 6:47 PM EDT OUTSIDE INTERPRETATION [...] Please note that ultrasound is an water taxi ferry operator-dependent real time examination, so evaluation of [...] at the biopsy site. Pathology (Reviewed by [facility]): A. 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 Procedure Note Malathi Carey MD - 04/10/2022 OUTSIDE INTERPRETATION STUDIES PROVIDED FOR INTERPRETATION: -Right diagnostic and left screening mammogram 03/11/2022 -Right breast ultrasound 03/11/2022 -Right breast ultrasound guided biopsy and post-procedure mammogram03/16/2022 Multiple additional prior mammograms are also submitted for comparison. HISTORY: [facility] FINDINGS: Right Diagnostic Mammogram and [...] clip atthe biopsy site. Pathology (Reviewed by [facility]): A. BREAST CORE BIOPSY, RIGHT AT 7 O'CLOCK ([id number]; 03/16/2022): Poorly differentiated invasive adenocarcinoma, spanning at [...] IMMckay OUTSIDE IMAGING W/ INTERPRETATION Final Result [address] [address] documented in this encounter Visit Diagnoses Diagnosis [...] documented as of this encounter Care Teams Data Operations Director Relationship Specialty Start Date End Date Haydee Kelly NP PCP - General Family Medicine 03/20/22 04/06/22 Malathi Keys MD [address] [place] [address] [email or web address] PCP - General Family Medicine 04/07/22 04/14/22 Haydee Kelly NP PCP - General Family Medicine 04/15/22 04/23/22 Malathi Keys MD [address] [place] [address] [email or web address] PCP - General Family Medicine 04/24/22 06/03/22 Haydee Kelly NP PCP - General Family Medicine 06/04/22 07/09/22 Chele Ackerman MD [address] [place] [address] PCP - General Geriatric Psychiatry 07/10/22 Migdalia Dean MD [address] [place] [address] [email or web address] Primary Oncologist Medical Oncology 05/29/22 Ileana Milian MD [address] [place] [address] [email or web address] General Surgery 06/04/22 Cara Morrison MD [address] [facility] [address] [place], [place] [email or web address] Hematology and Oncology 06/04/22 Rena Antonio MD 32 [facility] [address] [place], [place] [email or web address] Radiation Oncology 06/04/22 Jennifer Szymanski PA-C 32 [facility] [address] [place], [place] [email or web address] Physician Coordinate Measuring Equipment Operator Medical Oncology 06/04/22 Alicia Pires CNP 30 [place] [address] [email or web address] Nurse Practitioner Medical Oncology 06/09/22 Trish Gan MD [address] [place] [address] Obstetrics and Gynecology 07/20/24 documented as of this encounter Additional Source Comments The information contained in this document represents components of the legal health record. It is not the complete legal health record.[facility]
--- OUTSIDE RECORDS SUMMARY | 2025-08-01 14:26 | XMS_ITS | Encounter Summary ---
Author Organization [employer] Address [address] [facility] [address] [address] 7[address] [place] [address] Care Team Providers Care Steam Boiler Fireman Name Role Phone Name, Chele GALLEGOS Primary Care Provider [phone] Encounter Details Date Type Department Care Team ([facility] st Contact Info) Description 08/01/2025 Results Follow-Up [facility] [address] [place], [place] [phone] Name, MD Chele [address] [place] [address] Urinalysis, Complete, with Reflex to Culture, POCT Urinalysis Social History Tobacco Use Types Packs/Day Years [...] Description 10/31/2025 10:30 AM EST Office Visit [facility] [address] [place] [address] NameChele MD 230 [place] [address] documented as of this encounter Visit Diagnoses Not on filedocumented in this encounter Additional Health Concerns Assessment Noted Time PHQ-9 Depression Total Score: 6 03/20/20 25 3:43 PM EDT documented as of this encounter Care Teams Steam Boiler Fireman Relationship Specialty Start Date End Date Name, MD Chele [address] [place] [address] PCP - General Family Medicine 06/23/22 documented as of this encounter
--- OUTSIDE RECORDS SUMMARY | 2025-08-01 14:26 | XMS_ITS | Encounter Summary ---
Author Organization [facility] Address [address] [facility] [address] [place] [address] Phone Care Team Providers Care Stock Roller Name Role Phone Haydee Kelly PET SITTING Primary Care Provider U Malathi Wall MD Primary Care Provider [phone] Haydee Kelly PET SITTING Primary Care Provider U Malathi Wall MD Primary Care Provider Migdalia Dean MD Unavailable [phone] Haydee Kelly PET SITTING Primary Care Provider U navastonable Ileana Milian MD Unavailable Cara Morrison MD Unavailable [phone] Rena Antonio MD Unavailable Jennifer SzymanskiC Unavailable doretha Alicia Pires CNP Unavailable Chele Ackerman MD Primary Care Provider Trish Gan MD Unavailable Encounter Details Date Type Department Care Team (Late st Contact Info) Description 03/20/2022 [facility] [address] [place] [address], 9th Floor, [address] [place], [place] [id number] Ana Urias, RN [address] [place] [address] [email or web address] Social History Tobacco Use Types Packs/Day Years [...] Contact Info) Description 05/09/2025 Procedure Pass [address] [address] 11/06/2025 9:00 AM EST Office Visit [facility] at [address] [address] Migdalia Dean MD [address] [place] [address] 12/21/2025 10:00 AM EST Appointment [address] [address] Migdalia Dean MD [address] [place] [address] documented as of this encounter Visit Diagnoses Not on filedocumented in this encounter Additional Health Concerns Infection Onset Date Last Indicated Resolved Time CoV-Risk 07/22/2022 07/23/2022 08/03/2022 1:22 AM EDT CoV-Risk 08/21/2022 08/25/2022 08/28/2022 2:23 PM EDT COVID-19 09/07/2022 09/09/2022 09/28/2022 1:21 AM EST documented as of this encounter Care Teams Stock Roller Relationship Specialty Start Date End Date Haydee Kelly NP PCP - General Family Medicine 03/20/22 04/06/22 Malathi Keys MD [address] [place] [address] [email or web address] PCP - General Family Medicine 04/07/22 04/14/22 Haydee Kelly NP PCP - General Family Medicine 04/15/22 04/23/22 Malathi Keys MD [address] [place] [address] [email or web address] PCP - General Family Medicine 04/24/22 06/03/22 Haydee Kelly NP PCP - General Family Medicine 06/04/22 07/09/22 Chele Ackerman MD [address] [place] [address] PCP - General Geriatric Psychiatry 07/10/22 Migdalia Dean MD [address] [place] [address] [email or web address] Primary Oncologist Medical Oncology 05/29/22 Ileana Milian MD 55 [facility] [address] [place] [address] [email or web address] General Surgery 06/04/22 Cara Morrison MD 55 [facility] [address] [place] [address] [email or web address] Hematology and Oncology 06/04/22 Rena Antonio MD 32 [facility] [address] [place] [address] Radiation Oncology 06/04/22 Jennifer Szymanski PA-C [address] [facility] [address] [place] [address] [email or web address] Physician Distribution Sales Representative Medical Oncology 06/04/22 Alicia Pires CNP [address] [place] [address] [email or web address] Nurse Practitioner Medical Oncology 06/09/22 [place] [address] [place] [address] 4 [place] [address] Obstetrics and Gynecology 07/20/24 documented as of this encounter Additional Source Comments The information contained in this document represents components of the legal health record. It is not the complete legal health record.[facility]
--- OUTSIDE RECORDS SUMMARY | 2025-08-01 14:26 | XMS_ITS | Encounter Summary ---
Author Organization [employer] Address [address] [facility] [address] 7t [place] [address] Care Team Providers Care Senior Research Manager Name Role Phone Name, Chele GALLEGOS Primary Care Provider [phone] Encounter Details Date Type Department Care Team (Latest Contact Info) Description 08/01/2025 Travel Social History Tobacco Use Types Packs/Day [...] 10:30 AM EST Office Visit [facility] [address] [place] [address] Name, MD Chele [address] [place] [address] documented as of this encounter Visit Diagnoses Not on filedocumented in this encounter Additional Health Concerns Assessment Noted Time PHQ-9 Depression Total Score: 6 03/20/20 25 3:43 PM EDT documented as of this encounter Care Teams Senior Research Manager Relationship Specialty Start Date End Date Name, MD Chele [address] [place] [address] PCP - General Family Medicine 06/23/22 documented as of this encounter
--- OUTSIDE RECORDS SUMMARY | 2025-08-01 14:27 | XMS_ITS | Encounter Summary ---
Author Organization [facility] Address [address] [facility] [address] [place] [address] Phone Care Team Providers Care Coat Tailor Name Role Phone Migdalia Dean MD Unavailable [phone] Ileana Milian MD Unavailable Cara Morrison MD Unavailable [phone] Rena Antonio MD Unavailable Jennifer SzymanskiC Unavailable doretha LexisAlicia HAIR COLORIST Unavailable Name, Chele GALLEGOS Primary Care Provider [phone] Trish Gan MD Unavailable Encounter Details Date Type Department Care Team (Late st Contact Info) Description 03/10/2023 Procedure Pass [facility], Ct Scan - [address] [address] Social History Tobacco Use Types Packs/Day Years [...] Contact Info) Description 05/09/2025 Procedure Pass [address] [address] 11/06/2025 9:00 AM EST Office Visit [facility] at [address] [address] Migdaila Dean MD [address] [place] [address] 12/21/2025 10:00 AM EST Appointment [address] [address] Migdalia Dean MD [address] [place] [address] documented as of this encounter Visit Diagnoses Not on filedocumented in this encounter Additional Health Concerns Assessment Noted Time PHQ-9 Depression Total Score: 8 04/21/20 22 1:00 PM EDT PHQ-2 Depression Total Score: 1 04/21/20 22 1:00 PM EDT documented as of this encounter Care Teams Coat Tailor Relationship Specialty Start Date End Date Name, MD Chele [address] [place] [address] PCP - General Geriatric Psychiatry 07/10/22 Migdalia Dean MD 30 [place] [address] [email or web address] Primary Oncologist Medical Oncology 05/29/22 Ileana Milian MD [address] [address] [email or web address] General Surgery 06/04/22 Cara Morrison MD [address] [place] [address] [email or web address] u Hematology and Oncology 06/04/22 Rena Antonio MD [address] [place] [address] [address] [email or web address] Radiation Oncology 06/04/22 Jennifer Szymanski PA-C [address] [place] [address] [address] [place] [address] [email or web address] Physician Captain'S Assistant Medical Oncology 06/04/22 Alicia Pires CNP [address] [place] [address] [email or web address] Nurse Practitioner Medical Oncology 06/09/22 Trish Gan MD [address] [place] [address] Obstetrics and Gynecology 07/20/24 documented as of this encounter Additional Source Comments The information contained in this document represents components of the legal health record. It is not the complete legal health record.[facility]
--- OUTSIDE RECORDS SUMMARY | 2025-08-01 14:27 | XMS_ITS ---
Author Organization [facility] Address [address] [facility] [address] [place] [address] Phone Care Team Providers Care Emblem Cutter Name Role Phone Migdalia Dean MD Unavailable Ileana Milian MD Unavailable Cara Morrison MD Unavailable Rena Antonio MD Unavailable Jennifer SzymanskiC Unavailable doretha LexisAlicia HYDROMETEOROLOGICAL TECHNICIAN Unavailable Name, Chele GALLEGOS Primary Care Provider Trish Gan MD Unavailable Active Problems Patient Care Coordination No te Formatting of this note migh t be different from the original. Height 154.8cm no shoes taken by OC 07/10/2022 L ARM ONLY FOR BP AND BLOOD WORK Enrolled in the POS[employer] program on 04/15/22. Please refer to the POS note on 04/21/22 (Dr. Blum). [facility] community case manager water service supervisor for [phone] Problem Noted Date Diagnosed Date Dehydration 09/04/2022 [...]
--- OUTSIDE RECORDS SUMMARY | 2025-08-01 14:27 | XMS_ITS | Encounter Summary ---
Author Organization [facility] Address [address] [facility] [address] [place] [address] Phone Care Team Providers Care Preparation Supervisor Freezing Name Role Phone Migdalia Dean MD Unavailable [phone] Ileana Milian MD Unavailable Cara Morrison MD Unavailable [phone] Rena Antonio MD Unavailable [phone] Jennifer SzymanskiC Unavailable doretha LexisAlicia KNITTING DEMONSTRATOR Unavailable Name, Chele GALLEGOS Primary Care Provider [phone] Trish Gan MD Unavailable Encounter Details Date Type Department Care Team (Late st Contact Info) Description 02/04/2023 Procedure Pass [place] Admitting Dept - Virtual Department 30 [place] [address] Social History Tobacco Use Types Packs/Day Years [...] st Contact Info) Description 05/09/2025 Procedure Pass [facility], [address] [address] 11/06/2025 9:00 AM EST Office Visit [facility] at [address] [address] Migdalia Dean MD [address] [place] [address] 12/21/2025 10:00 AM EST Appointment [address] [address] Migdalia Dean MD [address] [place] [address] documented as of this encounter Visit Diagnoses Not on filedocumented in this encounter Additional Health Concerns Assessment Noted Time PHQ-9 Depression Total Score: 8 04/21/20 22 1:00 PM EDT PHQ-2 Depression Total Score: 1 04/21/20 22 1:00 PM EDT documented as of this encounter Care Teams Preparation Supervisor Freezing Relationship Specialty Start Date End Date Name, MD Chele [address] [place] [address] PCP - General Geriatric Psychiatry 07/10/22 Migdalia Dean MD [address] [place] [address] [email or web address] Primary Oncologist Medical Oncology 05/29/22 Ileana Milian MD [address] [address] [email or web address] General Surgery 06/04/22 Cara Morrison MD [address] [facility] [address] [address] [email or web address] u Hematology and Oncology 06/04/22 Rena Antonio MD 32 [facility] [address] [place] [address] Radiation Oncology 06/04/22 Jennifer Szymanski PA-C [address] [facility] [address] [place], [place] [email or web address] Physician Private Banker Medical Oncology 06/04/22 Alicia Pires CNP [address] [place] [address] [email or web address] Nurse Practitioner Medical Oncology 06/09/22 Trish Gan MD [address] [place] [address] Obstetrics and Gynecology 07/20/24 documented as of this encounter Additional Source Comments The information contained in this document represents components of the legal health record. It is not the complete legal health record.[facility]
--- OUTSIDE RECORDS SUMMARY | 2025-08-01 14:27 | XMS_ITS | Encounter Summary ---
Author Organization [facility] Address [address] [facility] [address] [place] [address] Phone Care Team Providers Care Turkish Line Attendant Name Role Phone Migdalia Dean MD Unavailable [phone] Ileana Milian MD Unavailable Cara Morrison MD Unavailable [phone] Rena Antonio MD Unavailable Jennifer SzymanskiC Unavailable doretha LexisAlicia MAGAZINE PUBLISHER Unavailable Name, Chele GALLEGOS Primary Care Provider [phone] Trish Gan MD Unavailable Encounter Details Date Type Department Care Team (Late st Contact Info) Description 12/08/2022 Procedure Pass [facility], [address] [address] Social History Tobacco Use Types Packs/Day Years [...] Info) Description 05/09/2025 Procedure Pass [facility], [address] [address] 11/06/2025 9:00 AM EST Office Visit [facility] at [address] [address] Migdalia Dean MD [address] [place] [address] [email or web address] 12/21/2025 10:00 AM EST Appointment [address] [address] Migdalia Dean MD [address] [place] [address] documented as of this encounter Visit Diagnoses Not on filedocumented in this encounter Additional Health Concerns Assessment Noted Time PHQ-9 Depression Total Score: 8 04/21/20 22 1:00 PM EDT PHQ-2 Depression Total Score: 1 04/21/20 1:00 PM EDT documented as of this encounter Care Teams Turkish Line Attendant Relationship Specialty Start Date End Date Name, MD Chele [address] [place] [address] PCP - General Geriatric Psychiatry 07/10/22 Migdalia Dean MD [address] [place] [address] Primary Oncologist Medical Oncology 05/29/22 Ileana Milian MD [address] [address] [email or web address] General Surgery 06/04/22 Cara Morrison MD 55 [facility] [address] [place] [address] [email or web address] u Hematology and Oncology 06/04/22 Rena Antonio MD [address] [facility] [address] [place] [address] Radiation Oncology 06/04/22 Jennifer Szyamnski PA-C [address] [facility] [address] [place], [place] [email or web address] Physician Circular Saw Filer Medical Oncology 06/04/22 Alicia Pires CNP [address] [place] [address] [email or web address] Nurse Practitioner Medical Oncology 06/09/22 Trish Gan MD [address] [place] [address] Obstetrics and Gynecology 07/20/24 documented as of this encounter Additional Source Comments The information contained in this document represents components of the legal health record. It is not the complete legal health record.[facility]
--- OUTSIDE RECORDS SUMMARY | 2025-08-01 14:27 | XMS_ITS | Encounter Summary ---
Author Organization [facility] Address [address] [place] [address] [place] [address] Phone Care Team Providers Care Voice Instructor Name Role Phone Trey Kim MD Primary Care Provider [phone] Haydee Kelly VP PACKAGING Primary Care Provider U Malathi Wall MD Primary Care Provider [phone] Haydee Kelly VP PACKAGING Primary Care Provider U Malathi Wall MD Primary Care Provider Migdalia Dean MD Unavailable [phone] Haydee Kelly VP PACKAGING Primary Care Provider U navailable Ileana Milian MD Unavailable Cara Morrison MD Unavailable [phone] Rena Antonio MD Unavailable [phone] Jennifer Szymanski PA-C Unavailable doretha LexisErosen MEDICATION RECONCILIATION TECHNICIAN Unavailable Name, Chele GALLEGOS Primary Care Provider Trish Gan MD Unavailable Encounter Details Date Type Department Care Team (Late st Contact Info) Description 11/11/2017 Procedure Pass [facility] Admitting Dept Virtual Department 30 [place], [place] [id number] Social History Tobacco Use Types Packs/Day Years [...] st Contact Info) Description 05/09/2025 Procedure Pass [address] [address] 11/06/2025 9:00 AM EST Office Visit [facility] at [address] [address] Migdalia Dean MD [address] [place] [address] [email or web address] 12/21/2025 10:00 AM EST Appointment [address] [address] Migdalia Dean MD [address] [place] [address] [email or web address] documented as of this encounter Visit Diagnoses Not on filedocumented in this encounter Additional Health Concerns Infection Onset Date Last Indicated Resolved Time CoV-Risk 07/22/2022 07/23/2022 08/03/2022 1:22 AM EDT CoV-Risk 08/21/2022 08/25/2022 08/28/2022 2:23 PM EDT COVID-19 09/07/2022 09/09/2022 09/28/2022 1:21 AM EST documented as of this encounter Care Teams Voice Instructor Relationship Specialty Start Date End Date Trey Kim MD 110 [facility] 212 [place] [address] [email or web address] PCP - General 10/06/19 03/19/22 Haydee Kelly NP PCP - General Family Medicine 03/20/22 04/06/22 Malathi Keys MD [address] [place] [address] [email or web address] PCP - General Family Medicine 04/07/22 04/14/22 Haydee Kelly NP PCP - General Family Medicine 04/15/22 04/23/22 Malathi Keys MD [address] [place] [address] [email or web address] PCP - General Family Medicine 04/24/22 06/03/22 Haydee Kelly NP PCP - General Family Medicine 06/04/22 07/09/22 Chele Ackerman MD [address] [place] [address] PCP - General Geriatric Psychiatry 07/10/22 Migdalia Dean MD [address] [place] [address] [email or web address] Primary Oncologist Medical Oncology 05/29/22 Ileana Milian MD [address] [place] [address] [email or web address] General Surgery 06/04/22 Cara Morrison MD [address] [place] [address] [email or web address] Hematology and Oncology 06/04/22 Rena Antonio MD [address] [place], [place] [address]key [address] [place] [address] Radiation Oncology 06/04/22 Jennifer Szymanski PA-C [address] [place] [address] [address] [place] [address] [email or web address] Physician Cruise Guide Medical Oncology 06/04/22 Alicia Pires CNP [address] [place] [address] [email or web address] Nurse Practitioner Medical Oncology 06/09/22 Trish Gan MD [address] [place] [address] Obstetrics and Gynecology 07/20/24 documented as of this encounter Additional Source Comments The information contained in this document represents components of the legal health record. It is not the complete legal health record.[facility]
--- OUTSIDE RECORDS SUMMARY | 2025-08-01 14:27 | XMS_ITS | Encounter Summary ---
Author Organization [facility] Address [address] [place] [address] [place] [address] Phone Care Team Providers Care Road Machinery Inspector Name Role Phone Trey Kim MD Primary Care Provider [phone] Haydee Kelly AIRCRAFT MECHANIC ELECTRICAL AND RADIO Primary Care Provider U Malathi Wall MD Primary Care Provider Haydee Kelly AIRCRAFT MECHANIC ELECTRICAL AND RADIO Primary Care Provider U Malathi Wall MD Primary Care Provider Migdalia Dean MD Unavailable [phone] Haydee Kelly AIRCRAFT MECHANIC ELECTRICAL AND RADIO Primary Care Provider U navailable Ileana Milian MD Unavailable Cara Morrison MD Unavailable [phone] Rena Antonio MD Unavailable [phone] Jennifer Szymanski PA-C Unavailable doretha Alicia Pires WELFARE ELIGIBILITY WORKER Unavailable Name, Chele GALLEGOS Primary Care Provider Trish Gan MD Unavailable Encounter Details Date Type Department Care Team (Late st Contact Info) Description 01/01/2022 Ancillary Orders [facility] [address] [place], [place] [phone] System, Provider Not In, [facility] [address] [address] Social History Tobacco Use Types Packs/Day Years [...] st Contact Info) Description 05/09/2025 Procedure Pass [address] [address] 11/06/2025 9:00 AM EST Office Visit [facility] at [address] [address] Migdalia Dean MD [address] [place] [address] 12/21/2025 10:00 AM EST Appointment [address] [address] Migdalia Dean MD [address] [place] [address] documented as of this encounter Results * [...] documented as of this encounter Care Teams Road Machinery Inspector Relationship Specialty Start Date End Date Trey Kim MD [address] [address] [email or web address] PCP - General 10/06/19 03/19/22 Haydee Kelly NP PCP - General Family Medicine 03/20/22 04/06/22 Malathi Keys MD [address] [place] [address] [email or web address] PCP - General Family Medicine 04/07/22 04/14/22 Haydee Kelly NP PCP - General Family Medicine 04/15/22 04/23/22 Malathi Keys MD [address] [place] [address] [email or web address] PCP - General Family Medicine 04/24/22 06/03/22 Haydee Kelly, ERIC PCP - General Family Medicine 06/04/22 07/09/22 Chele Ackerman MD [address] [place] [address] PCP - General Geriatric Psychiatry 07/10/22 Migdalia Dean MD 30 [place] [address] [email or web address] Primary Oncologist Medical Oncology 05/29/22 Ileana Milian MD [address] [address] [email or web address] General Surgery 06/04/22 Cara Morrison MD [address] [address] [email or web address] Hematology and Oncology 06/04/22 Rena Antonio MD [address] [place] [address] [address] [place] [address] [email or web address] Radiation Oncology 06/04/22 Jennifer Szymanski PA-C [facility] [address] [place], [place] [email or web address] Physician Sewer Tapper Medical Oncology 06/04/22 Alicia Pires CNP 30 [place] [address] Nurse Practitioner Medical Oncology 06/09/22 Trish Gan MD [address] [place] [address] Obstetrics and Gynecology 07/20/24 documented as of this encounter Additional Source Comments The information contained in this document represents components of the legal health record. It is not the complete legal health record.[facility]
--- OUTSIDE RECORDS SUMMARY | 2025-08-01 14:27 | XMS_ITS | Encounter Summary ---
Author Organization [facility] Address [address] [facility] [address] [place] [address] Phone Care Team Providers Care Technology Development Intern Name Role Phone Migdalia Dean MD Unavailable [phone] Haydee Kelly NP Primary Care Provider U Ileana Craven MD Unavailable Cara Morrison MD Unavailable Rena Antonio MD Unavailable Jennifer SzymanskiC Unavailable doretha LexisAlicia PICK PACK WORKER Unavailable Chele Ackerman MD Primary Care Provider Trish Gan MD Unavailable Encounter Details Date Type Department Care Team (Late st Contact Info) Description 06/04/2022 Procedure Pass [facility] Cardiovascular And Interventional Radiology 30 [place] [address] Social History Tobacco Use Types Packs/Day Years [...] Contact Info) Description 05/09/2025 Procedure Pass [address] [address] 11/06/2025 9:00 AM EST Office Visit [facility] at [address] [address] Migdalia Dean MD [address] [place] [address] 12/21/2025 10:00 AM EST Appointment [address] [address] Migdalia Dean MD [address] [place] [address] documented as of this encounter Visit Diagnoses [...] documented as of this encounter Care Teams Technology Development Intern Relationship Specialty Start Date End Date Haydee Kelly NP PCP - General Family Medicine 06/04/22 07/09/22 Chele Ackerman MD 230 [place] [address] PCP - General Geriatric Psychiatry 07/10/22 Migdalia Dean MD 30 [place] [address] [email or web address] Primary Oncologist Medical Oncology 05/29/22 Ileana Milian MD [address] [address] [email or web address] General Surgery 06/04/22 Cara Morrison MD [address] [address] [email or web address] Hematology and Oncology 06/04/22 Rena Antonio MD [address] [facility] [address] [place] [address] Radiation Oncology 06/04/22 Jennifer Szymanski PA-C [address] [facility] [address] [place] [address] [email or web address] Physician Vp & General Counsel Medical Oncology 06/04/22 Alicia Pires CNP 30 [place] [address] [email or web address] Nurse Practitioner Medical Oncology 06/09/22 Trish Gan MD [address] [place] [address] Obstetrics and Gynecology 07/20/24 documented as of this encounter Additional Source Comments The information contained in this document represents components of the legal health record. It is not the complete legal health record.[facility]
--- OUTSIDE RECORDS SUMMARY | 2025-08-01 14:27 | XMS_ITS | Clinical Summary ---
Author Organization [facility] Address [address] [facility] [address] [place] [address] Phone Care Team Providers Care Nuclear Auxiliary Operator Name Role Phone Migdalia Dean MD Unavailable Ileana Milian MD Unavailable Cara Morrison MD Unavailable [phone] Rena Antonio MD Unavailable Jennifer SzymanskiC Unavailable doretha LexisAlicia LAND SURVEYING MANAGER Unavailable Name, Chele GALLEGOS Primary Care Provider [phone] Trish Gan MD Unavailable Allergies Active Allergy [...] the POS note on 04/21/22 (Dr. Blum). [facility] -Becky Bennett caser in assembly supervisor for [facility]-[phone] Problem Noted Date Diagnosed Date Dehydration 09/04/2022 [...] - 06/14/2025 11:59 PM EDT Hospital Encounter [address] [address] Migdalia Dean MD Discharge Disposition: Home or Self Care 05/17/2025 2:00 PM EDT Office Visit 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 [address] [place] [address] Migdalia Dean MD Kenny, Erin, PT Generalized weakness (Primary Dx); Other abnormalities of gait and mobility 05/01/2025 Plan of Care Documentation [facility] [address] [place] [address] 11/03/2024 Procedure Pass [facility], [facility] [address] [place] [address] from Last 3 Months Immunizations Immunization Administration [...] st Contact Info) Description 05/09/2025 Procedure Pass [address] [address] 11/06/2025 9:00 AM EST Office Visit [facility] at [address] [address] Migdalia Dean MD [address] [place] [address] 12/21/2025 10:00 AM EST Appointment [address] [address] Migdalia Dean MD [address] [place] [address] [email or web address] Health Maintenance Due Date Last [...] this topic Medical Devices Implanted Type Area Patient Registration Rep Device Identifier Shelf Expiration Date Model / [...] Months Insurance MEDICARE PART A & B [facility] MEDICARE REPLACEMENT MEDICARE PART A & B Member Subscriber Plan / Payer (Ef fective 2008-Present) Name:Marilia Bashir Member ID:[id number] Relation to Subscriber:Self Name:Marilia Bashir Subscriber ID:[id number] Payer ID:[id number] Group ID:Not on file Type:Medicare Address: Jukely [address] [place] [address] [place] [address] MEDICARE REPLACEMENT ERICK CALI [id number] MEDICARE PART A & B [facility] MEDICARE REPLACEMENT ERICK CALI [address] MEDICARE PART A & B [id number] [place] [address] MEDICARE REPLACEMENT ERICK CALI [facility] MEDICARE PART A & B [facility] MEDICARE REPLACEMENT MEDICARE PART A & B [employer] [facility] MEDICARE REPLACEMENT MEDICARE PART A & [facility] MEDICARE REPLACEMENT MEDICARE PART A & B [facility] MEDICARE REPLACEMENT MEDICARE PART A & B [facility] MEDICARE REPLACEMENT Advance Directives For more information, please contact: [phone] (9AM - 5PM [facility], Wednesday-Wednesday) Documents on File Type Date Recorded Patient Building Services Coordinator Expl anation Healthcare Proxy 04/23/2022 1:03 PM * Full Code (Latest Code Status on File) Date Activated Date Inactivated Comments 02/04/2023 7:57 AM Question Answer Comments Code Status Confirmed With: Patient * Full Code Date Activated Date Inactivated Comments 04/27/2022 4:13 PM 02/04/2023 7:57 AM Question Answer Comments Code Status Confirmed With: Patient Care Teams Nuclear Auxiliary Operator Relationship Specialty Start Date End Date Tyron, MD Chele [address] [place] [address] PCP - General Geriatric Psychiatry 07/10/22 Migdalia Dean MD [address] [place] [address] [email or web address] Primary Oncologist Medical Oncology 05/29/22 Ileana Milian MD [address] [address] [email or web address] General Surgery 06/04/22 Cara Morrison MD [address] [address] [email or web address] Hematology and Oncology 06/04/22 Rena Antonio MD [address] [place] [address] [address] [place] [address] Radiation Oncology 06/04/22 Jennifer Szymanski PA-C [address] [place] [address] [address] [place] [address] Physician Hospice Director Medical Oncology 06/04/22 Alicia Pires CNP [address] [place] [address] [email or web address] Nurse Practitioner Medical Oncology 06/09/22 Trish Gan MD [address] [place] [address] Obstetrics and Gynecology 07/20/24 Additional Source Comments The information contained in this document represents components of the legal health record. It is not the complete legal health record.[facility]
--- OUTSIDE RECORDS SUMMARY | 2025-08-01 14:27 | XMS_ITS | Encounter Summary ---
Author Organization [employer] Address [address] [facility] 7t [place] [address] Care Team Providers Care Support Team Assoc Name Role Phone Name, Chele GALLEGOS Primary Care Provider [phone] Reason for Visit * Reason Onset Date Comments Appointment Request 06/22/2023 Encounter Details Date Type Department Care Team ([facility] Contact Info) Description 06/22/2023 Telephone [facility] 230 [place], [place] [phone] Name, MD Chele 230 [place] [address] Appointment Request Social History Tobacco Use Types [...] @ 9:30 am. Please contact pt at [phone] documented in this encounter Plan of Treatment Upcoming Encounters Date Type Department Care Team (Late st Contact Info) Description 10/31/2025 10:30 AM EST Office Visit [facility] 230 [place] [address] Name, MD Chele 230 [place] [address] documented as of this encounter Visit Diagnoses Not on filedocumented in this encounter Additional Health Concerns Assessment Noted Time PHQ-9 Depression Total Score: 0 02/24/20 23 3:56 PM EDT documented as of this encounter Care Teams Support Team Assoc Relationship Specialty Start Date End Date Name, MD Chele [address] [place] [address] PCP - General Family Medicine 06/23/22 documented as of this encounter
--- OUTSIDE RECORDS SUMMARY | 2025-08-01 14:27 | XMS_ITS | Encounter Summary ---
Author Organization [facility] Address [address] [facility] [address] [place] [address] Phone Care Team Providers Care Hydroelectric Plant Electrician Name Role Phone Trey Kim MD Primary Care Provider [phone] Haydee Kelly DECISION ANALYST Primary Care Provider U Malathi Wall MD Primary Care Provider Haydee Kelly DECISION ANALYST Primary Care Provider U navailable Malathi Keys MD Primary Care Provider [phone] Migdalia Dean MD Unavailable Haydee Kelly DECISION ANALYST Primary Care Provider U navailable Ileana Milian MD Unavailable Cara Morrison MD Unavailable [phone] Rena Antonio MD Unavailable Jennifer Szymanski PA-C Unavailable doretha LexisAlicia SALES REPRESENTATIVE PRINTING PAPER Unavailable Name, Chele GALLEGOS Primary Care Provider Trish Gan MD Unavailable Encounter Details Date Type Department Care Team (Latest Contact Info) Description 07/29/2021 Transcribe Orders Virtual Department 30 [place], [place] [phone] Meena Mariee MD 15 [facility] [place]. [address] [place], [place] [phone] [email or web address] Breast screening (Primary Dx) Social History Tobacco [...] Contact Info) Description 05/09/2025 Procedure Pass [address] [address] 11/06/2025 9:00 AM EST Office Visit [facility] General Cancer Center at [address] [address] Migdalia Dean MD [address] [place] [address] [email or web address] 12/21/2025 10:00 AM EST Appointment [address] [address] Migdalia Dean MD [address] [place] [address] [email or web address] documented as of this encounter Visit Diagnoses Diagnosis Breast screening- Primary Breast screening, unspecified documented in this encounter Additional Health Concerns Infection Onset Date Last Indicated Resolved Time CoV-Risk 07/22/2022 07/23/2022 08/03/2022 1:22 AM EDT CoV-Risk 08/21/2022 08/25/2022 08/28/2022 2:23 PM EDT COVID-19 09/07/2022 09/09/2022 09/28/2022 1:21 AM EST documented as of this encounter Care Teams Hydroelectric Plant Electrician Relationship Specialty Start Date End Date Trey Kim MD [address] [facility] [address] [address] [email or web address] PCP - General 10/06/19 03/19/22 Haydee Kelly NP PCP - General Family Medicine 03/20/22 04/06/22 Malathi Keys MD [address] [place] [address] [email or web address] PCP - General Family Medicine 04/07/22 04/14/22 Haydee Kelly NP PCP - General Family Medicine 04/15/22 04/23/22 Malathi Keys MD [address] [place] [address] [email or web address] PCP - General Family Medicine 04/24/22 06/03/22 Haydee Kelly NP PCP - General Family Medicine 06/04/22 07/09/22 Chele Ackerman MD [address] [place] [address] PCP - General Geriatric Psychiatry 07/10/22 Migdalia Dean MD [address] [place] [address] [email or web address] Primary Oncologist Medical Oncology 05/29/22 Ileana Milian MD [address] [place] [address] [email or web address] General Surgery 06/04/22 Cara Morrison MD [address] [place] [address] [address] [place] [address] [email or web address] Hematology and Oncology 06/04/22 Rena Antonio MD [address] [facility] [address] [place] [address] Radiation Oncology 06/04/22 Jennifer Szymanski PA-C [facility] [address] [place] [address] [email or web address] Physician Electronic Publisher Medical Oncology 06/04/22 Alicia Pires CNP 30 [place] [address] Nurse Practitioner Medical Oncology 06/09/22 Trish Gan MD [address] [place] [address] 4 [place] [address] Obstetrics and Gynecology 07/20/24 documented as of this encounter Additional Source Comments The information contained in this document represents components of the legal health record. It is not the complete legal health record.[facility]
--- OUTSIDE RECORDS SUMMARY | 2025-08-01 14:27 | XMS_ITS | Encounter Summary ---
Author Organization [facility] Address [address] [facility] [address] 7t [place] [address] Care Team Providers Care Recruitment Coordinator Name Role Phone Name, Chele GALLEGOS Primary Care Provider [phone] Reason for Visit * Reason Onset Date Comments Nurse Triage 07/20/2023 Encounter Details Date Type Department Care Team ([facility] st Contact Info) Description 07/20/2023 Telephone [facility] 230 [place], [place] [phone] Name, MD Chele 230 [place] [address] Nurse Triage Social History Tobacco Use Types [...] home test through drive [facility] [place] where Pt is located. Pt is chemo [...] Description 10/31/2025 10:30 AM EST Office Visit [facility] [address] [place] [address] NameChele MD [address] [place] [address] documented as of this encounter Visit Diagnoses Not on filedocumented in this encounter Additional Health Concerns Assessment Noted Time PHQ-9 Depression Total Score: 0 02/24/20 23 3:56 PM EDT documented as of this encounter Care Teams Recruitment Coordinator Relationship Specialty Start Date End Date NameChele MD [address] [place] [address] PCP - General Family Medicine 06/23/22 documented as of this encounter
--- OUTSIDE RECORDS SUMMARY | 2025-08-01 14:27 | XMS_ITS | Encounter Summary ---
Author Organization [facility] Address [address] [facility] [address] [place] [address] Phone Care Team Providers Care Encoding Machine Operator Name Role Phone Migdalia Dean MD Unavailable [phone] Ileana Milian MD Unavailable Cara Morrison MD Unavailable [phone] Rena Antonio MD Unavailable Jennifer SzymanskiC Unavailable doretha LexisAlicia STATISTICAL TECHNICIAN Unavailable Name, Chele GALLEGOS Primary Care Provider [phone] Trish Gan MD Unavailable Encounter Details Date Type Department Care Team (Late st Contact Info) Description 11/03/2024 Procedure Pass [facility], [address] [address] Social History Tobacco Use Types Packs/Day Years [...] Contact Info) Description 05/09/2025 Procedure Pass [address] [address] 11/06/2025 9:00 AM EST Office Visit [facility] at [address] [address] Migdalia Dean MD [address] [place] [address] 12/21/2025 10:00 AM EST Appointment [address] [address] Migdalia Dean MD [address] [place] [address] documented as of this encounter Visit Diagnoses Not on filedocumented in this encounter Additional Health Concerns Assessment Noted Time PHQ-9 Depression Total Score: 8 04/21/20 1:00 PM EDT PHQ-2 Depression Total Score: 1 04/21/20 1:00 PM EDT documented as of this encounter Care Teams Encoding Machine Operator Relationship Specialty Start Date End Date Name, MD Chele 230 [place] [address] PCP - General Geriatric Psychiatry 07/10/22 Migdalia Dean MD 30 [place] [address] [email or web address] Primary Oncologist Medical Oncology 05/29/22 Ileana Milian MD [address] [address] [email or web address] Surgery 06/04/22 Cara Morrison MD [address] [address] [email or web address] Hematology and Oncology 06/04/22 Rena Antonio MD [address] [facility] [address] [place] [address] [email or web address] Radiation Oncology 06/04/22 Jennifer Szymanski PA-C [address] [facility] [address] [place], [place] [email or web address] Physician Nuclear Control Operator Medical Oncology 06/04/22 Alicia Pires CNP 30 [place] [address] Nurse Practitioner Medical Oncology 06/09/22 Trish Gan MD [address] [place] [address] Obstetrics and Gynecology 07/20/24 documented as of this encounter Additional Source Comments The information contained in this document represents components of the legal health record. It is not the complete legal health record.[facility]
--- OUTSIDE RECORDS SUMMARY | 2025-08-01 14:27 | XMS_ITS | Encounter Summary ---
Author Organization [employer] Address [address] [facility] [address] 7t [place] [address] Care Team Providers Care Cleaning Matron Name Role Phone Name, Chele GALLEGOS Primary Care Provider [phone] Reason for Visit * Reason Onset Date Comments Dr. Kenji king 04/03/2025 Encounter Details Date Type Department Care Team ([facility] st Contact Info) Description 04/03/2025 Telephone [facility] [address] [place] [address] Jennifer Phillip, SEKOU king Social History Tobacco [...] to do. Reached out to front end alignment specialist however unable to connect. Please reach out to patient with instructions and/or appt time for follow up Sent to provider and front end alignment specialist DR documented in this encounter Plan of Treatment Upcoming Encounters Date Type Department Care Team (Late st Contact Info) Description 10/31/2025 10:30 AM EST Office Visit [facility] 230 [place] [address] Name, MD Chele 230 [place] [address] documented as of this encounter Visit Diagnoses Not on filedocumented in this encounter Additional Health Concerns Assessment Noted Time PHQ-9 Depression Total Score: 6 03/20/20 25 3:43 PM EDT documented as of this encounter Care Teams Cleaning Matron Relationship Specialty Start Date End Date Name, MD Chele 230 [place] [address] PCP - General Family Medicine 06/23/22 documented as of this encounter
--- OUTSIDE RECORDS SUMMARY | 2025-08-01 14:28 | XMS_ITS | Encounter Summary ---
Author Organization [employer] Address [address] [facility] [address] 7t [place] [address] Care Team Providers Care Chain Splitter Name Role Phone Name, Chele GALLEGOS Primary Care Provider [phone] Reason for Visit * Reason Onset Date Comments call back 02/23/2023 Encounter Details Date Type Department Care Team ([facility] Contact Info) Description 02/23/2023 Telephone [facility] 230 [place], [place] [phone] Name, MD Chele 230 [place] [address] call back Social History Tobacco Use Types [...] regarding pt. Please contact Dr Jaramillo at [phone] documented in this encounter Plan of Treatment Upcoming Encounters Date Type Department Care Team (Late st Contact Info) Description 10/31/2025 10:30 AM EST Office Visit [facility] [address] [place] [address] Name, MD Chele [address] [place] [address] documented as of this encounter Visit Diagnoses Not on filedocumented in this encounter Additional Health Concerns Assessment Noted Time PHQ-9 Depression Total Score: 0 02/24/20 3:56 PM EDT documented as of this encounter Care Teams Chain Splitter Relationship Specialty Start Date End Date Name, MD Chele [address] [place] [address] PCP - General Family Medicine 06/23/22 documented as of this encounter
--- OUTSIDE RECORDS SUMMARY | 2025-08-01 14:28 | XMS_ITS | Encounter Summary ---
Author Organization [employer] Address [address] [facility] [address] 7t [place] [address] Care Team Providers Care Glass Cutter Hand Name Role Phone Name, Chele GALLEGOS Primary Care Provider Encounter Details Date Type Department Care Team ([facility] st Contact Info) Description 10/07/2023 Telephone [facility] 230 [place], [place] [phone] Name, MD Chele 230 [place] [address] Social History Tobacco Use Types Packs/Day Years [...] t he electric, gas, oil or water [employer] threatened to shut off services in your [...] Description 10/31/2025 10:30 AM EST Office Visit [facility] [address] [place] [address] Name, MD Chele [address] [place] [address] documented as of this encounter Visit Diagnoses Not on filedocumented in this encounter Additional Health Concerns Assessment Noted Time PHQ-9 Depression Total Score: 0 02/24/20 23 3:56 PM EDT documented as of this encounter Care Teams Glass Cutter Hand Relationship Specialty Start Date End Date Name, MD Chele [address] [place] [address] PCP - General Family Medicine 06/23/22 documented as of this encounter
--- OUTSIDE RECORDS SUMMARY | 2025-08-01 14:28 | XMS_ITS | Encounter Summary ---
Author Organization [facility] Address [address] [place] [address] 7 [place] [address] Care Team Providers Care Coat Check Attendant Name Role Phone Name, Chele GALLEGOS Primary Care Provider [phone] Encounter Details Date Type Department Care Team (Late st Contact Info) Description 11/06/2022 [facility] [place] [facility] Information Management 230 [place], [place] [phone] NameChele MD [address] [place] [address] Social History Tobacco Use Types Packs/Day Years [...] Description 10/31/2025 10:30 AM EST Office Visit [facility]IC[facility] [address] [place] [address] [phone] Name, MD Chele [address] [place] [phone] documented as of this encounter Visit Diagnoses Not on filedocumented in this encounter Care Teams Coat Check Attendant Relationship Specialty Start Date End Date NameChele MD [address] [place] [phone] PCP - General Family Medicine 06/23/22 documented as of this encounter
== END 2025-08-01 13:12 | disposition home or self-care (01) ==
LOC: HO.HHCLNP 13:11
PROVIDERS: Visit Provider Internal Medicine Geriatric Medicine
DX: R39.9 Unspecified symptoms and signs involving the genitourinary system (principal)
CPT/HCPCS: 81001; 87086

== ENCOUNTER 2025-10-31 11:30 | Outpatient (REF) | payer OTHER, SELFPAY ==
--- NOTE | ~2025-10-31 | XR_ITS ---
EXAMINATION: XR CHEST 2 VIEWS HISTORY: pain COMPARISON: Comparison is made with the prior examination dated 02/23/2023. FINDINGS: PA and lateral views of the chest are submitted. There is slight blunting of the left costophrenic angle which likely represents pleural thickening. There is subsegmental atelectasis versus scarring at the left lung base. Again seen is a calcified granuloma at the left lung apex. The lungs are otherwise clear. There is no pneumothorax or pulmonary vascular congestion. The heart is normal in size. There is degenerative disc disease of the spine. XR/XR chest 2V IMPRESSION: Left-sided pleural thickening. Electronically signed by: Raghav Gilmore MD 10/31/2025 12:38 PM EST
--- OUTSIDE RECORDS SUMMARY | 2025-10-31 10:30 | XMS_ITS | Encounter Summary ---
Author Organization [employer] Address [address] 7[address] [place] [address] Care Team Providers Care Shirt Bander Name Role Phone Name, Chele GALLEGOS Primary Care Provider [phone] Reason for Visit * Reason Comments Follow-up Encounter Details Date Type Department Care Team ([facility] Contact Info) Description 10/31/2025 10:30 AM EST Office Visit [facility] [address] [place], [place] [phone] Name, MD Chele [address] [place] [address] Rib pain on right side (Primary Dx); BRCA1 gene mutation positive; History of breast cancer; Encounter for immunization Social History Tobacco Use Types Packs/Day Years [...] Sign Reading Time Taken Comments Blood Pressure 110/76 10/31/2025 10:47 AM EST Pulse 60 10/31/2025 10:47 AM EST Temperature 36.2 C (97.1 F) 10/31/2025 10:47 AM EST Respiratory Rate 18 10/31/2025 10:47 AM EST Oxygen Saturation 99% 10/31/2025 10:47 AM EST Inhaled Oxygen Concentration - - Weight 59.9 kg (132 lb) 10/31/2025 10:47 AM EST Height 157.5 cm (5' 2 ) 10/31/2025 10:47 AM EST Body Mass Index 24.14 10/31/2025 10:47 AM EST documented in this encounter Progress Notes * Chele Ackerman MD - 10/31/2025 10:30 AM EST Subjective Patient ID: Marilia Bashir is a 79 y.o. female who presents for Follow-up. Patient complains of about a month of right sided rib cage pain, the pain has been getting progressively worse, pain is precipitated by deep inspiration and palpation of the right rib cage. She has not been coughing, she is not short of breath, she denies any recent falls or heavy physical exertion. She has a personal history of being BRCA positive and she has a history of ovarian and breast cancer in the past. She does not have any rash on the affected area of the chest to suggest shingles. Review of Systems Constitutional: Negative for chills and fever. HENT: Negative for sore throat. Respiratory: Negative for cough, shortness of breath and wheezing. Cardiovascular: Negative for chest pain, palpitations and leg swelling. She has been getting recurrent problems with Raynaud's on her hands or feet. This is a chronic recurrent problem for her. She does not want to try amlodipine and I agree, her BP is on the low side and she does ok with gloves and warm socks. Gastrointestinal: Negative for abdominal pain. Musculoskeletal: See HPI Objective Vitals: 10/31/25 1047 BP: 110/76 BP Location: Left arm Patient Position: Sitting BP Cuff Size: Adult Pulse: 60 Resp: 18 Temp: 97.1 ??F (36.2 ??C) TempSrc: Temporal SpO2: 99% Weight: 132 lb (59.9 kg) Height: 5' 2 (1.575 m) Physical Exam Constitutional: Appearance: Normal appearance. Cardiovascular: Rate and Rhythm: Normal rate and regular rhythm. Heart sounds: No murmur heard. No gallop. Pulmonary: Effort: Pulmonary effort is normal. No respiratory distress. Breath sounds: Normal breath sounds. No wheezing. Musculoskeletal: Right lower leg: No edema. Left lower leg: No edema. Comments: She has tenderness on palpation of the rib cage area Skin: Findings: No rash. Neurological: Mental Status: She is alert. Assessment/Plan Diagnoses and all orders for this visit: Rib pain on right side Comments: Patient has musculoskeletal right rib cage discomfort. No history of trauma, no respiratory symptoms. I recommended evaluation with x-ray given previous history of malignancy. Acetaminophen as neededfor pain. Further recommendation based on the results. Orders: - XR Chest 2 Views; Future BRCA1 gene mutation positive History of breast cancer Encounter for immunization - FLU VACCINE TRIVALENT HIGH DOSE [phone] (Fluzone) 65 yrs + documented in this encounter Plan of Treatment Not on file documented as of this encounter Procedures Procedure Name Priority Date/Time Associated Diagnosis Comments XR CHEST 2 VIEWS Routine 10/31/2025 12:0 8 PM EST Rib pain on right side documented in this encounter Results * XR Chest 2 Views (10/31/2025 12:08 PM EST) Anatomical Region Laterality Modality Chest Radiographic Marifer ging 10/31/2025 12:0 8 PM EST Narrative 10/31/2025 12:41 PM EST [address] [address] XRay Report Signed Patient: Marilia Bashir MR#: [id number] : 1945 Acct:[id number] Age/Sex: 79 / F ADM Date: 10/31/25 Loc: [facility] Attending Dr: Chele Ackerman MD Ordering Physician: Chele Ackerman MD Date of Service: 10/31/25 Procedure(s): XR chest 2V Accession Number(s): [id number] cc: Chele Ackerman MD Reason for Exam: pain EXAMINATION: XR CHEST 2 VIEWS HISTORY: pain COMPARISON: Comparison is made with the prior examination dated 02/23/2023. FINDINGS: PA and lateral views of the chest are submitted. There is slight blunting of the left costophrenic angle which likely represents pleural thickening. There is subsegmental atelectasis versus scarring at the left lung base. Again seen is a calcified granuloma at the left lung apex. The lungs are otherwise clear. There is no pneumothorax or pulmonary vascular congestion. The heart is normal in size. There is degenerative disc disease of the spine. XR/XR chest 2V IMPRESSION: Left-sided pleural thickening. Electronically signed by: Raghav iGlmore MD 10/31/2025 12:38 PM EST RP Dictated By: Raghav Gilmore MD Signed By: <Electronically signed by Raghav Gilmore MD in OV> 10/31/25 1238 DD/ 1208 TD/TT: 10/31/25 1208 Clinical Documentation Nurse: Procedure Note Donotuseinterpreter, Image - 10/31/2025 [facility] [address] [place] [address] XRay Report Signed Patient: Cherelle Bashir#: [id number] : 4Acct:[id number] Age/Sex: 79 / FADM Date: 10/31/25 Loc: [facility] Attending Dr: Chele Ackerman MD Ordering Physician: Chele Ackerman MD Date of Service: 10/31/25 Procedure(s): XR chest 2V Accession Number(s): [id number] cc: Chele Ackerman MD Reason for Exam: pain EXAMINATION: XR CHEST 2 VIEWS HISTORY: pain COMPARISON: Comparison is made with the prior examination dated 02/23/2023. FINDINGS: PA and lateral views of the chest are submitted. There is slight blunting of the left costophrenic angle which likely represents pleural thickening. There is subsegmental atelectasis versus scarring at the left lung base. Again seen is a calcified granuloma at the left lung apex. The lungs are otherwise clear. There is no pneumothorax or pulmonary vascular congestion. The heart is normal in size. There is degenerative disc disease of the spine. XR/XR chest 2V IMPRESSION: Left-sided pleural thickening. Electronically signed by: Raghav Gilmore MD 10/31/2025 12:38 PM [facility] Dictated By: Raghav Gilmore MD Signed By: <Electronically signed by Raghav Gilmore MD in OV> 10/31/25 1238 DD/ 1208 TD/TT: 10/31/25 1208 Clinical Documentation Nurse: Chele Ackerman MD IMG XR PROCEDURES Final Result documented in this encounter Visit Diagnoses Diagnosis Rib pain on right side- Primary BRCA1 gene mutation positive History of breast cancer Personal history of malignant neoplasm of breast Encounter for immunization documented in this encounter Additional Health Concerns Assessment Noted Time PHQ-9 Depression Total Score: 6 03/20/20 3:43 PM EDT documented as of this encounter Care Teams Shirt Bander Relationship Specialty Start Date End Date NameChele MD [address] [place] [address] PCP - General Family Medicine 06/23/22 documented as of this encounter
--- OUTSIDE RECORDS SUMMARY | 2025-10-31 13:13 | XMS_ITS | Encounter Summary ---
Author Organization [employer] Address [address] [facility] 7t [place] [address] Care Team Providers Care Coin Purse Framer Name Role Phone Name, Chele GALLEGOS Primary Care Provider [phone] Encounter Details Date Type Department Care Team (Latest Contact Info) Description 06/13/2021 Abstract [facility] Dental, Provider, DDS Social History [...] as of this encounter Plan of Treatment Not on file documented as of this encounter Visit Diagnoses Not on filedocumented in this encounter Care Teams Coin Purse Framer Relationship Specialty Start Date End Date Name, MD Chele [address] [place] [address] PCP - General Family Medicine 06/23/22 documented as of this encounter
--- OUTSIDE RECORDS SUMMARY | 2025-10-31 13:13 | XMS_ITS | Encounter Summary ---
Author Organization [employer] Address [address] 7[address] [place] [address] Care Team Providers Care District Representative Name Role Phone Name, Chele GALLEGOS Primary Care Provider [phone] Encounter Details Date Type Department Care Team ([facility] st Contact Info) Description 03/14/2024 Telephone [facility] [address] [place], [place] [phone] Name, MD Chele [address] [place] [address] Social History Tobacco Use Types Packs/Day Years [...] documented as of this encounter Care Teams District Representative Relationship Specialty Start Date End Date Name, MD Chele [address] [place] [address] PCP - General Family Medicine 06/23/22 documented as of this encounter
--- OUTSIDE RECORDS SUMMARY | 2025-10-31 13:13 | XMS_ITS | Encounter Summary ---
Author Organization [employer] Address [address] [place] [address] 7t [place] [address] Care Team Providers Care Magnetic Prospecting Operator Name Role Phone Name, Chele GALLEGOS Primary Care Provider [phone] Encounter Details Date Type Department Care Team ([facility] st Contact Info) Description 11/05/2022 Orders Only [facility] [address] [place], [place] [phone] Name, MD Chele [address] [place] [address] Social History Tobacco Use Types Packs/Day Years [...] on filedocumented in this encounter Care Teams Magnetic Prospecting Operator Relationship Specialty Start Date End Date Name, MD Chele [address] [place] [phone] PCP - General Family Medicine 06/23/22 documented as of this encounter
--- OUTSIDE RECORDS SUMMARY | 2025-10-31 13:13 | XMS_ITS | Encounter Summary ---
Author Organization Located Within [facility] Address [address] [facility] [address] [place] [address] Phone Care Team Providers Care Integration Assistant Name Role Phone Malathi Keys MD Primary Care Provider Migdalia Dean MD Unavailable [phone] Haydee Kelly NP Primary Care Provider U Ileana Craven MD Unavailable Cara Morrison MD Unavailable [phone] Rena Antonio MD Unavailable [phone] Jennifer SzymanskiC Unavailable [email or web address] Alicia Pires PIANO [employer] ORGAN REFINISHER Unavailable Name, Chele GALLEGOS Primary Care Provider [phone] Trish Gan MD Unavailable Encounter Details Date Type Department Care Team (Late st Contact Info) Description 04/27/2022 Procedure Pass [facility] [address] [place] [phone] Social History Tobacco Use Types Packs/Day Years [...] st Contact Info) Description 05/09/2025 Procedure Pass [address] [address] 11/06/2025 9:00 AM EST Office Visit [facility] [place] [facility] at [address] [address] Migdalia Dean MD [address] [place] [email or web address] 11/08/2025 1:15 PM EST Appointment [address] [address] Migdalia Dean MD [address] [place] [email or web address] 12/21/2025 10:00 AM EST Appointment [address] [address] Migdalia Dean MD [address] [place] [address] documented as of this encounter Visit Diagnoses Not on filedocumented in this encounter Additional Health Concerns Infection Onset Date Last Indicated Resolved Time CoV-Risk 07/22/2022 07/23/2022 08/03/2022 1:22 AM EDT CoV-Risk 08/21/2022 08/25/2022 08/28/2022 2:23 PM EDT COVID-19 09/07/2022 09/09/2022 09/28/2022 1:21 AM EST Assessment Noted Time PHQ-9 Depression Total Score: 8 06/21/20 22 1:00 PM EDT PHQ-2 Depression Total Score: 1 04/21/20 22 1:00 PM EDT documented as of this encounter Care Teams Integration Assistant Relationship Specialty Start Date End Date Malathi Keys MD [address] [place] [address] [email or web address] PCP - General Family Medicine 04/24/22 06/03/22 Haydee Kelly, ERIC PCP - General Family Medicine 06/04/22 07/09/22 Chele Ackerman MD [address] [place] [address] PCP - General Geriatric Psychiatry 07/10/22 Migdalia Dean MD [address] [place] [address] [email or web address] Primary Oncologist Medical Oncology 05/29/22 Ileana Milian MD [address] [place] [address] [email or web address] Surgery 06/04/22 Cara Morrison MD [address] [place] [address] [email or web address] Hematology and Oncology 06/04/22 Rena Antonio MD [address] [place] [address] [facility] [address] [place] [address] [email or web address] Radiation Oncology 06/04/22 Jennifer Szymanski PA-C [address] [facility] [address] [place] [address] [email or web address] Physician Machine Shop Inspector Medical Oncology 06/04/22 Alicia Pires CNP [address] [place] [address] [email or web address] Nurse Practitioner Medical Oncology 06/09/22 Trish Gan MD [address] [place] [address] Obstetrics and Gynecology 07/20/24 documented as of this encounter Additional Source Comments The information contained in this document represents components of the legal health record. It is not the complete legal health record.[facility]
--- OUTSIDE RECORDS SUMMARY | 2025-10-31 13:13 | XMS_ITS | Encounter Summary ---
Author Organization [facility] Address [address] [facility] [address] [place] [address] Phone Care Team Providers Care Television Journalist Name Role Phone Migdalia Dean MD Unavailable Ileana Milian MD Unavailable Cara Morrison MD Unavailable [phone] Rena Antonio MD Unavailable [phone] Jennifer SzymanskiC Unavailable doretha LexisAlicia BRASS CUTTER Unavailable Name, Chele GALLEGOS Primary Care Provider [phone] Trish Gan MD Unavailable Encounter Details Date Type Department Care Team (Late st Contact Info) Description 05/10/2024 Procedure Pass [facility], Ct Scan - [address] [address] Social History Tobacco Use Types Packs/Day Years [...] st Contact Info) Description 05/09/2025 Procedure Pass [address] [address] 11/06/2025 9:00 AM EST Office Visit [facility] [place] [facility] at [address] [address] Migdalia Dean MD [address] [place] [address] 11/08/2025 1:15 PM EST Appointment [address] [address] Migdalia Dean MD [address] [place] [address] 12/21/2025 10:00 AM EST Appointment [facility], [facility] [address] [place] [address] Migdalia Dean MD [address] [place] [address] [email or web address] documented as of this encounter Visit Diagnoses Not on filedocumented in this encounter Additional Health Concerns Assessment Noted Time PHQ-9 Depression Total Score: 8 04/21/20 1:00 PM EDT PHQ-2 Depression Total Score: 1 04/21/20 1:00 PM EDT documented as of this encounter Care Teams Television Journalist Relationship Specialty Start Date End Date Name, MD Chele [address] [place] [address] PCP - General Geriatric Psychiatry 07/10/22 Migdalia Dean MD [address] [place] [address] [email or web address] Primary Oncologist Medical Oncology 05/29/22 Ileana Milian MD [address] [place] [address] [email or web address] Surgery 06/04/22 Craa Morrison MD [address] [place] [address] [email or web address] Hematology and Oncology 06/04/22 Rena Antonio MD [address] [facility] [address] [place] [address] [email or web address] Radiation Oncology 06/04/22 Jennifer Szymanski PA-C [address] [facility] [address] [place] [address] [email or web address] Physician Peer Health Promoter Medical Oncology 06/04/22 Alicia Pires CNP [address] [place] [address] [email or web address] Nurse Practitioner Medical Oncology 06/09/22 Trish Gan MD [address] [place] [address] Obstetrics and Gynecology 07/20/24 documented as of this encounter Additional Source Comments The information contained in this document represents components of the legal health record. It is not the complete legal health record.[facility]
--- OUTSIDE RECORDS SUMMARY | 2025-10-31 13:13 | XMS_ITS | Encounter Summary ---
Author Organization [employer] Address [address] [place] [address] Care Team Providers Care Animated Cartoons Painter Name Role Phone Name, Chele GALLEGOS Primary Care Provider [phone] Encounter Details Date Type Department Care Team (Latest Contact Info) Description 10/31/2025 Travel Social History Tobacco Use Types Packs/Day [...] documented as of this encounter Care Teams Animated Cartoons Painter Relationship Specialty Start Date End Date Name, MD Chele [address] [place] [address] PCP - General Family Medicine 06/23/22 documented as of this encounter
--- OUTSIDE RECORDS SUMMARY | 2025-10-31 13:13 | XMS_ITS | Encounter Summary ---
Author Organization [employer] Address [address] [place] [address] 7t [place] [address] Care Team Providers Care Sugar Reprocess Operator Head Name Role Phone Name, Chele GALLEGOS Primary Care Provider [phone] Encounter Details Date Type Department Care Team ([facility] st Contact Info) Description 10/30/2022 Orders Only [facility] [address] [place], [place] [phone] Name, MD Chele [address] [place] [address] Social History Tobacco Use Types Packs/Day Years [...] on filedocumented in this encounter Care Teams Sugar Reprocess Operator Head Relationship Specialty Start Date End Date Name, MD Chele [address] [place] [phone] PCP - General Family Medicine 06/23/22 documented as of this encounter
--- OUTSIDE RECORDS SUMMARY | 2025-10-31 13:13 | XMS_ITS | Encounter Summary ---
Author Organization [employer] Address [address] [facility] [address] 7[address] [place] [address] Care Team Providers Care Tree Specialist Name Role Phone Name, Chele GALLEGOS Primary Care Provider [phone] Reason for Visit * Reason Onset Date Comments FYI 12/03/2023 Encounter Details Date Type Department Care Team ([facility] st Contact Info) Description 12/03/2023 Telephone [facility] [address] [place], [place] [phone] Name, MD Chele [address] [place] [address] Social History Tobacco Use Types Packs/Day Years [...] Barron - 12/03/2023 10:56 AM EST Wily perkins calling to advise PCP they will not [...] documented as of this encounter Care Teams Tree Specialist Relationship Specialty Start Date End Date Name, MD Chele [address] [place] [address] PCP - General Family Medicine 06/23/22 documented as of this encounter
--- OUTSIDE RECORDS SUMMARY | 2025-10-31 13:13 | XMS_ITS | Encounter Summary ---
Author Organization [employer] Address [address] [facility] [address] [facility] [address] [place] [address] Care Team Providers Care Sheet Metal Welder Name Role Phone Name, Chele GALLEGOS Primary Care Provider [phone] Reason for Visit * Reason Onset Date Comments nightguard 01/22/2025 Encounter Details Date Type Department Care Team ([facility] Contact Info) Description 01/22/2025 Telephone [facility] [address] [place] [address] Kemi Contreras, DDS [address] [place] [address] nightguard Social History Tobacco Use Types Packs/Day [...] not received PA request. Confirmed with front sight attacher [facility] that PA had not been submitted [...] Time PHQ-9 Depression Total Score: 4 04/27/20 10:35 AM EDT documented as of this encounter Care Teams Sheet Metal Welder Relationship Specialty Start Date End Date Name, MD Chele [address] [place] [phone] PCP - General Family Medicine 06/23/22 documented as of this encounter
--- OUTSIDE RECORDS SUMMARY | 2025-10-31 13:13 | XMS_ITS | Encounter Summary ---
Author Organization [employer] Address [address] [place] [address] 7t [place] [address] Care Team Providers Care Pile Driver Operator Barge Mounted Name Role Phone Name, Chele GALLEGOS Primary Care Provider [phone] Encounter Details Date Type Department Care Team ([facility] st Contact Info) Description 10/16/2022 Orders Only [facility] [address] [place], [place] [phone] Name, MD Chele [address] [place] [address] Social History Tobacco Use Types Packs/Day Years [...] on filedocumented in this encounter Care Teams Pile Driver Operator Barge Mounted Relationship Specialty Start Date End Date Name, MD Chele [address] [place] [phone] PCP - General Family Medicine 06/23/22 documented as of this encounter
--- OUTSIDE RECORDS SUMMARY | 2025-10-31 13:13 | XMS_ITS | Patient Health Record ---
Author Organization [facility] Address [address] [place] [address] Care Team Providers Care Retail Helper Name Role Phone DEBRA GALLEGOS, TIAGO Primary Care Provider Tiago Baez Unavailable [phone] Allergies Allergen (clinical drug ingredient) Drug/Non Drug Allergy documented on EMR Reaction Allergy Type Onset Date Status Sulfa Unknown Drug Allergy Active Reason For Referral No Information Medications Medication SIG (Take, Route, Frequency, Duration) Notes Start Date End Date Status Multi Vitamin/Minerals - Tablet 1 Orally QD Active Gabapentin 600 MG Tablet 1 tablet Orally Twice a day/prn Active MiraLax (colon prep) 8.3 ounce ((238) grams mixed with Gatorade or Crystal Light orally begin at 5:00 p.m. the day before the procedure; Duration: 1 day 03/10/2018 Active Dulcolax (colon prep) 5 MG Tablet Delayed Release take at 3:00 p.m and 7:00p.m. Orally two tablets twice a day for one day; Duration: 1 day 03/10/2018 Active Social History Tobacco Use: Social History Observation Description Date Details (start date - stop date) Former Smoker NA - NA Social History Drugs/Alcohol: Social Info Question Answer Notes Alcohol Screen Did you have a drink containing alcohol in the past year? Yes How often did you have a drink containing alcohol in the past year? Monthly or less (1 point) How many drinks did you have on a typical day when you were drinking in the past year? 1 or 2 drinks (0 point) How often did you have 6 or more drinks on one occasion in the past year? Never (0 point) Points 1 Interpretation Negative Tobacco Use: Social Info Question Answer Notes Tobacco Use/Smoking Patient is a former smoker How long has it been since you last smoked? 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--[employer] Notes: Nonsmoker > 10 yrs ago;no si g alcohol Problems Problem Type SNOMED Code ICD Code Onset Dates Problem Status W/U Status Risk Notes Problem Screening for malignant neoplasm of colon (143345390) Encounter for screening for malignant neoplasm of colon (Z12.11) Active confirmed Plan Of Treatment Future Test Test Name Order Date COLONOSCOPY 03/10/2018 Insurance Providers Payer Name Payer Address Payer Phone Subscriber Number Group Number Insured Name Patient Relationship to Insured Coverage Start Date Coverage End Date MEDICARE OF [place] [address] [place] [phone] [id number] AVNI DRAKE Self - patient is the insured MEDICAID OF [facility] [address] [place] [address] [id number] AVNI DRAKE Self - patient is the insured Medical (General) History Medical History History ICD Code Breast cancer--right side--lumpectomy 20 004, XRT Denies GA,DM,CVA, Renal disease Describes a colonoscopy at [facility] at a pprox. age 53 with polyps removed Leg cramps--takes Gabapentin prn COPD Surgical History Surgery Date(Month/Year) Cataract-lens implants 2018 Lumpectomy-right breast 2004 Tubal ligation 1984 Right inguinal hernia repair 1977
--- OUTSIDE RECORDS SUMMARY | 2025-10-31 13:13 | XMS_ITS | Encounter Summary ---
Author Organization [facility] Address [address] [facility] [address] [place] [address] Phone Care Team Providers Care Entry Level Electrical Engineer Name Role Phone Migdalia Dean MD Unavailable Ileana Milian MD Unavailable Cara Morrison MD Unavailable [phone] Rena Antonio MD Unavailable Jennifer SzymanskiC Unavailable doretha LexisAlicia NUMERICAL CONTROL NESTING OPERATOR Unavailable Name, Chele GALLEGOS Primary Care Provider [phone] Trish Gan MD Unavailable Encounter Details Date Type Department Care Team (Late st Contact Info) Description 04/15/2024 Procedure Pass [facility], [address] [address] Social History Tobacco Use Types Packs/Day Years [...] Contact Info) Description 05/09/2025 Procedure Pass [address] [address] 11/06/2025 9:00 AM EST Office Visit [facility] at [address] [address] Migdalia Dean MD [address] [place] [address] 11/08/2025 1:15 PM EST Appointment [address] [address] Migdalia Dean MD [address] [place] [address] 12/21/2025 10:00 AM EST Appointment [facility] [address] [place] [address] Migdalia Dean MD [address] [place] [address] [email or web address] documented as of this encounter Visit Diagnoses Not on filedocumented in this encounter Additional Health Concerns Assessment Noted Time PHQ-9 Depression Total Score: 8 04/21/20 1:00 PM EDT PHQ-2 Depression Total Score: 1 04/21/20 1:00 PM EDT documented as of this encounter Care Teams Entry Level Electrical Engineer Relationship Specialty Start Date End Date Name, MD Chele [address] [place] [address] PCP - General Geriatric Psychiatry 07/10/22 Migdalia Dean MD [address] [place] [address] [email or web address] Primary Oncologist Medical Oncology 05/29/22 Ileana Milian MD [address] [place] [address] [email or web address] Surgery 06/04/22 Cara Morrison MD [address] [place] [address] [email or web address] Hematology and Oncology 06/04/22 Rena Antonio MD [address] [facility] [address] [place] [address] [email or web address] Radiation Oncology 06/04/22 Jennifer Szymanski PA-C [address] [facility] [address] [place] [address] [email or web address] Physician Lawnmower Repair Mechanic Medical Oncology 06/04/22 Alicia Pires CNP [address] [place] [address] [email or web address] Nurse Practitioner Medical Oncology 06/09/22 Trish Gan MD [address] [place] [address] Obstetrics and Gynecology 07/20/24 documented as of this encounter Additional Source Comments The information contained in this document represents components of the legal health record. It is not the complete legal health record.[facility]
--- OUTSIDE RECORDS SUMMARY | 2025-10-31 13:13 | XMS_ITS | Encounter Summary ---
Author Organization [employer] Address [address] [place] [address] [address] [place] [address] Care Team Providers Care Conductor Symphonic Orchestra Name Role Phone Name, Chele GALLEGOS Primary Care Provider [phone] Encounter Details Date Type Department Care Team ([facility] st Contact Info) Description 10/23/2022 Orders Only [facility] [address] [place], [place] [phone] Name, MD Chele [address] [place] [address] Social History Tobacco Use Types Packs/Day Years [...] on filedocumented in this encounter Care Teams Conductor Symphonic Orchestra Relationship Specialty Start Date End Date Name, MD Chele [address] [place] [address] [phone] PCP - General Family Medicine 06/23/22 documented as of this encounter
--- OUTSIDE RECORDS SUMMARY | 2025-10-31 13:13 | XMS_ITS | Encounter Summary ---
Author Organization [employer] Address [address] 7t [place] [address] Care Team Providers Care Plant Custodian Name Role Phone Name, Chele GALLEGOS Primary Care Provider [phone] Reason for Visit * Reason Onset Date Comments Nurse Triage 05/29/2024 Encounter Details Date Type Department Care Team ([facility] st Contact Info) Description 05/29/2024 Telephone [facility] [address] [place], [place] [phone] Name, MD Chele [address] [place] [address] Nurse Triage Social History Tobacco Use Types [...] Pt advised of disposition, agrees to seek [facility] now for eval. Sent to team [...] documented as of this encounter Care Teams Plant Custodian Relationship Specialty Start Date End Date Name, MD Chele [address] [place] [address] PCP - General Family Medicine 06/23/22 documented as of this encounter
--- OUTSIDE RECORDS SUMMARY | 2025-10-31 13:13 | XMS_ITS | Clinical Summary ---
Author Organization [employer] Address [address] [facility] 7t [place] [address] Care Team Providers Care Embroiderer Hand Name Role Phone Name, Chele GALLEGOS Primary Care Provider [phone] Allergies Active Allergy Reactions Criticality Noted Date [...] 6 (six) hours as needed for pain 02/04/2023 Active clobetasol (Temovate) 0.05 % ointment Apply a pea sized amount twice weekly 12/07/2022 Active Multiple Vitamin (multivitamin) tablet Take 1 tablet by mouth Once per day. Active zinc gluconate 50 MG tablet Take 50 mg by mouth Once per day. Active albuterol 108 (90 Base) MCG/ACT inhalerIndicati ons:Subacute cough Inhale 2 puffs every 6 (six) hours if needed for wheezing. 18 g 11 11/29/2024 Active aspirin 81 MG chewable tabletIndicatio ns:Atherosclero sis of [place] coronary artery of [place] heart without angina pectoris Chew 1 tablet (81 mg) Once per day. 30 tablet 11 11/29/2024 Active Active Problems Problem Noted Date Diagnosed [...] will be contacted with results Atherosclerosis of [place] co ronary artery of [place] heart without angina pectoris 11/29/2024 Overview (11/29/2024): she underwent a nuclear stress test on 06/29/2024 which showed no ischemia, fixed defect in the inferior septal, distal part of the inferior lateral wall, probable artifact. An echocardiogram done 08/29/2024 showed EF 65%, dozx-ld-ihuldfyz TR, no reported regional wall motion abnormality, [...] 10/07/2022 Triple negative breast cancer (CMS/HCC) 10/07/20 22 Cardiovascular event risk 10/07/2022 Anxiety 06/11/2022 Overview [...] breast 03/27/2021 Overview (09/15/2023): 2004: Treated at [facility] for stage I triple negative right breast cancer with lumpectomy, sentinel node biopsy, and post-op RT. 06/06/20: Bilateral screening mammogram ([facility]) shows no findings of malignancy. There are stable post therapeutic changes in the right breast, and benign appearing calcifications. The left breast remains normal. 03/11/22: Bilateral diagnostic mammogram and u/s of right breast ([facility]) for self-palpated right breast mass showed hypoechoic area in right breast, 1.0 x 0.9 cm. 03/16/22: Core biopsy, right breast ([facility]). Pathology shows invasive ductal carcinoma, grade 2. ER/MT negative (0%); HER 2 negative (0%), Ki-67 15%. 03/26/22: nooked (nuPSYS) germline testing for BRCA1 and BRCA2 showed a deleterious mutation in BRCA1 ([id number].[id number]). 03/31/22: Pathology reviewed by [facility]. This showed poorly differentiated invasive adenocarcinoma, spanning at least 0.7 cm. 04/27/22: Right mastectomy and sentinel lymph node excision ([facility]). Pathology shows invasive [...] 06/11/2022 09/15/2023 Pneumonia 06/11/2022 03/03/2023 Chronic bronchitis (CMS/HCC) 12/23/2021 03/03/2023 Infiltrating ductal carcinom a of breast, stage 1 (CMS/HCC) 12/23/2021 09/15/2023 Insomnia 12/23/2021 09/15/2023 Hyperlipidemia 11/30/2021 09/15/2023 Dyspnea 03/27/2021 03/03/2023 Encounters Date Type Department Care Team Description 10/31/2025 10:30 AM EST Office Visit [facility] [address] [place] [address] Chele Ackerman MD Rib pain on right side (Primary Dx); BRCA1 gene mutation positive; History of breast cancer; Encounter for immunization 10/31/2025 Travel 10/30/2025 Telephone [facility] [address] [place] [phone] Chele Ackerman MD CHARTPREP 10/24/2025 Travel 08/01/2025 9:45 AM EDT Office Visit [facility] [address] [facility] [place] [address] Chele Ackerman MD UTI symptoms (Primary Dx); Tiredness 08/01/2025 Results Follow-Up [facility] [address] [place] [address] Chele Ackerman MD Urinalysis, Complete, with Reflex to Culture, POCT Urinalysis 08/01/2025 Travel 07/31/2025 Travel from Last 3 Months Immunizations Immunization Administration Dates Next Due Influenza, High Dose Seasona l, Preservative Free 10/31/2025,08/31/2024,07/04/2019 Influenza, IIV3, injectable 07/04/2019,0 11/07/2014,11/14/2013,08/03 Moderna Covid-19 [...] Mass Index 24.14 10/31/2025 10:47 AM EST Plan of Treatment Health Maintenance Due Date Last Done Comments DTaP/Tdap/Td Vaccines (1 - Tdap) 02/12/2018 02/11/2018 RSV Patients and Patients Aged 60 years or older (1 - 1-dose 75+ series) 2018 Zoster Vaccines (2 of 2) 03/17/2024 01/21/2024 Dental Oral Exam 12/17/2024 06/15/2024, 06/13/2021 Dental X-Ray: Bitewings 06/16/2025 06/15/2024, 06/13 COVID-19 Vaccine ( season) 2025 08/31/2024, 01/21/2024, 03/28/2022, Additional history exists Dental Prophylaxis 07/21/2025 01/17/2025, 06/26/2024 Alcohol/Substance Use Screening 03/20/2026 03/20/2025 Depression Screening 03/20/2026 03/20/2025, 03/20/20 SDOH Screening 03/20/2026 03/20/2025 Lipid Panel 03/26/2026 03/26/2021 Tobacco Screening 10/31/2026 10/31/2025 Mammogram 06/14/2027 06/14/2025, 10/02, 10/24/2024, Additional history exists Dental X-Ray: Full Mouth 06/16/2027 06/15/2024, 06/01 Pneumococcal Vaccine: 50+ Years Completed 04/27/2024, 11/30/2019 Influenza Vaccine Completed 10/31/2025, , 07/04/2019, Additional history exists HIB Vaccines [...] PM EST Rib pain on right side POCT URINALYSIS DIPSTICK Routine 08/01/2025 10:36 AM EDT UTI symptoms Tiredness URINALYSIS, COMPLETE, WITH REFLEX TO CULTURE Routine 08/01/2025 10:24 AM EDT UTI symptoms CULTURE, URINE, ROUTINE Routine 08/01/2025 12:00 AM EDT Peripheral vertigo, unspecified laterality PROPHYLAXIS - ADULT Routine 01/17/2025 2 :00 [...] Recently Relevant to Health Maintenance Results * XR Chest 2 Views (10/31/2025 12:08 PM EST) Anatomical Region Laterality Modality Chest Radiographic Marifer ging 10/31/2025 12:0 8 PM EST Narrative 10/31/2025 12:41 PM EST [address] [address] XRay Report Signed Patient: Marilia Bashir MR#: [id number] : 1945 Acct:[id number] Age/Sex: 79 / F ADM Date: 10/31/25 Loc: [facility] Attending Dr: Chele Ackerman MD Ordering Physician: Chele Ackerman MD Date of Service: 10/31/25 Procedure(s): XR chest 2V Accession Number(s): [id number] cc: Chele Ackerman MD Reason for Exam: [...] by: Raghav Gilmore MD 10/31/2025 12:38 PM [facility] Dictated By: Raghav Gilmore MD Signed By: <Electronically signed by Raghav Gilmore MD in OV> 10/31/25 1238 DD/ 1208 TD/TT: 10/31/25 1208 [place] Planning Manager: Procedure Note Donotuseinterpreter, Image - 10/31/2025 [place] [address] XRay Report Signed Patient: Cherelle Bashir#: [id number] : 4Acct:[id number] Age/Sex: 79 / FADM Date: 10/31/25 Loc: [facility] Attending Dr: Chele Ackerman MD Ordering Physician: Chele Ackerman MD Date of Service: 10/31/25 Procedure(s): XR chest 2V Accession Number(s): [id number] cc: Chele Ackerman MD Reason for Exam: [...] by: Raghav Gilmore MD 10/31/2025 12:38 PM EST RP Dictated By: Raghav Gilmore MD Signed By: <Electronically signed by Raghav Gilmore MD in OV> 10/31/25 1238 DD/ 1208 TD/TT: 10/31/25 1208 [place] Planning Manager: us Chele Ackerman MD IMG XR PROCEDURES Final Result * (ABNORMAL) POCT Urinalysis (08/01/2025 10:36 AM [...] 08/01/2025 10:3 6 AM EDT us Chele Ackerman MD POINT OF CARE TEST ENTER/EDIT OR DERABLES Final Result * (ABNORMAL) Urinalysis, Complete, with Reflex to Culture (08/01/2025 10:24 AM EDT) Color Urine Yellow [facility] Appearance Urine Clear [facility] PH 5.5 5.0 - 9.0 [facility] Glucose Urine UA Negative Negative mg/dL [facility] Urine Blood Negative Negative [facility] Specific [place] - Urine 1.015 1.005 - 1.025 [facility] Urine Protein Negative Neg-Trace mg/dL [facility] Urine Ketones Negative Negative mg/dL [facility] Nitrite Urine Negative Negative [facility] Leukocyte Esterase Urine Moderate (2+)(A) Negative [facility] RBC Urine 0-2 0 - 2 /HPF [facility] Urine WBC 11-20(A) 0 - 5 /HPF [facility] Urine Squamous Epithelial Cell 6-10 0 - 2 /HPF [facility] Urine Bacteria None Seen None Seen [facility] Hyaline Casts, Urine 3-5 0 - 2 /LPF [facility] Urine 08/01/2025 10:2 4 AM EDT 08/01/2025 1:16 PM EDT Narrative [facility] - 08/01/2025 1:47 PM EDT Urine, Clean Catch us Chele Ackerman MD LAB URINE ORDERABLES Final Resul t Performing Organization Address City/[facility]/ZIP Co de Phone Number [facility] [address] [place] [phone] * Culture, Urine, Routine (08/01/2025 12:00 AM EDT) Urine Urine specimen obtained by clean catch procedure / Unknown 08/01/2025 08/01/2025 Comment:[facility] Narrative [facility] - 08/02/2025 12:07 PM EDT Urine Culture No growth. Specimen Source: Urine clean catch us Chele Ackerman MD LAB MICROBIOLOGY - GENERAL ORDER ALFREDO Final Result Performing Organization Address City/[facility]/ZIP Co de Phone Number [facility] [address] [place] [phone] * Mammography Report 1 (03/11/2022 3:25 PM EDT) Anatomical Region Laterality Modality Breast Bilateral Mammography 03/11/2022 3:25 PM EDT Narrative 03/11/2022 5:14 PM EDT Refer to the Notes tab for result details [facility] Procedure: Mammography Report 1 Procedure Note Provider, MD Rajesh - 01/24/2023 Refer to the Notes tab for result details [facility] Procedure: Mammography Report 1 us Haydee Kelly NP IMG BI PROCEDURES Final [...] LDL-C. Ayden HARDING et al. MATTHEW. 2013;310(19): 1349-3772 (http://education.Mind Lab.com/faq/UCH016) Non-HDL Cholesterol 171(H) <130 mg/dL (calc) [facility] [...] Resu lt [facility] [address] from Last 3 Months or Most Recently Relevant to Health Maintenance Insurance [facility] OPTIONS (HMO D-SNP) [facility] Care Teams Embroiderer Hand Relationship Specialty Start Date End Date Name, MD Chele [address] [place] [address] PCP - General Family Medicine 06/23/22
--- OUTSIDE RECORDS SUMMARY | 2025-10-31 13:13 | XMS_ITS | Encounter Summary ---
Author Organization [employer] Address [address] [place] [address] Care Team Providers Care Yard Specialist Name Role Phone Name, Chele GALLEGOS Primary Care Provider [phone] Reason for Visit * Reason Onset Date Comments CHARTPREP 10/30/2025 Encounter Details Date Type Department Care Team ([facility] Contact Info) Description 10/30/2025 Telephone [facility] [address] [place], [place] [phone] Name, MD Chele [address] [place] [address] CHARTPREP Social History Tobacco Use Types Packs/Day Years [...] encounter Miscellaneous Notes * Telephone Encounter - [place] - 10/30/2025 4:11 PM EST Chart Prep Labs: not done order from 08/01/25 Images: done Referrals: Referral cancelled due to duplicate. Miscommunication with PT referral first sent to [facility]. Patient is going to [facility] [place] for PT and is all set. Vaccines due: Covid, Flu, Tdap, RSV, and Zoster Screenings: not applicable Overdue care gaps: Not applicable documented in this encounter Plan of Treatment Not on file documented as of this encounter Visit Diagnoses Not on filedocumented in this encounter Additional Health Concerns Assessment Noted Time PHQ-9 Depression Total Score: 6 03/20/20 3:43 PM EDT documented as of this encounter Care Teams Yard Specialist Relationship Specialty Start Date End Date Name, MD Chele [address] [place] [address] PCP - General Family Medicine 06/23/22 documented as of this encounter
--- OUTSIDE RECORDS SUMMARY | 2025-10-31 13:14 | XMS_ITS | Clinical Summary ---
Author Organization [facility] Address [address] [address] Phone Care Team Providers Care Tank Driver Name Role Phone Unavailable Primary Care Provider [...] Used Date Smoking Tobacco: Former Cigarettes 0 Q uit: 1985 Smokeless Tobacco: Never Tobacco [...] patient's age to complete this topic Insurance [facility] Medicare
--- OUTSIDE RECORDS SUMMARY | 2025-10-31 13:14 | XMS_ITS ---
Author Organization [facility] Address [address] [facility] [address] [place] [address] Phone Care Team Providers Care Retail Event And Sales Assistant Name Role Phone Migdalia [place] MD Unavailable [phone] Ileana Milian MD Unavailable Cara [place] MD Unavailable [phone] Rena Antonio MD Unavailable Jennifer SzymanskiC Unavailable doretha LexisAlicia PIANO REFINISHER Unavailable Name, Chele GALLEGOS Primary Care [...] POS note on 04/21/22 (Dr. Blum). [facility] case loader operator school crossing guard supervisor for [phone] Problem Noted Date Diagnosed Date [...] ([facility])* Plan Start Date:07/10/2022 Plan Provider:Mimi Calixto NP Linked Problems Malignant neoplasm of lower- outer [...]
--- OUTSIDE RECORDS SUMMARY | 2025-10-31 13:14 | XMS_ITS | Encounter Summary ---
Author Organization [facility] Address [address] [facility] [address] [place] [address] Phone Care Team Providers Care Forklift Mechanic Name Role Phone Haydee Kelly NURSE LICENSED PRACTICAL Primary Care Provider U Malathi Wall MD Primary Care Provider [phone] Haydee Kelly NURSE LICENSED PRACTICAL Primary Care Provider U Malathi Wall MD Primary Care Provider Migdalia Dean MD Unavailable [phone] Haydee Kelly NURSE LICENSED PRACTICAL Primary Care Provider U Ileana Craven MD Unavailable Cara Morrison MD Unavailable [phone] Rena Antonio MD Unavailable Jennifer SzymanskiC Unavailable doretha Alicia Pires CNP Unavailable Chele Ackerman MD Primary Care Provider [phone] Trish Gan MD Unavailable Encounter Details Date Type Department Care Team (Late st Contact Info) Description 03/31/2022 Ancillary Orders [facility] Surgical Oncology [address] [facility], 9th Floor, [address] [place] [address] Ileana Milian MD [address] [facility], [address] [place] [address] [email or web address] Social History Tobacco Use Types [...] st Contact Info) Description 05/09/2025 Procedure Pass [address] [address] 11/06/2025 9:00 AM EST Office Visit [facility] [place] [facility] at [address] [address] Migdalia Dean MD [address] [place] [address] 11/08/2025 1:15 PM EST Appointment [address] [address] Migdalia Dean MD [address] [place] [address] 12/21/2025 10:00 AM EST Appointment [address] [address] Migdalia Dean MD [address] [place] [address] documented as of this encounter Visit Diagnoses Not on filedocumented in this encounter Additional Health Concerns Infection Onset Date Last Indicated Resolved Time CoV-Risk 07/22/2022 07/23/2022 08/03/2022 1:22 AM EDT CoV-Risk 08/21/2022 08/25/2022 08/28/2022 2:23 PM EDT COVID-19 09/07/2022 09/09/2022 09/28/2022 1:21 AM EST documented as of this encounter Care Teams Forklift Mechanic Relationship Specialty Start Date End Date Haydee Kelly NP PCP - General Family Medicine 03/20/22 04/06/22 Malathi Keys MD [address] [place] [address] [email or web address] PCP - General Family Medicine 04/07/22 04/14/22 Haydee Kelly NP PCP - General Family Medicine 04/15/22 04/23/22 Malathi Keys MD [address] [place] [address] [email or web address] PCP - General Family Medicine 04/24/22 06/03/22 Haydee Kelly NP PCP - General Family Medicine 06/04/22 07/09/22 Chele Ackerman MD [address] [place] [address] PCP - General Geriatric Psychiatry 07/10/22 Migdalia Dean MD [address] [place] [address] [email or web address] Primary Oncologist Medical Oncology 05/29/22 Ileana Milian MD [address] [address] [email or web address] General Surgery 06/04/22 Cara Morrison MD [address] [facility] [address] [place] [address] [email or web address] Hematology and Oncology 06/04/22 Rena Antonio MD [address] [facility] [address] [place] [address] [email or web address] Radiation Oncology 06/04/22 Jennifer Szymanski PA-C [address] [facility] [address] [place], [place] [email or web address] Physician Safety Instructor Medical Oncology 06/04/22 Alicia Pires CNP [address] [place] [address] [email or web address] Nurse Practitioner Medical Oncology 06/09/22 Trish Gan MD [address] [place] [address] Obstetrics and Gynecology 07/20/24 documented as of this encounter Additional Source Comments The information contained in this document represents components of the legal health record. It is not the complete legal health record.[facility]
--- OUTSIDE RECORDS SUMMARY | 2025-10-31 13:14 | XMS_ITS | Encounter Summary ---
Author Organization [facility] Address [address] [facility] [address] [place] [address] Phone Care Team Providers Care Product Support Representative Name Role Phone Migdalia Dean MD Unavailable [phone] Ileana Milian MD Unavailable Cara Morrison MD Unavailable [phone] Rena Antonio MD Unavailable Jennifer SzymanskiC Unavailable doretha Alicia Pires ENVIRONMENTAL ENGINEER SCIENTIST Unavailable Name, Chele GALLEGOS Primary Care Provider [phone] Trish Gan MD Unavailable Encounter Details Date Type Department Care Team (Latest Contact Info) Description 05/05/2024 Transcribe Orders Virtual Department 30 [place] [address] Trish Gan MD [address] [facility] 4 [place] [address] Malignant neoplasm of ovary, unspecified laterality (Primary [...] st Contact Info) Description 05/09/2025 Procedure Pass [address] [address] 11/06/2025 9:00 AM EST Office Visit [facility] [place] [facility] at [address] [address] Migdalia Dean MD [address] [place] [address] 11/08/2025 1:15 PM EST Appointment [address] [address] Migdalia Dean MD [address] [place] [address] [email or web address] 12/21/2025 10:00 AM EST Appointment [facility] 30 [place] [address] Migdalia Dean MD 30 [place] [address] [email or web address] documented as of this encounter Visit Diagnoses Diagnosis Malignant neoplasm of ovary, unspecified laterality- Primary documented in this encounter Additional Health Concerns Assessment Noted Time PHQ-9 Depression Total Score: 8 04/21/20 1:00 PM EDT PHQ-2 Depression Total Score: 1 04/21/20 1:00 PM EDT documented as of this encounter Care Teams Product Support Representative Relationship Specialty Start Date End Date Name, MD Chele [address] [place] [address] PCP - General Geriatric Psychiatry 07/10/22 Migdalia Dean MD 30 [place] [address] [email or web address] Primary Oncologist Medical Oncology 05/29/22 Ileana Milian MD [address] [place] [address] [address] [place] [address] [email or web address] General Surgery 06/04/22 Cara Morrison MD [address] [facility] [address] [place] [address] [email or web address] Hematology and Oncology 06/04/22 Rena Antonio MD [address] [facility] [address] [place] [address] Radiation Oncology 06/04/22 Jennifer Szymanski PA-C [address] [facility] [address] [place] [address] Physician Edge Burnisher Uppers Medical Oncology 06/04/22 Alicia Pires CNP 30 [place] [address] [email or web address] Nurse Practitioner Medical Oncology 06/09/22 Trish Gan MD [address] [place] [address] 4 [place] [address] Obstetrics and Gynecology 07/20/24 documented as of this encounter Additional Source Comments The information contained in this document represents components of the legal health record. It is not the complete legal health record.[facility]
--- OUTSIDE RECORDS SUMMARY | 2025-10-31 13:14 | XMS_ITS | Encounter Summary ---
Author Organization [facility] Address [address] [facility] [address] [place] [address] Phone Care Team Providers Care Can Doffer Name Role Phone Haydee Kelly GLOBAL PROGRAM MANAGER Primary Care Provider U Malathi Wall MD Primary Care Provider Haydee Kelly GLOBAL PROGRAM MANAGER Primary Care Provider U Malathi Wall MD Primary Care Provider [phone] Migdalia Dean MD Unavailable Haydee Kelly GLOBAL PROGRAM MANAGER Primary Care Provider U Ileana Craven MD Unavailable Cara Morrison MD Unavailable [phone] Rena Antonio MD Unavailable [phone] Jennifer SzymanskiC Unavailable doretha Alicia Pires CNP Unavailable Name, Chele GALLEGOS Primary Care Provider [phone] Trish Gan MD Unavailable Encounter Details Date Type Department Care Team (Late st Contact Info) Description 03/31/2022 Ancillary Orders [facility] [address] [place] [address] Ileana Milian MD [address] [place] [address] [email or web address] Malignant neoplasm of right female breast, [...] st Contact Info) Description 05/09/2025 Procedure Pass [address] [address] 11/06/2025 9:00 AM EST Office Visit [facility] [place] [facility] at [address] [address] Migdalia Dean MD [address] [place] [address] [email or web address] 11/08/2025 1:15 PM EST Appointment [address] [address] Migdalia Dean MD [address] [place] [address] 12/21/2025 10:00 AM EST Appointment [address] [address] Migdalia Dean MD [address] [place] [address] [email or web address] documented as of this encounter Results * Mammogram Outside With Interpretation Or Consult (03/31/2022 9:25 AM EDT) 03/31/2022 Impressions [facility] - 04/09/2022 6:47 PM EDT 1. Hypoechoic [...] - Appropriate Action Should Be Taken Narrative [facility] - 04/09/2022 6:47 PM EDT OUTSIDE INTERPRETATION [...] (03/11/2022): Please note that ultrasound is an construction equipment operator-dependent real time examination, so evaluation of [...] at the biopsy site. Pathology (Reviewed by [facility] A. 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 Procedure Note French, Malathi Ngee Foong, MD - 04/10/2022 OUTSIDE INTERPRETATION STUDIES PROVIDED FOR INTERPRETATION: -Right diagnostic and left screening mammogram 03/11/2022 -Right breast ultrasound 03/11/2022 -Right breast ultrasound guided biopsy and post-procedure mammogram03/16/2022 Multiple additional prior mammograms are also submitted for comparison. HISTORY: [facility] FINDINGS: Right Diagnostic Mammogram and Left Screening Mammogram (03/11/2022): [facility] MLO [facility]osynthesis image available for review. There are scattered fibroglandular densities. There is a focal asymmetry in the lower outer right breast at middle depth(best seen on CC spot compression view ). There are post lumpectomychanges in the right [...] clip atthe biopsy site. Pathology ([facility]ed by [facility] A. BREAST CORE BIOPSY, RIGHT AT 7 O'CLOCK ([id number]; 03/16/2022): Poorly differentiated invasive adenocarcinoma, spanning at [...] Proven Malignancy - Appropriate ActionShould Be Taken Ileana Michelle miles MD IMMckay OUTSIDE IMAGING W/ INTERPRETATION Final Result [facility] [address] [place] [address] documented in this encounter Visit Diagnoses Diagnosis [...] documented as of this encounter Care Teams Can Doffer Relationship Specialty Start Date End Date Haydee Kelly NP PCP - General Family Medicine 03/20/22 04/06/22 Malathi Keys MD [address] [place] [address] [email or web address] PCP - General Family Medicine 04/07/22 04/14/22 Haydee Kelly NP PCP - General Family Medicine 04/15/22 04/23/22 Malathi Keys MD [address] [place] [address] PCP - General Family Medicine 04/24/22 06/03/22 Haydee Kelly NP PCP - General Family Medicine 06/04/22 07/09/22 Chele Ackerman MD [address] [place] [address] PCP - General Geriatric Psychiatry 07/10/22 Migdalia Dean MD 30 [place] [address] Primary Oncologist Medical Oncology 05/29/22 Ileana Milian MD 55 [facility], [facility] 7[address] [place] [address] [email or web address] General Surgery 06/04/22 Cara Morrison MD [address] [address] [email or web address] Hematology and Oncology 06/04/22 Rena Antonio MD [address] [facility] [address] [place] [address] Radiation Oncology 06/04/22 Jennifer Szymanski PA-C [address] [facility] [address] [place], [place] [email or web address] Physician Creative Resource Manager Medical Oncology 06/04/22 Alicia Pires CNP 30 [place] [address] [email or web address] Nurse Practitioner Medical Oncology 06/09/22 Trish Gan MD [address] [place] [address] Obstetrics and Gynecology 07/20/24 documented as of this encounter Additional Source Comments The information contained in this document represents components of the legal health record. It is not the complete legal health record.[facility]
--- OUTSIDE RECORDS SUMMARY | 2025-10-31 13:14 | XMS_ITS | Encounter Summary ---
Author Organization [facility] Address [address] [facility] [address] [place] [address] Phone Care Team Providers Care Classified Advertising Clerk Name Role Phone Migdalia Dean MD Unavailable [phone] Ileana Milian MD Unavailable Cara Morrison MD Unavailable [phone] Rena Antonio MD Unavailable Jennifer SzymanskiC Unavailable doretha LexisAlicia E BUSINESS CONSULTANT Unavailable Name, Chele GALLEGOS Primary Care Provider [phone] Trish Gan MD Unavailable Encounter Details Date Type Department Care Team (Late st Contact Info) Description 02/04/2023 Procedure Pass OR Admitting Dept - Virtual Department 30 [place] [address] Social History Tobacco Use Types Packs/Day Years [...] Contact Info) Description 05/09/2025 Procedure Pass [address] [address] 11/06/2025 9:00 AM EST Office Visit [facility] [place] [facility] at [address] [address] Migdalia Dean MD [address] [place] [address] 11/08/2025 1:15 PM EST Appointment [address] [address] Migdalia Dean MD [address] [place] [address] 12/21/2025 10:00 AM EST Appointment [address] [address] Migdalia Dean MD [address] [place] [address] [email or web address] documented as of this encounter Visit Diagnoses Not on filedocumented in this encounter Additional Health Concerns Assessment Noted Time PHQ-9 Depression Total Score: 8 04/21/20 22 1:00 PM EDT PHQ-2 Depression Total Score: 1 04/21/20 22 1:00 PM EDT documented as of this encounter Care Teams Classified Advertising Clerk Relationship Specialty Start Date End Date Name, MD Chele [address] [place] [address] PCP - General Geriatric Psychiatry 07/10/22 Migdalia Dean MD [address] [place] [address] Primary Oncologist Medical Oncology 05/29/22 Ileana Milian MD 55 [facility], [facility] [address] [place] [address] [email or web address] General Surgery 06/04/22 Cara Morrison MD [address] [address] [email or web address] u Hematology and Oncology 06/04/22 Rena Antonio MD [address] [facility] [address] [place], [place] Radiation Oncology 06/04/22 Jennifer Szymanski PA-C [address] [facility] [address] [place], [place] [email or web address] Physician Hotel Sales Manager Medical Oncology 06/04/22 Alicia Pires CNP 30 [place] [address] [email or web address] Nurse Practitioner Medical Oncology 06/09/22 Trish Gan MD [address] [place] [address] Obstetrics and Gynecology 07/20/24 documented as of this encounter Additional Source Comments The information contained in this document represents components of the legal health record. It is not the complete legal health record.[facility]
--- OUTSIDE RECORDS SUMMARY | 2025-10-31 13:14 | XMS_ITS | Encounter Summary ---
Author Organization [facility] Address [address] [facility] [address] [place] [address] Phone Care Team Providers Care Semiconductor Dies Loader Name Role Phone Migdalia Dean MD Unavailable Haydee Kelly NP Primary Care Provider U Ileana Craven MD Unavailable Cara Morrison MD Unavailable [phone] Rena Antonio MD Unavailable Jennifer SzymanskiC Unavailable doretha LexisAlicia YACHT CAPTAIN Unavailable Tyron, Chele GALLEGOS Primary Care Provider [phone] Trish Gan MD Unavailable Encounter Details Date Type Department Care Team (Late st Contact Info) Description 06/04/2022 Procedure Pass [facility] 30 [place] [address] Social History Tobacco Use Types Packs/Day Years [...] st Contact Info) Description 05/09/2025 Procedure Pass [address] [address] 11/06/2025 9:00 AM EST Office Visit [facility] [place] [facility] at [address] [address] Migdalia Dean MD [address] [place] [address] 11/08/2025 1:15 PM EST Appointment [address] [address] Migdalia Dean MD [address] [place] [address] 12/21/2025 10:00 AM EST Appointment [address] [address] Migdalia Dean MD [address] [place] [address] documented as of this encounter Visit Diagnoses [...] documented as of this encounter Care Teams Semiconductor Dies Loader Relationship Specialty Start Date End Date Haydee Kelly, ERIC PCP - General Family Medicine 06/04/22 07/09/22 Chele Ackerman MD [address] [place] [address] PCP - General Geriatric Psychiatry 07/10/22 Migdalia Dean MD 30 [place] [address] [email or web address] Primary Oncologist Medical Oncology 05/29/22 Ileana Milian MD [address] [address] [email or web address] General Surgery 06/04/22 Cara Morrison MD [address] [address] [email or web address] Hematology and Oncology 06/04/22 Rena Antonio MD [address] [place], [place] [address] [place] [address] [email or web address] Radiation Oncology 06/04/22 Jennifer Szymanski PA-C 32 [facility] [address] [place], [place] [email or web address] Physician Requisition Approver Medical Oncology 06/04/22 Alicia Pires CNP 30 [place] [address] [email or web address] Nurse Practitioner Medical Oncology 06/09/22 Trish Gan MD [facility] [place] [address] Obstetrics and Gynecology 07/20/24 documented as of this encounter Additional Source Comments The information contained in this document represents components of the legal health record. It is not the complete legal health record.[facility]
--- OUTSIDE RECORDS SUMMARY | 2025-10-31 13:14 | XMS_ITS | Clinical Summary ---
Author Organization [facility] Address [address] [facility] [address] [place] [address] Phone Care Team Providers Care Ordnance Equipment Worker Name Role Phone Migdalia Dean MD Unavailable Ileana Milian MD Unavailable Cara Morrison MD Unavailable [phone] Rena Antonio MD Unavailable [phone] Jennifer SzymanskiC Unavailable doretha LexisAlicia SENIOR TELECOMMUNICATIONS CONSULTANT Unavailable Name, Chele GALLEGOS Primary Care Provider Trish Gan MD Unavailable Allergies Active Allergy [...] (Dr. Blum). [facility] -Becky Bennett oil field caser lieutenant shift supervisor for [facility]-[phone] Problem Noted Date Diagnosed Date Dehydration 09/04/2022 [...] once a year BRCA1 gene mutation positive Immunizations Immunization Administration Dates Next Due INFLUENZA, [...] 60.8 kg (134 lb 1.6 oz) 05/09/20 11:02 AM EDT with shoes Height 154.9 cm (5' 0.98 ) 05/09/2025 1 1:02 AM EDT Body Mass Index 25.35 05/09/2025 11:02 AM EDT Plan of Treatment Upcoming Encounters Date Type Department Care Team (Late st Contact Info) Description 05/09/2025 Procedure Pass [facility], [facility]- [address] [address] 11/06/2025 9:00 AM EST Office Visit [facility] [place] [facility] at [address] [address] Migdalia Dean MD [address] [place] [address] [email or web address] 11/08/2025 1:15 PM EST Appointment [address] [address] Migdalia Dean MD [address] [place] [address] [email or web address] 12/21/2025 10:00 AM EST Appointment [address] [address] Migdalia Dean MD [address] [place] [address] [email or web address] Health Maintenance Due Date Last Done Comments OSTEOPOROSIS SCREENING INITIAL (ONE-TIME) 2008 RSV VACCINE (1 - 1-dose 75+ series) 2018 DEPRESSION SCREENING 04/21/2023 04/21/2022, 04/21/20 22 ZOSTER VACCINES (2 of 2) 03/17/2024 01/21/2024 INFLUENZA VACCINE (#1) 2025 , 07/04/2019, 07/04/2019, Additional history exists COVID-19 VACCINE (2024- season) 2025 08/31/2024, 01/21/2024, 03/28/2022, Additional history [...] this topic Medical Devices Implanted Type Area Software Engineer Sales Device Identifier Shelf Expiration Date Model / Serial / Lot Lens Lens Right: Eye Insurance MEDICARE PART A & B [id number] [place] [address] MEDICARE REPLACEMENT MEDICARE PART A & B [facility] MEDICARE REPLACEMENT MEDICARE PART A & B [employer] [facility] MEDICARE REPLACEMENT ERICK CALI [address] MEDICARE PART A & B [facility] REPLAC[facility] MEDICARE PART A & B [facility] MEDICARE REPLACEMENT MEDICARE PART A & B [facility] MEDICARE REPLACEMENT MEDICARE PART A & B [facility] MEDICARE REPLACEMENT MEDICARE PART A & B [facility] MEDICARE REPLACEMENT MEDICARE PART A & B [facility] MEDICARE REPLACEMENT Advance Directives For more information, please contact: [phone] (9AM - 5PM [facility], Wednesday-Wednesday) Documents on File Type Date Recorded Patient Value Engineer Expl [employer] Proxy 04/23/2022 1:03 PM * Full Code (Latest Code Status on File) Date Activated Date Inactivated Comments 02/04/2023 7:57 AM Question Answer Comments Code Status Confirmed With: Patient * Full Code Date Activated Date Inactivated Comments 04/27/2022 4:13 PM 02/04/2023 7:57 AM Question Answer Comments Code Status Confirmed With: Patient Care Teams Ordnance Equipment Worker Relationship Specialty Start Date End Date Name, MD Chele [address] [place] [address] PCP - General Geriatric Psychiatry 07/10/22 Migdalia Dean MD [address] [place] [address] [email or web address] Primary Oncologist Medical Oncology 05/29/22 Ileana Milian MD [address] [place] [address] [email or web address] 06/04/22 Cara Morrison MD [address] [place] [address] [email or web address] Hematology and Oncology 06/04/22 Rena Antonio MD [address] [facility] [employer] [address] [place] [address] [email or web address] Radiation Oncology 06/04/22 Jennifer Szymanski PA-C [address] [facility] [employer] [address] [place] [address] [email or web address] Physician Associate Account Director Medical Oncology 06/04/22 Alicia Pires CNP [address] [place] [address] [email or web address] Nurse Practitioner Medical Oncology 06/09/22 Trish Gan MD [address] [place] [address] Obstetrics and Gynecology 07/20/24 Additional Source Comments The information contained in this document represents components of the legal health record. It is not the complete legal health record.[facility]
--- OUTSIDE RECORDS SUMMARY | 2025-10-31 13:14 | XMS_ITS | Encounter Summary ---
Author Organization [facility] Address [address] [facility] [address] [place] [address] Phone Care Team Providers Care Content Editor Name Role Phone Migdalia Dean MD Unavailable Ileana Milian MD Unavailable Cara Morrison MD Unavailable [phone] Rena Antonio MD Unavailable Jennifer SzymanskiC Unavailable doretha LexisAlicia VACUUM TESTER CANS Unavailable Name, Chele GALLEGOS Primary Care Provider [phone] Trish Gan MD Unavailable Encounter Details Date Type Department Care Team (Late st Contact Info) Description 01/12/2024 Procedure Pass [facility], [address] [address] Social History Tobacco Use Types Packs/Day Years [...] st Contact Info) Description 05/09/2025 Procedure Pass [address] [address] 11/06/2025 9:00 AM EST Office Visit [facility] [place] [facility] On[facility] Clinic at [address] [address] Migdalia Dean MD [address] [place] [address] 11/08/2025 1:15 PM EST Appointment [address] [address] Migdalia Dean MD [address] [place] [address] 12/21/2025 10:00 AM EST Appointment [facility], [facility] [address] [place] [address] Migdalia Dean MD 30 [place] [address] [email or web address] documented as of this encounter Visit Diagnoses Not on filedocumented in this encounter Additional Health Concerns Assessment Noted Time PHQ-9 Depression Total Score: 8 04/21/20 1:00 PM EDT PHQ-2 Depression Total Score: 1 04/21/20 1:00 PM EDT documented as of this encounter Care Teams Content Editor Relationship Specialty Start Date End Date Name, MD Chele [address] [place] [address] PCP - General Geriatric Psychiatry 07/10/22 Migdalia Dean MD [address] [place] [address] [email or web address] Primary Oncologist Medical Oncology 05/29/22 Ileana Milian MD [address] [place] [address] [email or web address] General Surgery 06/04/22 Cara Morrison MD [address] [place] [address] [email or web address] u Hematology and Oncology 06/04/22 Rena Antonio MD 32 [facility] [address] [place] [address] [email or web address] Radiation Oncology 06/04/22 Jennifer Szymanski PA-C 32 [facility] [address] [place] [address] [email or web address] Physician Coke Production Heater Medical Oncology 06/04/22 Alicia Pires CNP 30 [place] [address] [email or web address] Nurse Practitioner Medical Oncology 06/09/22 Trish Gan MD [address] [place] [address] Obstetrics and Gynecology 07/20/24 documented as of this encounter Additional Source Comments The information contained in this document represents components of the legal health record. It is not the complete legal health record.[facility]
--- OUTSIDE RECORDS SUMMARY | 2025-10-31 13:14 | XMS_ITS | Encounter Summary ---
Author Organization [facility] Address [address] [facility] [address] [place] [address] Phone Care Team Providers Care Sleeve Wheel Maker Name Role Phone Migdalia Dean MD Unavailable [phone] Ileana Milian MD Unavailable Cara Morrison MD Unavailable [phone] Rena Antonio MD Unavailable [phone] Jennifer SzymanskiC Unavailable doretha LexisAlicia FREIGHT ADJUSTER Unavailable Name, Chele GALLEGOS Primary Care Provider [phone] Trish Gan MD Unavailable Encounter Details Date Type Department Care Team (Late st Contact Info) Description 02/18/2023 Procedure Pass [facility], Ct Scan - [address] [address] Social History Tobacco Use Types Packs/Day Years [...] Contact Info) Description 05/09/2025 Procedure Pass [address] [address] 11/06/2025 9:00 AM EST Office Visit [facility] [place] [facility] at [address] [address] Migdalia Dean MD [address] [place] [address] 11/08/2025 1:15 PM EST Appointment [address] [address] Migdalia Dean MD [address] [place] [address] 12/21/2025 10:00 AM EST Appointment [address] [address] Migdalia Dean MD [address] [place] [address] documented as of this encounter Visit Diagnoses Not on filedocumented in this encounter Additional Health Concerns Assessment Noted Time PHQ-9 Depression Total Score: 8 04/21/20 1:00 PM EDT PHQ-2 Depression Total Score: 1 04/21/20 1:00 PM EDT documented as of this encounter Care Teams Sleeve Wheel Maker Relationship Specialty Start Date End Date Name, MD Chele [address] [place] [address] PCP - General Geriatric Psychiatry 07/10/22 Migdalia Dean MD 30 [place] [address] [email or web address] Primary Oncologist Medical Oncology 05/29/22 Ileana Milian MD [address] [place] [address] [email or web address] General Surgery 06/04/22 Cara Morrison MD [address] [address] [email or web address] u Hematology and Oncology 06/04/22 Rena Antonio MD [address] [place], [place] [address]key [address] [place] [address] [email or web address] Radiation Oncology 06/04/22 Jennifer Szymanski PA-C 32 [facility] [address] [place] [address] [email or web address] Physician Federal Mediator Medical Oncology 06/04/22 Alicia Pires CNP 30 [place] [address] [email or web address] Nurse Practitioner Medical Oncology 06/09/22 Trish Gan MD [address] [place] [address] Obstetrics and Gynecology 07/20/24 documented as of this encounter Additional Source Comments The information contained in this document represents components of the legal health record. It is not the complete legal health record.[facility]
--- OUTSIDE RECORDS SUMMARY | 2025-10-31 13:14 | XMS_ITS | Encounter Summary ---
Author Organization [facility] Address [address] [facility] [address] [place] [address] Phone Care Team Providers Care Senior Grants Officer Name Role Phone Haydee Kelly PERCUSSION TUNER Primary Care Provider U Malathi Wall MD Primary Care Provider Haydee Kelly PERCUSSION TUNER Primary Care Provider U Malathi Wall MD Primary Care Provider Migdalia Dean MD Unavailable [phone] Haydee Kelly PERCUSSION TUNER Primary Care Provider U navastonable Ileana Milian MD Unavailable Cara Morrison MD Unavailable [phone] Rena Antonio MD Unavailable Jennifer SzymanskiC Unavailable doretha Alicia Pires CNP Unavailable Chele Ackerman MD Primary Care Provider [phone] Trish Gan MD Unavailable Encounter Details Date Type Department Care Team (Late st Contact Info) Description 03/20/2022 Telephone [facility] Surgical Oncology [address] [facility], 9th Floor, [address] [place] [address] Ana Urias, RN [address] [place] [address] Social History Tobacco Use Types Packs/Day Years [...] Contact Info) Description 05/09/2025 Procedure Pass [address] [address] 11/06/2025 9:00 AM EST Office Visit [facility] [place] [facility] Oncology Clinic at [address] [address] Migdalia Dean MD [address] [place] [address] [email or web address] 11/08/2025 1:15 PM EST Appointment [address] [address] Migdalia Dean MD [address] [place] [address] 12/21/2025 10:00 AM EST Appointment [address] [address] Migdalia Dean MD [address] [place] [address] documented as of this encounter Visit Diagnoses Not on filedocumented in this encounter Additional Health Concerns Infection Onset Date Last Indicated Resolved Time CoV-Risk 07/22/2022 07/23/2022 08/03/2022 1:22 AM EDT CoV-Risk 08/21/2022 08/25/2022 08/28/2022 2:23 PM EDT COVID-19 09/07/2022 09/09/2022 09/28/2022 1:21 AM EST documented as of this encounter Care Teams Senior Grants Officer Relationship Specialty Start Date End Date Haydee Kelly NP PCP - General Family Medicine 03/20/22 04/06/22 Malathi Keys MD [address] [place] [address] [email or web address] PCP - General Family Medicine 04/07/22 04/14/22 Haydee Kelly NP PCP - General Family Medicine 04/15/22 04/23/22 Malathi Keys MD [address] [place] [address] [email or web address] PCP - General Family Medicine 04/24/22 06/03/22 Haydee Kelly NP PCP - General Family Medicine 06/04/22 07/09/22 Chele Ackerman MD [address] [place] [address] PCP - General Geriatric Psychiatry 07/10/22 Migdalia Dean MD [address] [place] [address] [email or web address] Primary Oncologist Medical Oncology 05/29/22 Ileana Milian MD [address] [place] [address] [email or web address] u General Surgery 06/04/22 Cara Morrison MD 55 [facility] [address] [place] [address] [email or web address] Hematology and Oncology 06/04/22 Rena Antonio MD 32 [facility] [address] [place] [address] Radiation Oncology 06/04/22 Jennifer Szymanski PA-C 32 [facility] [address] [place], [place] Physician Guest Experience Manager Medical Oncology 06/04/22 Alicia Pires CNP 30 [place] [address] Nurse Practitioner Medical Oncology 06/09/22 [place] [address] [place] [address] Obstetrics and Gynecology 07/20/24 documented as of this encounter Additional Source Comments The information contained in this document represents components of the legal health record. It is not the complete legal health record.[facility]
--- OUTSIDE RECORDS SUMMARY | 2025-10-31 13:14 | XMS_ITS | Encounter Summary ---
Author Organization [facility] Address [address] [facility] [address] [place] [address] Phone Care Team Providers Care Wad Blanking Press Adjuster Name Role Phone Migdalia Dean MD Unavailable Ileana Milian MD Unavailable Cara Morrison MD Unavailable [phone] Rena Antonio MD Unavailable Jennifer SzymanskiC Unavailable doretha LexisErosteri GALLARDO Unavailable NameChele MD Primary Care Provider [phone] Trish Gan MD Unavailable Encounter Details Date Type Department Care Team (Latest Contact Info) Description 09/29/2022 Transcribe Orders Virtual Department 30 [place], [place] [phone] Name, MD Chele [address] [place] [address] Cough, unspecified type (Primary Dx) Social History [...] st Contact Info) Description 05/09/2025 Procedure Pass [address] [address] 11/06/2025 9:00 AM EST Office Visit [facility] Cancer [place] [facility]emat[facility] Oncology Clinic at [address] [address] Migdalia Dean MD [address] [place] [address] [email or web address] 11/08/2025 1:15 PM EST Appointment [address] [address] Migdalia Dean MD [address] [place] [address] 12/21/2025 10:00 AM EST Appointment [address] [address] Migdalia Dean MD [address] [place] [address] documented as of this encounter Visit Diagnoses Diagnosis Cough, unspecified type- Primary documented in this encounter Additional Health Concerns Assessment Noted Time PHQ-9 Depression Total Score: 8 04/21/20 1:00 PM EDT PHQ-2 Depression Total Score: 1 04/21/20 1:00 PM EDT documented as of this encounter Care Teams Wad Blanking Press Adjuster Relationship Specialty Start Date End Date Name, MD Cehle [address] [place] [address] PCP - General Geriatric Psychiatry 07/10/22 Migdalia Dean MD [address] [place] [address] [email or web address] Primary Oncologist Medical Oncology 05/29/22 Ileana Milian MD [address] [place] [address] [email or web address] General Surgery 06/04/22 Cara Morrison MD [address] [place] [address] [email or web address] u Hematology and Oncology 06/04/22 Rena Antonio MD [address] [place], [place] [address] [place] [address] [email or web address] Radiation Oncology 06/04/22 Jennifer Szymanski PA-C [address] [place] [address] [address] [place] [address] [email or web address] Physician Loss Control Engineer Medical Oncology 06/04/22 Alicia Pires CNP [address] [place] [address] [email or web address] Nurse Practitioner Medical Oncology 06/09/22 Trish Gan MD [address] [place] [address] Obstetrics and Gynecology 07/20/24 documented as of this encounter Additional Source Comments The information contained in this document represents components of the legal health record. It is not the complete legal health record.[facility]
--- OUTSIDE RECORDS SUMMARY | 2025-10-31 13:15 | XMS_ITS | Encounter Summary ---
Author Organization [facility] Address [address] [place] [address] [place] [address] Phone Care Team Providers Care Manager Of Recruiting Name Role Phone Trey Kim MD Primary Care Provider [phone] Haydee Kelly EMBROIDERY SPECIALIST Primary Care Provider U Malathi Wall MD Primary Care Provider Haydee Kelly EMBROIDERY SPECIALIST Primary Care Provider U Malathi Wall MD Primary Care Provider Migdalia Dean MD Unavailable [phone] Haydee Kelly EMBROIDERY SPECIALIST Primary Care Provider U navailable Ileana Milian MD Unavailable Cara Morrison MD Unavailable [phone] Rena Antonio MD Unavailable [phone] Jennifer Szymanski PA-C Unavailable doretha Alicia Pires COAL MILL OPERATOR Unavailable Name, Chele GALLEGOS Primary Care Provider Trish Gan MD Unavailable Encounter Details Date Type Department Care Team (Late st Contact Info) Description 01/01/2022 Ancillary Orders [facility],Outside Imaging [address] [place], [place] [phone] System, Provider Not In, [facility] [address] [address] Social History Tobacco Use Types Packs/Day Years [...] Contact Info) Description 05/09/2025 Procedure Pass [address] [address] 11/06/2025 9:00 AM EST Office Visit [facility] Cancer [place] [facility]emat[facility] Oncology Clinic at [address] [address] Migdalia Dean MD [address] [place] [address] 11/08/2025 1:15 PM EST Appointment [address] [address] Migdalia Dean MD [address] [place] [address] 12/21/2025 10:00 AM EST Appointment [address] [address] Migdalia Dean MD [address] [place] [address] documented as of this encounter Results * [...] as of this encounter Care Teams Manager Of Recruiting Relationship Specialty Start Date End Date Trey Kim MD [address] [address] [email or web address] PCP - General 10/06/19 03/19/22 Haydee Kelly NP PCP - General Family Medicine 03/20/22 04/06/22 Malathi Keys MD [address] [place] [address] [email or web address] PCP - General Family Medicine 04/07/22 04/14/22 Haydee Kelly NP PCP - General Family Medicine 04/15/22 04/23/22 Malathi Keys MD [address] [place] [address] [email or web address] PCP - General Family Medicine 04/24/22 06/03/22 Haydee Kelly NP PCP - General Family Medicine 06/04/22 07/09/22 Chele Ackerman MD [address] [place] [address] PCP - General Geriatric Psychiatry 07/10/22 Migdalia Dean MD [address] [place] [address] [email or web address] Primary Oncologist Medical Oncology 05/29/22 Ileana Milian MD [address] [place] [address] [email or web address] General Surgery 06/04/22 Cara [place] MD [address] [place] [address] [email or web address] Hematology and Oncology 06/04/22 Rena Antonio MD [address] [facility] [address] [place] [address] [email or web address] Radiation Oncology 06/04/22 Jennifer Szymanski PA-C 32 [facility] [address] [place] [address] [email or web address] Physician Launch Check Out Medical Oncology 06/04/22 Alicia Pires CNP 30 [place] [address] [email or web address] Nurse Practitioner Medical Oncology 06/09/22 Trish Gan MD [address] [place] [address] 4 [place] [address] Obstetrics and Gynecology 07/20/24 documented as of this encounter Additional Source Comments The information contained in this document represents components of the legal health record. It is not the complete legal health record.[facility]
--- OUTSIDE RECORDS SUMMARY | 2025-10-31 13:15 | XMS_ITS | Encounter Summary ---
Author Organization [employer] Address [address] [place] [address] Care Team Providers Care Laboratory Monitor Name Role Phone Name, Chele GALLEGOS Primary Care Provider Reason for Visit * Reason Onset Date Comments Nurse Triage 07/20/2023 Encounter Details Date Type Department Care Team ([facility] st Contact Info) Description 07/20/2023 Telephone [facility] [address] [place], [place] [phone] Name, MD Chele [address] [place] [address] Nurse Triage Social History Tobacco Use Types [...] home test through drive through [facility] in [place] where Pt is located. Pt is chemo [...] documented as of this encounter Care Teams Laboratory Monitor Relationship Specialty Start Date End Date Name, MD Chele [address] [place] [address] PCP - General Family Medicine 06/23/22 documented as of this encounter
--- OUTSIDE RECORDS SUMMARY | 2025-10-31 13:15 | XMS_ITS | Encounter Summary ---
Author Organization [employer] Address [address] [facility] [address] [facility] [address] [facility] [address] 7t [place] [address] Care Team Providers Care Gang Boss Name Role Phone Name, Chele GALLEGOS Primary Care Provider [phone] Reason for Visit * Reason Onset Date Comments Dr. Kenji king 04/03/2025 Encounter Details Date Type Department Care Team ([facility] st Contact Info) Description 04/03/2025 Telephone [facility] [address] [place] [address] Jennifer Phillip, SEKOU king Social History Tobacco [...] to what to do. Reached out to lockstitch front maker however unable to connect. Please reach out to patient with instructions and/or appt time for follow up Sent to provider and lockstitch front maker DR documented in this encounter Plan of Treatment Not on file documented as of this encounter Visit Diagnoses Not on filedocumented in this encounter Additional Health Concerns Assessment Noted Time PHQ-9 Depression Total Score: 6 03/20/20 3:43 PM EDT documented as of this encounter Care Teams Gang Boss Relationship Specialty Start Date End Date Name, MD Chele [address] [place] [address] PCP - General Family Medicine 06/23/22 documented as of this encounter
--- OUTSIDE RECORDS SUMMARY | 2025-10-31 13:15 | XMS_ITS | Encounter Summary ---
Author Organization [facility] Address [address] [place] [address] [place] [address] Phone Care Team Providers Care Firewall Security Engineer Name Role Phone Trey Kim MD Primary Care Provider [phone] Haydee Kelly FOOD QUALITY TESTER Primary Care Provider U Malathi Wall MD Primary Care Provider [phone] Haydee Kelly FOOD QUALITY TESTER Primary Care Provider U Malathi Wall MD Primary Care Provider Migdalia Dean MD Unavailable [phone] Haydee Kelly FOOD QUALITY TESTER Primary Care Provider U navailable Ileana Milian MD Unavailable Cara Morrison MD Unavailable [phone] Rena Antonio MD Unavailable [phone] Jennifer Szymanski PA-C Unavailable doretha LexisErosen INSTRUCTIONAL COORDINATOR Unavailable Name, Chele GALLEGOS Primary Care Provider [phone] Trish Gan MD Unavailable Encounter Details Date Type Department Care Team (Late st Contact Info) Description 11/11/2017 Procedure Pass [facility] Endoscopy Admitting Dept Virtual Department [address] [place], [place] [id number] Social History Tobacco Use Types Packs/Day Years [...] st Contact Info) Description 05/09/2025 Procedure Pass [address] [address] 11/06/2025 9:00 AM EST Office Visit [facility] at [address] [address] Migdalia Dean MD [address] [place] [address] 11/08/2025 1:15 PM EST Appointment [address] [address] Migdalia Dean MD [address] [place] [address] 12/21/2025 10:00 AM EST Appointment [address] [address] Migdalia Dean MD [address] [place] [address] documented as of this encounter Visit Diagnoses Not on filedocumented in this encounter Additional Health Concerns Infection Onset Date Last Indicated Resolved Time CoV-Risk 07/22/2022 07/23/2022 08/03/2022 1:22 AM EDT CoV-Risk 08/21/2022 08/25/2022 08/28/2022 2:23 PM EDT COVID-19 09/07/2022 09/09/2022 09/28/2022 1:21 AM EST documented as of this encounter Care Teams Firewall Security Engineer Relationship Specialty Start Date End Date Trey Kim MD [address] [place] [address] [email or web address] PCP - General 10/06/19 03/19/22 Haydee Kelly NP PCP - General Family Medicine 03/20/22 04/06/22 Malathi Keys MD [address] [place] [address] [email or web address] PCP - General Family Medicine 04/07/22 04/14/22 Haydee Kelly NP PCP - General Family Medicine 04/15/22 04/23/22 Malathi Keys MD [address] [place] [address] [email or web address] PCP - General Family Medicine 04/24/22 06/03/22 Haydee Kelly NP PCP - General Family Medicine 06/04/22 07/09/22 Chele Ackerman MD [address] [place] [address] PCP - General Geriatric Psychiatry 07/10/22 Migdalia Dean MD [address] [place] [address] [email or web address] Primary Oncologist Medical Oncology 05/29/22 Ileana Milian MD [address] [facility], [facility] [address] [place] [address] [email or web address] General Surgery 06/04/22 Cara Morrison MD 55 [facility] [address] [address] [email or web address] Hematology and Oncology 06/04/22 Rena Antonio MD 32 [facility] [address] [place] [address] [email or web address] Radiation Oncology 06/04/22 Jennifer Szymanski PA-C [facility] [address] [place], [place] [email or web address] Physician 3D Animator Medical Oncology 06/04/22 Alicia Pires CNP [address] [place] [address] [email or web address] Nurse Practitioner Medical Oncology 06/09/22 Trihs Gan MD [address] [place] [address] Obstetrics and Gynecology 07/20/24 documented as of this encounter Additional Source Comments The information contained in this document represents components of the legal health record. It is not the complete legal health record.[facility]
--- OUTSIDE RECORDS SUMMARY | 2025-10-31 13:15 | XMS_ITS | Encounter Summary ---
Author Organization [facility] Address [address] [facility] [address] [place] [address] Phone Care Team Providers Care Credit Compliance Officer Name Role Phone Migdalia Dean MD Unavailable [phone] Ileana Milian MD Unavailable Cara Morrison MD Unavailable [phone] Rena Antonio MD Unavailable Jennifer SzymanskiC Unavailable doretha LexisAlicia PROFESSIONAL NURSING TUTOR Unavailable Name, Chele GALLEGOS Primary Care Provider [phone] Trish Gan MD Unavailable Encounter Details Date Type Department Care Team (Late st Contact Info) Description 12/08/2022 Procedure Pass [facility], [address] [address] Social History Tobacco Use Types Packs/Day Years [...] Contact Info) Description 05/09/2025 Procedure Pass [address] [address] 11/06/2025 9:00 AM EST Office Visit [facility] [place] [facility] at [address] [address] Migdalia Dean MD [address] [place] [address] 11/08/2025 1:15 PM EST Appointment [address] [address] Migdalia Dean MD [address] [place] [address] 12/21/2025 10:00 AM EST Appointment [address] [address] Migdalia Dean MD [address] [place] [address] documented as of this encounter Visit Diagnoses Not on filedocumented in this encounter Additional Health Concerns Assessment Noted Time PHQ-9 Depression Total Score: 8 04/21/20 22 1:00 PM EDT PHQ-2 Depression Total Score: 1 04/21/20 22 1:00 PM EDT documented as of this encounter Care Teams Credit Compliance Officer Relationship Specialty Start Date End Date Name, MD Chele [address] [place] [address] PCP - General Geriatric Psychiatry 07/10/22 Migdalia Dean MD [address] [place] [address] [email or web address] Primary Oncologist Medical Oncology 05/29/22 Ileana Milian MD 55 [facility], [facility] [address] [place] [address] [email or web address] General Surgery 06/04/22 Cara Morrison MD [address] [address] [email or web address] Hematology and Oncology 06/04/22 Rena Antonio MD [facility] [address] [place] [address] Radiation Oncology 06/04/22 Jennifer Szymanski PA-C 32 [facility] [address] [place], [place] [email or web address] Physician Jackhammer Operator Medical Oncology 06/04/22 Alicia Pires CNP 30 [place] [address] [email or web address] Nurse Practitioner Medical Oncology 06/09/22 Trish Gan MD [address] [place] [address] Obstetrics and Gynecology 07/20/24 documented as of this encounter Additional Source Comments The information contained in this document represents components of the legal health record. It is not the complete legal health record.[facility]
--- OUTSIDE RECORDS SUMMARY | 2025-10-31 13:15 | XMS_ITS | Encounter Summary ---
Author Organization [facility] Address [address] [facility] [address] [place] [address] Phone Care Team Providers Care Building Serviceman Name Role Phone Migdalia Dean MD Unavailable Ileana Milian MD Unavailable Cara Morrison MD Unavailable [phone] Rena Antonio MD Unavailable Jennifer SzymanskiC Unavailable doretha LexisAlicia IT DESKTOP SUPPORT TECHNICIAN Unavailable Name, Chele GALLEGOS Primary Care Provider [phone] Trish Gan MD Unavailable Encounter Details Date Type Department Care Team (Late st Contact Info) Description 11/03/2024 Procedure Pass [facility], [address] [address] Social History Tobacco Use Types Packs/Day Years [...] st Contact Info) Description 05/09/2025 Procedure Pass [address] [address] 11/06/2025 9:00 AM EST Office Visit [facility] [place] [facility] Oncology Clinic at [address] [address] Migdalia Dean MD [address] [place] [address] 11/08/2025 1:15 PM EST Appointment [address] [address] Migdalia Dean MD [address] [place] [address] 12/21/2025 10:00 AM EST Appointment [facility], [facility] 30 [place] [address] Migdalia Dean MD [address] [place] [address] [email or web address] documented as of this encounter Visit Diagnoses Not on filedocumented in this encounter Additional Health Concerns Assessment Noted Time PHQ-9 Depression Total Score: 8 04/21/20 1:00 PM EDT PHQ-2 Depression Total Score: 1 04/21/20 1:00 PM EDT documented as of this encounter Care Teams Building Serviceman Relationship Specialty Start Date End Date Name, MD Chele [address] [place] [address] PCP - General Geriatric Psychiatry 07/10/22 Migdalia Dean MD [address] [place] [address] [email or web address] Primary Oncologist Medical Oncology 05/29/22 Ileana Milian MD [address] [place] [address] [email or web address] General Surgery 06/04/22 Cara Morrison MD [address] [place] [address] [email or web address] u Hematology and Oncology 06/04/22 Rena Antonio MD 32 [facility] [address] [place] [address] [email or web address] Radiation Oncology 06/04/22 Jennifer Szymanski PA-C 32 [facility] [address] [place] [address] [email or web address] Physician Administrator Health Care Facility Medical Oncology 06/04/22 Alicia Pires CNP 30 [place] [address] [email or web address] Nurse Practitioner Medical Oncology 06/09/22 Trish Gan MD [address] [place] [address] Obstetrics and Gynecology 07/20/24 documented as of this encounter Additional Source Comments The information contained in this document represents components of the legal health record. It is not the complete legal health record.[facility]
--- OUTSIDE RECORDS SUMMARY | 2025-10-31 13:15 | XMS_ITS | Encounter Summary ---
Author Organization [facility] Address [address] [facility] [address] [place] [address] Phone Care Team Providers Care Camp Assistant Name Role Phone Trey Kim MD Primary Care Provider [phone] Haydee Kelly GERIATRIC NURSE Primary Care Provider U Malathi Wall MD Primary Care Provider Haydee Kelly GERIATRIC NURSE Primary Care Provider U navailable Malathi Keys MD Primary Care Provider Migdalia Dean MD Unavailable aHydee Kelly GERIATRIC NURSE Primary Care Provider U navailable Ileana Milian MD Unavailable Cara Morrison MD Unavailable [phone] Rena Antonio MD Unavailable Jennifer Szymanski PA-C Unavailable doretha LexisAlicia DIALYSIS RN Unavailable Name, Chele GALLEGOS Primary Care Provider [phone] Trish Gan MD Unavailable Encounter Details Date Type Department Care Team (Latest Contact Info) Description 07/29/2021 Transcribe Orders Virtual Department 30 [place], [place] [phone] Meena Mariee MD 15 [facility] [address] [place], [place] [phone] Breast screening (Primary Dx) Social History Tobacco Use Types Packs/Day Years Used Date Smoking Tobacco: Former Comments Unknown Sex and Gender Information Value Date Recorded Sex Assigned at Female 10/06/2019 3:45 PM EST Legal Sex Female 1:51 PM EDT Gender Identity Female 03/20/2022 1:08 PM EDT Sexual Orientation Straight 03/20/2022 1 :08 PM EDT documented as of this encounter Plan of Treatment Upcoming Encounters Date Type Department Care Team (Late st Contact Info) Description 05/09/2025 Procedure Pass [address] [address] 11/06/2025 9:00 AM EST Office Visit [facility] [place] [facility]emat[facility] Oncology Clinic at [address] [address] Migdalia Dean MD [address] [place] [address] 11/08/2025 1:15 PM EST Appointment [address] [address] Migdalia Dean MD [address] [place] [address] 12/21/2025 10:00 AM EST Appointment [address] [address] Migdalia Dean MD [address] [place] [address] documented as of this encounter Visit Diagnoses Diagnosis Breast screening- Primary Breast screening, unspecified documented in this encounter Additional Health Concerns Infection Onset Date Last Indicated Resolved Time CoV-Risk 07/22/2022 07/23/2022 08/03/2022 1:22 AM EDT CoV-Risk 08/21/2022 08/25/2022 08/28/2022 2:23 PM EDT COVID-19 09/07/2022 09/09/2022 09/28/2022 1:21 AM EST documented as of this encounter Care Teams Camp Assistant Relationship Specialty Start Date End Date Tery Kim MD [address] [facility] 212 [place] [address] [email or web address] PCP - General 10/06/19 03/19/22 Haydee Kelly NP PCP - General Family Medicine 03/20/22 04/06/22 Malathi Keys MD [address] [place] [address] [email or web address] PCP - General Family Medicine 04/07/22 04/14/22 Haydee Kelly NP PCP - General Family Medicine 04/15/22 04/23/22 Malathi Keys MD [address] [place] [address] PCP - General Family Medicine 04/24/22 06/03/22 Haydee Kelly NP PCP - General Family Medicine 06/04/22 07/09/22 Chele Ackerman MD [address] [place] [address] PCP - General Geriatric Psychiatry 07/10/22 Migdalia Dean MD [address] [place] [address] [email or web address] Primary Oncologist Medical Oncology 05/29/22 Ileana [place]ian MD 55 [facility] [address] [place] [address] [email or web address] General Surgery 06/04/22 Cara Morrison MD 55 [facility] 7[address] [place] [address] [email or web address] Hematology and Oncology 06/04/22 Rena Antonio MD 32 [facility] [address] 3 [place] [address] [email or web address] Radiation Oncology 06/04/22 Jennifer Szymanski PA-C 32 [facility] [address] [place], [place] [email or web address] Physician Retail Shift Leader Medical Oncology 06/04/22 Alicia Pires CNP [address] [place] [address] [email or web address] Nurse Practitioner Medical Oncology 06/09/22 Trish Gan MD [address] [place] [address] Obstetrics and Gynecology 07/20/24 documented as of this encounter Additional Source Comments The information contained in this document represents components of the legal health record. It is not the complete legal health record.[facility]
--- OUTSIDE RECORDS SUMMARY | 2025-10-31 13:15 | XMS_ITS | Encounter Summary ---
Author Organization [employer] Address [address] [facility] [address] 7[address] [place] [address] Care Team Providers Care Production Maintenance Technician Name Role Phone Name, Chele GALLEGOS Primary Care Provider [phone] Encounter Details Date Type Department Care Team ([facility] st Contact Info) Description 10/07/2023 Telephone [facility] MEDICINE 230 [place], [place] [phone] Name, MD Chele [address] [place] [address] Social History Tobacco Use Types Packs/Day Years [...] documented as of this encounter Care Teams Production Maintenance Technician Relationship Specialty Start Date End Date Name, MD Chele 230 [place] [address] PCP - General Family Medicine 06/23/22 documented as of this encounter
--- OUTSIDE RECORDS SUMMARY | 2025-10-31 13:15 | XMS_ITS | Encounter Summary ---
Author Organization [facility] Address [address] [facility] [address] [place] [address] Phone Care Team Providers Care Server Programmer Name Role Phone Migdalia Dean MD Unavailable [phone] Ileana Milian MD Unavailable Cara Morrison MD Unavailable [phone] Rena Antonio MD Unavailable [phone] Jennifer SzymanskiC Unavailable doretha LexisAlicia FIRE ENGINE PUMP OPERATOR Unavailable Name, Chele GALLEGOS Primary Care Provider [phone] Trish Gan MD Unavailable Encounter Details Date Type Department Care Team (Late st Contact Info) Description 03/10/2023 Procedure Pass [facility], Ct Scan - [address] [address] Social History Tobacco Use Types Packs/Day Years [...] Contact Info) Description 05/09/2025 Procedure Pass [address] [address] 11/06/2025 9:00 AM EST Office Visit [facility] [place] [facility] Oncology Clinic at [address] [address] Migdalia Dean MD [address] [place] [address] 11/08/2025 1:15 PM EST Appointment [address] [address] Migdalia Dean MD [address] [place] [address] [email or web address] 12/21/2025 10:00 AM EST Appointment [address] [address] Migdalia Dean MD [address] [place] [address] [email or web address] documented as of this encounter Visit Diagnoses Not on filedocumented in this encounter Additional Health Concerns Assessment Noted Time PHQ-9 Depression Total Score: 8 04/21/20 22 1:00 PM EDT PHQ-2 Depression Total Score: 1 04/21/20 1:00 PM EDT documented as of this encounter Care Teams Server Programmer Relationship Specialty Start Date End Date Name, MD Chele [address] [place] [address] PCP - General Geriatric Psychiatry 07/10/22 Mgidalia Dean MD [address] [place] [address] [email or web address] Primary Oncologist Medical Oncology 05/29/22 Ileana Milian MD [address] [place] [address] [email or web address] Surgery 06/04/22 Cara Morrison MD [address] [place] [address] [email or web address] Hematology and Oncology 06/04/22 Rena Antonio MD [address] [place] [address] [address] [place] [address] [email or web address] Radiation Oncology 06/04/22 Jennifer Szymanski PA-C [address] [place] [address] [address] [place] [address] [email or web address] Physician Communications Director Medical Oncology 06/04/22 Alicia Pires CNP [address] [place] [address] [email or web address] Nurse Practitioner Medical Oncology 06/09/22 Trish Gan MD [address] [place] [address] Obstetrics and Gynecology 07/20/24 documented as of this encounter Additional Source Comments The information contained in this document represents components of the legal health record. It is not the complete legal health record.[facility]
--- OUTSIDE RECORDS SUMMARY | 2025-10-31 13:15 | XMS_ITS | Encounter Summary ---
Author Organization [employer] Address [address] [place] [address] 7t [place] [address] Care Team Providers Care Campaign Marketing Manager Name Role Phone Name, Chele GALLEGOS Primary Care Provider [phone] Encounter Details Date Type Department Care Team ([facility] st Contact Info) Description 11/06/2022 Orders Only [facility] 230 [place], [place] [phone] Name, MD Chele 230 [place] [address] Social History Tobacco Use Types Packs/Day Years [...] on filedocumented in this encounter Care Teams Campaign Marketing Manager Relationship Specialty Start Date End Date Name, MD Chele [address] [place] [address] [phone] PCP - General Family Medicine 06/23/22 documented as of this encounter
--- OUTSIDE RECORDS SUMMARY | 2025-10-31 13:15 | XMS_ITS | Encounter Summary ---
Author Organization [employer] Address [address] [facility] [address] 7t [place] [address] Care Team Providers Care Image Editor Name Role Phone Name, Chele GALLEGOS Primary Care Provider [phone] Reason for Visit * Reason Onset Date Comments call back 02/23/2023 Encounter Details Date Type Department Care Team ([facility] st Contact Info) Description 02/23/2023 Telephone [facility] MEDICINE 230 [place], [place] [phone] Name, MD Chele 230 [place] [address] call back Social History Tobacco Use Types [...] PM EDT documented as of this encounter Miscellaneous Notes * Telephone Encounter - Tawnya Kang RN - 02/23/2023 4:36 PM EDT PCP called Dr Jaramillo as requested. * Telephone Encounter - Dakota Jitendra - 02/23/2023 3:23 PM EDT Tc from Dr Jaramillo with general [facility] requesting a call back from PCP regarding pt. Please contact Dr Jaramillo at [phone] documented in this encounter Plan of Treatment Not on file documented as of this encounter Visit Diagnoses Not on filedocumented in this encounter Additional Health Concerns Assessment Noted Time PHQ-9 Depression Total Score: 0 02/24/20 3:56 PM EDT documented as of this encounter Care Teams Image Editor Relationship Specialty Start Date End Date Name, MD Chele 230 [place] [address] PCP - General Family Medicine 06/23/22 documented as of this encounter
--- OUTSIDE RECORDS SUMMARY | 2025-10-31 13:15 | XMS_ITS | Encounter Summary ---
Author Organization [employer] Address [address] [place] [address] Care Team Providers Care [employer] Utility Worker Name Role Phone Name, Chele GALLEGOS Primary Care Provider [phone] Reason for Visit * Reason Onset Date Comments Appointment Request 06/22/2023 Encounter Details Date Type Department Care Team ([facility] Contact Info) Description 06/22/2023 Telephone [facility] [address], [place] [id number] Name, MD Chele [address] [place] [address] Appointment Request Social History Tobacco Use Types [...] @ 9:30 am. Please contact pt at [phone] documented in this encounter Plan of Treatment Not on file documented as of this encounter Visit Diagnoses Not on filedocumented in this encounter Additional Health Concerns Assessment Noted Time PHQ-9 Depression Total Score: 0 02/24/20 23 3:56 PM EDT documented as of this encounter Care Teams [employer] Utility Worker Relationship Specialty Start Date End Date Name, MD Chele [address] [place] [address] PCP - General Family Medicine 06/23/22 documented as of this encounter
== END 2025-10-31 11:31 | disposition home or self-care (01) ==
LOC: HO.HHCL 11:30
PROVIDERS: PCP Internal Medicine Geriatric Medicine; Visit Provider Internal Medicine Geriatric Medicine
DX: R07.89 Other chest pain (principal)
CPT/HCPCS: 71046

== ENCOUNTER → 2025-10-31 11:48 | Outpatient (BNV) | payer OTHER, SELFPAY | PROVIDERS: PCP Internal Medicine Geriatric Medicine; Visit Provider Radiology Diagnostic Radiology | DX: J94.8 Other specified pleural conditions (principal) | CPT/HCPCS: 71046 ==